=== PATIENT | female | born 1965 ===

== ENCOUNTER → 2020-09-28 09:06 | Outpatient (BNVA) | payer MEDICAID, SELFPAY | PROVIDERS: PCP Nurse Practitioner Primary Care; Visit Provider Internal Medicine Gastroenterology ==

== ENCOUNTER 2020-10-27 17:57 | Inpatient (IN) | payer OTHER, MEDICAID, SELFPAY ==
--- NOTE | ~2020-10-27 | CT_ITS ---
EXAMINATION: CT HEAD WITHOUT CONTRAST CLINICAL INFORMATION: Altered mental status COMPARISON: Brain MRI of 02/06/2020, head CT scan of 02/01/2020, 07/22/2019, 05/09/2019 TECHNIQUE: Contiguous axial imaging was performed from the skull base to vertex without intravenous administration of contrast. This CT examination was performed using dose optimization techniques as appropriate, variously including the following: *Automated exposure control *Adjustment of mA and/or kV according to patient size (this includes techniques or standardized protocols for targeted exams where dose is matched to indication/reason for exam; i.e. extremities or head) *Use of iterative reconstruction technique DLP: 923 mGy-cm FINDINGS: There is no evidence of acute intracranial hemorrhage or territorial infarction. No abnormal mass effect or midline shift is seen. Kaur to white matter differentiation is well preserved. No extra-axial fluid collections are identified. The ventricles are normal in size. There is probably mild cerebral atrophy with prominence of the extra-axial CSF spaces, similar to previous studies. There is no abnormal attenuation within the brain parenchyma. The osseous structures are normal. Calcified soft tissue lesions in the subgaleal soft tissues at the vertex on the right are again noted with the larger one measuring 1.8 cm, again likely representing calcifying epidermal inclusion cysts.. The mastoid air cells and visualized portions of the paranasal sinuses are well aerated. CT/CT head/brain wo con IMPRESSION: No acute intracranial pathology. No significant interval change is noted compared to last CT.
[2020-10-27 18:10] VITALS: BP 150/105; PULSE 109; RESP 18; TEMP 37; O2SAT 98; BMI 41.0
--- NOTE | 2020-10-27 19:08 | ED_ITS ---
HPI - Weakness General Chief complaint: Weakness Stated complaint: weakness Time Seen by Provider: 10/27/20 18:06 Source: patient and family Mode of arrival: ambulatory Limitations: no limitations History of Present Illness MD Complaint: generalized weakness (sleeping all day, withdrawn) Onset (ago): week(s) (3) Duration: progressively worsening Location: generalized Severity: severe Relieving factors: none Exacerbating factors: none Context: other ( denies life stressors or acute event 3 weeks ago to trigger these events) Associated symptoms: loss of appetite and other (depressed, tearful) Related Data Home Medications Medication Instructions Recorded Confirmed albuterol sulfate [ProAir HFA] 2 puff INHALATION QID 10/27/20 10/27/20 alcohol swabs [Alcohol Prep Pads] 1 pledget TOPICAL BID 10/27/20 10/27/20 aspirin 1 tab PO BEDTIME 10/27/20 10/27/20 blood sugar diagnostic [FreeStyle 10/27/20 10/27/20 Lite Strips] clonazepam 1 tab PO BID 10/27/20 10/27/20 duloxetine 1 cap PO QAM 10/27/20 10/27/20 gabapentin 2 cap PO TID 10/27/20 10/27/20 glipizide 1 tab PO QAM 10/27/20 10/27/20 haloperidol 1 tab PO BID 10/27/20 10/27/20 insulin lispro protamin-lispro 50 unit SUBCUT BID 10/27/20 10/27/20 [Humalog Mix 75-25 KwikPen] lancets [TRUEplus Lancets] 10/27/20 10/27/20 lisinopril-hydrochlorothiazide 1 tab PO QAM 10/27/20 10/27/20 metformin 2 tab PO BID 10/27/20 10/27/20 pen needle, diabetic [Pentips] 10/27/20 10/27/20 rosuvastatin 1 tab PO QPM 10/27/20 10/27/20 topiramate 1 tab PO BID 10/27/20 10/27/20 Allergies Allergy/AdvReac Type Severity Reaction Status Date / Time No Known Allergies Allergy Verified 09/28/20 09:08 Review of Systems Review of Systems: ROS unable to be obtained due to patient not talking information gathered from [facility] Past Medical History Source: obtained from family Medical History (Updated 10/27/20 @ 21:41 by Stacey Moseley DO) Asthma Bipolar 1 disorder Depression Diabetes GERD (gastroesophageal reflux disease) Hepatitis HTN (hypertension) Sleep apnea Surgical History (Updated 10/27/20 @ 19:44 by Stacey Moseley DO) History of section Social History Social History (Updated 10/27/20 @ 19:44 by Stacey Moseley DO) Alcohol intake: never Smoking Status: Never smoker Use of substances other than those prescribed or required for medical reasons: No Advance Directives: No Advance Directives Information Provided: Yes Physical Exam Vital Signs: Vital Signs: Last Vital Signs Temp 98.6 F 10/27/20 18:10 Pulse 97 10/27/20 22:00 Resp 16 10/27/20 22:00 BP 112/57 L 10/27/20 22:00 Pulse Ox 97 10/27/20 22:00 Body Mass Index 41.0 Appearance: Alert. Tracks with eyes, grabs both hands, crying Eyes: Pupils equal, round and reactive to light. Tracks objects ENT: Pharynx normal. Neck: Normal inspection. Neck supple. CVS: Normal heart rate and rhythm. Pulses normal. Respiratory: No respiratory distress. Breath sounds normal. Abdomen: Soft and nontender. Obese Skin: Skin warm and dry. Normal skin color. Normal skin turgor. Extremities: No lower extremity edema. No calf ttp Neuro: Alert. Nonverbal No motor deficit. No sensory deficit. Psych: flat affect, withdrawn tearful Course Course Course Narrative: medically cleared for [facility] all labs normal - will continue to refer to [facility] patient admits severe depression after her son bought a motorcycle as she is worried he is now going to signed out pending [facility] evaluation Patient placed in physician observation at 1149pm. The indication for observation is that the patient needs to be evaluated for possible inpatient psychiatry given her degree of depression. At this time the patient is well dev eloped well nourished, lungs clear, CV RRR, abd nontender, neuro is intact. MDM - Weakness MDM Narrative Medical decision making narrative: 55 yo female with depression, bipolar disorder, sleep apnea, DM, asthma here with weakness x 3 weeks seems almost catatonic at times she is tracking with her eyes, she is tearful when asked if she is depressed, no focal deficits has been going on for 3 weeks at this time will need labs, CT head for mass, possible consult to N/CARE team if medically cleared Lab Data Result diagrams: 10/27/20 19:33 10/27/20 19:33 Labs: Lab Results 10/27/20 10/27/20 10/27/20 Range/Units 19:33 19:33 19:33 WBC 11.7 H (4.8-10.8) X10*3/uL RBC 5.26 (4.20-5.50) X10*6/uL Hgb 15.7 (12.0-16.0) g/dl Hct 45.7 (37-47) % MCV 86.9 (80-98) fL MCH 29.8 (27.0-33.0) pg MCHC 34.4 (31.0-35.0) g/dl RDW 12.3 (11.0-16.0) % Plt Count 228 (160-400) X10*3/uL MPV 11.4 (9.4-12.3) fL Immature Gran % (Auto) Cancelled Neut % (Auto) Cancelled Lymph % (Auto) Cancelled [place] % (Auto) Cancelled Eos % (Auto) Cancelled Baso % (Auto) Cancelled Lymph # (Auto) Cancelled [place] # (Auto) Cancelled Eos # (Auto) Cancelled Baso # (Auto) Cancelled Abs Immat Gran (auto) Cancelled Absolute Neuts (auto) Cancelled Absolute Nucleated RBC 0.000 (0.0-0.012) X10*3/uL Nucleated RBC % (auto) 0.0 (0.0-0.2) /100WBC Neutrophils % (Manual) 48 (45-73) % Band Neutrophils % 1 L (3-5) % Lymphocytes % (Manual) 37 (20-40) % Atypical Lymphs % (Man) 9 H (0-6) % Monocytes % (Manual) 4 (2-11) % Eosinophils % (Manual) 1 (0-4) % Abs Neuts (Manual) 5.7 (2.2-7.9) X10*3/uL Lymphocytes # (Manual) 4.3 (0.6-4.8) X10*3/uL Atyp Lymphs # (Manual) 1.1 x10*3/uL Monocytes # (Manual) 0.5 (0.0-1.2) X10*3/uL Eosinophils # (Manual) 0.1 (0.0-0.8) X10*3/UL Toxic Vacuolation PRESENT Platelet Estimate NORMAL (NORMAL) Plt Morphology Comment NORMAL RBC Morphology NORMAL Smear Tech's Comments MANUAL DIFF Hold Blue Top SEE NOTE VBG pH (7.32-7.43) VBG pCO2 mmHg VBG pO2 mmHg VBG HCO3 (22-26) mmol/L VBG O2 Saturation % VBG Base Excess mmol/L Sodium (135-145) mmol/L Potassium (3.3-5.1) mmol/L Chloride (96-108) mmol/L Carbon Dioxide (22-29) mmol/L Anion Gap (12-20) BUN (9-16) mg/dL Creatinine (0.5-1.4) mg/dL Estim Creat Clear Calc Estimated GFR Random Glucose (60-115) mg/dL Calcium (8.4-10.2) mg/dL Magnesium (1.6-2.6) mg/dL Total Bilirubin (0.0-1.0) mg/dL Direct Bilirubin (0.0-0.5) mg/dL AST (5-31) U/L ALT (0-31) U/L Alkaline Phosphatase (39-117) U/L Ammonia (13-55) umol/L Total Protein (6.5-8.0) g/dL Albumin (3.5-5.0) g/dL Lipase (8-78) U/L TSH (0.32-4.0) uIU/mL Thyroxine (T4) 11.7 (4.5-12.0) ug/dL Urine Color Urine Appearance Urine pH (5.0-8.0) Ur Specific [place] (1.005-1.025) Urine Protein (NEG-TRACE) MG/DL Urine Glucose (UA) (NEG) MG/DL Urine Ketones (NEG) MG/DL Urine Blood (NEG) Urine Nitrite (NEG) Ur Leukocyte Esterase (NEG) Valproic Acid (50.0-100.0) mcg/mL COVID-19 (RADHA) (Negative) COVID-19 Clin Com 10/27/20 10/27/20 10/27/20 Range/Units 19:33 19:35 19:36 WBC (4.8-10.8) X10*3/uL RBC (4.20-5.50) X10*6/uL Hgb (12.0-16.0) g/dl Hct (37-47) % MCV (80-98) fL MCH (27.0-33.0) pg MCHC (31.0-35.0) g/dl RDW (11.0-16.0) % Plt Count (160-400) X10*3/uL MPV (9.4-12.3) fL Immature Gran % (Auto) Neut % (Auto) Lymph % (Auto) [place] % (Auto) Eos % (Auto) Baso % (Auto) Lymph # (Auto) [place] # (Auto) Eos # (Auto) Baso # (Auto) Abs Immat Gran (auto) Absolute Neuts (auto) Absolute Nucleated RBC (0.0-0.012) X10*3/uL Nucleated RBC % (auto) (0.0-0.2) /100WBC Neutrophils % (Manual) (45-73) % Band Neutrophils % (3-5) % Lymphocytes % (Manual) (20-40) % Atypical Lymphs % (Man) (0-6) % Monocytes % (Manual) (2-11) % Eosinophils % (Manual) (0-4) % Abs Neuts (Manual) (2.2-7.9) X10*3/uL Lymphocytes # (Manual) (0.6-4.8) X10*3/uL Atyp Lymphs # (Manual) x10*3/uL Monocytes # (Manual) (0.0-1.2) X10*3/uL Eosinophils # (Manual) (0.0-0.8) X10*3/UL Toxic Vacuolation Platelet Estimate (NORMAL) Plt Morphology Comment RBC Morphology Smear Tech's Comments Hold Blue Top VBG pH (7.32-7.43) VBG pCO2 mmHg VBG pO2 mmHg VBG HCO3 (22-26) mmol/L VBG O2 Saturation % VBG Base Excess mmol/L Sodium 137 (135-145) mmol/L Potassium 3.6 (3.3-5.1) mmol/L Chloride 99 (96-108) mmol/L Carbon Dioxide 22 (22-29) mmol/L Anion Gap 20 (12-20) BUN 15 (9-16) mg/dL Creatinine 0.86 (0.5-1.4) mg/dL Estim Creat Clear Calc 100.9 Estimated GFR > 60 Random Glucose 126 H (60-115) mg/dL Calcium 10.1 (8.4-10.2) mg/dL Magnesium 2.2 (1.6-2.6) mg/dL Total Bilirubin 0.5 (0.0-1.0) mg/dL Direct Bilirubin 0.2 (0.0-0.5) mg/dL AST 20 (5-31) U/L ALT 16 (0-31) U/L Alkaline Phosphatase 86 (39-117) U/L Ammonia (13-55) umol/L Total Protein 8.4 H (6.5-8.0) g/dL Albumin 4.6 (3.5-5.0) g/dL Lipase 48 (8-78) U/L TSH 2.60 (0.32-4.0) uIU/mL Thyroxine (T4) (4.5-12.0) ug/dL Urine Color Urine Appearance Urine pH (5.0-8.0) Ur Specific [place] (1.005-1.025) Urine Protein (NEG-TRACE) MG/DL Urine Glucose (UA) (NEG) MG/DL Urine Ketones (NEG) MG/DL Urine Blood (NEG) Urine Nitrite (NEG) Ur Leukocyte Esterase (NEG) Valproic Acid 94.7 (50.0-100.0) mcg/mL COVID-19 (RADHA) Negative (Negative) COVID-19 Clin Com See Note 10/27/20 10/27/20 10/27/20 Range/Units 21:54 22:41 22:43 WBC (4.8-10.8) X10*3/uL RBC (4.20-5.50) X10*6/uL Hgb (12.0-16.0) g/dl Hct (37-47) % MCV (80-98) fL MCH (27.0-33.0) pg MCHC (31.0-35.0) g/dl RDW (11.0-16.0) % Plt Count (160-400) X10*3/uL MPV (9.4-12.3) fL Immature Gran % (Auto) Neut % (Auto) Lymph % (Auto) [place] % (Auto) Eos % (Auto) Baso % (Auto) Lymph # (Auto) [place] # (Auto) Eos # (Auto) Baso # (Auto) Abs Immat Gran (auto) Absolute Neuts (auto) Absolute Nucleated RBC (0.0-0.012) X10*3/uL Nucleated RBC % (auto) (0.0-0.2) /100WBC Neutrophils % (Manual) (45-73) % Band Neutrophils % (3-5) % Lymphocytes % (Manual) (20-40) % Atypical Lymphs % (Man) (0-6) % Monocytes % (Manual) (2-11) % Eosinophils % (Manual) (0-4) % Abs Neuts (Manual) (2.2-7.9) X10*3/uL Lymphocytes # (Manual) (0.6-4.8) X10*3/uL Atyp Lymphs # (Manual) x10*3/uL Monocytes # (Manual) (0.0-1.2) X10*3/uL Eosinophils # (Manual) (0.0-0.8) X10*3/UL Toxic Vacuolation Platelet Estimate (NORMAL) Plt Morphology Comment RBC Morphology Smear Tech's Comments Hold Blue Top VBG pH 7.42 (7.32-7.43) VBG pCO2 36 mmHg VBG pO2 65 mmHg VBG HCO3 23 (22-26) mmol/L VBG O2 Saturation 92.0 % VBG Base Excess 0.0 mmol/L Sodium (135-145) mmol/L Potassium (3.3-5.1) mmol/L Chloride (96-108) mmol/L Carbon Dioxide (22-29) mmol/L Anion Gap (12-20) BUN (9-16) mg/dL Creatinine (0.5-1.4) mg/dL Estim Creat Clear Calc Estimated GFR Random Glucose (60-115) mg/dL Calcium (8.4-10.2) mg/dL Magnesium (1.6-2.6) mg/dL Total Bilirubin (0.0-1.0) mg/dL Direct Bilirubin (0.0-0.5) mg/dL AST (5-31) U/L ALT (0-31) U/L Alkaline Phosphatase (39-117) U/L Ammonia 48 (13-55) umol/L Total Protein (6.5-8.0) g/dL Albumin (3.5-5.0) g/dL Lipase (8-78) U/L TSH (0.32-4.0) uIU/mL Thyroxine (T4) (4.5-12.0) ug/dL Urine Color YELLOW Urine Appearance CLEAR Urine pH 6.0 (5.0-8.0) Ur Specific [place] 1.025 (1.005-1.025) Urine Protein TRACE (NEG-TRACE) MG/DL Urine Glucose (UA) NEG (NEG) MG/DL Urine Ketones 5 (NEG) MG/DL Urine Blood NEG (NEG) Urine Nitrite NEG (NEG) Ur Leukocyte Esterase NEG (NEG) Valproic Acid (50.0-100.0) mcg/mL COVID-19 (RADHA) (Negative) COVID-19 Clin Com ECG Data Attestation: I personally reviewed and interpreted this ECG as follows: ECG interpretation date: 10/27/20 ECG interpretation time: 19:33 Interpretation: Rate: 102 Rhythm: sinus tachycardia [place]: normal Normal P waves. Normal OMID. Normal QRS complex. ST T wave : no RANDY, nonspecific qTC: normal prior studies: no acute ischemia The study has been interpreted contemporaneously by me. . Discharge Plan Discharge Clinical Impression: Depression Qualifiers: Depression Type: other depression Qualified Code(s): F32.89 - Other specified depressive episodes Prescriptions: No Action metformin 500 mg tablet 2 tab PO BID RF: 0 glipizide 10 mg tablet extended release 24hr 1 tab PO QAM RF: 0 clonazepam 1 mg tablet 1 tab PO BID RF: 0 (DME) FreeStyle Lite Strips Strip MISCELLANEOUS TID RF: 0 aspirin 81 mg tablet,delayed release (DR/EC) 1 tab PO BEDTIME RF: 0 lisinopril-hydrochlorothiazide 20-25 mg tablet 1 tab PO QAM RF: 0 alcohol swabs [Alcohol Prep Pads] Pads, Medicated 1 pledget topical BID RF: 0 gabapentin 100 mg capsule 2 cap PO TID RF: 0 albuterol sulfate [ProAir HFA] 90 mcg/actuation HFA aerosol inhaler 2 puff inhalation QID RF: 0 haloperidol 2 mg tablet 1 tab PO BID RF: 0 insulin lispro protamin-lispro [Humalog Mix 75-25 KwikPen] 100 unit/mL (75-25) insulin pen 50 unit subcut BID RF: 0 rosuvastatin 5 mg tablet 1 tab PO QPM RF: 0 topiramate 50 mg tablet 1 tab PO BID RF: 0 duloxetine 60 mg capsule,delayed release(DR/EC) 1 cap PO QAM RF: 0 (DME) pen needle, diabetic [Pentips] 32 gauge x 5/32 needle MISCELLANEOUS BID RF: 0 (DME) lancets [TRUEplus Lancets] 33 gauge misc MISCELLANEOUS TID RF: 0
--- NOTE | 2020-10-27 19:09 | ECG_ITS ---
Test Reason : WEAKNESS Blood Pressure : / mmHG Vent. Rate : 102 BPM Atrial Rate : 102 BPM P-R Int : 144 ms QRS Dur : 070 ms QT Int : 344 ms P-R-T Axes : 028 013 -08 degrees QTc Int : 448 ms Sinus tachycardia Nonspecific T wave abnormality Abnormal ECG When compared with ECG of 01-FEB-2020 12:46, No significant change was found Referred By: Stacey Moseley Electronically Signed By:JOSEPH YOO MD
[2020-10-27 19:40] LABS: Hematocrit 45.7 % (37-47); Hemoglobin 15.7 g/dl (12.0-16.0); Mean Corpuscular HGB Conc 34.4 g/dl (31.0-35.0); Mean Corpuscular Hemoglobin 29.8 pg (27.0-33.0); Mean Corpuscular Volume 86.9 fL (80-98); Mean Platelet Volume 11.4 fL (9.4-12.3); Platelet Count 228 X10*3/uL (160-400); Red Blood Count 5.26 X10*6/uL (4.20-5.50); Red Cell Distribution Width 12.3 % (11.0-16.0); White Blood Count 11.7 X10*3/uL (4.8-10.8)
[2020-10-27 20:02] LABS: Alanine Aminotransferase 16 U/L (0-31); Albumin Level 4.6 g/dL (3.5-5.0); Alkaline Phosphatase 86 U/L (39-117); Anion Gap 20 (12-20); Aspartate Amino Transferase 20 U/L (5-31); Bilirubin Direct 0.2 mg/dL (0.0-0.5); Bilirubin Total 0.5 mg/dL (0.0-1.0); Blood Urea Nitrogen 15 mg/dL (9-16); Calcium 10.1 mg/dL (8.4-10.2); Carbon Dioxide 22 mmol/L (22-29); Chloride 99 mmol/L (96-108); Creatinine Clr Calc Pharmacy 100.9; Estimated Glomerular Filt Rate > 60; Glucose Random 126 mg/dL (60-115); Lipase 48 U/L (8-78); Magnesium 2.2 mg/dL (1.6-2.6); Potassium 3.6 mmol/L (3.3-5.1); Sodium 137 mmol/L (135-145); Total Protein 8.4 g/dL (6.5-8.0)
[2020-10-27 20:04] LABS: COVID-19 Test Negative (Negative); IDNOW Serial# 9DD0AD1C
[2020-10-27 20:15] LABS: SLIDE REVIEW MANUAL DIFF
[2020-10-27 20:19] VITALS: BP 128/85; PULSE 100; RESP 16; O2SAT 97
[2020-10-27 20:19] LABS: T4 Thyroxine 11.7 ug/dL (4.5-12.0)
[2020-10-27 20:21] LABS: Atypical Lymph Absolute Manual 1.1 x10*3/uL; Atypical Lymphs Percent Manual 9 % (0-6); Band Neutrophils Percent 1 % (3-5); Eosinophils Absolute Manual 0.1 X10*3/UL (0.0-0.8); Eosinophils Percent Manual 1 % (0-4); Lymphocytes Absolute Manual 4.3 X10*3/uL (0.6-4.8); Lymphocytes Percent Manual 37 % (20-40); Monocytes Absolute Manual 0.5 X10*3/uL (0.0-1.2); Monocytes Percent Manual 4 % (2-11); Neutrophils Absolute Manual 5.7 X10*3/uL (2.2-7.9); Neutrophils Percent Manual 48 % (45-73)
[2020-10-27 20:23] LABS: Platelet Estimate NORMAL (NORMAL); Platelet Morphology Comment NORMAL; RBC Morphology NORMAL; Toxic Vacuolation PRESENT
[2020-10-27 21:30] LABS: Valproate 94.7 mcg/mL (50.0-100.0)
[2020-10-27 22:00] VITALS: BP 112/57; PULSE 97; RESP 16; O2SAT 97
[2020-10-27 22:16] LABS: Glucose Urine UA NEG (NEG); Leukocyte Esterase Urine NEG (NEG); Nitrite Urine NEG (NEG); Specific Gravity - Urine 1.025 (1.005-1.025); Urine Blood NEG (NEG); Urine Ketones 5 MG/DL (NEG); Urine Protein TRACE MG/DL (NEG-TRACE)
[2020-10-27 22:17] LABS: Appearance Urine CLEAR; Color Urine YELLOW
[2020-10-27 22:50] LABS: Venous Blood Gas Refer to POC result
[2020-10-27 22:51] LABS: VBG HCO3 23 mmol/L (22-26); VBG pCO2 36 mmHg; VBG pH 7.42 (7.32-7.43); VBG pO2 65 mmHg
[2020-10-27 23:02] LABS: Ammonia 48 umol/L (13-55)
[2020-10-28] VITALS: BP 122/67; PULSE 109; RESP 15
[2020-10-28] MEDS: clonazePAM 1 MG TABLET PO ×3 (01:34→21:37)
[2020-10-28] MEDS: Gabapentin 100 MG CAPSULE 200 MG PO ×4 (01:35→21:37)
--- NOTE | 2020-10-28 01:35 | PC.NURSE ---
Patient is responding to questions, she ate and did state that she was depressed and that she was worried that her son was going to because he bought a motorcycle. [facility] was faxed and called.
--- NOTE | 2020-10-28 01:44 | PC.NURSE ---
Patient was able to ambulate to bathroom and back with little assistance and is fully able to answer questions and let her needs know
[2020-10-28 02:00] VITALS: PULSE 101; RESP 14
[2020-10-28 05:57] VITALS: BP 125/50; PULSE 98; RESP 19; O2SAT 97
[2020-10-28 06:16] LABS: Glucose, Whole Blood 138 mg/dL (60-115)
--- NOTE | 2020-10-28 07:38 | PC.NURSE ---
report taken from garret zayas pt here for catatonic behaviors, initially minimally responsive but has gradually opened up verbally, speaks [place] and able to make needs known. pt is reportedly able to ambulate and complete adls independently, but requires frequent coahcing, asking this rn to assist pt moving. pt given stand by support. breakfast tray given, able to eat on own and tolerate po. wctm.
[2020-10-28 09:08] LABS: Glucose, Whole Blood 216 mg/dL (60-115)
[2020-10-28 09:10] VITALS: BP 125/50
[2020-10-28] MEDS: Topiramate 25 MG TABLET 50 MG PO ×2 (09:10→21:38)
[2020-10-28] MEDS: hydroCHLOROthiazide 25 MG TABLET PO (09:10)
[2020-10-28] MEDS: Albuterol Sulfate 90 MCG 8 GM INHALER 2 PUFF INHALE ×4 (09:10→21:56)
[2020-10-28] MEDS: metFORMIN HCl 1,000 MG TABLET 1000 MG PO ×2 (09:10→21:37)
[2020-10-28] MEDS: lisinopriL 20 MG TABLET PO (09:10)
[2020-10-28] MEDS: Insulin Glargine,Hum.rec.anlog 100 UNIT/ML 10 ML VIAL 30 UNIT SUBCUT ×2 (09:10→21:39)
[2020-10-28] MEDS: HaloperidoL 1 MG TABLET 2 MG PO ×2 (09:28→21:54)
[2020-10-28] MEDS: glipiZIDE XL 10 MG TAB.ER.24 PO (09:28)
--- NOTE | 2020-10-28 09:32 | PC.NURSE ---
pt ate all of breakfast, took all morning meds w assistance, able to ambulate to restroom w standby assist using slow steady gait.
--- NOTE | 2020-10-28 15:46 | MHC.CARE ---
Per N - pt is an [facility] follow up for Thursday. Clinician was unable to reach pt's or [facility].
[2020-10-28 16:08] VITALS: BP 115/71; PULSE 96; RESP 16; O2SAT 96
[2020-10-28] MEDS: Insulin Lispro 100 UNIT/ML 3 ML VIAL 12 UNIT SUBCUT (16:39)
[2020-10-28 21:05] VITALS: BP 124/70; PULSE 94; RESP 16; TEMP 37.1; O2SAT 96
[2020-10-28 21:37] LABS: Glucose, Whole Blood 119 mg/dL (60-115)
[2020-10-28] MEDS: Atorvastatin Calcium 20 MG TABLET PO (21:37)
[2020-10-28] MEDS: Aspirin Enteric Coated 81 MG TABLET.DR PO (21:37)
--- NOTE | 2020-10-29 | PC.NURSE ---
patient ambulated to the bathroom with a steady gait
--- NOTE | 2020-10-29 03:14 | PC.NURSE ---
patient is sleeping at this time, repositioning self in the bed
[2020-10-29 06:36] VITALS: BP 106/47; PULSE 90; RESP 16; O2SAT 96
[2020-10-29 06:47] LABS: Triiodothyronine T3 Free 3.4 pg/mL (2.3-4.2)
[2020-10-29 07:19] LABS: Glucose, Whole Blood 134 mg/dL (60-115)
[2020-10-29] MEDS: Topiramate 25 MG TABLET 50 MG PO ×2 (08:17→20:57)
[2020-10-29] MEDS: HaloperidoL 1 MG TABLET 2 MG PO ×2 (08:17→21:10)
[2020-10-29] MEDS: Albuterol Sulfate 90 MCG 8 GM INHALER 2 PUFF INHALE ×4 (08:17→20:22)
[2020-10-29] MEDS: glipiZIDE XL 10 MG TAB.ER.24 PO (08:17)
[2020-10-29 08:18] VITALS: BP 116/65; PULSE 95
[2020-10-29] MEDS: Gabapentin 100 MG CAPSULE 200 MG PO ×3 (08:18→20:57)
[2020-10-29] MEDS: hydroCHLOROthiazide 25 MG TABLET PO (08:18)
[2020-10-29] MEDS: lisinopriL 20 MG TABLET PO (08:18)
[2020-10-29] MEDS: DULoxetine HCl 60 MG CAPSULE.DR PO (08:20)
[2020-10-29] MEDS: clonazePAM 1 MG TABLET PO ×2 (08:20→20:57)
[2020-10-29] MEDS: metFORMIN HCl 1,000 MG TABLET 1000 MG PO ×2 (08:20→20:57)
[2020-10-29] MEDS: Insulin Lispro 100 UNIT/ML 3 ML VIAL 12 UNIT SUBCUT ×2 (08:21→16:43)
[2020-10-29] MEDS: Insulin Glargine,Hum.rec.anlog 100 UNIT/ML 10 ML VIAL 30 UNIT SUBCUT ×2 (08:22→20:57)
[2020-10-29 12:00] VITALS: BP 122/82; PULSE 98; RESP 18; O2SAT 98
[2020-10-29 13:44] LABS: Glucose, Whole Blood 115 mg/dL (60-115)
[2020-10-29 16:44] LABS: Glucose, Whole Blood 156 mg/dL (60-115)
--- NOTE | 2020-10-29 19:40 | PC.NURSE ---
Report received. PT is resting in bed. PT was asking to go home. Plan was explained for [facility] bed search. PT understands and agrees to plan.
[2020-10-29 20:23] VITALS: PULSE 102; O2SAT 96
[2020-10-29] MEDS: Atorvastatin Calcium 20 MG TABLET PO (20:57)
[2020-10-29] MEDS: Aspirin Enteric Coated 81 MG TABLET.DR PO (20:57)
[2020-10-29 23:00] VITALS: BP 126/84; PULSE 100; RESP 18; TEMP 36.5; O2SAT 95
[2020-10-30] VITALS (7 sets, daily range): BP systolic 108–126; BP diastolic 63–74; PULSE 84–99; RESP 16–18; TEMP 36.9; O2SAT 95–99
--- NOTE | 2020-10-30 02:54 | PC.NURSE ---
PT ASSISTED OUT OF BED TO USE THE BATHROOM. ONCE OUT OF BED, PT AMBULATED WITH STEADY GAIT.
[2020-10-30 07:06] LABS: Glucose, Whole Blood 166 mg/dL (60-115)
[2020-10-30 07:28] LABS: Glucose, Whole Blood 192 mg/dL (60-115)
[2020-10-30] MEDS: Insulin Lispro 100 UNIT/ML 3 ML VIAL SUBCUT ×2 (07:28→21:30)
--- NOTE | 2020-10-30 07:35 | PC.NURSE ---
alert, ate breakfast, [id number], insulin order adjusted by provider, sitter at bedside, affect flat, pt asked and was updated to care plan, skin wpd,
[2020-10-30] MEDS: HaloperidoL 1 MG TABLET 2 MG PO ×2 (08:13→21:36)
[2020-10-30] MEDS: clonazePAM 1 MG TABLET PO ×2 (08:14→21:36)
[2020-10-30] MEDS: metFORMIN HCl 1,000 MG TABLET 1000 MG PO ×2 (08:14→21:36)
[2020-10-30] MEDS: lisinopriL 20 MG TABLET PO (08:14)
[2020-10-30] MEDS: Gabapentin 100 MG CAPSULE 200 MG PO ×3 (08:15→21:36)
[2020-10-30] MEDS: Insulin Glargine,Hum.rec.anlog 100 UNIT/ML 10 ML VIAL 30 UNIT SUBCUT ×2 (08:16→21:35)
[2020-10-30] MEDS: glipiZIDE XL 10 MG TAB.ER.24 PO (08:16)
[2020-10-30] MEDS: Topiramate 25 MG TABLET 50 MG PO ×2 (08:16→21:36)
[2020-10-30] MEDS: DULoxetine HCl 60 MG CAPSULE.DR PO (08:16)
[2020-10-30] MEDS: hydroCHLOROthiazide 25 MG TABLET PO (08:16)
[2020-10-30] MEDS: Albuterol Sulfate 90 MCG 8 GM INHALER 2 PUFF INHALE ×3 (08:17→21:34)
[2020-10-30 09:49] LABS: Glucose, Whole Blood 121 mg/dL (60-115)
[2020-10-30 12:57] LABS: Glucose, Whole Blood 124 mg/dL (60-115)
--- NOTE | 2020-10-30 14:58 | PC.NURSE ---
awake and watching tv w , medicated as ordered, nad
--- NOTE | 2020-10-30 19:26 | PC.NURSE ---
pt is awake and alert, speach is slow but clear and appropriate. sitter maintained at bedside. bed search remains in progress.
[2020-10-30 19:28] LABS: Glucose, Whole Blood 168 mg/dL (60-115)
[2020-10-30 21:27] LABS: Glucose, Whole Blood 172 mg/dL (60-115)
[2020-10-30] MEDS: Aspirin Enteric Coated 81 MG TABLET.DR PO (21:36)
[2020-10-30] MEDS: Atorvastatin Calcium 20 MG TABLET PO (21:41)
--- NOTE | 2020-10-31 00:09 | PC.ADMIT ---
Patient is a 55 year old [place] speaking, woman who was brought to the ED by her who reported she has been decompensating over the last 2-3 weeks and catatonic for the last week. Pt presented disoriented and responding to internal stimuli. Pt husbnd reports she has been sleeping during the day, overeating with weight gain, has been unable to complete tasks and has been depressed and anxious. Pt arrived on a CV status, covid negative. Pt slow to respond, unkept and was unable to answer some questions. Pt denies an community services. Pt denies alcohol or drug use. Trauma history unknown. Pt denies SI/HI, AH/VH. Pt contracts for safety. called for orders and notified of admission. Pt does have a diabetes with insulin coverage. Pt states she was diagnosed with sleep apnea but does not wear CPAP. pt feels safe on te unit. Med rec complete. Pt was tired and asked to go to bed. Pt on 15 min checks.
[2020-10-31 06:00] VITALS: BP 107/65; PULSE 107; RESP 18; TEMP 36.4; O2SAT 96
[2020-10-31 06:25] LABS: Glucose, Whole Blood 150 mg/dL (60-115)
[2020-10-31] MEDS: DULoxetine HCl 60 MG CAPSULE.DR PO (09:20)
[2020-10-31] MEDS: Gabapentin 100 MG CAPSULE 200 MG PO ×3 (09:20→21:52)
[2020-10-31 09:21] VITALS: BP 123/60; PULSE 97
[2020-10-31] MEDS: glipiZIDE XL 10 MG TAB.ER.24 PO (09:21)
[2020-10-31] MEDS: Topiramate 25 MG TABLET 50 MG PO (09:21)
[2020-10-31] MEDS: clonazePAM 1 MG TABLET PO (09:21)
[2020-10-31] MEDS: HaloperidoL 1 MG TABLET 2 MG PO (09:21)
[2020-10-31] MEDS: hydroCHLOROthiazide 25 MG TABLET PO (09:21)
[2020-10-31] MEDS: metFORMIN HCl 1,000 MG TABLET 1000 MG PO ×2 (09:21→21:53)
[2020-10-31] MEDS: lisinopriL 20 MG TABLET PO (09:21)
[2020-10-31] MEDS: Insulin Glargine,Hum.rec.anlog 100 UNIT/ML 10 ML VIAL 30 UNIT SUBCUT ×2 (09:28→21:51)
[2020-10-31 11:35] LABS: Glucose, Whole Blood 181 mg/dL (60-115)
[2020-10-31] MEDS: Insulin Lispro 100 UNIT/ML 3 ML VIAL SUBCUT (12:27)
[2020-10-31 14:29] VITALS: BP 94/68; PULSE 110; RESP 14
--- NOTE | 2020-10-31 14:48 | HO.PSYADMNOT ---
HPI Chief Complaint: MDD with psychosis Sources of Information: patient interviewed, chart reviewed and crisis/core team assessment reviewed HPI Subjective Notes: Conditional Voluntary Narrative: Mrs. 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 This is her first inpatient psychiatric admission. Per crisis, pt was brought to [facility] ED due to catatonia. Per crisis, pt has been presenting with blank stare, minimal communication, anhedonia, sleeping most of the day for past 3 weeks. However, upon further collateral information from her son, pt's current presentation has been going on for over one year. Of note, pt has had LP back in 03/2020 mostly looking at meningitis/encephalitis panel, which was negative. Other specialty consults such as neurology not available at this time. On the unit, Mrs. Ratliff presents with blank stare, able to verbalize few words, noted significant delayed in response rate. Pt not able to provide much details as to why she is here in the hospital. She is oriented to place, year but not situation nor month or date. She denies SI/HI. She denies AH/VH, possibly responding to internally stimuli. Past Psychiatric History: Inpatient: none OP: none Medication trials: topamax, haldol, clonazepam, cymbalta Medical Evaluation Reviewed: Yes Pt noted to by orthostatic- will hold hydroclorothiazide. [facility] Medical History (Updated 11/01/20 @ 15:50 by Elisabet Metz) Asthma Bipolar 1 disorder Depression Diabetes GERD (gastroesophageal reflux disease) Hepatitis HTN (hypertension) Sleep apnea Surgical History History of section Family History: unknown Social History: Lives with of past 2 years. She has one son who was in foster care for some years due to pt's substance use. Apparently, no substance use in past 10 years Substance History: past history but unclear detail. Trauma History: unknown Diagnostics Vital Signs (24Hr): Vital Signs - 24 hr 10/30/20 14:58 10/30/20 19:25 10/30/20 21:20 Temperature Pulse Rate 92 88 89 Respiratory Rate 16 16 17 Blood Pressure 108/67 120/67 112/74 Pulse Oximetry 97 99 95 10/30/20 23:05 10/31/20 06:00 10/31/20 09:21 Temperature 98.4 F 97.6 F Pulse Rate 99 107 H 97 Respiratory Rate 18 18 Blood Pressure 117/70 107/65 123/60 Pulse Oximetry 98 96 10/31/20 14:29 Temperature Pulse Rate 110 H Respiratory Rate 14 Blood Pressure 94/68 Pulse Oximetry Body Mass Index 41.0 Labs Results: 10/27/20 19:33 10/27/20 19:33 Labs: Laboratory Results - last 48 hr 10/29/20 10/30/20 10/30/20 16:41 07:00 07:24 POC Glucose 156 H 166 H 192 H 10/30/20 10/30/20 10/30/20 09:45 12:53 19:20 POC Glucose 121 H 124 H 168 H 10/30/20 10/31/20 10/31/20 21:23 06:21 11:31 POC Glucose 172 H 150 H 181 H Imaging Radiology Impressions: ITS Impressions Head CT 10/27/20 19:20 IMPRESSION: No acute intracranial pathology. No significant interval change is noted compared to last CT. Meds/Allergies Meds Home Medications Acetaminophen (Acetaminophen 325 Mg Tablet) 650 mg PO Q6H PRN PRN Reason: Headache/Pain Mild Scale (1-3) Last Admin: 10/31/20 21:52 Dose: 650 mg Documented by: Al Hydroxide/Mg Hydroxide (Magnesium Hydrox/Alum Hydrox 30 Ml Oral.Susp) 30 ml PO Q6H PRN PRN Reason: Heartburn/Nausea Albuterol Sulfate (Albuterol Sulfate 90 Mcg 8 Gm Inhaler) 2 puff INHALE RQID PRN PRN Reason: Shortness of Breath Aspirin (Aspirin Enteric Coated 81 Mg Tablet.) 81 mg PO BEDTIME [facility] Last Admin: 10/31/20 21:52 Dose: 81 mg Documented by: Atorvastatin Calcium (Atorvastatin Calcium 20 Mg Tablet) 20 mg PO BEDTIME [facility] Last Admin: 10/31/20 21:52 Dose: 20 mg Documented by: Duloxetine HCl (Duloxetine Hcl 60 Mg Capsule.) 60 mg PO DAILY [facility] Last Admin: 11/01/20 08:56 Dose: 60 mg Documented by: Gabapentin (Gabapentin 100 Mg Capsule) 200 mg PO TID [facility] Last Admin: 11/01/20 14:58 Dose: 200 mg Documented by: Glipizide (Glipizide Xl 10 Mg Tab.Er.24) 10 mg PO DAILY [facility] Last Admin: 11/01/20 08:56 Dose: 10 mg Documented by: Hydrochlorothiazide (Hydrochlorothiazide 25 Mg Tablet) 25 mg PO DAILY [facility] Last Admin: 10/31/20 09:21 Dose: 25 mg Documented by: Hydroxyzine HCl (Hydroxyzine Hcl 25 Mg Tablet) 25 mg PO BEDTIME PRN PRN Reason: Anxiety Insulin Glargine (Insulin Glargine,Hum.Rec.Anlog 100 Unit/Ml 10 Ml Vial) 30 unit SUBCUT BID [facility] Last Admin: 11/01/20 09:02 Dose: 30 unit Documented by: Insulin Human Lispro (Insulin Lispro 100 Unit/Ml 3 Ml Vial) 0 unit SUBCUT QIDACHS [facility]; Protocol Last Admin: 11/01/20 12:35 Dose: Not Given Documented by: Lisinopril (Lisinopril 20 Mg Tablet) 20 mg PO DAILY [facility] Last Admin: 11/01/20 08:57 Dose: 20 mg Documented by: Lorazepam (Lorazepam 1 Mg Tablet) 2 mg PO TID [facility] Last Admin: 11/01/20 14:58 Dose: 2 mg Documented by: Magnesium Hydroxide (Milk Of Magnesia 30 Ml Oral.Susp) 30 ml PO DAILY PRN PRN Reason: Constipation Metformin HCl (Metformin Hcl 1,000 Mg Tablet) 1,000 mg PO BID [facility] Last Admin: 11/01/20 08:56 Dose: 1,000 mg Documented by: Olanzapine (Olanzapine 2.5 Mg Tablet) 2.5 mg PO BID [facility] Last Admin: 11/01/20 08:56 Dose: 2.5 mg Documented by: Trazodone HCl (Trazodone Hcl 50 Mg Tablet) 50 mg PO BEDTIME PRN PRN Reason: Insomnia Allergies Allergies Allergy/AdvReac Type Severity Reaction Status Date / Time No Known Allergies Allergy Verified 10/29/20 16:16 Mental Status Exam Mental Status Exam Narrative: Appearance: [place] woman, disheveled, blank stare, in NAD Behavior: engagement in interview limited by blank stare Psychomotor: significant retardation noted Speech: mumbles at times, very slowed response rate, soft tone, monotone , minimally spontaneous TP: single words TC: poverty of thought Mood: tired Affect:constricted/mask-like apperance SI:denies HI:denies AH/VH:denies- may be responding to internal stimuli Delusions:none Insight/judgment:impaired Memory/cog: intermittently alert, oriented to year, place, not situation nor month. significant impairment in memory/cog but not formally tested. Assessment & Plan Assessment & Plan (1) Catatonia: Status: Acute Code(s): F06.1 - Catatonic disorder due to known physiological condition Assessment and Plan: Ms. Ratliff presents with unclear etiology of catatonic like symptoms, that apparently have not been completely new as initially reported by crisis. It appears that she has had some work up including LP, MRI, will try to obtain further medical records to clarify current presentation. Will d/c topamax as it may worsened cognition, stop haldol (high potency antipsychotic that can worsened catatonia), switch clonazepam to ativan. 1. Start ativan 2mg po TID 2. Start olanzapine 2.5mg po BID for underlying psychosis, if any with less impact on catatonia 3. continue cymbalta. 4. consider neurology consult Reason for continued inpatient stay Substantial Risk for: inability to function
[2020-10-31] MEDS: LORazepam 2 MG/ML VIAL IM (15:04)
--- NOTE | 2020-10-31 15:10 | PC.NURSE ---
Pt reporting she would like injectible medication to help her faster. EH ordered ativan 2mg, pt received.
[2020-10-31 17:34] LABS: Glucose, Whole Blood 126 mg/dL (60-115)
[2020-10-31 21:00] VITALS: BP 108/70; PULSE 98; RESP 14; TEMP 36.2; O2SAT 96
[2020-10-31] MEDS: OLANZapine 2.5 MG TABLET PO (21:52)
[2020-10-31] MEDS: Aspirin Enteric Coated 81 MG TABLET.DR PO (21:52)
[2020-10-31] MEDS: Acetaminophen 325 MG TABLET 650 MG PO (21:52)
[2020-10-31] MEDS: LORazepam 1 MG TABLET PO (21:52)
[2020-10-31] MEDS: Atorvastatin Calcium 20 MG TABLET PO (21:52)
[2020-10-31 22:20] LABS: Glucose, Whole Blood 117 mg/dL (60-115)
[2020-11-01 07:20] VITALS: BP 95/52; PULSE 82; RESP 18; TEMP 36.9; O2SAT 97
[2020-11-01 08:30] LABS: Estimated Average Glucose 151 mg/dL; Hemoglobin A1c % 6.9 %
[2020-11-01 08:35] LABS: Cholesterol 141 mg/dL; HDL Cholesterol 43 mg/dL; LDL Cholesterol Calculated 84 mg/dl; Triglycerides 71 mg/dL
[2020-11-01] MEDS: OLANZapine 2.5 MG TABLET PO ×2 (08:56→22:18)
[2020-11-01] MEDS: glipiZIDE XL 10 MG TAB.ER.24 PO (08:56)
[2020-11-01] MEDS: Gabapentin 100 MG CAPSULE 200 MG PO ×3 (08:56→22:17)
[2020-11-01] MEDS: metFORMIN HCl 1,000 MG TABLET 1000 MG PO ×2 (08:56→22:18)
[2020-11-01] MEDS: DULoxetine HCl 60 MG CAPSULE.DR PO (08:56)
[2020-11-01 08:57] VITALS: BP 110/65; PULSE 85
[2020-11-01] MEDS: LORazepam 1 MG TABLET PO (08:57)
[2020-11-01] MEDS: lisinopriL 20 MG TABLET PO (08:57)
[2020-11-01] MEDS: Insulin Glargine,Hum.rec.anlog 100 UNIT/ML 10 ML VIAL 30 UNIT SUBCUT ×2 (09:02→22:20)
[2020-11-01 09:12] LABS: Folate 13.7 ng/mL (> or = 4.0); Vitamin B12 360 pg/mL (200-900)
[2020-11-01 10:19] VITALS: BMI 38.3
[2020-11-01 12:09] LABS: Glucose, Whole Blood 69 mg/dL (60-115)
[2020-11-01 12:09] LABS: Glucose, Whole Blood 91 mg/dL (60-115)
[2020-11-01] MEDS: LORazepam 1 MG TABLET 2 MG PO ×2 (14:58→22:17)
--- NOTE | 2020-11-01 15:09 | PM.NEUROCN ---
History of Present Illness Data of Consult Service Date: 11/01/20 Primary Care Provider: [facility] 55 years old woman with underlying history of bipolar disorder and depression admitted voluntarily on psych floor was consulted for possibility of catatonia. She was not in any distress and was asking when she would go home. There was no evidence of any recent focal weakness or seizure-like episode. Review of Systems Review of Systems: No recent cold or flu-like illness. [facility] Past Medical History Medical History (Updated 11/01/20 @ 15:19 by Nyla Arenas MD) Asthma Bipolar 1 disorder Depression Diabetes GERD (gastroesophageal reflux disease) Hepatitis HTN (hypertension) Sleep apnea Surgical History Surgical History History of section Social History Social History (Updated 10/27/20 @ 19:44 by Stacey Moseley DO) Household Members: Spouse and Children Housing: House Do you presently have visiting nurse or other home services: No Alcohol intake: never Smoking Status: Never smoker Use of substances other than those prescribed or required for medical reasons: No Currently Displaying Signs/Symptoms of Drug Intoxication Withdrawal: No Advance Directives: No Advance Directives Information Provided: Yes Do you have thoughts of harming others: None Do you have a plan to hurt others: No Plan Recently lost weight without trying: No Eating poorly because of decreased appetite: No Nutrition Risks: No Nutritional Risk Patient : No : No Poor oral hygiene: No service: No Sexual orientation: Don't Know Meds Allergies Allergy/AdvReac Type Severity Reaction Status Date / Time No Known Allergies Allergy Verified 10/29/20 16:16 Active Medications: Current Medications Generic Name Dose Route Start Last Admin Trade Name Freq PRN Reason Stop Dose Admin Acetaminophen 650 mg 10/30/20 21:44 10/31/20 21:52 Acetaminophen 325 Mg Tablet PO 650 mg Q6H PRN Administration Headache/Pain Mild Scale (1-3) Al Hydroxide/Mg Hydroxide 30 ml 10/30/20 21:44 Magnesium Hydrox/Alum Hydrox 30 Ml Oral.Susp PO Q6H PRN Heartburn/Nausea Albuterol Sulfate 2 puff 11/01/20 08:54 Albuterol Sulfate 90 Mcg 8 Gm Inhaler INHALE RQID PRN Shortness of Breath Aspirin 81 mg 10/28/20 21:00 10/31/20 21:52 Aspirin Enteric Coated 81 Mg Tablet. PO 81 mg BEDTIME [facility] Administration Atorvastatin Calcium 20 mg 10/28/20 21:00 10/31/20 21:52 Atorvastatin Calcium 20 Mg Tablet PO 20 mg BEDTIME [facility] Administration Duloxetine HCl 60 mg 10/29/20 09:00 11/01/20 08:56 Duloxetine Hcl 60 Mg Capsule. PO 60 mg DAILY [facility] Administration Gabapentin 200 mg 10/27/20 23:45 11/01/20 14:58 Gabapentin 100 Mg Capsule PO 200 mg TID [facility] Administration Glipizide 10 mg 10/28/20 09:00 11/01/20 08:56 Glipizide Xl 10 Mg Tab.Er.24 PO 10 mg DAILY [facility] Administration Hydrochlorothiazide 25 mg 10/28/20 09:00 10/31/20 09:21 Hydrochlorothiazide 25 Mg Tablet PO 25 mg DAILY [facility] Administration Hydroxyzine HCl 25 mg 10/30/20 21:44 Hydroxyzine Hcl 25 Mg Tablet PO BEDTIME PRN Anxiety Insulin Glargine 30 unit 10/28/20 09:00 11/01/20 09:02 Insulin Glargine,Hum.Rec.Anlog 100 Unit/Ml 10 Ml Vial SUBCUT 30 unit BID [facility] Administration Insulin Human Lispro 0 unit 10/31/20 11:30 11/01/20 12:35 Insulin Lispro 100 Unit/Ml 3 Ml Vial SUBCUT Not Given [facility] Protocol Lisinopril 20 mg 10/28/20 09:00 11/01/20 08:57 Lisinopril 20 Mg Tablet PO 20 mg DAILY [facility] Administration Lorazepam 2 mg 11/01/20 15:00 11/01/20 14:58 Lorazepam 1 Mg Tablet PO 2 mg TID [facility] Administration Magnesium Hydroxide 30 ml 10/30/20 21:44 Milk Of Magnesia 30 Ml Oral.Susp PO DAILY PRN Constipation Metformin HCl 1,000 mg 10/28/20 09:00 11/01/20 08:56 Metformin Hcl 1,000 Mg Tablet PO 1,000 mg BID [facility] Administration Olanzapine 2.5 mg 10/31/20 21:00 11/01/20 08:56 Olanzapine 2.5 Mg Tablet PO 2.5 mg BID [facility] Administration Trazodone HCl 50 mg 10/30/20 21:44 Trazodone Hcl 50 Mg Tablet PO BEDTIME PRN Insomnia Home Medications Medication Instructions Recorded Confirmed Last Taken Type albuterol sulfate [ProAir HFA] 2 puff INHALATION QID 10/27/20 10/27/20 Unknown History alcohol swabs [Alcohol Prep Pads] 1 pledget TOPICAL BID 10/27/20 10/27/20 Unknown History aspirin 1 tab PO BEDTIME 10/27/20 10/27/20 Unknown History blood sugar diagnostic [FreeStyle 10/27/20 10/27/20 Unknown History Lite Strips] clonazepam 1 tab PO BID 10/27/20 10/27/20 Unknown History duloxetine 1 cap PO QAM 10/27/20 10/27/20 Unknown History gabapentin 2 cap PO TID 10/27/20 10/27/20 Unknown History glipizide 1 tab PO QAM 10/27/20 10/27/20 Unknown History haloperidol 1 tab PO BID 10/27/20 10/27/20 Unknown History insulin lispro protamin-lispro 50 unit SUBCUT BID 10/27/20 10/27/20 Unknown History [Humalog Mix 75-25 KwikPen] lancets [TRUEplus Lancets] 10/27/20 10/27/20 Unknown History lisinopril-hydrochlorothiazide 1 tab PO QAM 10/27/20 10/27/20 Unknown History metformin 2 tab PO BID 10/27/20 10/27/20 Unknown History pen needle, diabetic [Pentips] 10/27/20 10/27/20 Unknown History rosuvastatin 1 tab PO QPM 10/27/20 10/27/20 Unknown History topiramate 1 tab PO BID 10/27/20 10/27/20 Unknown History Physical Exam Vital Signs: Vital Signs: Last Vital Signs Temp 98.4 F 11/01/20 07:20 Pulse 85 11/01/20 08:57 Resp 18 11/01/20 07:20 BP 110/65 11/01/20 08:57 Pulse Ox 97 11/01/20 07:20 Body Mass Index 38.3 She was significantly obese woman in no acute distress. Spontaneity and fluency of speech were normal. Comprehension was normal. She was able to follow commands. Facial expression blinking were diminished. There was mild rigidity in upper extremities and fine finger movements were slow. There was generalized bradykinesia. She was able to get up but needed help from sitting position. She was ruled able to walk slowly with somewhat decreased arm swing. There was no focal tremor or dyskinesia. Results Labs CBC & Chem 7: 10/27/20 19:33 10/27/20 19:33 Labs: Her CBC on October 27 did not reveal any significant abnormality. Metabolic profile was normal with glucose of 126. Valproic acid level was 94. Her head CT reveal significant cortical bilateral mostly frontal and parietal atrophy. Assessment and Plan (1) Frontal lobe dementia: Problem details: 55 years old woman with underlying diagnosis of bipolar disorder has generalized bradykinesia, mild rigidity, gait disorder, and behavioral disorder. Her head CT revealed quite significant cortical bilateral mostly frontal and parietal cerebral atrophy. Her primary condition seemed to be degenerative dementia affecting mostly frontal but also parietal cortical areas. Frontal lobe dementia patient sometime can have gait disorder or features that could look like parkinsonian. Overall presentation is not suggestive of catatonia. One could try an experiment and give her dopamine or carbidopa levodopa to see if she could have improvement in her physical abilities but patients like her may not respond well to treatment. There is no specific known therapy. I recommend family education, symptomatic treatment, and long-term planning. Serum CPK level is also recommended just to rule out any additional extrapyramidal pathology. Status: Acute
[2020-11-01 17:05] LABS: Glucose, Whole Blood 206 mg/dL (60-115)
[2020-11-01] MEDS: Insulin Lispro 100 UNIT/ML 3 ML VIAL SUBCUT (17:21)
[2020-11-01 19:30] VITALS: BP 142/75; PULSE 101; TEMP 36.6
[2020-11-01 21:50] LABS: Glucose, Whole Blood 115 mg/dL (60-115)
[2020-11-01] MEDS: Aspirin Enteric Coated 81 MG TABLET.DR PO (22:19)
[2020-11-01] MEDS: Atorvastatin Calcium 20 MG TABLET PO (22:19)
[2020-11-02 06:15] VITALS: BP 125/59; PULSE 89; RESP 18; TEMP 36.9; O2SAT 97
[2020-11-02 07:16] LABS: Glucose, Whole Blood 94 mg/dL (60-115)
[2020-11-02 08:17] LABS: Basophils Percent Auto 0.4 % (0-2); Eosinophils Absolute Auto 0.3 X10*3/uL (0.0-0.4); Eosinophils Percent Auto 2.6 % (0-4); Hematocrit 38.9 % (37-47); Imm Gran Abs Auto 0.02 X10*3/uL (0.00-0.03); Imm Gran Pct Auto 0.2 % (0.0-0.4); Lymphocytes Absolute Auto 5.1 X10*3/uL (1.2-4.9); Lymphocytes Percent Auto 50.1 % (20-40); MANUAL DIFF FLAG SCAN; Mean Corpuscular HGB Conc 33.4 g/dl (31.0-35.0); Mean Corpuscular Hemoglobin 29.3 pg (27.0-33.0); Mean Corpuscular Volume 87.8 fL (80-98); Mean Platelet Volume 12.3 fL (9.4-12.3); Monocytes Absolute Auto 0.8 X10*3/uL (0.1-1.2); Monocytes Percent Auto 7.8 % (2-11); Neutrophils Absolute Auto 3.9 X10*3/uL (2.0-8.3); Neutrophils Percent Auto 38.9 % (45-73); Platelet Count 194 X10*3/uL (160-400); Red Blood Count 4.43 X10*6/uL (4.20-5.50); Red Cell Distribution Width 12.1 % (11.0-16.0); SCAN SMEAR FLAG 1; White Blood Count 10.1 X10*3/uL (4.8-10.8)
[2020-11-02 09:00] VITALS: BP 141/73; PULSE 103; RESP 16; TEMP 35.9; O2SAT 98
[2020-11-02] MEDS: Insulin Glargine,Hum.rec.anlog 100 UNIT/ML 10 ML VIAL 30 UNIT SUBCUT (09:05)
[2020-11-02] MEDS: OLANZapine 2.5 MG TABLET PO (09:06)
[2020-11-02] MEDS: DULoxetine HCl 60 MG CAPSULE.DR PO (09:07)
[2020-11-02] MEDS: LORazepam 1 MG TABLET 2 MG PO ×2 (09:07→14:59)
[2020-11-02] MEDS: metFORMIN HCl 1,000 MG TABLET 1000 MG PO (09:07)
[2020-11-02] MEDS: glipiZIDE XL 10 MG TAB.ER.24 PO (09:07)
[2020-11-02] MEDS: Gabapentin 100 MG CAPSULE 200 MG PO ×2 (09:13→14:59)
[2020-11-02 09:16] VITALS: BP 141/73; PULSE 103
[2020-11-02] MEDS: lisinopriL 20 MG TABLET PO (09:16)
[2020-11-02 12:06] LABS: Glucose, Whole Blood 133 mg/dL (60-115)
[2020-11-02 13:21] LABS: SLIDE REVIEW VERIFIED
--- NOTE | 2020-11-02 14:36 | P.PNPSI_ITS ---
Subjective Subjective Date of Service: 11/02/20 Reason For Visit: MDD with psychosis Subjective Notes: Conditional Voluntary Interim History: Barbra continues to present with significant bradykenisia but able to verbalize more words with some delayed in response. She reports feeling tired. She states she was depressed at home. She knows she is in [facility]. She is not sure about what brought her here. She denies SI/HI. She has been noted to be more visible and mobile as ativan was started at 2mg po TID. Medication Compliance: Yes Side effects from medications: No Attending Groups: No Review of Systems Review of Systems No recent cold or flu-like illness. Yes Unobtainable due to mental status Mental Status Exam Mental Status Exam Narrative: Appearance: [place] woman, disheveled, blank stare, in NAD Behavior: engagement in interview limited by blank stare Psychomotor: significant retardation noted Speech: mumbles at times, very slowed response rate, soft tone, monotone , minimally spontaneous TP: single words TC: poverty of thought Mood: tired Affect:constricted/mask-like apperance SI:denies HI:denies AH/VH:denies- may be responding to internal stimuli Delusions:none Insight/judgment:impaired Memory/cog: intermittently alert, oriented to year, place, not situation nor month. significant impairment in memory/cog but not formally tested. Diagnostics Vital Signs (24Hr): Vital Signs - 24 hr 11/01/20 19:30 11/02/20 06:15 11/02/20 09:00 Temperature 97.9 F 98.5 F 96.6 F L Pulse Rate 101 H 89 103 H Respiratory Rate 18 16 Blood Pressure 142/75 H 125/59 L 141/73 H Pulse Oximetry 97 98 11/02/20 09:16 Temperature Pulse Rate 103 H Respiratory Rate Blood Pressure 141/73 H Pulse Oximetry Body Mass Index 38.3 Labs Results: 11/02/20 08:07 10/27/20 19:33 Labs: Laboratory Results - last 48 hr 10/31/20 10/31/20 11/01/20 16:47 21:40 07:31 WBC RBC Hgb Hct MCV MCH MCHC RDW Plt Count MPV Immature Gran % (Auto) Neut % (Auto) Lymph % (Auto) [place] % (Auto) Eos % (Auto) Baso % (Auto) Lymph # (Auto) [place] # (Auto) Eos # (Auto) Baso # (Auto) Abs Immat Gran (auto) Absolute Neuts (auto) Absolute Nucleated RBC Nucleated RBC % (auto) Smear Tech's Comments POC Glucose 126 H 117 H 69 Estimat Average Glucose Hemoglobin A1c % Total Creatine Kinase Triglycerides Cholesterol LDL Cholesterol, Calc HDL Cholesterol Vitamin B12 Folate 11/01/20 11/01/20 11/01/20 07:55 07:55 07:56 WBC RBC Hgb Hct MCV MCH MCHC RDW Plt Count MPV Immature Gran % (Auto) Neut % (Auto) Lymph % (Auto) [place] % (Auto) Eos % (Auto) Baso % (Auto) Lymph # (Auto) [place] # (Auto) Eos # (Auto) Baso # (Auto) Abs Immat Gran (auto) Absolute Neuts (auto) Absolute Nucleated RBC Nucleated RBC % (auto) Smear Tech's Comments POC Glucose Estimat Average Glucose 151 Hemoglobin A1c % 6.9 Total Creatine Kinase Triglycerides 71 Cholesterol 141 LDL Cholesterol, Calc 84 HDL Cholesterol 43 Vitamin B12 360 Folate 13.7 11/01/20 11/01/20 11/01/20 12:05 16:50 21:46 WBC RBC Hgb Hct MCV MCH MCHC RDW Plt Count MPV Immature Gran % (Auto) Neut % (Auto) Lymph % (Auto) [place] % (Auto) Eos % (Auto) Baso % (Auto) Lymph # (Auto) [place] # (Auto) Eos # (Auto) Baso # (Auto) Abs Immat Gran (auto) Absolute Neuts (auto) Absolute Nucleated RBC Nucleated RBC % (auto) Smear Tech's Comments POC Glucose 91 206 H 115 Estimat Average Glucose Hemoglobin A1c % Total Creatine Kinase Triglycerides Cholesterol LDL Cholesterol, Calc HDL Cholesterol Vitamin B12 Folate 11/02/20 11/02/20 11/02/20 06:59 08:07 08:07 WBC 10.1 RBC 4.43 Hgb 13.0 Hct 38.9 MCV 87.8 MCH 29.3 MCHC 33.4 RDW 12.1 Plt Count 194 MPV 12.3 Immature Gran % (Auto) 0.2 Neut % (Auto) 38.9 L Lymph % (Auto) 50.1 H [place] % (Auto) 7.8 Eos % (Auto) 2.6 Baso % (Auto) 0.4 Lymph # (Auto) 5.1 H [place] # (Auto) 0.8 Eos # (Auto) 0.3 Baso # (Auto) 0.0 Abs Immat Gran (auto) 0.02 Absolute Neuts (auto) 3.9 Absolute Nucleated RBC 0.000 Nucleated RBC % (auto) 0.0 Smear Tech's Comments VERIFIED POC Glucose 94 Estimat Average Glucose Hemoglobin A1c % Total Creatine Kinase 102 Triglycerides Cholesterol LDL Cholesterol, Calc HDL Cholesterol Vitamin B12 Folate 11/02/20 11:58 WBC RBC Hgb Hct MCV MCH MCHC RDW Plt Count MPV Immature Gran % (Auto) Neut % (Auto) Lymph % (Auto) [place] % (Auto) Eos % (Auto) Baso % (Auto) Lymph # (Auto) [place] # (Auto) Eos # (Auto) Baso # (Auto) Abs Immat Gran (auto) Absolute Neuts (auto) Absolute Nucleated RBC Nucleated RBC % (auto) Smear Tech's Comments POC Glucose 133 H Estimat Average Glucose Hemoglobin A1c % Total Creatine Kinase Triglycerides Cholesterol LDL Cholesterol, Calc HDL Cholesterol Vitamin B12 Folate Imaging Radiology Impressions: ITS Impressions Head CT 10/27/20 19:20 IMPRESSION: No acute intracranial pathology. No significant interval change is noted compared to last CT. Medications Medications Current Medications Generic Name Dose Route Start Last Admin Trade Name Freq PRN Reason Stop Dose Admin Acetaminophen 650 mg 10/30/20 21:44 10/31/20 21:52 Acetaminophen 325 Mg Tablet PO 650 mg Q6H PRN Administration Headache/Pain Mild Scale (1-3) Al Hydroxide/Mg Hydroxide 30 ml 10/30/20 21:44 Magnesium Hydrox/Alum Hydrox 30 Ml Oral.Susp PO Q6H PRN Heartburn/Nausea Albuterol Sulfate 2 puff 11/01/20 08:54 Albuterol Sulfate 90 Mcg 8 Gm Inhaler INHALE RQID PRN Shortness of Breath Aspirin 81 mg 10/28/20 21:00 11/01/20 22:19 Aspirin Enteric Coated 81 Mg Tablet. PO 81 mg BEDTIME [facility] Administration Atorvastatin Calcium 20 mg 10/28/20 21:00 11/01/20 22:19 Atorvastatin Calcium 20 Mg Tablet PO 20 mg BEDTIME [facility] Administration Duloxetine HCl 60 mg 10/29/20 09:00 11/02/20 09:07 Duloxetine Hcl 60 Mg Capsule. PO 60 mg DAILY [facility] Administration Gabapentin 200 mg 10/27/20 23:45 11/02/20 09:13 Gabapentin 100 Mg Capsule PO 200 mg TID [facility] Administration Glipizide 10 mg 10/28/20 09:00 11/02/20 09:07 Glipizide Xl 10 Mg Tab.Er.24 PO 10 mg DAILY [facility] Administration Hydrochlorothiazide 25 mg 10/28/20 09:00 10/31/20 09:21 Hydrochlorothiazide 25 Mg Tablet PO 25 mg DAILY [facility] Administration Hydroxyzine HCl 25 mg 10/30/20 21:44 Hydroxyzine Hcl 25 Mg Tablet PO BEDTIME PRN Anxiety Insulin Glargine 30 unit 10/28/20 09:00 11/02/20 09:05 Insulin Glargine,Hum.Rec.Anlog 100 Unit/Ml 10 Ml Vial SUBCUT 30 unit BID [facility] Administration Insulin Human Lispro 0 unit 10/31/20 11:30 11/02/20 12:01 Insulin Lispro 100 Unit/Ml 3 Ml Vial SUBCUT Not Given [facility] Protocol Lisinopril 20 mg 10/28/20 09:00 11/02/20 09:16 Lisinopril 20 Mg Tablet PO 20 mg DAILY [facility] Administration Lorazepam 2 mg 11/01/20 15:00 11/02/20 09:07 Lorazepam 1 Mg Tablet PO 2 mg TID [facility] Administration Magnesium Hydroxide 30 ml 10/30/20 21:44 Milk Of Magnesia 30 Ml Oral.Susp PO DAILY PRN Constipation Metformin HCl 1,000 mg 10/28/20 09:00 11/02/20 09:07 Metformin Hcl 1,000 Mg Tablet PO 1,000 mg BID [facility] Administration Olanzapine 2.5 mg 10/31/20 21:00 11/02/20 09:06 Olanzapine 2.5 Mg Tablet PO 2.5 mg BID [facility] Administration Trazodone HCl 50 mg 10/30/20 21:44 Trazodone Hcl 50 Mg Tablet PO BEDTIME PRN Insomnia Allergies Allergies Allergy/AdvReac Type Severity Reaction Status Date / Time No Known Allergies Allergy Verified 10/29/20 16:16 Assessment & Plan Assessment & Plan (1) Catatonia: Status: Acute Code(s): F06.1 - Catatonic disorder due to known physiological condition Assessment and Plan: Ms. Ratliff presents with unclear etiology of catatonic like symptoms, that apparently have not been completely new as initially reported by crisis. It appears that she has had some work up including LP, MRI, will try to obtain further medical records to clarify current presentation. Will d/c topamax as it may worsened cognition, stop haldol (high potency antipsychotic that can worsened catatonia), switch clonazepam to ativan. 1. continue ativan 2mg po TID- decrease in staring, less mutism, less bradykinesia 2. d/c olanzapine 2.5mg po BID for now no overt psychosis 3. continue cymbalta. 4. Neurology consult- suggestive of dx frontotemporal dementia. 5. consider mirapex- dopamine agonist to address some of frontotemporal deficits, ? mood, (2) Frontal lobe dementia: Status: Acute Code(s): G31.09 - Other frontotemporal dementia; F02.80 - Dementia in other diseases classified elsewhere without behavioral disturbance Greater than 50% of the session was spent on counseling and/or coordination of care Reason for contiued inpatient stay Substantial Risk for: inability to function
[2020-11-02 21:51] LABS: Glucose, Whole Blood 134 mg/dL (60-115)
[2020-11-02 22:45] VITALS: BP 122/56; PULSE 94; RESP 18; TEMP 36.2; O2SAT 96
[2020-11-03 00:04] LABS: Glucose, Whole Blood 127 mg/dL (60-115)
[2020-11-03] MEDS: OLANZapine 2.5 MG TABLET PO ×3 (00:48→21:23)
[2020-11-03] MEDS: LORazepam 1 MG TABLET 2 MG PO ×4 (00:48→21:22)
[2020-11-03] MEDS: Aspirin Enteric Coated 81 MG TABLET.DR PO ×2 (00:48→21:22)
[2020-11-03] MEDS: Insulin Glargine,Hum.rec.anlog 100 UNIT/ML 10 ML VIAL 30 UNIT SUBCUT ×3 (00:48→21:21)
[2020-11-03] MEDS: metFORMIN HCl 1,000 MG TABLET 1000 MG PO ×3 (00:48→21:05)
[2020-11-03] MEDS: Gabapentin 100 MG CAPSULE 200 MG PO ×4 (00:48→21:22)
[2020-11-03] MEDS: Atorvastatin Calcium 20 MG TABLET PO ×2 (00:48→21:23)
[2020-11-03 06:00] VITALS: BP 113/56; PULSE 86; RESP 16; TEMP 35.8; O2SAT 96
[2020-11-03 06:29] LABS: Glucose, Whole Blood 85 mg/dL (60-115)
--- NOTE | 2020-11-03 08:49 | P.PNPSI_ITS ---
Subjective Subjective Date of Service: 11/03/20 Reason For Visit: MDD with psychosis Interim History: Chart reviewed; case discussed with team. Vitals reviewed: grossly WNL pt lying in bed; awake and alert (name, , date, date, month, year, place) pt mumbles answers says she's better since she's not crying anymore. As for complaints, laughs and says food. Says she does not need anything but will ask if she does staff reports patient needs continual prompting to attend to ADL's Medication Compliance: Yes Mental Status Exam Mental Status Exam Narrative: Appearance: disheveled, lying in bed, does not move Behavior: calm; blank stare Psychomotor: significant retardation noted Speech: mumbles but able to articulate; minimally spontaneous TP: goal oriented. TC: poverty of thought Mood: better Affect:constricted but with some smiled and briefly laughed SI:denies HI:denies AH/VH:denies- staff reports may be responding to internal stimuli Delusions:none Insight/judgment:impaired Memory/cog: intermittently alert, oriented to year, place, not situation nor month. significant impairment in memory/cog but not formally tested. Diagnostics Vital Signs (24Hr): Vital Signs - 24 hr 11/02/20 09:00 11/02/20 09:16 11/02/20 22:45 Temperature 96.6 F L 97.2 F Pulse Rate 103 H 103 H 94 Respiratory Rate 16 18 Blood Pressure 141/73 H 141/73 H 122/56 L Pulse Oximetry 98 96 11/03/20 06:00 Temperature 96.5 F L Pulse Rate 86 Respiratory Rate 16 Blood Pressure 113/56 L Pulse Oximetry 96 Body Mass Index 38.3 Labs Results: 11/02/20 08:07 10/27/20 19:33 Labs: Laboratory Results - last 48 hr 11/01/20 11/01/20 11/01/20 07:31 07:55 12:05 WBC RBC Hgb Hct MCV MCH MCHC RDW Plt Count MPV Immature Gran % (Auto) Neut % (Auto) Lymph % (Auto) [place] % (Auto) Eos % (Auto) Baso % (Auto) Lymph # (Auto) [place] # (Auto) Eos # (Auto) Baso # (Auto) Abs Immat Gran (auto) Absolute Neuts (auto) Absolute Nucleated RBC Nucleated RBC % (auto) Smear Tech's Comments POC Glucose 69 91 Total Creatine Kinase Vitamin B12 360 Folate 13.7 11/01/20 11/01/20 11/02/20 16:50 21:46 06:59 WBC RBC Hgb Hct MCV MCH MCHC RDW Plt Count MPV Immature Gran % (Auto) Neut % (Auto) Lymph % (Auto) [place] % (Auto) Eos % (Auto) Baso % (Auto) Lymph # (Auto) [place] # (Auto) Eos # (Auto) Baso # (Auto) Abs Immat Gran (auto) Absolute Neuts (auto) Absolute Nucleated RBC Nucleated RBC % (auto) Smear Tech's Comments POC Glucose 206 H 115 94 Total Creatine Kinase Vitamin B12 Folate 11/02/20 11/02/20 11/02/20 08:07 08:07 11:58 WBC 10.1 RBC 4.43 Hgb 13.0 Hct 38.9 MCV 87.8 MCH 29.3 MCHC 33.4 RDW 12.1 Plt Count 194 MPV 12.3 Immature Gran % (Auto) 0.2 Neut % (Auto) 38.9 L Lymph % (Auto) 50.1 H [place] % (Auto) 7.8 Eos % (Auto) 2.6 Baso % (Auto) 0.4 Lymph # (Auto) 5.1 H [place] # (Auto) 0.8 Eos # (Auto) 0.3 Baso # (Auto) 0.0 Abs Immat Gran (auto) 0.02 Absolute Neuts (auto) 3.9 Absolute Nucleated RBC 0.000 Nucleated RBC % (auto) 0.0 Smear Tech's Comments VERIFIED POC Glucose 133 H Total Creatine Kinase 102 Vitamin B12 Folate 11/02/20 11/02/20 11/03/20 16:56 22:54 06:20 WBC RBC Hgb Hct MCV MCH MCHC RDW Plt Count MPV Immature Gran % (Auto) Neut % (Auto) Lymph % (Auto) [place] % (Auto) Eos % (Auto) Baso % (Auto) Lymph # (Auto) [place] # (Auto) Eos # (Auto) Baso # (Auto) Abs Immat Gran (auto) Absolute Neuts (auto) Absolute Nucleated RBC Nucleated RBC % (auto) Smear Tech's Comments POC Glucose 134 H 127 H 85 Total Creatine Kinase Vitamin B12 Folate Imaging Radiology Impressions: ITS Impressions Head CT 10/27/20 19:20 IMPRESSION: No acute intracranial pathology. No significant interval change is noted compared to last CT. Medications Medications Current Medications Generic Name Dose Route Start Last Admin Trade Name Freq PRN Reason Stop Dose Admin Acetaminophen 650 mg 10/30/20 21:44 10/31/20 21:52 Acetaminophen 325 Mg Tablet PO 650 mg Q6H PRN Administration Headache/Pain Mild Scale (1-3) Al Hydroxide/Mg Hydroxide 30 ml 10/30/20 21:44 Magnesium Hydrox/Alum Hydrox 30 Ml Oral.Susp PO Q6H PRN Heartburn/Nausea Albuterol Sulfate 2 puff 11/01/20 08:54 Albuterol Sulfate 90 Mcg 8 Gm Inhaler INHALE RQID PRN Shortness of Breath Aspirin 81 mg 10/28/20 21:00 11/03/20 00:48 Aspirin Enteric Coated 81 Mg Tablet. PO 81 mg BEDTIME LOURDES Administration Atorvastatin Calcium 20 mg 10/28/20 21:00 11/03/20 00:48 Atorvastatin Calcium 20 Mg Tablet PO 20 mg BEDTIME LOURDES Administration Duloxetine HCl 60 mg 10/29/20 09:00 11/02/20 09:07 Duloxetine Hcl 60 Mg Capsule. PO 60 mg DAILY LOURDES Administration Gabapentin 200 mg 10/27/20 23:45 11/03/20 00:48 Gabapentin 100 Mg Capsule PO 200 mg TID LOURDES Administration Glipizide 10 mg 10/28/20 09:00 11/02/20 09:07 Glipizide Xl 10 Mg Tab.Er.24 PO 10 mg DAILY LOURDES Administration Hydrochlorothiazide 25 mg 10/28/20 09:00 10/31/20 09:21 Hydrochlorothiazide 25 Mg Tablet PO 25 mg DAILY LOURDES Administration Hydroxyzine HCl 25 mg 10/30/20 21:44 Hydroxyzine Hcl 25 Mg Tablet PO BEDTIME PRN Anxiety Insulin Glargine 30 unit 10/28/20 09:00 11/03/20 00:48 Insulin Glargine,Hum.Rec.Anlog 100 Unit/Ml 10 Ml Vial SUBCUT 30 unit BID LOURDES Administration Insulin Human Lispro 0 unit 10/31/20 11:30 11/03/20 00:56 Insulin Lispro 100 Unit/Ml 3 Ml Vial SUBCUT Not Given QIDACHS [facility] Protocol Lisinopril 20 mg 10/28/20 09:00 11/02/20 09:16 Lisinopril 20 Mg Tablet PO 20 mg DAILY LOURDES Administration Lorazepam 2 mg 11/01/20 15:00 11/03/20 00:48 Lorazepam 1 Mg Tablet PO 2 mg TID LOURDES Administration Magnesium Hydroxide 30 ml 10/30/20 21:44 Milk Of Magnesia 30 Ml Oral.Susp PO DAILY PRN Constipation Metformin HCl 1,000 mg 10/28/20 09:00 11/03/20 00:48 Metformin Hcl 1,000 Mg Tablet PO 1,000 mg BID LOURDES Administration Olanzapine 2.5 mg 10/31/20 21:00 11/03/20 00:48 Olanzapine 2.5 Mg Tablet PO 2.5 mg BID LOURDES Administration Trazodone HCl 50 mg 10/30/20 21:44 Trazodone Hcl 50 Mg Tablet PO BEDTIME PRN Insomnia Allergies Allergies Allergy/AdvReac Type Severity Reaction Status Date / Time No Known Allergies Allergy Verified 10/29/20 16:16 Assessment & Plan Assessment & Plan (1) Catatonia: Status: Acute Code(s): F06.1 - Catatonic disorder due to known physiological condition Assessment and Plan: Pt stable; reports mood is better, though still with catatonic-like symptoms continue current treatment plan; no changes at this time Ms. Ratliff presents with unclear etiology of catatonic like symptoms, that apparently have not been completely new as initially reported by crisis. It appears that she has had some work up including LP, MRI, will try to obtain furt her medical records to clarify current presentation. Will d/c topamax as it may worsened cognition, stop haldol (high potency antipsychotic that can worsened catatonia), switch clonazepam to ativan. 1. continue ativan 2mg po TID- decrease in staring, less mutism, less bradykinesia 2. d/c olanzapine 2.5mg po BID for now no overt psychosis 3. continue cymbalta. 4. Neurology consult- suggestive of dx frontotemporal dementia. 5. consider mirapex- dopamine agonist to address some of frontotemporal deficits, ? mood, Her head CT reveal significant cortical bilateral mostly frontal and parietal atrophy. Assessment and Plan (1) Frontal lobe dementia: Problem details: 55 years old woman with underlying diagnosis of bipolar disorder has generalized bradykinesia, mild rigidity, gait disorder, and behavioral disorder. Her head CT revealed quite significant cortical bilateral mostly frontal and parietal cerebral atrophy. Her primary condition seemed to be degenerative dementia affecting mostly frontal but also parietal cortical areas. Frontal lobe dementia patient sometime can have gait disorder or features that could look like parkinsonian. Overall presentation is not suggestive of catatonia. One could try an experiment and give her dopamine or carbidopa levodopa to see if she could have improvement in her physical abilities but patients like her may not respond well to treatment. There is no specific known therapy. I recommend family education, symptomatic treatment, and long-term planning. Serum CPK level is also recommended just to rule out any additional extrapyramidal pathology. (2) Frontal lobe dementia: Status: Acute Code(s): G31.09 - Other frontotemporal dementia; F02.80 - Dementia in other diseases classified elsewhere without behavioral disturbance Greater than 50% of the session was spent on counseling and/or coordination of care Reason for contiued inpatient stay Substantial Risk for: inability to function
[2020-11-03] MEDS: DULoxetine HCl 60 MG CAPSULE.DR PO (08:54)
[2020-11-03] MEDS: hydroCHLOROthiazide 25 MG TABLET PO (08:54)
[2020-11-03] MEDS: glipiZIDE XL 10 MG TAB.ER.24 PO (08:55)
[2020-11-03] MEDS: lisinopriL 20 MG TABLET PO (08:55)
[2020-11-03 11:44] LABS: Glucose, Whole Blood 84 mg/dL (60-115)
[2020-11-03 17:44] LABS: Glucose, Whole Blood 132 mg/dL (60-115)
[2020-11-03 18:00] VITALS: BP 112/60; PULSE 101; TEMP 35.7; O2SAT 97
[2020-11-03] MEDS: Insulin Lispro 100 UNIT/ML 3 ML VIAL SUBCUT (21:21)
[2020-11-03] MEDS: Acetaminophen 325 MG TABLET 650 MG PO (21:31)
[2020-11-03 22:39] LABS: Glucose, Whole Blood 167 mg/dL (60-115)
[2020-11-04 06:00] VITALS: BP 106/50; PULSE 82; RESP 16; TEMP 35.5; O2SAT 96
[2020-11-04 06:41] LABS: Glucose, Whole Blood 82 mg/dL (60-115)
[2020-11-04 08:31] VITALS: BP 135/56; PULSE 83; RESP 16
[2020-11-04] MEDS: LORazepam 1 MG TABLET 2 MG PO ×3 (09:01→20:40)
[2020-11-04] MEDS: Insulin Glargine,Hum.rec.anlog 100 UNIT/ML 10 ML VIAL 30 UNIT SUBCUT ×2 (09:01→20:41)
[2020-11-04] MEDS: metFORMIN HCl 1,000 MG TABLET 1000 MG PO ×2 (09:01→20:40)
[2020-11-04] MEDS: OLANZapine 2.5 MG TABLET PO ×2 (09:01→20:40)
[2020-11-04] MEDS: Gabapentin 100 MG CAPSULE 200 MG PO ×3 (09:01→20:40)
[2020-11-04] MEDS: DULoxetine HCl 60 MG CAPSULE.DR PO (09:01)
[2020-11-04] MEDS: glipiZIDE XL 10 MG TAB.ER.24 PO (09:01)
[2020-11-04 09:02] VITALS: BP 135/56; PULSE 83
[2020-11-04] MEDS: hydroCHLOROthiazide 25 MG TABLET PO (09:02)
[2020-11-04] MEDS: lisinopriL 20 MG TABLET PO (09:02)
--- NOTE | 2020-11-04 11:27 | HO.PSYCHPN ---
Subjective Subjective Date of Service: 11/04/20 Reason For Visit: MDD with psychosis Interim History: Chart reviewed; case discussed with team. Vitals reviewed: WNL pt at first sleeping, difficult to arouse; she briefly opened her eyes to writers inquiry to say tired and then fell back asleep service writer advisor later went back with nursing and pt sitting at desk, eating lunch. She said mood continues to be better. She asked when can she go home to which service writer advisor deferred to primary team. nursing staff told service writer advisor pt c/o she had a hard time sleeping, though seems to be sleeping frequently of note, she did sit up on her own to eat breakfast without prompting, which is new; she also asked for more food; however still difficult time expressing emotions last night, she showered evenings and changed cloths (not sure if needed prompting) Mental Status Exam Mental Status Exam Narrative: Appearance: disheveled, hair unkempt, but with adequate hygiene Behavior: calm; blank stare Psychomotor: significant retardation noted Speech: mumbles but able to articulate; minimally spontaneous TP: goal oriented. TC: poverty of thought Mood: tired Affect:blunted SI:denies HI:denies AH/VH:denies- staff reports may be responding to internal stimuli Delusions:none Insight/judgment:impaired prior note: Memory/cog: intermittently alert, oriented to year, place, not situation nor month. significant impairment in memory/cog but not formally tested. Diagnostics Vital Signs (24Hr): Vital Signs - 24 hr 11/03/20 18:00 11/04/20 06:00 11/04/20 08:31 Temperature 96.2 F L 96 F L Pulse Rate 101 H 82 83 Respiratory Rate 16 16 Blood Pressure 112/60 106/50 L 135/56 L Pulse Oximetry 97 96 11/04/20 09:02 Temperature Pulse Rate 83 Respiratory Rate Blood Pressure 135/56 L Pulse Oximetry Body Mass Index 38.3 Labs Results: 11/02/20 08:07 10/27/20 19:33 Labs: Laboratory Results - last 48 hr 11/02/20 11/02/20 11/02/20 08:07 11:58 16:56 WBC 10.1 RBC 4.43 Hgb 13.0 Hct 38.9 MCV 87.8 MCH 29.3 MCHC 33.4 RDW 12.1 Plt Count 194 MPV 12.3 Immature Gran % (Auto) 0.2 Neut % (Auto) 38.9 L Lymph % (Auto) 50.1 H [place] % (Auto) 7.8 Eos % (Auto) 2.6 Baso % (Auto) 0.4 Lymph # (Auto) 5.1 H [place] # (Auto) 0.8 Eos # (Auto) 0.3 Baso # (Auto) 0.0 Abs Immat Gran (auto) 0.02 Absolute Neuts (auto) 3.9 Absolute Nucleated RBC 0.000 Nucleated RBC % (auto) 0.0 Smear Tech's Comments VERIFIED POC Glucose 133 H 134 H 11/02/20 11/03/20 11/03/20 22:54 06:20 11:39 WBC RBC Hgb Hct MCV MCH MCHC RDW Plt Count MPV Immature Gran % (Auto) Neut % (Auto) Lymph % (Auto) [place] % (Auto) Eos % (Auto) Baso % (Auto) Lymph # (Auto) [place] # (Auto) Eos # (Auto) Baso # (Auto) Abs Immat Gran (auto) Absolute Neuts (auto) Absolute Nucleated RBC Nucleated RBC % (auto) Smear Tech's Comments POC Glucose 127 H 85 84 11/03/20 11/03/20 11/04/20 17:27 21:06 06:37 WBC RBC Hgb Hct MCV MCH MCHC RDW Plt Count MPV Immature Gran % (Auto) Neut % (Auto) Lymph % (Auto) [place] % (Auto) Eos % (Auto) Baso % (Auto) Lymph # (Auto) [place] # (Auto) Eos # (Auto) Baso # (Auto) Abs Immat Gran (auto) Absolute Neuts (auto) Absolute Nucleated RBC Nucleated RBC % (auto) Smear Tech's Comments POC Glucose 132 H 167 H 82 Imaging Radiology Impressions: ITS Impressions Head CT 10/27/20 19:20 IMPRESSION: No acute intracranial pathology. No significant interval change is noted compared to last CT. Medications Medications Current Medications Generic Name Dose Route Start Last Admin Trade Name Freq PRN Reason Stop Dose Admin Acetaminophen 650 mg 10/30/20 21:44 11/03/20 21:31 Acetaminophen 325 Mg Tablet PO 650 mg Q6H PRN Administration Headache/Pain Mild Scale (1-3) Al Hydroxide/Mg Hydroxide 30 ml 10/30/20 21:44 Magnesium Hydrox/Alum Hydrox 30 Ml Oral.Susp PO Q6H PRN Heartburn/Nausea Albuterol Sulfate 2 puff 11/01/20 08:54 Albuterol Sulfate 90 Mcg 8 Gm Inhaler INHALE RQID PRN Shortness of Breath Aspirin 81 mg 10/28/20 21:00 11/03/20 21:22 Aspirin Enteric Coated 81 Mg Tablet. PO 81 mg BEDTIME LOURDES Administration Atorvastatin Calcium 20 mg 10/28/20 21:00 11/03/20 21:23 Atorvastatin Calcium 20 Mg Tablet PO 20 mg BEDTIME LOURDES Administration Duloxetine HCl 60 mg 10/29/20 09:00 11/04/20 09:01 Duloxetine Hcl 60 Mg Capsule. PO 60 mg DAILY LOURDES Administration Gabapentin 200 mg 10/27/20 23:45 11/04/20 09:01 Gabapentin 100 Mg Capsule PO 200 mg TID LOURDES Administration Glipizide 10 mg 10/28/20 09:00 11/04/20 09:01 Glipizide Xl 10 Mg Tab.Er.24 PO 10 mg DAILY LOURDES Administration Hydrochlorothiazide 25 mg 10/28/20 09:00 11/04/20 09:02 Hydrochlorothiazide 25 Mg Tablet PO 25 mg DAILY LOURDES Administration Hydroxyzine HCl 25 mg 10/30/20 21:44 Hydroxyzine Hcl 25 Mg Tablet PO BEDTIME PRN Anxiety Insulin Glargine 30 unit 10/28/20 09:00 11/04/20 09:01 Insulin Glargine,Hum.Rec.Anlog 100 Unit/Ml 10 Ml Vial SUBCUT 30 unit BID LOUR[place] Administration Insulin Human Lispro 0 unit 10/31/20 11:30 11/04/20 07:48 Insulin Lispro 100 Unit/Ml 3 Ml Vial SUBCUT Not Given QIDACHS [facility] Protocol Lisinopril 20 mg 10/28/20 09:00 11/04/20 09:02 Lisinopril 20 Mg Tablet PO 20 mg DAILY LOURDES Administration Lorazepam 2 mg 11/01/20 15:00 11/04/20 09:01 Lorazepam 1 Mg Tablet PO 2 mg TID LOURDES Administration Magnesium Hydroxide 30 ml 10/30/20 21:44 Milk Of Magnesia 30 Ml Oral.Susp PO DAILY PRN Constipation Metformin HCl 1,000 mg 10/28/20 09:00 11/04/20 09:01 Metformin Hcl 1,000 Mg Tablet PO 1,000 mg BID LOUR[place] Administration Olanzapine 2.5 mg 10/31/20 21:00 11/04/20 09:01 Olanzapine 2.5 Mg Tablet PO 2.5 mg BID LOURDES Administration Trazodone HCl 50 mg 10/30/20 21:44 Trazodone Hcl 50 Mg Tablet PO BEDTIME PRN Insomnia Allergies Allergies Allergy/AdvReac Type Severity Reaction Status Date / Time No Known Allergies Allergy Verified 10/29/20 16:16 Assessment & Plan Assessment & Plan (1) Catatonia: Status: Acute Code(s): F06.1 - Catatonic disorder due to known physiological condition Assessment and Plan: Pt stable; reports mood is better, though still with catatonic-like symptoms asked about discharge; limited insight continue current treatment plan; no changes at this time Ms. Ratliff presents with unclear etiology of catatonic like symptoms, that apparently have not been completely new as initially reported by crisis. It appears that she has had some work up including LP, MRI, will try to obtain further medical records to clarify current presentation. Will d/c topamax as it may worsened cognition, stop haldol (high potency antipsychotic that can worsened catatonia), switch clonazepam to ativan. 1. continue ativan 2mg po TID- decrease in staring, less mutism, less bradykinesia 2. d/c olanzapine 2.5mg po BID for now no overt psychosis 3. continue cymbalta. 4. Neurology consult- suggestive of dx frontotemporal dementia. 5. consider mirapex- dopamine agonist to address some of frontotemporal deficits, ? mood, Her head CT reveal significant cortical bilateral mostly frontal and parietal atrophy. Assessment and Plan (1) Frontal lobe dementia: Problem details: 55 years old woman with underlying diagnosis of bipolar disorder has generalized bradykinesia, mild rigidity, gait disorder, and behavioral disorder. Her head CT revealed quite significant cortical bilateral mostly frontal and parietal cerebral atrophy. Her primary condition seemed to be degenerative dementia affecting mostly frontal but also parietal cortical areas. Frontal lobe dementia patient sometime can have gait disorder or features that could look like parkinsonian. Overall presentation is not suggestive of catatonia. One could try an experiment and give her dopamine or carbidopa levodopa to see if she could have improvement in her physical abilities but patients like her may not respond well to treatment. There is no specific known therapy. I recommend family education, symptomatic treatment, and long-term planning. Serum CPK level is also recommended just to rule out any additional extrapyramidal pathology. (2) Frontal lobe dementia: Status: Acute Code(s): G31.09 - Other frontotemporal dementia; F02.80 - Dementia in other diseases classified elsewhere without behavioral disturbance Greater than 50% of the session was spent on counseling and/or coordination of care Reason for contiued inpatient stay Substantial Risk for: inability to function
[2020-11-04 12:35] LABS: Glucose, Whole Blood 114 mg/dL (60-115)
[2020-11-04 17:01] LABS: Glucose, Whole Blood 103 mg/dL (60-115)
[2020-11-04 18:00] VITALS: BP 128/62; PULSE 110; TEMP 36.3; O2SAT 98
[2020-11-04 20:33] LABS: Glucose, Whole Blood 204 mg/dL (60-115)
[2020-11-04] MEDS: Aspirin Enteric Coated 81 MG TABLET.DR PO (20:40)
[2020-11-04] MEDS: Insulin Lispro 100 UNIT/ML 3 ML VIAL SUBCUT (20:40)
[2020-11-04] MEDS: Atorvastatin Calcium 20 MG TABLET PO (20:40)
[2020-11-04] MEDS: Acetaminophen 325 MG TABLET 650 MG PO (21:14)
[2020-11-05 06:23] LABS: Glucose, Whole Blood 129 mg/dL (60-115)
[2020-11-05 06:40] VITALS: BP 89/54; PULSE 90; RESP 18; TEMP 36.9; O2SAT 94
[2020-11-05 08:35] VITALS: BP 135/62; PULSE 99
[2020-11-05] MEDS: lisinopriL 20 MG TABLET PO (08:35)
[2020-11-05] MEDS: Gabapentin 100 MG CAPSULE 200 MG PO ×3 (08:36→20:28)
[2020-11-05] MEDS: DULoxetine HCl 60 MG CAPSULE.DR PO (08:36)
[2020-11-05] MEDS: OLANZapine 2.5 MG TABLET PO ×2 (08:36→20:29)
[2020-11-05] MEDS: hydroCHLOROthiazide 25 MG TABLET PO (08:36)
[2020-11-05] MEDS: glipiZIDE XL 10 MG TAB.ER.24 PO (08:36)
[2020-11-05] MEDS: metFORMIN HCl 1,000 MG TABLET 1000 MG PO ×2 (08:36→20:28)
[2020-11-05] MEDS: Insulin Glargine,Hum.rec.anlog 100 UNIT/ML 10 ML VIAL 30 UNIT SUBCUT ×2 (08:37→20:28)
[2020-11-05] MEDS: LORazepam 1 MG TABLET 2 MG PO ×4 (08:37→20:29)
[2020-11-05 13:01] LABS: Glucose, Whole Blood 175 mg/dL (60-115)
[2020-11-05] MEDS: Insulin Lispro 100 UNIT/ML 3 ML VIAL SUBCUT ×2 (13:17→17:28)
[2020-11-05] MEDS: Venlafaxine HCl ER 37.5 MG CAP.ER.24H PO (13:17)
--- NOTE | 2020-11-05 14:44 | P.PNPSI_ITS ---
Subjective Subjective Date of Service: 11/05/20 Reason For Visit: MDD with psychosis Interim History: Pt walking and talking brief sentences with more fluidity. She reports she had a good weekend. However, pt is unable to expand on in what way it was a good weekend. She reports she feels better in that she is able to move faster and quicker. She reports some difficulty sleeping. She denies SI/HI. She denies VH/AH. She continues to present with blank stare, some delayed in response rate noted and again overall poverty of thought is significantly noted. MOCA completed on 11/05/2020 that showed scored of 12/30, one point added for education less than 12 yrs. Most difficulty with recall (0/5), visuo spatial (1/5), clock draw test significant impairment in that she was only able to place numbers 1-5 half of clock, language repetition and fluency (2 words in one minute), abstraction. However, orientation is intact (6/6). Review of Systems Review of Systems No recent cold or flu-like illness. Yes Unobtainable due to mental status Mental Status Exam Mental Status Exam Narrative: Appearance: disheveled, hair unkempt, but with adequate hygiene Behavior: calm; blank stare Psychomotor: significant retardation noted Speech: mumbles but able to articulate; minimally spontaneous TP: goal oriented. TC: poverty of thought Mood: tired Affect:blunted SI:denies HI:denies AH/VH:denies- staff reports may be responding to internal stimuli Delusions:none Insight/judgment:impaired prior note: Memory/cog:alert, oriented x 3. MOCA completed on 11/05/2020 that showed scored of 12/30, one point added for education less than 12 yrs. Most difficulty with recall (0/5), visuo spatial (1/5), clock draw test significant impairment in that she was only able to place numbers 1-5 half of clock, language repetition and fluency (2 words in one minute), abstraction. However, orientation is intact (6/6). Diagnostics Vital Signs (24Hr): Vital Signs - 24 hr 11/04/20 18:00 11/05/20 06:40 11/05/20 08:35 Temperature 97.4 F 98.4 F Pulse Rate 110 H 90 99 Respiratory Rate 18 Blood Pressure 128/62 89/54 L 135/62 Pulse Oximetry 98 94 Body Mass Index 38.3 Labs Results: 11/02/20 08:07 10/27/20 19:33 Labs: Laboratory Results - last 48 hr 11/03/20 11/03/20 11/04/20 17:27 21:06 06:37 POC Glucose 132 H 167 H 82 11/04/20 11/04/20 11/04/20 12:11 16:50 20:28 POC Glucose 114 103 204 H 11/05/20 11/05/20 06:12 12:58 POC Glucose 129 H 175 H Imaging Radiology Impressions: ITS Impressions Head CT 10/27/20 19:20 IMPRESSION: No acute intracranial pathology. No significant interval change is noted compared to last CT. Medications Medications Current Medications Generic Name Dose Route Start Last Admin Trade Name Freq PRN Reason Stop Dose Admin Acetaminophen 650 mg 10/30/20 21:44 11/04/20 21:14 Acetaminophen 325 Mg Tablet PO 650 mg Q6H PRN Administration Headache/Pain Mild Scale (1-3) Al Hydroxide/Mg Hydroxide 30 ml 10/30/20 21:44 Magnesium Hydrox/Alum Hydrox 30 Ml Oral.Susp PO Q6H PRN Heartburn/Nausea Albuterol Sulfate 2 puff 11/01/20 08:54 Albuterol Sulfate 90 Mcg 8 Gm Inhaler INHALE RQID PRN Shortness of Breath Aspirin 81 mg 10/28/20 21:00 11/04/20 20:40 Aspirin Enteric Coated 81 Mg Tablet. PO 81 mg BEDTIME LOURDES Administration Atorvastatin Calcium 20 mg 10/28/20 21:00 11/04/20 20:40 Atorvastatin Calcium 20 Mg Tablet PO 20 mg BEDTIME LOURDES Administration Gabapentin 200 mg 10/27/20 23:45 11/05/20 08:36 Gabapentin 100 Mg Capsule PO 200 mg TID LOURDES Administration Glipizide 10 mg 10/28/20 09:00 11/05/20 08:36 Glipizide Xl 10 Mg Tab.Er.24 PO 10 mg DAILY LOURDES Administration Hydrochlorothiazide 25 mg 10/28/20 09:00 11/05/20 08:36 Hydrochlorothiazide 25 Mg Tablet PO 25 mg DAILY LOURDES Administration Hydroxyzine HCl 25 mg 10/30/20 21:44 Hydroxyzine Hcl 25 Mg Tablet PO BEDTIME PRN Anxiety Insulin Glargine 30 unit 10/28/20 09:00 11/05/20 08:37 Insulin Glargine,Hum.Rec.Anlog 100 Unit/Ml 10 Ml Vial SUBCUT 30 unit BID L[facility]DES Administration Insulin Human Lispro 0 unit 10/31/20 11:30 11/05/20 13:17 Insulin Lispro 100 Unit/Ml 3 Ml Vial SUBCUT 2 unit QIDACHS L[facility] Administration Protocol Lisinopril 20 mg 10/28/20 09:00 11/05/20 08:35 Lisinopril 20 Mg Tablet PO 20 mg DAILY LOUR[facility] Administration Lorazepam 2 mg 11/05/20 13:00 11/05/20 13:18 Lorazepam 1 Mg Tablet PO 2 mg QID LOURDES Administration Magnesium Hydroxide 30 ml 10/30/20 21:44 Milk Of Magnesia 30 Ml Oral.Susp PO DAILY PRN Constipation Memantine 5 mg 11/05/20 21:00 Memantine Hcl 5 Mg Tablet PO BEDTIME LOURDES Metformin HCl 1,000 mg 10/28/20 09:00 11/05/20 08:36 Metformin Hcl 1,000 Mg Tablet PO 1,000 mg BID L[facility]DES Administration Olanzapine 2.5 mg 10/31/20 21:00 11/05/20 08:36 Olanzapine 2.5 Mg Tablet PO 2.5 mg BID LOURDES Administration Trazodone HCl 50 mg 10/30/20 21:44 Trazodone Hcl 50 Mg Tablet PO BEDTIME PRN Insomnia Venlafaxine HCl 37.5 mg 11/05/20 11:35 11/05/20 13:17 Venlafaxine Hcl Er 37.5 Mg Cap.Er.24h PO 37.5 mg DAILY LOURDES Administration Allergies Allergies Allergy/AdvReac Type Severity Reaction Status Date / Time No Known Allergies Allergy Verified 10/29/20 16:16 Assessment & Plan Assessment & Plan (1) Catatonia: Status: Acute Code(s): F06.1 - Catatonic disorder due to known physiological condition Assessment and Plan: Pt stable; reports mood is better, though still with catatonic-like symptoms asked about discharge; limited insight continue current treatment plan; no changes at this time Ms. Ratliff presents with unclear etiology of catatonic like symptoms, that apparently have not been completely new as initially reported by crisis. It appears that she has had some work up including LP, MRI, will try to obtain further medical records to clarify current presentation. Will d/c topamax as it may worsened cognition, stop haldol (high potency antipsychotic that can worsened catatonia), switch clonazepam to ativan. 1. Increase ativan 2mg po QID- given partial decrease in staring, less mutism, less bradykinesia 2. switch to bedtime olanzapine 5mg po qhs 3. Switch cymbalta effexor. Stop Cymbalta, Start Effexor 37.5mg po daily. 4. Neurology consult- suggestive of dx frontotemporal dementia. 5. Start memantine 5mg po qhs. Her head CT reveal significant cortical bilateral mostly frontal and parietal atrophy. Assessment and Plan (1) Frontal lobe dementia: Problem details: 55 years old woman with underlying diagnosis of bipolar disorder has generalized bradykinesia, mild rigidity, gait disorder, and behavioral disorder. Her head CT revealed quite significant cortical bilateral mostly frontal and parietal cerebral atrophy. Her primary condition seemed to be degenerative dementia affecting mostly frontal but also parietal cortical areas. Frontal lobe fadumo ntia patient sometime can have gait disorder or features that could look like parkinsonian. Overall presentation is not suggestive of catatonia. One could try an experiment and give her dopamine or carbidopa levodopa to see if she could have improvement in her physical abilities but patients like her may not respond well to treatment. There is no specific known therapy. I recommend family education, symptomatic treatment, and long-term planning. Serum CPK level is also recommended just to rule out any additional extrapyramidal pathology. (2) Frontal lobe dementia: Status: Acute Code(s): G31.09 - Other frontotemporal dementia; F02.80 - Dementia in other diseases classified elsewhere without behavioral disturbance Greater than 50% of the session was spent on counseling and/or coordination of care Reason for contiued inpatient stay Substantial Risk for: inability to function
[2020-11-05 17:44] LABS: Glucose, Whole Blood 161 mg/dL (60-115)
[2020-11-05 18:00] VITALS: BP 127/73; PULSE 107; TEMP 36.3; O2SAT 95
[2020-11-05] MEDS: Aspirin Enteric Coated 81 MG TABLET.DR PO (20:29)
[2020-11-05] MEDS: Atorvastatin Calcium 20 MG TABLET PO (20:29)
[2020-11-05] MEDS: Memantine HCl 5 MG TABLET PO (20:29)
[2020-11-05] MEDS: Acetaminophen 325 MG TABLET 650 MG PO (20:29)
[2020-11-06] MEDS: traZODone HCL 50 MG TABLET PO (00:19)
[2020-11-06] MEDS: hydrOXYzine HCL 25 MG TABLET PO (00:19)
[2020-11-06 01:06] LABS: Glucose, Whole Blood 148 mg/dL (60-115)
[2020-11-06 06:30] VITALS: BP 115/59; PULSE 82; RESP 16; TEMP 36.6; O2SAT 94
[2020-11-06 08:14] LABS: Creatinine Clr Calc Pharmacy 111.4; Estimated Glomerular Filt Rate > 60
[2020-11-06 08:18] LABS: Glucose, Whole Blood 129 mg/dL (60-115)
[2020-11-06] MEDS: Insulin Glargine,Hum.rec.anlog 100 UNIT/ML 10 ML VIAL 30 UNIT SUBCUT ×2 (08:57→21:39)
[2020-11-06] MEDS: OLANZapine 2.5 MG TABLET PO (08:59)
[2020-11-06] MEDS: glipiZIDE XL 10 MG TAB.ER.24 PO (08:59)
[2020-11-06 09:00] VITALS: BP 149/66; PULSE 90
[2020-11-06] MEDS: Gabapentin 100 MG CAPSULE 200 MG PO ×3 (09:00→21:41)
[2020-11-06] MEDS: LORazepam 1 MG TABLET 2 MG PO ×3 (09:00→21:42)
[2020-11-06] MEDS: Venlafaxine HCl ER 37.5 MG CAP.ER.24H PO (09:00)
[2020-11-06] MEDS: lisinopriL 20 MG TABLET PO (09:00)
[2020-11-06] MEDS: metFORMIN HCl 1,000 MG TABLET 1000 MG PO ×2 (09:01→21:40)
[2020-11-06] MEDS: hydroCHLOROthiazide 25 MG TABLET PO (09:01)
[2020-11-06 11:51] LABS: Glucose, Whole Blood 128 mg/dL (60-115)
--- NOTE | 2020-11-06 15:04 | P.PNPSI_ITS ---
Subjective Subjective Date of Service: 11/06/20 Reason For Visit: MDD with psychosis Interim History: Barbra has been mostly in bed but awake for most periods of time. She reports being able to talk easier. She is noted to be more fluent when questions ask although details to her conversations are limited. She reports feeling tired but not sedated, does not think medications are making her tired but opposite, able to move and talk easier with ativan- which confirms to some extend presence of catatonia in addition to frontotemporal atrophy noted in imaging. She denies SI/HI. She asks when she can go home. She denies VH/AH. We discussed medication changes to decrease catatonia, improve mood and perhaps support to frontotemporal dysfunction. Review of Systems Review of Systems No recent cold or flu-like illness. Yes Unobtainable due to mental status Mental Status Exam Mental Status Exam Narrative: Appearance: disheveled, hair unkempt, but with adequate hygiene Behavior: calm; blank stare Psychomotor: significant retardation noted Speech: mumbles but able to articulate; minimally spontaneous TP: goal oriented. TC: poverty of thought Mood: tired Affect:blunted SI:denies HI:denies AH/VH:denies- staff reports may be responding to internal stimuli Delusions:none Insight/judgment:impaired prior note: Memory/cog:alert, oriented x 3. MOCA completed on 11/05/2020 that showed scored of 12/30, one point added for education less than 12 yrs. Most difficulty with recall (0/5), visuo spatial (1/5), clock draw test significant impairment in that she was only able to place numbers 1-5 half of clock, language repetition and fluency (2 words in one minute), abstraction. However, orientation is intact (6/6). Diagnostics Vital Signs (24Hr): Vital Signs - 24 hr 11/05/20 18:00 11/06/20 06:30 11/06/20 09:00 Temperature 97.3 F 97.9 F Pulse Rate 107 H 82 90 Respiratory Rate 16 Blood Pressure 127/73 115/59 L 149/66 H Pulse Oximetry 95 94 Body Mass Index 38.3 Labs Results: 11/02/20 08:07 11/06/20 07:46 Labs: Laboratory Results - last 48 hr 11/04/20 11/04/20 11/05/20 16:50 20:28 06:12 Creatinine Estim Creat Clear Calc Estimated GFR POC Glucose 103 204 H 129 H 11/05/20 11/05/20 11/05/20 12:58 17:25 20:16 Creatinine Estim Creat Clear Calc Estimated GFR POC Glucose 175 H 161 H 148 H 11/06/20 11/06/20 11/06/20 07:46 08:14 11:43 Creatinine 0.75 Estim Creat Clear Calc 111.4 Estimated GFR > 60 POC Glucose 129 H 128 H Imaging Radiology Impressions: ITS Impressions Head CT 10/27/20 19:20 IMPRESSION: No acute intracranial pathology. No significant interval change is noted compared to last CT. Medications Medications Current Medications Generic Name Dose Route Start Last Admin Trade Name Freq PRN Reason Stop Dose Admin Acetaminophen 650 mg 10/30/20 21:44 11/05/20 20:29 Acetaminophen 325 Mg Tablet PO 650 mg Q6H PRN Administration Headache/Pain Mild Scale (1-3) Al Hydroxide/Mg Hydroxide 30 ml 10/30/20 21:44 Magnesium Hydrox/Alum Hydrox 30 Ml Oral.Susp PO Q6H PRN Heartburn/Nausea Albuterol Sulfate 2 puff 11/01/20 08:54 Albuterol Sulfate 90 Mcg 8 Gm Inhaler INHALE RQID PRN Shortness of Breath Aspirin 81 mg 10/28/20 21:00 11/05/20 20:29 Aspirin Enteric Coated 81 Mg Tablet.Dr PO 81 mg BEDTIME LOUR[facility] Administration Atorvastatin Calcium 20 mg 10/28/20 21:00 11/05/20 20:29 Atorvastatin Calcium 20 Mg Tablet PO 20 mg BEDTIME LOURDES Administration Gabapentin 200 mg 10/27/20 23:45 11/06/20 14:28 Gabapentin 100 Mg Capsule PO 200 mg TID LOURDES Administration Glipizide 10 mg 10/28/20 09:00 11/06/20 08:59 Glipizide Xl 10 Mg Tab.Er.24 PO 10 mg DAILY LOURDES Administration Hydrochlorothiazide 25 mg 10/28/20 09:00 11/06/20 09:01 Hydrochlorothiazide 25 Mg Tablet PO 25 mg DAILY LOUR[facility] Administration Hydroxyzine HCl 25 mg 10/30/20 21:44 11/06/20 00:19 Hydroxyzine Hcl 25 Mg Tablet PO 25 mg BEDTIME PRN Administration Anxiety Insulin Glargine 30 unit 10/28/20 09:00 11/06/20 08:57 Insulin Glargine,Hum.Rec.Anlog 100 Unit/Ml 10 Ml Vial SUBCUT 30 unit BID LOURDES Administration Insulin Human Lispro 0 unit 10/31/20 11:30 11/06/20 11:58 Insulin Lispro 100 Unit/Ml 3 Ml Vial SUBCUT Not Given QIDACHS [facility] Protocol Lisinopril 20 mg 10/28/20 09:00 11/06/20 09:00 Lisinopril 20 Mg Tablet PO 20 mg DAILY LOURDES Administration Lorazepam 2 mg 11/05/20 13:00 11/06/20 13:05 Lorazepam 1 Mg Tablet PO 2 mg QID LOURDES Administration Magnesium Hydroxide 30 ml 10/30/20 21:44 Milk Of Magnesia 30 Ml Oral.Susp PO DAILY PRN Constipation Memantine 5 mg 11/05/20 21:00 11/05/20 20:29 Memantine Hcl 5 Mg Tablet PO 5 mg BEDTIME LOURDES Administration Metformin HCl 1,000 mg 10/28/20 09:00 11/06/20 09:01 Metformin Hcl 1,000 Mg Tablet PO 1,000 mg BID LOURDES Administration Olanzapine 2.5 mg 10/31/20 21:00 11/06/20 08:59 Olanzapine 2.5 Mg Tablet PO 2.5 mg BID LOURDES Administration Trazodone HCl 50 mg 10/30/20 21:44 11/06/20 00:19 Trazodone Hcl 50 Mg Tablet PO 50 mg BEDTIME PRN Administration Insomnia Venlafaxine HCl 37.5 mg 11/05/20 11:35 11/06/20 09:00 Venlafaxine Hcl Er 37.5 Mg Cap.Er.24h PO 37.5 mg DAILY LOURDES Administration Allergies Allergies Allergy/AdvReac Type Severity Reaction Status Date / Time No Known Allergies Allergy Verified 10/29/20 16:16 Assessment & Plan Assessment & Plan (1) Catatonia: Status: Acute Code(s): F06.1 - Catatonic disorder due to known physiological condition Assessment and Plan: Pt stable; reports mood is better, though still with catatonic-like symptoms asked about discharge; limited insight continue current treatment plan; no changes at this time Ms. Ratliff presents with unclear etiology of catatonic like symptoms, that apparently have not been completely new as initially reported by crisis. It appears that she has had some work up including LP, MRI, will try to obtain further medical records to clarify current presentation. Will d/c topamax as it may worsened cognition, stop haldol (high potency antipsychotic that can worsened catatonia), switch clonazepam to ativan. 1. Continue tivan 2mg po QID- given partial decrease in staring, less mutism, less bradykinesia 2. Continue olanzapine 5mg po qhs 3. Switch cymbalta effexor. Stop Cymbalta, Increase Effexor 75mg po daily. 4. Neurology consult- suggestive of dx frontotemporal dementia. 5. Continue memantine 5mg po qhs. Her head CT reveal significant cortical bilateral mostly frontal and parietal atrophy. Assessment and Plan (1) Frontal lobe dementia: Problem details: 55 years old woman with underlying diagnosis of bipolar disorder has generalized bradykinesia, mild rigidity, gait disorder, and behavioral disorder. Her head CT revealed quite significant cortical bilateral mostly frontal and parietal cerebral atrophy. (2) Frontal lobe dementia: Status: Acute Code(s): G31.09 - Other frontotemporal dementia; F02.80 - Dementia in other diseases classified elsewhere without behavioral disturbance Greater than 50% of the session was spent on counseling and/or coordination of care Reason for contiued inpatient stay Substantial Risk for: inability to function
[2020-11-06 17:09] LABS: Glucose, Whole Blood 110 mg/dL (60-115)
[2020-11-06 17:46] LABS: Glucose, Whole Blood 105 mg/dL (60-115)
[2020-11-06 18:00] VITALS: BP 119/80; PULSE 101; TEMP 36.7; O2SAT 96
[2020-11-06 18:38] LABS: Glucose, Whole Blood 189 mg/dL (60-115)
[2020-11-06] MEDS: Insulin Lispro 100 UNIT/ML 3 ML VIAL SUBCUT (21:22)
[2020-11-06 21:31] LABS: Glucose, Whole Blood 123 mg/dL (60-115)
[2020-11-06] MEDS: Aspirin Enteric Coated 81 MG TABLET.DR PO (21:41)
[2020-11-06] MEDS: OLANZapine 5 MG TABLET PO (21:42)
[2020-11-06] MEDS: Memantine HCl 5 MG TABLET PO (21:42)
[2020-11-06] MEDS: Atorvastatin Calcium 20 MG TABLET PO (21:42)
[2020-11-07 06:00] VITALS: BP 113/67; PULSE 84; RESP 18; TEMP 36.2; O2SAT 97
[2020-11-07 06:22] LABS: Glucose, Whole Blood 122 mg/dL (60-115)
[2020-11-07] MEDS: Insulin Glargine,Hum.rec.anlog 100 UNIT/ML 10 ML VIAL 30 UNIT SUBCUT ×2 (08:51→20:18)
[2020-11-07 08:52] VITALS: BP 136/60; PULSE 92
[2020-11-07] MEDS: Gabapentin 100 MG CAPSULE 200 MG PO ×3 (08:52→20:29)
[2020-11-07] MEDS: LORazepam 1 MG TABLET 2 MG PO ×4 (08:52→20:29)
[2020-11-07] MEDS: Venlafaxine HCl ER 75 MG CAP.ER.24H PO (08:52)
[2020-11-07] MEDS: lisinopriL 20 MG TABLET PO (08:52)
[2020-11-07] MEDS: metFORMIN HCl 1,000 MG TABLET 1000 MG PO ×2 (08:52→20:54)
[2020-11-07] MEDS: hydroCHLOROthiazide 25 MG TABLET PO (08:53)
[2020-11-07] MEDS: glipiZIDE XL 10 MG TAB.ER.24 PO (08:53)
[2020-11-07 12:21] LABS: Glucose, Whole Blood 122 mg/dL (60-115)
--- NOTE | 2020-11-07 14:42 | P.PNPSI_ITS ---
Subjective Subjective Date of Service: 11/07/20 Reason For Visit: MDD with psychosis Interim History: Barbra was up early today. She attended group- physical therapy group. She actively and appropriately participated, which is new for her to be able to move as fluently as she was given s/s catatonia. She was able to talk with less pauses but poverty of thought noted. She reported sleeping well. She reports mood okay. Affect slightly brighter but continues to be constricted in range. She denied SI/HI. She reports eating well. Review of Systems Review of Systems No recent cold or flu-like illness. Yes Unobtainable due to mental status Mental Status Exam Mental Status Exam Narrative: Appearance: wearing hospital gown, less disheveled, hair unkempt, but with adequate hygiene Behavior: calm; blank stare Psychomotor: less retardation noted Speech: mostly clear, decreased delayed in response rate, soft tone; minimally spontaneous TP: goal oriented. TC: poverty of thought Mood: okay Affect:slightly brighter SI:denies HI:denies AH/VH:denies- Delusions:none Insight/judgment:impaired prior note: Memory/cog:alert, oriented x 3. MOCA completed on 11/05/2020 that showed scored of 12/30, one point added for education less than 12 yrs. Most difficulty with recall (0/5), visuo spatial (1/5), clock draw test significant impairment in that she was only able to place numbers 1-5 half of clock, language repetition and fluency (2 words in one minute), abstraction. However, orientation is intact (6/6). Diagnostics Vital Signs (24Hr): Vital Signs - 24 hr 11/06/20 18:00 11/07/20 06:00 11/07/20 08:52 Temperature 98.1 F 97.1 F Pulse Rate 101 H 84 92 Respiratory Rate 18 Blood Pressure 119/80 113/67 136/60 Pulse Oximetry 96 97 Body Mass Index 38.3 Labs Results: 11/02/20 08:07 11/06/20 07:46 Labs: Laboratory Results - last 48 hr 11/05/20 11/05/20 11/06/20 17:25 20:16 07:46 Creatinine 0.75 Estim Creat Clear Calc 111.4 Estimated GFR > 60 POC Glucose 161 H 148 H 11/06/20 11/06/2011/06/21 08:14 11:43 16:47 Creatinine Estim Creat Clear Calc Estimated GFR POC Glucose 129 H 128 H 110 11/06/20 11/06/20 11/06/20 17:35 18:32 21:18 Creatinine Estim Creat Clear Calc Estimated GFR POC Glucose 105 189 H 123 H 11/07/20 11/07/20 06:18 12:17 Creatinine Estim Creat Clear Calc Estimated GFR POC Glucose 122 H 122 H Imaging Radiology Impressions: ITS Impressions Head CT 10/27/20 19:20 IMPRESSION: No acute intracranial pathology. No significant interval change is noted compared to last CT. Medications Medications Current Medications Generic Name Dose Route Start Last Admin Trade Name Freq PRN Reason Stop Dose Admin Acetaminophen 650 mg 10/30/20 21:44 11/05/20 20:29 Acetaminophen 325 Mg Tablet PO 650 mg Q6H PRN Administration Headache/Pain Mild Scale (1-3) Al Hydroxide/Mg Hydroxide 30 ml 10/30/20 21:44 Magnesium Hydrox/Alum Hydrox 30 Ml Oral.Susp PO Q6H PRN Heartburn/Nausea Albuterol Sulfate 2 puff 11/01/20 08:54 Albuterol Sulfate 90 Mcg 8 Gm Inhaler INHALE RQID PRN Shortness of Breath Aspirin 81 mg 10/28/20 21:00 11/06/20 21:41 Aspirin Enteric Coated 81 Mg Tablet.Dr PO 81 mg BEDTIME LOURDES Administration Atorvastatin Calcium 20 mg 10/28/20 21:00 11/06/20 21:42 Atorvastatin Calcium 20 Mg Tablet PO 20 mg BEDTIME LOURDES Administration Gabapentin 200 mg 10/27/20 23:45 11/07/20 08:52 Gabapentin 100 Mg Capsule PO 200 mg TID LOURDES Administration Glipizide 10 mg 10/28/20 09:00 11/07/20 08:53 Glipizide Xl 10 Mg Tab.Er.24 PO 10 mg DAILY LOURDES Administration Hydrochlorothiazide 25 mg 10/28/20 09:00 11/07/20 08:53 Hydrochlorothiazide 25 Mg Tablet PO 25 mg DAILY LOURDES Administration Hydroxyzine HCl 25 mg 10/30/20 21:44 11/06/20 00:19 Hydroxyzine Hcl 25 Mg Tablet PO 25 mg BEDTIME PRN Administration Anxiety Insulin Glargine 30 unit 10/28/20 09:00 11/07/20 08:51 Insulin Glargine,Hum.Rec.Anlog 100 Unit/Ml 10 Ml Vial SUBCUT 30 unit BID LOURDES Administration Insulin Human Lispro 0 unit 10/31/20 11:30 11/07/20 12:25 Insulin Lispro 100 Unit/Ml 3 Ml Vial SUBCUT Not Given QIDACHS L[facility] Protocol Lisinopril 20 mg 10/28/20 09:00 11/07/20 08:52 Lisinopril 20 Mg Tablet PO 20 mg DAILY LOURDES Administration Lorazepam 2 mg 11/05/20 13:00 11/07/20 12:29 Lorazepam 1 Mg Tablet PO 2 mg QID LOURDES Administration Magnesium Hydroxide 30 ml 10/30/20 21:44 Milk Of Magnesia 30 Ml Oral.Susp PO DAILY PRN Constipation Memantine 5 mg 11/05/20 21:00 11/06/20 21:42 Memantine Hcl 5 Mg Tablet PO 5 mg BEDTIME LOURDES Administration Metformin HCl 1,000 mg 10/28/20 09:00 11/07/20 08:52 Metformin Hcl 1,000 Mg Tablet PO 1,000 mg BID LOURDES Administration Olanzapine 5 mg 11/06/20 21:00 11/06/20 21:42 Olanzapine 5 Mg Tablet PO 5 mg BEDTIME LOURDES Administration Trazodone HCl 50 mg 10/30/20 21:44 11/06/20 00:19 Trazodone Hcl 50 Mg Tablet PO 50 mg BEDTIME PRN Administration Insomnia Venlafaxine HCl 75 mg 11/07/20 09:00 11/07/20 08:52 Venlafaxine Hcl Er 75 Mg Cap.Er.24h PO 75 mg DAILY LOURDES Administration Allergies Allergies Allergy/AdvReac Type Severity Reaction Status Date / Time No Known Allergies Allergy Verified 10/29/20 16:16 Assessment & Plan Assessment & Plan (1) Catatonia: Status: Acute Code(s): F06.1 - Catatonic disorder due to known physiological condition Assessment and Plan: Pt stable; reports mood is better, though still with catatonic-like symptoms asked about discharge; limited insight continue current treatment plan; no changes at this time Ms. Ratliff presents with unclear etiology of catatonic like symptoms, that apparently have not been completely new as initially reported by crisis. It appears that she has had some work up including LP, MRI, will try to obtain further medical records to clarify current presentation. Will d/c topamax as it may worsened cognition, stop haldol (high potency antipsychotic that can worsened catatonia), switch clonazepam to ativan. 1. Continue ativan 2mg po QID- given partial decrease in staring, less mutism, less bradykinesia 2. Continue olanzapine 5mg po qhs 3. Continue Effexor 75mg po daily. 4. Neurology consult- suggestive of dx frontotemporal dementia. 5. Continue memantine 5mg po qhs. Her head CT reveal significant cortical bilateral mostly frontal and parietal atrophy. (1) R/o Frontal lobe dementia: Problem details: 55 years old woman with underlying diagnosis of bipolar disorder has generalized bradykinesia, mild rigidity, gait disorder, and behavioral disorder. Her head CT revealed quite significant cortical bilateral mostly frontal and parietal cerebral atrophy. (2) Frontal lobe dementia: Status: Acute Code(s): G31.09 - Other frontotemporal dementia; F02.80 - Dementia in other diseases c lassified elsewhere without behavioral disturbance Greater than 50% of the session was spent on counseling and/or coordination of care Reason for contiued inpatient stay Substantial Risk for: inability to function
[2020-11-07] MEDS: Acetaminophen 325 MG TABLET 650 MG PO (15:50)
[2020-11-07 17:15] VITALS: BP 127/69; PULSE 99; RESP 16; TEMP 36.3; O2SAT 97
[2020-11-07 17:49] LABS: Glucose, Whole Blood 137 mg/dL (60-115)
[2020-11-07] MEDS: Atorvastatin Calcium 20 MG TABLET PO (20:29)
[2020-11-07] MEDS: Aspirin Enteric Coated 81 MG TABLET.DR PO (20:29)
[2020-11-07] MEDS: Insulin Lispro 100 UNIT/ML 3 ML VIAL SUBCUT (20:30)
[2020-11-07] MEDS: OLANZapine 5 MG TABLET PO (20:44)
[2020-11-07] MEDS: Memantine HCl 5 MG TABLET PO (20:53)
[2020-11-07 21:41] LABS: Glucose, Whole Blood 155 mg/dL (60-115)
[2020-11-07] MEDS: traZODone HCL 50 MG TABLET PO (23:14)
[2020-11-08 05:57] LABS: Glucose, Whole Blood 99 mg/dL (60-115)
[2020-11-08 06:35] VITALS: BP 102/53; PULSE 84; RESP 16; TEMP 36.3; O2SAT 97
[2020-11-08 08:53] VITALS: BP 112/60; PULSE 80
[2020-11-08] MEDS: metFORMIN HCl 1,000 MG TABLET 1000 MG PO ×2 (08:53→21:37)
[2020-11-08] MEDS: hydroCHLOROthiazide 25 MG TABLET PO (08:53)
[2020-11-08] MEDS: Gabapentin 100 MG CAPSULE 200 MG PO ×3 (08:53→21:29)
[2020-11-08] MEDS: LORazepam 1 MG TABLET 2 MG PO ×4 (08:53→21:29)
[2020-11-08] MEDS: lisinopriL 20 MG TABLET PO (08:53)
[2020-11-08] MEDS: Venlafaxine HCl ER 75 MG CAP.ER.24H PO (08:53)
[2020-11-08] MEDS: glipiZIDE XL 10 MG TAB.ER.24 PO (08:53)
[2020-11-08] MEDS: Insulin Glargine,Hum.rec.anlog 100 UNIT/ML 10 ML VIAL 30 UNIT SUBCUT ×2 (08:54→21:30)
[2020-11-08 09:52] VITALS: BMI 39.9
[2020-11-08 11:52] LABS: Glucose, Whole Blood 135 mg/dL (60-115)
[2020-11-08] MEDS: Acetaminophen 325 MG TABLET 650 MG PO (12:05)
[2020-11-08 17:01] VITALS: BP 119/63; PULSE 91; RESP 18; TEMP 35.9; O2SAT 99
[2020-11-08 18:59] LABS: Glucose, Whole Blood 90 mg/dL (60-115)
[2020-11-08] MEDS: Insulin Lispro 100 UNIT/ML 3 ML VIAL SUBCUT (21:24)
[2020-11-08] MEDS: Atorvastatin Calcium 20 MG TABLET PO (21:29)
[2020-11-08] MEDS: OLANZapine 5 MG TABLET PO (21:29)
[2020-11-08] MEDS: Aspirin Enteric Coated 81 MG TABLET.DR PO (21:29)
[2020-11-08] MEDS: Memantine HCl 5 MG TABLET PO (21:29)
--- NOTE | 2020-11-08 21:33 | P.PNPSI_ITS ---
Subjective Subjective Date of Service: 11/09/20 Reason For Visit: MDD with psychosis Subjective Notes: Conditional Voluntary Interim History: c/o back pain bhatia affect Medication Compliance: Yes Side effects from medications: Yes Attending Groups: Intermittent Mental Status Exam Mental Status Exam Narrative: Appearance: wearing hospital gown, less disheveled, hair unkempt, but with adequate hygiene Behavior: calm; blank stare Psychomotor: ambulating slowly Speech: mostly clear, decreased delayed in response rate, soft tone; minimally spontaneous TP: goal oriented. TC: poverty of thought Mood: okay Affect:slightly brighter SI:denies HI:denies AH/VH:denies- Delusions:none Insight/judgment:impaired improving no rigity bradykinesia Diagnostics Vital Signs (24Hr): Vital Signs - 24 hr 11/08/20 06:35 11/08/20 08:53 11/08/20 17:01 Temperature 97.4 F 96.7 F L Pulse Rate 84 80 91 Respiratory Rate 16 18 Blood Pressure 102/53 L 112/60 119/63 Pulse Oximetry 97 99 Body Mass Index 39.9 Labs Results: 11/02/20 08:07 11/06/20 07:46 Labs: Laboratory Results - last 48 hr 11/07/20 11/07/20 11/07/20 06:18 12:17 16:36 POC Glucose 122 H 122 H 137 H 11/07/20 11/08/20 11/08/20 20:27 05:53 11:47 POC Glucose 155 H 99 135 H 11/08/20 16:42 POC Glucose 90 Imaging Radiology Impressions: ITS Impressions Head CT 10/27/20 19:20 IMPRESSION: No acute intracranial pathology. No significant interval change is noted compared to last CT. Medications Medications Current Medications Generic Name Dose Route Start Last Admin Trade Name Freq PRN Reason Stop Dose Admin Acetaminophen 650 mg 10/30/20 21:44 11/08/20 12:05 Acetaminophen 325 Mg Tablet PO 650 mg Q6H PRN Administration Headache/Pain Mild Scale (1-3) Al Hydroxide/Mg Hydroxide 30 ml 10/30/20 21:44 Magnesium Hydrox/Alum Hydrox 30 Ml Oral.Susp PO Q6H PRN Heartburn/Nausea Albuterol Sulfate 2 puff 11/01/20 08:54 Albuterol Sulfate 90 Mcg 8 Gm Inhaler INHALE RQID PRN Shortness of Breath Aspirin 81 mg 10/28/20 21:00 11/08/20 21:29 Aspirin Enteric Coated 81 Mg Tablet.Dr PO 81 mg BEDTIME LOUR[facility] Administration Atorvastatin Calcium 20 mg 10/28/20 21:00 11/08/20 21:29 Atorvastatin Calcium 20 Mg Tablet PO 20 mg BEDTIME [facility] Administration Gabapentin 200 mg 10/27/20 23:45 11/08/20 21:29 Gabapentin 100 Mg Capsule PO 200 mg TID L[facility] Administration Glipizide 10 mg 10/28/20 09:00 11/08/20 08:53 Glipizide Xl 10 Mg Tab.Er.24 PO 10 mg DAILY L[facility] Administration Hydrochlorothiazide 25 mg 10/28/20 09:00 11/08/20 08:53 Hydrochlorothiazide 25 Mg Tablet PO 25 mg DAILY [facility] Administration Hydroxyzine HCl 25 mg 10/30/20 21:44 11/06/20 00:19 Hydroxyzine Hcl 25 Mg Tablet PO 25 mg BEDTIME PRN Administration Anxiety Insulin Glargine 30 unit 10/28/20 09:00 11/08/20 21:30 Insulin Glargine,Hum.Rec.Anlog 100 Unit/Ml 10 Ml Vial SUBCUT 30 unit BID L[facility] Administration Insulin Human Lispro 0 unit 10/31/20 11:30 11/08/20 21:24 Insulin Lispro 100 Unit/Ml 3 Ml Vial SUBCUT 4 unit QIDACHS [facility] Administration Protocol Lisinopril 20 mg 10/28/20 09:00 11/08/20 08:53 Lisinopril 20 Mg Tablet PO 20 mg DAILY L[facility] Administration Lorazepam 2 mg 11/05/20 13:00 11/08/20 21:29 Lorazepam 1 Mg Tablet PO 2 mg QID L[facility] Administration Magnesium Hydroxide 30 ml 10/30/20 21:44 Milk Of Magnesia 30 Ml Oral.Susp PO DAILY PRN Constipation Memantine 5 mg 11/05/20 21:00 11/08/20 21:29 Memantine Hcl 5 Mg Tablet PO 5 mg BEDTIME L[facility] Administration Metformin HCl 1,000 mg 10/28/20 09:00 11/08/20 08:53 Metformin Hcl 1,000 Mg Tablet PO 1,000 mg BID L[facility] Administration Olanzapine 5 mg 11/06/20 21:00 11/08/20 21:29 Olanzapine 5 Mg Tablet PO 5 mg BEDTIME L[facility] Administration Trazodone HCl 50 mg 10/30/20 21:44 11/07/20 23:14 Trazodone Hcl 50 Mg Tablet PO 50 mg BEDTIME PRN Administration Insomnia Venlafaxine HCl 75 mg 11/07/20 09:00 11/08/20 08:53 Venlafaxine Hcl Er 75 Mg Cap.Er.24h PO 75 mg DAILY L[facility] Administration Allergies Allergies Allergy/AdvReac Type Severity Reaction Status Date / Time No Known Allergies Allergy Verified 10/29/20 16:16 Assessment & Plan Assessment & Plan (1) Catatonia: Status: Acute Code(s): F06.1 - Catatonic disorder due to known physiological condition Assessment and Plan: Pt stable; reports mood is better, though still with catatonic-like symptoms asked about discharge; limited insight continue current treatment plan; no changes at this time cont lorazepam 2 qid effexor 75 mg pt did acknowledge depression Her head CT reveal significant cortical bilateral mostly frontal and parietal atrophy. (1) R/o Frontal lobe dementia: Problem details: 55 years old woman with underlying diagnosis of bipolar disorder has generalized bradykinesia, mild rigidity, gait disorder, and behavioral disorder. Her head CT revealed quite significant cortical bilateral mostly frontal and parietal cerebral atrophy. (2) Frontal lobe dementia: Status: Acute Code(s): G31.09 - Other frontotemporal dementia; F02.80 - Dementia in other diseases classified elsewhere without behavioral disturbance Assessment and Plan: neuro referral could have pet potpt Greater than 50% of the session was spent on counseling and/or coordination of c are Reason for contiued inpatient stay Substantial Risk for: inability to function, rapid decompensation and med/psych decompensation
[2020-11-08 23:13] LABS: Glucose, Whole Blood 225 mg/dL (60-115)
[2020-11-09] MEDS: traZODone HCL 50 MG TABLET PO (02:51)
[2020-11-09] MEDS: hydrOXYzine HCL 25 MG TABLET PO (02:51)
[2020-11-09 06:20] VITALS: BP 105/57; PULSE 72; RESP 18; TEMP 36.2; O2SAT 99
[2020-11-09 06:44] LABS: Glucose, Whole Blood 99 mg/dL (60-115)
[2020-11-09] MEDS: glipiZIDE XL 10 MG TAB.ER.24 PO (08:43)
[2020-11-09] MEDS: LORazepam 1 MG TABLET 2 MG PO ×4 (08:43→21:45)
[2020-11-09] MEDS: Gabapentin 100 MG CAPSULE 200 MG PO ×3 (08:43→21:46)
[2020-11-09] MEDS: metFORMIN HCl 1,000 MG TABLET 1000 MG PO ×2 (08:44→21:45)
[2020-11-09] MEDS: Venlafaxine HCl ER 75 MG CAP.ER.24H PO (08:44)
[2020-11-09] MEDS: hydroCHLOROthiazide 25 MG TABLET PO (08:44)
[2020-11-09] MEDS: lisinopriL 20 MG TABLET PO (08:44)
[2020-11-09] MEDS: Insulin Glargine,Hum.rec.anlog 100 UNIT/ML 10 ML VIAL 30 UNIT SUBCUT ×2 (08:46→21:52)
[2020-11-09] MEDS: Acetaminophen 325 MG TABLET 650 MG PO (10:34)
--- NOTE | 2020-11-09 10:36 | P.PNPSI_ITS ---
Subjective Subjective Date of Service: 11/10/20 Reason For Visit: MDD with psychosis Subjective Notes: Conditional Voluntary Interim History: Ms. Ratliff has been more visible in the unit. Her affect appears slightly brighter although continues to be constricted. She reports improvement in mood in that she does not feel as depressed. She also reports that she was hearing voices, which she denies hearing now. She denies SI/HI. She states she notes that she is able to move faster as well as easier to talk. She asks when she can go home. Medication Compliance: Yes Side effects from medications: No Attending Groups: Intermittent Review of Systems Review of Systems No recent cold or flu-like illness. Yes Unobtainable due to mental status Mental Status Exam Mental Status Exam Narrative: Appearance: wearing hospital gown, less disheveled, hair unkempt, but with adequate hygiene Behavior: calm; blank stare Psychomotor: ambulating slowly Speech: mostly clear, decreased delayed in response rate, soft tone; minimally spontaneous TP: goal oriented. TC: poverty of thought Mood: okay Affect:slightly brighter SI:denies HI:denies AH/VH:denies- Delusions:none Insight/judgment:impaired Memory/cog: alert, oriented 3. MOCA showed significant impairments in executive function, recall. Diagnostics Vital Signs (24Hr): Vital Signs - 24 hr 11/09/20 21:45 11/10/20 06:10 11/10/20 09:25 Temperature 97.5 F 97 F Pulse Rate 81 79 79 Respiratory Rate 20 Blood Pressure 132/82 102/60 107/65 Pulse Oximetry 95 Body Mass Index 39.9 Labs Results: 11/02/20 08:07 11/06/20 07:46 Labs: Laboratory Results - last 48 hr 11/08/20 11/08/20 11/08/20 11:47 16:42 20:51 POC Glucose 135 H 90 225 H 11/09/20 11/09/20 11/09/20 06:29 11:45 16:39 POC Glucose 99 155 H 114 11/09/20 11/10/20 21:24 06:41 POC Glucose 211 H 146 H Imaging Radiology Impressions: ITS Impressions Head CT 10/27/20 19:20 IMPRESSION: No acute intracranial pathology. No significant interval change is noted compared to last CT. Medications Medications Current Medications Generic Name Dose Route Start Last Admin Trade Name Mary Jane PRN Reason Stop Dose Admin Acetaminophen 650 mg 10/30/20 21:44 11/09/20 10:34 Acetaminophen 325 Mg Tablet PO 650 mg Q6H PRN Administration Headache/Pain Mild Scale (1-3) Al Hydroxide/Mg Hydroxide 30 ml 10/30/20 21:44 Magnesium Hydrox/Alum Hydrox 30 Ml Oral.Susp PO Q6H PRN Heartburn/Nausea Albuterol Sulfate 2 puff 11/01/20 08:54 Albuterol Sulfate 90 Mcg 8 Gm Inhaler INHALE RQID PRN Shortness of Breath Aspirin 81 mg 10/28/20 21:00 11/09/20 21:46 Aspirin Enteric Coated 81 Mg Tablet.Dr PO 81 mg BEDTIME L[facility] Administration Atorvastatin Calcium 20 mg 10/28/20 21:00 11/09/20 21:49 Atorvastatin Calcium 20 Mg Tablet PO 20 mg BEDTIME L[facility] Administration Gabapentin 200 mg 10/27/20 23:45 11/10/20 09:25 Gabapentin 100 Mg Capsule PO 200 mg TID [facility] Administration Glipizide 10 mg 10/28/20 09:00 11/10/20 09:24 Glipizide Xl 10 Mg Tab.Er.24 PO 10 mg DAILY L[facility] Administration Hydrochlorothiazide 25 mg 10/28/20 09:00 11/10/20 09:26 Hydrochlorothiazide 25 Mg Tablet PO 25 mg DAILY L[facility] Administration Hydroxyzine HCl 25 mg 10/30/20 21:44 11/09/20 02:51 Hydroxyzine Hcl 25 Mg Tablet PO 25 mg BEDTIME PRN Administration Anxiety Insulin Glargine 30 unit 10/28/20 09:00 11/10/20 09:29 Insulin Glargine,Hum.Rec.Anlog 100 Unit/Ml 10 Ml Vial SUBCUT 30 unit BID L[facility] Administration Insulin Human Lispro 0 unit 10/31/20 11:30 11/10/20 09:29 Insulin Lispro 100 Unit/Ml 3 Ml Vial SUBCUT Not Given QIDACHS [facility] Protocol Lisinopril 20 mg 10/28/20 09:00 11/10/20 09:25 Lisinopril 20 Mg Tablet PO 20 mg DAILY L[facility] Administration Lorazepam 2 mg 11/10/20 09:00 11/10/20 09:25 Lorazepam 1 Mg Tablet PO 2 mg TID LOUR[facility] Administration Magnesium Hydroxide 30 ml 10/30/20 21:44 Milk Of Magnesia 30 Ml Oral.Susp PO DAILY PRN Constipation Memantine 5 mg 11/05/20 21:00 11/09/20 21:46 Memantine Hcl 5 Mg Tablet PO 5 mg BEDTIME L[facility] Administration Metformin HCl 1,000 mg 10/28/20 09:00 11/10/20 09:25 Metformin Hcl 1,000 Mg Tablet PO 1,000 mg BID L[facility] Administration Olanzapine 7.5 mg 11/10/20 21:00 Olanzapine 7.5 Mg Tablet PO BEDTIME LOURDES Trazodone HCl 50 mg 10/30/20 21:44 11/09/20 02:51 Trazodone Hcl 50 Mg Tablet PO 50 mg BEDTIME PRN Administration Insomnia Venlafaxine HCl 75 mg 11/07/20 09:00 11/10/20 09:26 Venlafaxine Hcl Er 75 Mg Cap.Er.24h PO 75 mg DAILY LOUR[facility] Administration Allergies Allergies Allergy/AdvReac Type Severity Reaction Status Date / Time No Known Allergies Allergy Verified 10/29/20 16:16 Assessment & Plan Assessment & Plan (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 Continue Lorazepam 2mg po QID- may taper as pt improves. 2. Continue Olanzapine 5mg po qhs 3. Continue Effexor 75mg po daily. Her head CT reveal significant cortical bilateral mostly frontal and parietal atrophy. (1) R/o Frontal lobe dementia: Problem details: 55 years old woman with underlying diagnosis of bipolar disorder has generalized bradykinesia, mild rigidity, gait disorder, and behavioral disorder. Her head CT revealed quite significant cortical bilateral mostly frontal and parietal cerebral atrophy. (2) Frontal lobe dementia: Status: Acute Code(s): G31.09 - Other frontotemporal dementia; F02.80 - Dementia in other diseases classified elsewhere without behavioral disturbance Greater than 50% of the session was spent on counseling and/or coordination of care Reason for contiued inpatient stay Substantial Risk for: inability to function
[2020-11-09] MEDS: Insulin Lispro 100 UNIT/ML 3 ML VIAL SUBCUT ×2 (11:56→21:51)
[2020-11-09 11:58] LABS: Glucose, Whole Blood 155 mg/dL (60-115)
[2020-11-09 16:54] LABS: Glucose, Whole Blood 114 mg/dL (60-115)
[2020-11-09 21:45] VITALS: BP 132/82; PULSE 81; TEMP 36.4
[2020-11-09] MEDS: OLANZapine 5 MG TABLET PO (21:46)
[2020-11-09] MEDS: Memantine HCl 5 MG TABLET PO (21:46)
[2020-11-09] MEDS: Aspirin Enteric Coated 81 MG TABLET.DR PO (21:46)
[2020-11-09] MEDS: Atorvastatin Calcium 20 MG TABLET PO (21:49)
[2020-11-09 22:10] LABS: Glucose, Whole Blood 211 mg/dL (60-115)
[2020-11-10 06:10] VITALS: BP 102/60; PULSE 79; RESP 20; TEMP 36.1; O2SAT 95
[2020-11-10 06:56] LABS: Glucose, Whole Blood 146 mg/dL (60-115)
[2020-11-10] MEDS: glipiZIDE XL 10 MG TAB.ER.24 PO (09:24)
[2020-11-10 09:25] VITALS: BP 107/65; PULSE 79
[2020-11-10] MEDS: lisinopriL 20 MG TABLET PO (09:25)
[2020-11-10] MEDS: metFORMIN HCl 1,000 MG TABLET 1000 MG PO ×2 (09:25→22:07)
[2020-11-10] MEDS: LORazepam 1 MG TABLET 2 MG PO ×3 (09:25→22:06)
[2020-11-10] MEDS: Gabapentin 100 MG CAPSULE 200 MG PO ×3 (09:25→22:07)
[2020-11-10] MEDS: Venlafaxine HCl ER 75 MG CAP.ER.24H PO (09:26)
[2020-11-10] MEDS: hydroCHLOROthiazide 25 MG TABLET PO (09:26)
[2020-11-10] MEDS: Insulin Glargine,Hum.rec.anlog 100 UNIT/ML 10 ML VIAL 30 UNIT SUBCUT ×2 (09:29→22:08)
--- NOTE | 2020-11-10 10:09 | HO.PSYCHPN ---
Subjective Subjective Date of Service: 11/11/20 Reason For Visit: MDD with psychosis Interim History: Ms. Ratliff has been increasingly more visible in the unit. She even attends some groups although is not very talkative. She mostly does sit in TV room. Her affect is slightly brighter but with constricted range. She reports feeling less depressed. She also reports hearing less voices, which she has been talking more about. She denies SI/HI. We discussed lowering ativan as some catatonic like symptoms improve. Per nursing, no behavioral concerns. Review of Systems Review of Systems No recent cold or flu-like illness. Yes Unobtainable due to mental status Mental Status Exam Mental Status Exam Narrative: Appearance: wearing hospital gown, less disheveled, hair unkempt, but with adequate hygiene Behavior: calm; blank stare Psychomotor: ambulating slowly Speech: mostly clear, decreased delayed in response rate, soft tone; minimally spontaneous TP: goal oriented. TC: poverty of thought Mood: okay Affect:slightly brighter SI:denies HI:denies AH/VH:denies- Delusions:none Insight/judgment:impaired Memory/cog: alert, oriented 3. MOCA showed significant impairments in executive function, recall. Diagnostics Vital Signs (24Hr): Vital Signs - 24 hr 11/10/20 16:45 11/11/20 06:00 11/11/20 09:15 Temperature 97.4 F 97.9 F Pulse Rate 86 77 74 Respiratory Rate 16 Blood Pressure 105/61 110/56 L 123/71 Pulse Oximetry 96 Body Mass Index 39.9 Labs Results: 11/02/20 08:07 11/06/20 07:46 Labs: Laboratory Results - last 48 hr 11/09/20 11/09/20 11/09/20 11:45 16:39 21:24 POC Glucose 155 H 114 211 H 11/10/20 11/10/20 11/10/20 06:41 11:41 16:46 POC Glucose 146 H 164 H 137 H 11/10/20 11/11/20 21:54 07:09 POC Glucose 144 H 69 Imaging Radiology Impressions: ITS Impressions Head CT 10/27/20 19:20 IMPRESSION: No acute intracranial pathology. No significant interval change is noted compared to last CT. Medications Medications Current Medications Generic Name Dose Route Start Last Admin Trade Name Freq PRN Reason Stop Dose Admin Acetaminophen 650 mg 10/30/20 21:44 11/10/20 11:15 Acetaminophen 325 Mg Tablet PO 650 mg Q6H PRN Administration Headache/Pain Mild Scale (1-3) Al Hydroxide/Mg Hydroxide 30 ml 10/30/20 21:44 Magnesium Hydrox/Alum Hydrox 30 Ml Oral.Susp PO Q6H PRN Heartburn/Nausea Albuterol Sulfate 2 puff 11/01/20 08:54 Albuterol Sulfate 90 Mcg 8 Gm Inhaler INHALE RQID PRN Shortness of Breath Aspirin 81 mg 10/28/20 21:00 11/10/20 22:06 Aspirin Enteric Coated 81 Mg Tablet.Dr PO 81 mg BEDTIME LOURDES Administration Atorvastatin Calcium 20 mg 10/28/20 21:00 11/10/20 22:07 Atorvastatin Calcium 20 Mg Tablet PO 20 mg BEDTIME LOURDES Administration Gabapentin 200 mg 10/27/20 23:45 11/11/20 09:14 Gabapentin 100 Mg Capsule PO 200 mg TID LUORDES Administration Glipizide 10 mg 10/28/20 09:00 11/11/20 09:15 Glipizide Xl 10 Mg Tab.Er.24 PO 10 mg DAILY LOURDES Administration Hydrochlorothiazide 25 mg 10/28/20 09:00 11/11/20 09:15 Hydrochlorothiazide 25 Mg Tablet PO 25 mg DAILY LOUR[facility] Administration Hydroxyzine HCl 25 mg 10/30/20 21:44 11/09/20 02:51 Hydroxyzine Hcl 25 Mg Tablet PO 25 mg BEDTIME PRN Administration Anxiety Insulin Glargine 30 unit 10/28/20 09:00 11/11/20 09:15 Insulin Glargine,Hum.Rec.Anlog 100 Unit/Ml 10 Ml Vial SUBCUT 30 unit BID LOUR[facility] Administration Insulin Human Lispro 0 unit 10/31/20 11:30 11/11/20 09:36 Insulin Lispro 100 Unit/Ml 3 Ml Vial SUBCUT Not Given QIDACHS [facility] Protocol Lisinopril 20 mg 10/28/20 09:00 11/11/20 09:15 Lisinopril 20 Mg Tablet PO 20 mg DAILY LOURDES Administration Lorazepam 2 mg 11/10/20 09:00 11/11/20 09:14 Lorazepam 1 Mg Tablet PO 2 mg TID LOURDES Administration Magnesium Hydroxide 30 ml 10/30/20 21:44 Milk Of Magnesia 30 Ml Oral.Susp PO DAILY PRN Constipation Memantine 5 mg 11/05/20 21:00 11/10/20 22:08 Memantine Hcl 5 Mg Tablet PO 5 mg BEDTIME LOURDES Administration Metformin HCl 1,000 mg 10/28/20 09:00 11/11/20 09:15 Metformin Hcl 1,000 Mg Tablet PO 1,000 mg BID LOURDES Administration Olanzapine 7.5 mg 11/10/20 21:00 11/10/20 22:08 Olanzapine 7.5 Mg Tablet PO 7.5 mg BEDTIME LOURDES Administration Trazodone HCl 50 mg 10/30/20 21:44 11/09/20 02:51 Trazodone Hcl 50 Mg Tablet PO 50 mg BEDTIME PRN Administration Insomnia Venlafaxine HCl 75 mg 11/07/20 09:00 11/11/20 09:15 Venlafaxine Hcl Er 75 Mg Cap.Er.24h PO 75 mg DAILY LOURDES Administration Allergies Allergies Allergy/AdvReac Type Severity Reaction Status Date / Time No Known Allergies Allergy Verified 10/29/20 16:16 Assessment & Plan Assessment & Plan (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 lower Lorazepam to 2mg po TID- may taper as pt improves. 2. Increase Olanzapine 7.5mg po qhs 3. Continue Effexor 75mg po daily. Her head CT reveal significant cortical bilateral mostly frontal and parietal atrophy. (1) R/o Frontal lobe dementia: Problem details: 55 years old woman with underlying diagnosis of bipolar disorder has generalized bradykinesia, mild rigidity, gait disorder, and behavioral disorder. Her head CT revealed quite significant cortical bilateral mostly frontal and parietal cerebral atrophy. (2) Frontal lobe dementia: Status: Acute Code(s): G31.09 - Other frontotemporal dementia; F02.80 - Dementia in other diseases classified elsewhere without behavioral disturbance Greater than 50% of the session was spent on counseling and/or coordination of care Reason for contiued inpatient stay Substantial Risk for: inability to function
[2020-11-10] MEDS: Acetaminophen 325 MG TABLET 650 MG PO (11:15)
[2020-11-10 11:45] LABS: Glucose, Whole Blood 164 mg/dL (60-115)
[2020-11-10] MEDS: Insulin Lispro 100 UNIT/ML 3 ML VIAL SUBCUT (12:02)
[2020-11-10 16:45] VITALS: BP 105/61; PULSE 86; TEMP 36.3
[2020-11-10 17:08] LABS: Glucose, Whole Blood 137 mg/dL (60-115)
[2020-11-10 21:58] LABS: Glucose, Whole Blood 144 mg/dL (60-115)
[2020-11-10] MEDS: Aspirin Enteric Coated 81 MG TABLET.DR PO (22:06)
[2020-11-10] MEDS: Atorvastatin Calcium 20 MG TABLET PO (22:07)
[2020-11-10] MEDS: Memantine HCl 5 MG TABLET PO (22:08)
[2020-11-10] MEDS: OLANZapine 7.5 MG TABLET PO (22:08)
[2020-11-11 06:00] VITALS: BP 110/56; PULSE 77; RESP 16; TEMP 36.6; O2SAT 96
[2020-11-11 07:13] LABS: Glucose, Whole Blood 69 mg/dL (60-115)
[2020-11-11] MEDS: Gabapentin 100 MG CAPSULE 200 MG PO ×3 (09:14→20:25)
[2020-11-11] MEDS: LORazepam 1 MG TABLET 2 MG PO ×3 (09:14→20:25)
[2020-11-11 09:15] VITALS: BP 123/71; PULSE 74
[2020-11-11] MEDS: lisinopriL 20 MG TABLET PO (09:15)
[2020-11-11] MEDS: Insulin Glargine,Hum.rec.anlog 100 UNIT/ML 10 ML VIAL 30 UNIT SUBCUT ×2 (09:15→20:25)
[2020-11-11] MEDS: Venlafaxine HCl ER 75 MG CAP.ER.24H PO (09:15)
[2020-11-11] MEDS: glipiZIDE XL 10 MG TAB.ER.24 PO (09:15)
[2020-11-11] MEDS: hydroCHLOROthiazide 25 MG TABLET PO (09:15)
[2020-11-11] MEDS: metFORMIN HCl 1,000 MG TABLET 1000 MG PO ×2 (09:15→20:25)
--- NOTE | 2020-11-11 10:12 | HO.PSYCHPN ---
Subjective Subjective Date of Service: 11/11/20 Reason For Visit: MDD with psychosis Interim History: Ms. Ratliff continues to be more visible in the unit. She even attends some groups although is not very talkative. She mostly does sit in TV room. Her affect is slightly brighter but with constricted range. She reports feeling less depressed. She also reports hearing less voices, which she has been talking more about and denied at begining of this admission. She denies SI/HI. We discussed lowering ativan as some catatonic like symptoms improve. Per nursing, no behavioral concerns. Review of Systems Review of Systems No recent cold or flu-like illness. Yes Unobtainable due to mental status Mental Status Exam Mental Status Exam Narrative: Appearance: wearing hospital gown, less disheveled, hair unkempt, but with adequate hygiene Behavior: calm; blank stare Psychomotor: ambulating slowly Speech: mostly clear, decreased delayed in response rate, soft tone; minimally spontaneous TP: goal oriented. TC: poverty of thought Mood: okay Affect:slightly brighter SI:denies HI:denies AH/VH:denies- Delusions:none Insight/judgment:impaired Memory/cog: alert, oriented 3. MOCA showed significant impairments in executive function, recall. Diagnostics Vital Signs (24Hr): Vital Signs - 24 hr 11/10/20 16:45 11/11/20 06:00 11/11/20 09:15 Temperature 97.4 F 97.9 F Pulse Rate 86 77 74 Respiratory Rate 16 Blood Pressure 105/61 110/56 L 123/71 Pulse Oximetry 96 Body Mass Index 39.9 Labs Results: 11/02/20 08:07 11/06/20 07:46 Labs: Laboratory Results - last 48 hr 11/09/20 11/09/20 11/09/20 11:45 16:39 21:24 POC Glucose 155 H 114 211 H 11/10/20 11/10/20 11/10/20 06:41 11:41 16:46 POC Glucose 146 H 164 H 137 H 11/10/20 11/11/20 21:54 07:09 POC Glucose 144 H 69 Imaging Radiology Impressions: ITS Impressions Head CT 10/27/20 19:20 IMPRESSION: No acute intracranial pathology. No significant interval change is noted compared to last CT. Medications Medications Current Medications Generic Name Dose Route Start Last Admin Trade Name Freq PRN Reason Stop Dose Admin Acetaminophen 650 mg 10/30/20 21:44 11/10/20 11:15 Acetaminophen 325 Mg Tablet PO 650 mg Q6H PRN Administration Headache/Pain Mild Scale (1-3) Al Hydroxide/Mg Hydroxide 30 ml 10/30/20 21:44 Magnesium Hydrox/Alum Hydrox 30 Ml Oral.Susp PO Q6H PRN Heartburn/Nausea Albuterol Sulfate 2 puff 11/01/20 08:54 Albuterol Sulfate 90 Mcg 8 Gm Inhaler INHALE RQID PRN Shortness of Breath Aspirin 81 mg 10/28/20 21:00 11/10/20 22:06 Aspirin Enteric Coated 81 Mg Tablet.Dr PO 81 mg BEDTIME LOURDES Administration Atorvastatin Calcium 20 mg 10/28/20 21:00 11/10/20 22:07 Atorvastatin Calcium 20 Mg Tablet PO 20 mg BEDTIME LOURDES Administration Gabapentin 200 mg 10/27/20 23:45 11/11/20 09:14 Gabapentin 100 Mg Capsule PO 200 mg TID LOURDES Administration Glipizide 10 mg 10/28/20 09:00 11/11/20 09:15 Glipizide Xl 10 Mg Tab.Er.24 PO 10 mg DAILY LOURDES Administration Hydrochlorothiazide 25 mg 10/28/20 09:00 11/11/20 09:15 Hydrochlorothiazide 25 Mg Tablet PO 25 mg DAILY L[facility] Administration Hydroxyzine HCl 25 mg 10/30/20 21:44 11/09/20 02:51 Hydroxyzine Hcl 25 Mg Tablet PO 25 mg BEDTIME PRN Administration Anxiety Insulin Glargine 30 unit 10/28/20 09:00 11/11/20 09:15 Insulin Glargine,Hum.Rec.Anlog 100 Unit/Ml 10 Ml Vial SUBCUT 30 unit BID LOURDES Administration Insulin Human Lispro 0 unit 10/31/20 11:30 11/11/20 09:36 Insulin Lispro 100 Unit/Ml 3 Ml Vial SUBCUT Not Given QIDACHS [facility] Protocol Lisinopril 20 mg 10/28/20 09:00 11/11/20 09:15 Lisinopril 20 Mg Tablet PO 20 mg DAILY LOURDES Administration Lorazepam 2 mg 11/10/20 09:00 11/11/20 09:14 Lorazepam 1 Mg Tablet PO 2 mg TID [facility] Administration Magnesium Hydroxide 30 ml 05/04/21 21:44 Milk Of Magnesia 30 Ml Oral.Susp PO DAILY PRN Constipation Memantine 5 mg 11/05/20 21:00 11/10/20 22:08 Memantine Hcl 5 Mg Tablet PO 5 mg BEDTIME LOURDES Administration Metformin HCl 1,000 mg 10/28/20 09:00 11/11/20 09:15 Metformin Hcl 1,000 Mg Tablet PO 1,000 mg BID LOURDES Administration Olanzapine 7.5 mg 11/10/20 21:00 11/10/20 22:08 Olanzapine 7.5 Mg Tablet PO 7.5 mg BEDTIME LOURDES Administration Trazodone HCl 50 mg 10/30/20 21:44 11/09/20 02:51 Trazodone Hcl 50 Mg Tablet PO 50 mg BEDTIME PRN Administration Insomnia Venlafaxine HCl 75 mg 11/07/20 09:00 11/11/20 09:15 Venlafaxine Hcl Er 75 Mg Cap.Er.24h PO 75 mg DAILY LOURDES Administration Allergies Allergies Allergy/AdvReac Type Severity Reaction Status Date / Time No Known Allergies Allergy Verified 10/29/20 16:16 Assessment & Plan Assessment & Plan (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 lower Lorazepam to 2mg po TID- may taper as pt improves. 2. Increase Olanzapine 7.5mg po qhs 3. Continue Effexor 75mg po daily. Her head CT reveal significant cortical bilateral mostly frontal and parietal atrophy. (1) R/o Frontal lobe dementia: Problem details: 55 years old woman with underlying diagnosis of bipolar disorder has generalized bradykinesia, mild rigidity, gait disorder, and behavioral disorder. Her head CT revealed quite significant cortical bilateral mostly frontal and parietal cerebral atrophy. (2) Frontal lobe dementia: Status: Acute Code(s): G31.09 - Other frontotemporal dementia; F02.80 - Dementia in other diseases classified elsewhere without behavioral disturbance Greater than 50% of the session was spent on counseling and/or coordination of care Reason for contiued inpatient stay Substantial Risk for: inability to function
[2020-11-11] MEDS: Acetaminophen 325 MG TABLET 650 MG PO ×2 (10:51→20:25)
[2020-11-11 11:35] LABS: Glucose, Whole Blood 145 mg/dL (60-115)
[2020-11-11 17:15] LABS: Glucose, Whole Blood 93 mg/dL (60-115)
[2020-11-11 19:58] VITALS: BP 125/61; PULSE 97; RESP 16; O2SAT 98
[2020-11-11] MEDS: Memantine HCl 5 MG TABLET PO (20:24)
[2020-11-11] MEDS: Atorvastatin Calcium 20 MG TABLET PO (20:24)
[2020-11-11] MEDS: Aspirin Enteric Coated 81 MG TABLET.DR PO (20:25)
[2020-11-11] MEDS: OLANZapine 7.5 MG TABLET PO (20:25)
[2020-11-11] MEDS: Insulin Lispro 100 UNIT/ML 3 ML VIAL SUBCUT (20:26)
[2020-11-11 21:09] LABS: Glucose, Whole Blood 166 mg/dL (60-115)
[2020-11-12 06:50] VITALS: BP 113/68; PULSE 73; TEMP 36.7; O2SAT 97
[2020-11-12 07:12] LABS: Glucose, Whole Blood 113 mg/dL (60-115)
[2020-11-12 08:18] LABS: Creatinine Clr Calc Pharmacy 123.8; Estimated Glomerular Filt Rate > 60
[2020-11-12] MEDS: glipiZIDE XL 10 MG TAB.ER.24 PO (08:42)
[2020-11-12] MEDS: metFORMIN HCl 1,000 MG TABLET 1000 MG PO ×2 (08:42→20:46)
[2020-11-12] MEDS: Venlafaxine HCl ER 75 MG CAP.ER.24H PO (08:42)
[2020-11-12] MEDS: lisinopriL 20 MG TABLET PO (08:42)
[2020-11-12] MEDS: Acetaminophen 325 MG TABLET 650 MG PO (08:42)
[2020-11-12] MEDS: hydroCHLOROthiazide 25 MG TABLET PO (08:43)
[2020-11-12] MEDS: LORazepam 1 MG TABLET 2 MG PO ×3 (08:43→20:44)
[2020-11-12] MEDS: Insulin Glargine,Hum.rec.anlog 100 UNIT/ML 10 ML VIAL 30 UNIT SUBCUT ×2 (08:43→20:47)
[2020-11-12] MEDS: Gabapentin 100 MG CAPSULE 200 MG PO ×3 (08:43→20:45)
--- NOTE | 2020-11-12 09:39 | HO.PSYCHPN ---
Subjective Subjective Date of Service: 11/12/20 Reason For Visit: MDD with psychosis Subjective Notes: Conditional Voluntary Medication Compliance: Yes Attending Groups: Intermittent Mental Status Exam Mental Status Exam Patient Appearance: Fatigued Patient Orientation: Person and Place Level of Consciousness: Awake Patient Behavior: Appropriate Mood Description: Blunted and Flat Affect Description: Calm and Apathetic Patient Cognition Impaired: Yes Speech Pattern: Impoverished and Monotone Hallucinations: None Delusions: Not Present Thought Process: Slowed Thinking Thought Content: positive for Slowed Thinking, negative for Suicidal Ideation and negative for Homicidal Ideation Diagnostics Vital Signs (24Hr): Vital Signs - 24 hr 11/11/20 19:58 11/12/20 06:50 Temperature 98.0 F Pulse Rate 97 73 Respiratory Rate 16 Blood Pressure 125/61 113/68 Pulse Oximetry 98 97 Body Mass Index 39.9 Labs Results: 11/02/20 08:07 11/12/20 07:21 Labs: Laboratory Results - last 48 hr 11/10/20 11/10/20 11/10/20 11:41 16:46 21:54 Creatinine Estim Creat Clear Calc Estimated GFR POC Glucose 164 H 137 H 144 H 11/11/20 11/11/20 11/11/20 07:09 11:31 17:11 Creatinine Estim Creat Clear Calc Estimated GFR POC Glucose 69 145 H 93 11/11/20 11/12/20 11/12/20 20:17 06:57 07:21 Creatinine 0.69 Estim Creat Clear Calc 123.8 Estimated GFR > 60 POC Glucose 166 H 113 Imaging Radiology Impressions: ITS Impressions Head CT 10/27/20 19:20 IMPRESSION: No acute intracranial pathology. No significant interval change is noted compared to last CT. Medications Medications Current Medications Generic Name Dose Route Start Last Admin Trade Name Freq PRN Reason Stop Dose Admin Acetaminophen 650 mg 10/30/20 21:44 11/12/20 08:42 Acetaminophen 325 Mg Tablet PO 650 mg Q6H PRN Administration Headache/Pain Mild Scale (1-3) Al Hydroxide/Mg Hydroxide 30 ml 10/30/20 21:44 Magnesium Hydrox/Alum Hydrox 30 Ml Oral.Susp PO Q6H PRN Heartburn/Nausea Albuterol Sulfate 2 puff 11/01/20 08:54 Albuterol Sulfate 90 Mcg 8 Gm Inhaler INHALE RQID PRN Shortness of Breath Aspirin 81 mg 10/28/20 21:00 11/11/20 20:25 Aspirin Enteric Coated 81 Mg Tablet.Dr PO 81 mg BEDTIME LOURDES Administration Atorvastatin Calcium 20 mg 10/28/20 21:00 11/11/20 20:24 Atorvastatin Calcium 20 Mg Tablet PO 20 mg BEDTIME LOURDES Administration Gabapentin 200 mg 10/27/20 23:45 11/12/20 08:43 Gabapentin 100 Mg Capsule PO 200 mg TID LOURDES Administration Glipizide 10 mg 10/28/20 09:00 11/12/20 08:42 Glipizide Xl 10 Mg Tab.Er.24 PO 10 mg DAILY LOURDES Administration Hydrochlorothiazide 25 mg 10/28/20 09:00 11/12/20 08:43 Hydrochlorothiazide 25 Mg Tablet PO 25 mg DAILY LOURDES Administration Hydroxyzine HCl 25 mg 10/30/20 21:44 11/09/20 02:51 Hydroxyzine Hcl 25 Mg Tablet PO 25 mg BEDTIME PRN Administration Anxiety Insulin Glargine 30 unit 10/28/20 09:00 11/12/20 08:43 Insulin Glargine,Hum.Rec.Anlog 100 Unit/Ml 10 Ml Vial SUBCUT 30 unit BID LOURDES Administration Insulin Human Lispro 0 unit 10/31/20 11:30 11/12/20 08:42 Insulin Lispro 100 Unit/Ml 3 Ml Vial SUBCUT Not Given [facility] Protocol Lisinopril 20 mg 10/28/20 09:00 11/12/20 08:42 Lisinopril 20 Mg Tablet PO 20 mg DAILY LOURDES Administration Lorazepam 2 mg 11/10/20 09:00 11/12/20 08:43 Lorazepam 1 Mg Tablet PO 2 mg TID LOURDES Administration Magnesium Hydroxide 30 ml 10/30/20 21:44 Milk Of Magnesia 30 Ml Oral.Susp PO DAILY PRN Constipation Memantine 5 mg 11/05/20 21:00 11/11/20 20:24 Memantine Hcl 5 Mg Tablet PO 5 mg BEDTIME LOURDES Administration Metformin HCl 1,000 mg 10/28/20 09:00 11/12/20 08:42 Metformin Hcl 1,000 Mg Tablet PO 1,000 mg BID LOURDES Administration Olanzapine 7.5 mg 11/10/20 21:00 11/11/20 20:25 Olanzapine 7.5 Mg Tablet PO 7.5 mg BEDTIME LOURDES Administration Trazodone HCl 50 mg 10/30/20 21:44 11/09/20 02:51 Trazodone Hcl 50 Mg Tablet PO 50 mg BEDTIME PRN Administration Insomnia Venlafaxine HCl 75 mg 11/07/20 09:00 11/12/20 08:42 Venlafaxine Hcl Er 75 Mg Cap.Er.24h PO 75 mg DAILY LOURDES Administration Allergies Allergies Allergy/AdvReac Type Severity Reaction Status Date / Time No Known Allergies Allergy Verified 10/29/20 16:16 Assessment & Plan Assessment & Plan (1) Catatonia: Status: Acute Code(s): F06.1 - Catatonic disorder due to known physiological condition Assessment and Plan: pt states she feels improved we discussed d/c possibilities 1. continue Lorazepam to 2mg po TID 2. Increase Olanzapine 7.5mg po qhs 3. Continue Effexor 75mg po daily. Her head CT reveal significant cortical bilateral mostly frontal and parietal atrophy. (1) R/o Frontal lobe dementia: Problem details: 55 years old woman with underlying diagnosis of bipolar disorder has generalized bradykinesia, mild rigidity, gait disorder, and behavioral disorder. Her head CT revealed quite significant cortical bilateral mostly frontal and parietal cerebral atrophy. (2) Frontal lobe dementia: Status: Acute Code(s): G31.09 - Other frontotemporal dementia; F02.80 - Dementia in other diseases classified elsewhere without behavioral disturbance Greater than 50% of the session was spent on counseling and/or coordination of care Reason for contiued inpatient stay Substantial Risk for: inability to function and rapid decompensation
[2020-11-12] MEDS: Insulin Lispro 100 UNIT/ML 3 ML VIAL SUBCUT ×2 (12:07→20:47)
[2020-11-12 12:10] LABS: Glucose, Whole Blood 186 mg/dL (60-115)
[2020-11-12 17:50] LABS: Glucose, Whole Blood 107 mg/dL (60-115)
[2020-11-12] MEDS: Memantine HCl 5 MG TABLET PO (20:44)
[2020-11-12] MEDS: Atorvastatin Calcium 20 MG TABLET PO (20:46)
[2020-11-12] MEDS: Aspirin Enteric Coated 81 MG TABLET.DR PO (20:47)
[2020-11-12] MEDS: OLANZapine 7.5 MG TABLET PO (20:51)
[2020-11-12 21:17] VITALS: BP 130/58; PULSE 97; TEMP 36.3; O2SAT 95
[2020-11-12 21:56] LABS: Glucose, Whole Blood 239 mg/dL (60-115)
[2020-11-13 05:50] LABS: Glucose, Whole Blood 135 mg/dL (60-115)
[2020-11-13 06:00] VITALS: BP 95/55; PULSE 81; RESP 16; TEMP 36.1; O2SAT 96
[2020-11-13] MEDS: Insulin Glargine,Hum.rec.anlog 100 UNIT/ML 10 ML VIAL 30 UNIT SUBCUT ×2 (08:59→20:18)
[2020-11-13] MEDS: LORazepam 1 MG TABLET 2 MG PO (08:59)
[2020-11-13] MEDS: glipiZIDE XL 10 MG TAB.ER.24 PO (08:59)
[2020-11-13] MEDS: metFORMIN HCl 1,000 MG TABLET 1000 MG PO ×2 (09:00→20:17)
[2020-11-13] MEDS: hydroCHLOROthiazide 25 MG TABLET PO (09:00)
[2020-11-13] MEDS: lisinopriL 20 MG TABLET PO (09:00)
[2020-11-13] MEDS: Venlafaxine HCl ER 75 MG CAP.ER.24H PO (09:00)
[2020-11-13] MEDS: Gabapentin 100 MG CAPSULE 200 MG PO ×3 (09:00→20:17)
[2020-11-13 11:37] LABS: Glucose, Whole Blood 141 mg/dL (60-115)
[2020-11-13] MEDS: LORazepam 1 MG TABLET PO ×2 (14:25→20:17)
--- NOTE | 2020-11-13 16:53 | P.PNPSI_ITS ---
Subjective Subjective Date of Service: 11/13/20 Reason For Visit: MDD with psychosis Interim History: Pt is more visible in the morning and during the day. She has attended some groups but is minimally interactive with peers. Her affect is slightly brighter overall. She reports less depressed mood. She denies AH. She reports sleeping and eating well. She denied SI/HI. Review of Systems Review of Systems No recent cold or flu-like illness. Yes Unobtainable due to mental status Mental Status Exam Mental Status Exam Narrative: Appearance: wearing hospital gown, less disheveled, hair unkempt, but with adequate hygiene Behavior: calm; blank stare Psychomotor: ambulating slowly Speech: mostly clear, decreased delayed in response rate, soft tone; minimally spontaneous TP: goal oriented. TC: poverty of thought Mood: okay Affect:slightly brighter SI:denies HI:denies AH/VH:denies- Delusions:none Insight/judgment:impaired Memory/cog: alert, oriented 3. MOCA showed significant impairments in executive function, recall. Diagnostics Vital Signs (24Hr): Vital Signs - 24 hr 11/12/20 21:17 11/13/20 06:00 Temperature 97.3 F 96.9 F Pulse Rate 97 81 Respiratory Rate 16 Blood Pressure 130/58 L 95/55 L Pulse Oximetry 95 96 Body Mass Index 39.9 Labs Results: 11/02/20 08:07 11/12/20 07:21 Labs: Laboratory Results - last 48 hr 11/11/20 11/11/20 11/12/20 17:11 20:17 06:57 Creatinine Estim Creat Clear Calc Estimated GFR POC Glucose 93 166 H 113 11/12/20 11/12/20 11/12/20 07:21 12:03 17:20 Creatinine 0.69 Estim Creat Clear Calc 123.8 Estimated GFR > 60 POC Glucose 186 H 107 11/12/20 11/13/20 11/13/20 20:07 05:46 11:33 Creatinine Estim Creat Clear Calc Estimated GFR POC Glucose 239 H 135 H 141 H Imaging Radiology Impressions: ITS Impressions Head CT 10/27/20 19:20 IMPRESSION: No acute intracranial pathology. No significant interval change is noted compared to last CT. Medications Medications Current Medications Generic Name Dose Route Start Last Admin Trade Name Freq PRN Reason Stop Dose Admin Acetaminophen 650 mg 10/30/20 21:44 11/12/20 08:42 Acetaminophen 325 Mg Tablet PO 650 mg Q6H PRN Administration Headache/Pain Mild Scale (1-3) Al Hydroxide/Mg Hydroxide 30 ml 10/30/20 21:44 Magnesium Hydrox/Alum Hydrox 30 Ml Oral.Susp PO Q6H PRN Heartburn/Nausea Albuterol Sulfate 2 puff 11/01/20 08:54 Albuterol Sulfate 90 Mcg 8 Gm Inhaler INHALE RQID PRN Shortness of Breath Aspirin 81 mg 10/28/20 21:00 11/12/20 20:47 Aspirin Enteric Coated 81 Mg Tablet.Dr PO 81 mg BEDTIME LOURDES Administration Atorvastatin Calcium 20 mg 10/28/20 21:00 11/12/20 20:46 Atorvastatin Calcium 20 Mg Tablet PO 20 mg BEDTIME LOURDES Administration Gabapentin 200 mg 10/27/20 23:45 11/13/20 14:25 Gabapentin 100 Mg Capsule PO 200 mg TID LOURDES Administration Glipizide 10 mg 10/28/20 09:00 11/13/20 08:59 Glipizide Xl 10 Mg Tab.Er.24 PO 10 mg DAILY LOURDES Administration Hydrochlorothiazide 25 mg 10/28/20 09:00 11/13/20 09:00 Hydrochlorothiazide 25 Mg Tablet PO 25 mg DAILY LOURDES Administration Hydroxyzine HCl 25 mg 10/30/20 21:44 11/09/20 02:51 Hydroxyzine Hcl 25 Mg Tablet PO 25 mg BEDTIME PRN Administration Anxiety Insulin Glargine 30 unit 10/28/20 09:00 11/13/20 08:59 Insulin Glargine,Hum.Rec.Anlog 100 Unit/Ml 10 Ml Vial SUBCUT 30 unit BID LOURDES Administration Insulin Human Lispro 0 unit 10/31/20 11:30 11/13/20 11:39 Insulin Lispro 100 Unit/Ml 3 Ml Vial SUBCUT Not Given [facility] Protocol Lisinopril 20 mg 10/28/20 09:00 11/13/20 09:00 Lisinopril 20 Mg Tablet PO 20 mg DAILY LOURDES Administration Lorazepam 1 mg 11/13/20 15:00 11/13/20 14:25 Lorazepam 1 Mg Tablet PO 1 mg TID LOURDES Administration Magnesium Hydroxide 30 ml 10/30/20 21:44 Milk Of Magnesia 30 Ml Oral.Susp PO DAILY PRN Constipation Memantine 5 mg 11/05/20 21:00 11/12/20 20:44 Memantine Hcl 5 Mg Tablet PO 5 mg BEDTIME LOURDES Administration Metformin HCl 1,000 mg 10/28/20 09:00 11/13/20 09:00 Metformin Hcl 1,000 Mg Tablet PO 1,000 mg BID LOURDES Administration Olanzapine 7.5 mg 11/10/20 21:00 11/12/20 20:51 Olanzapine 7.5 Mg Tablet PO 7.5 mg BEDTIME LOURDES Administration Trazodone HCl 50 mg 10/30/20 21:44 11/09/20 02:51 Trazodone Hcl 50 Mg Tablet PO 50 mg BEDTIME PRN Administration Insomnia Venlafaxine HCl 75 mg 11/14/20 09:00 Venlafaxine Hcl Er 75 Mg Cap.Er.24h PO DAILY LOURDES Venlafaxine HCl 37.5 mg 11/14/20 09:00 Venlafaxine Hcl Er 37.5 Mg Cap.Er.24h PO DAILY LOURDES Allergies Allergies Allergy/AdvReac Type Severity Reaction Status Date / Time No Known Allergies Allergy Verified 10/29/20 16:16 Assessment & Plan Assessment & Plan (1) Catatonia: Status: Acute Code(s): F06.1 - Catatonic disorder due to known physiological condition Assessment and Plan: pt states she feels improved we discussed d/c possibilities 1. decrease Lorazepam to 1mg po TID 2. continue Olanzapine 7.5mg po qhs 3. Increase Effexor 112.5mg po daily. Her head CT reveal significant cortical bilateral mostly frontal and parietal atrophy. (1) R/o Frontal lobe dementia: Problem details: 55 years old woman with underlying diagnosis of bipolar disorder has generalized bradykinesia, mild rigidity, gait disorder, and behavioral disorder. Her head CT revealed quite significant cortical bilateral mostly frontal and parietal cerebral atrophy. (2) Frontal lobe dementia: Status: Acute Code(s): G31.09 - Other frontotemporal dementia; F02.80 - Dementia in other diseases classified elsewhere without behavioral disturbance Greater than 50% of the session was spent on counseling and/or coordination of care Reason for contiued inpatient stay Substantial Risk for: med/psych decompensation
[2020-11-13 17:27] LABS: Glucose, Whole Blood 143 mg/dL (60-115)
[2020-11-13 19:39] LABS: Glucose, Whole Blood 224 mg/dL (60-115)
[2020-11-13 20:05] VITALS: BP 111/54; PULSE 92; TEMP 36.3; O2SAT 97
[2020-11-13] MEDS: Memantine HCl 5 MG TABLET PO (20:17)
[2020-11-13] MEDS: Atorvastatin Calcium 20 MG TABLET PO (20:17)
[2020-11-13] MEDS: Aspirin Enteric Coated 81 MG TABLET.DR PO (20:18)
[2020-11-13] MEDS: Insulin Lispro 100 UNIT/ML 3 ML VIAL SUBCUT (20:18)
[2020-11-13] MEDS: OLANZapine 7.5 MG TABLET PO (20:18)
[2020-11-14 05:58] LABS: Glucose, Whole Blood 145 mg/dL (60-115)
[2020-11-14 06:00] VITALS: BP 125/56; PULSE 71; RESP 16; TEMP 35.3; O2SAT 100
[2020-11-14 09:50] VITALS: BP 111/67; PULSE 75
[2020-11-14] MEDS: Venlafaxine HCl ER 75 MG CAP.ER.24H PO (09:50)
[2020-11-14] MEDS: metFORMIN HCl 1,000 MG TABLET 1000 MG PO (09:50)
[2020-11-14] MEDS: lisinopriL 20 MG TABLET PO (09:50)
[2020-11-14] MEDS: glipiZIDE XL 10 MG TAB.ER.24 PO (09:50)
[2020-11-14] MEDS: hydroCHLOROthiazide 25 MG TABLET PO (09:50)
[2020-11-14] MEDS: Insulin Glargine,Hum.rec.anlog 100 UNIT/ML 10 ML VIAL 30 UNIT SUBCUT (09:50)
[2020-11-14] MEDS: LORazepam 1 MG TABLET PO (09:50)
[2020-11-14] MEDS: Venlafaxine HCl ER 37.5 MG CAP.ER.24H PO (09:50)
[2020-11-14] MEDS: Gabapentin 100 MG CAPSULE 200 MG PO (09:50)
--- NOTE | 2020-11-14 12:11 | PM.PSYDC ---
DS: Providers Provider Date of Service: 11/27/20 Date of admission: 10/30/20 21:44 Primary care physician: [facility] Consults: 11/01/20 10:35 Consult to Neurology Routine Consulting Provider: [facility] Reason for consultation: unclear etiology of catatonia like symptoms >12 months Has provider been notified: Yes DS: Diagnosis Discharge Diagnosis (1) Catatonia: Status: Resolved (2) Frontal lobe dementia: Status: Acute Problem details: 55 years old woman with underlying diagnosis of bipolar disorder has generalized bradykinesia, mild rigidity, gait disorder, and behavioral disorder. Her head CT revealed quite significant cortical bilateral mostly frontal and parietal cerebral atrophy. Her primary condition seemed to be degenerative dementia affecting mostly frontal but also parietal cortical areas. Frontal lobe dementia patient sometime can have gait disorder or features that could look like parkinsonian. DS: Medications Discharge Medications Home Medications: Home Medications Medication Instructions Recorded Confirmed FreeStyle Lite Strips 10/27/20 10/27/20 albuterol sulfate [ProAir HFA] 2 puff INHALATION QID 10/27/20 10/27/20 alcohol swabs [Alcohol Prep Pads] 1 pledget TOPICAL BID 10/27/20 10/27/20 aspirin 1 tab PO BEDTIME 10/27/20 10/27/20 glipizide 1 tab PO QAM 10/27/20 10/27/20 insulin lispro protamin-lispro 50 unit SUBCUT BID 10/27/20 10/27/20 [Humalog Mix 75-25 KwikPen] lancets [TRUEplus Lancets] 10/27/20 10/27/20 lisinopril-hydrochlorothiazide 1 tab PO QAM 10/27/20 10/27/20 metformin 2 tab PO BID 10/27/20 10/27/20 pen needle, diabetic [Pentips] 10/27/20 10/27/20 rosuvastatin 1 tab PO QPM 10/27/20 10/27/20 Previous Rx's Medication Instructions Recorded gabapentin 200 mg PO TID 30 Days #180 cap 11/14/20 lorazepam 1 mg PO TID 30 Days #90 tab 11/14/20 memantine 5 mg PO BEDTIME 30 Days #30 tab 11/14/20 olanzapine 7.5 mg PO BEDTIME 30 Days #30 tab 11/14/20 venlafaxine 37.5 mg PO DAILY 30 Days #30 cap 11/14/20 venlafaxine 75 mg PO DAILY 30 Days #30 cap 11/14/20 Discharge Plan Discharge Patient Disposition: Home, Self-Care Discharge Diagnosis: MDD with psychosis Frontotemporal atrophy Referrals: Lesley Villarela (therapist) [Other] - 11/21/20 2:00 pm (Appointment is over the phone) Lila Kay (psychiatrist) [Other] - 12/11/20 11:00 am (Telehealth appointment) Lila Kay (psychiatrist) [Other] - 01/10/21 11:00 am (Telehealth appointment) Melonie Ryan NP [Other] - 11/30/20 1:45 pm (follow up over telephone ) Discharge Medications: New venlafaxine 37.5 mg Capsule,Extended Release 24hr 37.5 mg PO DAILY 30 Days Qty: 30 RF: 0 venlafaxine 75 mg Capsule,Extended Release 24hr 75 mg PO DAILY 30 Days Qty: 30 RF: 0 olanzapine 7.5 mg Tablet 7.5 mg PO BEDTIME 30 Days Qty: 30 RF: 0 gabapentin 100 mg Capsule 200 mg PO TID 30 Days Qty: 180 RF: 0 lorazepam 1 mg Tablet 1 mg PO TID 30 Days Qty: 90 RF: 0 memantine 5 mg Tablet 5 mg PO BEDTIME 30 Days Qty: 30 RF: 0 Continued metformin 500 mg tablet 2 tab PO BID RF: 0 glipizide 10 mg tablet extended release 24hr 1 tab PO QAM RF: 0 (DME) FreeStyle Lite Strips Strip MISCELLANEOUS TID RF: 0 aspirin 81 mg tablet,delayed release (DR/EC) 1 tab PO BEDTIME RF: 0 lisinopril-hydrochlorothiazide 20-25 mg tablet 1 tab PO QAM RF: 0 alcohol swabs [Alcohol Prep Pads] Pads, Medicated 1 pledget topical BID RF: 0 albuterol sulfate [ProAir HFA] 90 mcg/actuation HFA aerosol inhaler 2 puff inhalation QID RF: 0 insulin lispro protamin-lispro [Humalog Mix 75-25 KwikPen] 100 unit/mL (75-25) insulin pen 50 unit subcut BID RF: 0 rosuvastatin 5 mg tablet 1 tab PO QPM RF: 0 (DME) pen needle, diabetic [Pentips] 32 gauge x needle MISCELLANEOUS BID RF: 0 (DME) lancets [TRUEplus Lancets] 33 gauge misc MISCELLANEOUS TID RF: 0 Discontinued clonazepam 1 mg tablet 1 tab PO BID RF: 0 gabapentin 100 mg capsule 2 cap PO TID RF: 0 haloperidol 2 mg tablet 1 tab PO BID RF: 0 topiramate 50 mg tablet 1 tab PO BID RF: 0 duloxetine 60 mg capsule,delayed release(DR/EC) 1 cap PO QAM RF: 0 Discharge Orders: Discharge Order (Routine); Ordered 11/14/20 Ordered By: Elisabet Metz Diet: regular diet Activity on Discharge: As tolerated Stand Alone Forms: Patient Portal Discharge page, Community Support Care Plan Goals: 1. take medications as prescribed 2. Follow up with referral Health Concerns: 1. Follow up with PCP Plan of Treatment: 1. Follow up with referrals 2. Go to nearest ED or call 911 in event of emergency 3. Barbra needs assistance managing medications Assessment: Pt presents with brighter affect, more talkative, less catatonic. No SI/HI. Less AH. Discharge Date/Time: 11/14/20 14:17 Mental Status Exam Mental Status Exam Narrative: Appearance: wearing hospital gown, less disheveled, hair unkempt, but with adequate hygiene Behavior: calm; blank stare Psychomotor: ambulating slowly Speech: mostly clear, decreased delayed in response rate, soft tone; minimally spontaneous TP: goal oriented. TC: poverty of thought Mood: okay Affect:slightly brighter SI:denies HI:denies AH/VH:denies- Delusions:none Insight/judgment:improving, but poor at baseline x 2. Memory/cog: alert, oriented 3. MOCA showed significant impairments in executive function, recall. Data Data Completed and Pending Completed studies during hospitalization [Text1]: 11/07/20 11/07/20 11/07/20 12:17 16:36 20:27 Creatinine Estim Creat Clear Calc Estimated GFR POC Glucose 122 H 137 H 155 H 11/08/20 11/08/20 11/08/20 05:53 11:47 16:42 Creatinine Estim Creat Clear Calc Estimated GFR POC Glucose 99 135 H 90 11/08/20 11/09/20 11/09/20 20:51 06:29 11:45 Creatinine Estim Creat Clear Calc Estimated GFR POC Glucose 225 H 99 155 H 11/09/20 11/09/20 11/10/20 16:39 21:24 06:41 Creatinine Estim Creat Clear Calc Estimated GFR POC Glucose 114 211 H 146 H 11/10/20 11/10/20 11/10/20 11:41 16:46 21:54 Creatinine Estim Creat Clear Calc Estimated GFR POC Glucose 164 H 137 H 144 H 11/11/20 11/11/20 11/11/20 07:09 11:31 17:11 Creatinine Estim Creat Clear Calc Estimated GFR POC Glucose 69 145 H 93 11/11/20 11/12/20 11/12/20 20:17 06:57 07:21 Creatinine 0.69 Estim Creat Clear Calc 123.8 Estimated GFR > 60 POC Glucose 166 H 113 11/12/20 11/12/20 11/12/20 12:03 17:20 20:07 Creatinine Estim Creat Clear Calc Estimated GFR POC Glucose 186 H 107 239 H 11/13/20 11/13/20 11/13/20 05:46 11:33 17:21 Creatinine Estim Creat Clear Calc Estimated GFR POC Glucose 135 H 141 H 143 H 11/13/20 11/14/20 19:30 05:42 Creatinine Estim Creat Clear Calc Estimated GFR POC Glucose 224 H 145 H Imaging Diagnostic Imaging Impressions Head CT 10/27/20 19:20 IMPRESSION: No acute intracranial pathology. No significant interval change is noted compared to last CT. DS: Summary Hospital Course Hospital Course: Mrs. 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 This is her first inpatient psychiatric admission. Per crisis, pt was brought to [facility] ED due to catatonia. Per crisis, pt has been presenting with blank stare, minimal communication, anhedonia, sleeping most of the day for past 3 weeks. However, upon further collateral information from her son, pt's current presentation has been going on for over one year. Of note, pt has had LP back in 03/2020 mostly looking at meningitis/encephalitis panel, which was negative. Other specialty consults such as neurology not available at this time. On the unit, Mrs. Ratliff presents with blank stare, able to verbalize few words, noted significant delayed in response rate. Pt not able to provide much details as to why she is here in the hospital. She is oriented to place, year but not situation nor month or date. She denies SI/HI. She denies AH/VH, possibly responding to internally stimuli. HOSPITAL COURSE On the unit, Ms. Ratliff was admitted on CV and placed on 15 minutes checks for safety. Pt presented with blank stare, minimal verbalization, waxy flexibility. She reported feeling depressed. She denied VH/AH. After discussing risks, benefits and alternative treatment option, she was started on ativan for catatonia. She was initially on ativan 2mg po TID. Pt gradually appear more talkative, her gaze was not looking over people, she could briefly engage in more meaningful conversation. She had been on haldol in the community, which was discontinued as it is high potency antipsychotic and would worsened catatonia. She was instead started on low dose olanzapine. Ms. Ratliff gradually appeared with brighter affect. She reported that she had heard voices prior to coming to the unit, which had decreased. She reported sleeping and eating well. She had head CT, which showed frontal atrophy. Most of the catatonic symptoms did significant improved with ativan including waxy flexibility, brighter affect, more talkative, less bradykinesia. She did have some residual mild blank stare at times. She reported some difficulty moving eyes up and down but able to do so more easily. MOCA was completed once pt's catatonia had improved- she scored 10/30, most impairment in executive function, recall,language fluency/naming, orientation is intact. Status at Discharge Cognitive/behavioral status at discharge: Pt with less s/s catatonia. Less bradykinesia, more talkative, less blank stare, no waxy flexibility. Her effect is brighter. No SI/HI. Less AH. underlying cognitive impairments are suspected affecting pt's ability to plan and execute. Functional status at discharge: independent ambulation Overall status at discharge: patient is progressing back to baseline Time Spent with Patient Time attestation: Total time spent providing and/or coordinating discharge services: Time spent: Greater than 30 minutes
[2020-11-14 12:15] LABS: Glucose, Whole Blood 178 mg/dL (60-115)
[2020-11-14] MEDS: Insulin Lispro 100 UNIT/ML 3 ML VIAL SUBCUT (12:31)
== END 2020-11-14 14:17 | disposition home or self-care (01) | DRG 42 ==
LOC: HO.ED 10-30 21:49 → HO.PM5 10-30 21:59
PROVIDERS: Admitting Provider Psychiatry & Neurology Psychiatry; Emergency Provider Emergency Medicine; Visit Provider Social Worker
DX: G31.09 Other frontotemporal neurocognitive disorder (principal); F02.80 Dementia in other diseases classified elsewhere, unspecified severity, without behavioral disturbance, psychotic disturbance, mood disturbance, and anxiety; E11.9 Type 2 diabetes mellitus without complications; F06.1 Catatonic disorder due to known physiological condition; I10 Essential (primary) hypertension; K21.9 Gastro-esophageal reflux disease without esophagitis; Z20.822 Contact with and (suspected) exposure to COVID-19; Z79.4 Long term (current) use of insulin; Z79.899 Other long term (current) drug therapy
CPT/HCPCS: 36415; 70450; 80048; 80061; 80076; 80164; 81003; 82140; 82550; 82565; 82607; 82746; 82947; 83036; 83690; 83735; 84436; 84443; 84481; 85007; 85025; 85027; 87635; 93005; 94640; 96372; 99285; J2060

== ENCOUNTER 2021-04-21 14:17 | Emergency (ER) | payer MEDICAID, SELFPAY ==
[2021-04-21 14:29] VITALS: BP 143/103; PULSE 94; RESP 18; TEMP 37.2; O2SAT 98; BMI 45.4
[2021-04-21 15:28] LABS: MANUAL DIFF FLAG NO
[2021-04-21 15:29] LABS: Basophils Percent Auto 0.4 % (0-2); Eosinophils Absolute Auto 0.2 X10*3/uL (0.0-0.4); Eosinophils Percent Auto 2.1 % (0-4); Hematocrit 42.4 % (37-47); Hemoglobin 14.1 g/dl (12.0-16.0); Imm Gran Abs Auto 0.04 X10*3/uL (0.00-0.03); Imm Gran Pct Auto 0.5 % (0.0-0.4); Lymphocytes Absolute Auto 2.6 X10*3/uL (1.2-4.9); Lymphocytes Percent Auto 30.9 % (20-40); Mean Corpuscular HGB Conc 33.3 g/dl (31.0-35.0); Mean Corpuscular Hemoglobin 29.1 pg (27.0-33.0); Mean Corpuscular Volume 87.4 fL (80-98); Mean Platelet Volume 11.4 fL (9.4-12.3); Monocytes Absolute Auto 0.6 X10*3/uL (0.1-1.2); Monocytes Percent Auto 6.6 % (2-11); Neutrophils Percent Auto 59.5 % (45-73); Platelet Count 241 X10*3/uL (160-400); Red Blood Count 4.85 X10*6/uL (4.20-5.50); Red Cell Distribution Width 13.2 % (11.0-16.0); White Blood Count 8.5 X10*3/uL (4.8-10.8)
--- NOTE | 2021-04-21 15:30 | PC.NURSE ---
pt alert and oriented x4, vss. pt c/o lower abdominal discomfort, urinary frequency and blood in her urine x2 weeks. she denies fever/chills/nausea/vomiting/flank pain. no vaginal discharge. no other symptoms reported. IV line established, labs drawn, fluids hung. pt resting quietly.
[2021-04-21 15:31] LABS: Appearance Urine CLOUDY; Color Urine YELLOW; Glucose Urine UA >=1000 MG/DL (NEG); Leukocyte Esterase Urine 1+ (NEG); Nitrite Urine NEG (NEG); UACC Culture Trigger YES; Urine Blood 2+ (NEG); Urine Ketones NEG (NEG); Urine Protein NEG (NEG-TRACE)
[2021-04-21] MEDS: 0.9 % Sodium Chloride 1,000 ML 999 ML IVCONT ×2 (15:31→16:16)
[2021-04-21 15:38] LABS: Mucus Urine TRACE /LPF; Squamous Epithelial Cell Urine TRACE /LPF
[2021-04-21 15:39] LABS: Bacteria Urine TRACE /LPF
[2021-04-21 15:46] VITALS: BP 132/91; PULSE 88; RESP 16; TEMP 36.8; O2SAT 97
[2021-04-21 15:51] LABS: Alanine Aminotransferase 24 U/L (0-31); Albumin Level 4.1 g/dL (3.5-5.0); Alkaline Phosphatase 96 U/L (39-117); Anion Gap 16 (12-20); Aspartate Amino Transferase 22 U/L (5-31); Bilirubin Direct 0.2 mg/dL (0.0-0.5); Bilirubin Total 0.4 mg/dL (0.0-1.0); Blood Urea Nitrogen 13 mg/dL (9-16); Calcium 9.7 mg/dL (8.4-10.2); Carbon Dioxide 25 mmol/L (22-29); Chloride 100 mmol/L (96-108); Creatinine Clr Calc Pharmacy 80.5; Estimated Glomerular Filt Rate 56; Glucose Random 457 mg/dL (60-115); Lipase 59 U/L (8-78); Magnesium 2.2 mg/dL (1.6-2.6); Potassium 4.6 mmol/L (3.3-5.1); Sodium 136 mmol/L (135-145); Total Protein 7.4 g/dL (6.5-8.0)
[2021-04-21] MEDS: Acetaminophen 325 MG TABLET 650 MG PO (16:04)
[2021-04-21] MEDS: Phenazopyridine HCL 200 MG TABLET PO (16:04)
[2021-04-21] MEDS: Insulin Regular, Human 100 UNIT/ML 3 ML VIAL 10 UNIT IVPUSH (16:59)
--- NOTE | 2021-04-21 17:04 | ED.FEMALEGU ---
HPI - Female Genitourinary General Chief complaint: Urogenital-Female Stated complaint: abd pain, pain when urinating Time Seen by Provider: 04/21/21 14:48 Source: patient Mode of arrival: ambulatory History of Present Illness HPI Narrative: 56-year-old female with a past medical history of asthma, bipolar, depression, DM, GERD, hepatitis, HTN, sleep apnea, presenting to the ED complaining of lower abdominal discomfort, dysuria, urinary frequency and hematuria x2 weeks. Denies fever, chills, nausea, vomiting, flank pain, vaginal bleeding, vaginal discharge MD elicited complaint: dysuria, UTI and pelvic pain Related Data Home Medications Medication Instructions Recorded Confirmed albuterol sulfate 90 mcg/actuation 2 puff INHALATION QID 10/27/20 10/27/20 aerosol inhaler (ProAir HFA) alcohol swabs (Alcohol Prep Pads) 1 pledget TOPICAL BID 10/27/20 10/27/20 aspirin 81 mg tablet,delayed 1 tab PO BEDTIME 10/27/20 10/27/20 release blood sugar diagnostic (FreeStyle 10/27/20 10/27/20 Lite Strips) glipizide 10 mg tablet, extended 1 tab PO QAM 10/27/20 10/27/20 release 24 hr insulin lispro protamine-lispro 50 unit SUBCUT BID 10/27/20 10/27/20 100 unit/mL (75-25) subcutaneous pen (Humalog Mix 75-25 KwikPen) lancets 33 gauge (TRUEplus Lancets) 10/27/20 10/27/20 lisinopril 20 1 tab PO QAM 10/27/20 10/27/20 mg-hydrochlorothiazide 25 mg tablet metformin 500 mg tablet 2 tab PO BID 10/27/20 10/27/20 pen needle, diabetic 32 gauge x 10/27/20 10/27/20 5/32 (Pentips) rosuvastatin 5 mg tablet 1 tab PO QPM 10/27/20 10/27/20 Previous Rx's Medication Instructions Recorded gabapentin 100 mg capsule 200 mg PO TID 30 Days #180 cap 11/14/20 lorazepam 1 mg tablet 1 mg PO TID 30 Days #90 tab 11/14/20 memantine 5 mg tablet 5 mg PO BEDTIME 30 Days #30 tab 11/14/20 olanzapine 7.5 mg tablet 7.5 mg PO BEDTIME 30 Days #30 tab 11/14/20 venlafaxine 37.5 mg 37.5 mg PO DAILY 30 Days #30 cap 11/14/20 capsule,extended release 24 hr venlafaxine 75 mg capsule,extended 75 mg PO DAILY 30 Days #30 cap 11/14/20 release 24 hr cefuroxime axetil 250 mg tablet 250 mg PO BID 7 Days #14 tab 04/21/21 phenazopyridine 200 mg tablet 200 mg PO TID PRN #6 tab 04/21/21 (Pyridium) Allergies Allergy/AdvReac Type Severity Reaction Status Date / Time No Known Allergies Allergy Verified 10/29/20 16:16 Review of Systems Review of Systems: Constitutional: No Fever, No Chills, No Fatigue, No Malaise ENT/Mouth: No Ear Pain, No Nasal Congestion, No sore throat, No Rhinorrhea Eyes: No Eye Pain Cardiovascular: No Chest Pain, No SOB, No Palpitations Respiratory: No Cough, No Dyspnea Gastrointestinal: No Nausea, No Vomiting, No Diarrhea, No Constipation, + Abdominal pain, Genitourinary: No irregular bleeding, + Dysuria, + Urinary Frequency, + Hematuria, No Urgency, No Flank Pain, No Urinary Flow Changes, No Hesitancy Musculoskeletal: No joint pain, No Myalgias, No Joint Swelling Skin: No Skin Lesions, No rash Neuro: No Weakness, No Numbness,No Headache Yes all other systems are reviewed and are negative FOR[facility]LY [facility] Past Medical History Attestation statement: The following information was validated with the patient. Medical History (Updated 04/21/21 @ 17:21 by YOSVANY Cunningham) Asthma Bipolar 1 disorder Depression Diabetes GERD (gastroesophageal reflux disease) Hepatitis HTN (hypertension) Sleep apnea Surgical History History of section Social History Social History (Updated 10/27/20 @ 19:44 by Stacey Moseley DO) Household Members: Spouse and Children Housing: House Do you presently have visiting nurse or other home services: No Alcohol intake: never Advance Directives: No Advance Directives Information Provided: No service: No Sexual orientation: Don't Know Physical Exam Vital Signs: Vital Signs: Last Vital Signs Temp 98.2 F 04/21/21 15:46 Pulse 88 04/21/21 15:46 Resp 16 04/21/21 15:46 BP 132/91 H 04/21/21 15:46 Pulse Ox 97 04/21/21 15:46 Body Mass Index 45.4 Const: General: cooperative, healthy appearing and no acute distress Orientation/consciousness: patient oriented x3 Limitations: no limitations HENMT: Head: Yes normal to inspection Ears: hearing grossly normal bilaterally General nose exam: Normal external nose present Face and sinus: Yes normal facial exam Eyes: General: appearance normal, both eyes and all related structures EOM: EOMs intact bilaterally Neck: Neck: Yes normal visual inspection and Yes no meningeal signs Resp: Effort & Inspection: normal respiratory effort and no respiratory distress Cardio: Rate: regular rate Rhythm: regular rhythm GI: Inspection: Yes normal to inspection Palpation (GI): Soft to palpation, Tenderness to palpation present (GI) (Mild suprapubic tenderness), no guarding and not rigid : General: Yes no CVA tenderness Back/Spine/Pelvis: Back: no CVA tenderness Skin: Rashes: no rashes Wounds: no wounds Neuro: General: patient oriented x3 and no meningeal signs Gait exam (Neuro): Normal gait present Extrem: General: Yes normal to inspection Course Course Course Narrative: -UA infected. No leukocytosis. 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 including worrisome signs and symptoms and strict return precautions, patient given 1st dose of Ceftin in the ED, she verbalized understanding feel safe for discharge home MDM - Female Genitourinary Lab Data Result diagrams: 04/21/21 15:23 04/21/21 15:23 Labs: Lab Results 04/21/21 04/21/21 04/21/21 Range/Units 15:23 15:23 15:23 WBC 8.5 (4.8-10.8) X10*3/uL RBC 4.85 (4.20-5.50) X10*6/uL Hgb 14.1 (12.0-16.0) g/dl Hct 42.4 (37-47) % MCV 87.4 (80-98) fL MCH 29.1 (27.0-33.0) pg MCHC 33.3 (31.0-35.0) g/dl RDW 13.2 (11.0-16.0) % Plt Count 241 (160-400) X10*3/uL MPV 11.4 (9.4-12.3) fL Immature Gran % (Auto) 0.5 H (0.0-0.4) % Neut % (Auto) 59.5 (45-73) % Lymph % (Auto) 30.9 (20-40) % Barren % (Auto) 6.6 (2-11) % Eos % (Auto) 2.1 (0-4) % Baso % (Auto) 0.4 (0-2) % Lymph # (Auto) 2.6 (1.2-4.9) X10*3/uL Barren # (Auto) 0.6 (0.1-1.2) X10*3/uL Eos # (Auto) 0.2 (0.0-0.4) X10*3/uL Baso # (Auto) 0.0 (0.0-0.2) X10*3/uL Abs Immat Gran (auto) 0.04 H (0.00-0.03) X10*3/uL Absolute Neuts (auto) 5.0 (2.0-8.3) X10*3/uL Absolute Nucleated RBC 0.000 (0.0-0.012) X10*3/uL Nucleated RBC % (auto) 0.0 (0.0-0.2) /100WBC Sodium 136 (135-145) mmol/L Potassium 4.6 D (3.3-5.1) mmol/L Chloride 100 (96-108) mmol/L Carbon Dioxide 25 (22-29) mmol/L Anion Gap 16 (12-20) BUN 13 (9-16) mg/dL Creatinine 1.02 (0.5-1.4) mg/dL Estim Creat Clear Calc 80.5 Estimated GFR 56 Random Glucose 457 H* D (60-115) mg/dL Calcium 9.7 (8.4-10.2) mg/dL Magnesium 2.2 (1.6-2.6) mg/dL Total Bilirubin 0.4 (0.0-1.0) mg/dL Direct Bilirubin 0.2 (0.0-0.5) mg/dL AST 22 (5-31) U/L ALT 24 (0-31) U/L Alkaline Phosphatase 96 (39-117) U/L Total Protein 7.4 (6.5-8.0) g/dL Albumin 4.1 (3.5-5.0) g/dL Lipase 59 (8-78) U/L Urine Color YELLOW Urine Appearance CLOUDY Urine pH 7.0 (5.0-8.0) Ur Specific [place] 1.010 (1.005-1.025) Urine Protein NEG (NEG-TRACE) MG/DL Urine Glucose (UA) >=1000 H (NEG) MG/DL Urine Ketones NEG (NEG) MG/DL Urine Blood 2+ H (NEG) Urine Nitrite NEG (NEG) Ur Leukocyte Esterase 1+ H (NEG) Urine RBC 1-4 (0) /HPF Urine WBC 15-29 H (0-4) /HPF Ur Squamous Epith Cells TRACE /LPF Urine Bacteria TRACE /LPF Urine Mucus TRACE /LPF Discharge Plan Discharge Clinical Impression: Urinary tract infection, Acute hyperglycemia Patient Disposition: Home, Self-Care Instructions: Urinary Tract Infection in Women (ED), Diabetic Hyperglycemia (ED) Additional Instructions: You have a urinary tract infection, stepped in is an antibiotic, please take as prescribed. Pyridium will help with urinary discomfort Your sugar was elevated today, make sure your monitoring at home, make sure you do not miss any doses of her insulin Face follow-up with her doctor If her symptoms persist or worsening of constant worsening abdominal pain, the nausea/vomiting, develops fever or back pain return to the ED Tiene aniyah infecci?n del tracto urinario, intervino es un antibi?marilynn, por favor t?richter seg?n lo prescrito. Pyridium ayudar? con las molestias urinarias. Tu nivel de az?car se elev? hoy, aseg?rate de controlarlo en casa, aseg?rate de no perder ninguna dosis de caceres insulina. Enfrentar seguimiento con caceres m?dico Si livan s?ntomas persisten o empeoran de un dolor abdominal que empeora constantemente, las n?useas / v?mitos, desarrollan fiebre o dolor de espalda, regresan al servicio de urgencias. Prescriptions: New cefuroxime axetil 250 mg tablet 250 mg PO BID 7 Days Qty: 14 RF: 0 phenazopyridine [Pyridium] 200 mg tablet 200 mg PO TID PRN (Reason: pain) Qty: 6 RF: 0 No Action metformin 500 mg tablet 2 tab PO BID RF: 0 glipizide 10 mg tablet extended release 24hr 1 tab PO QAM RF: 0 (DME) FreeStyle Lite Strips Strip MISCELLANEOUS TID RF: 0 aspirin 81 mg tablet,delayed release (DR/EC) 1 tab PO BEDTIME RF: 0 lisinopril-hydrochlorothiazide 20-25 mg tablet 1 tab PO QAM RF: 0 alcohol swabs [Alcohol Prep Pads] Pads, Medicated 1 pledget topical BID RF: 0 albuterol sulfate [ProAir HFA] 90 mcg/actuation HFA aerosol inhaler 2 puff inhalation QID RF: 0 insulin lispro protamin-lispro [Humalog Mix 75-25 KwikPen] 100 unit/mL (75-25) insulin pen 50 unit subcut BID RF: 0 rosuvastatin 5 mg tablet 1 tab PO QPM RF: 0 (DME) pen needle, diabetic [Pentips] 32 gauge x 5/32 needle MISCELLANEOUS BID RF: 0 (DME) lancets [TRUEplus Lancets] 33 gauge misc MISCELLANEOUS TID RF: 0 venlafaxine 37.5 mg Capsule,Extended Release 24hr 37.5 mg PO DAILY 30 Days Qty: 30 RF: 0 venlafaxine 75 mg Capsule,Extended Release 24hr 75 mg PO DAILY 30 Days Qty: 30 RF: 0 olanzapine 7.5 mg Tablet 7.5 mg PO BEDTIME 30 Days Qty: 30 RF: 0 gabapentin 100 mg Capsule 200 mg PO TID 30 Days Qty: 180 RF: 0 lorazepam 1 mg Tablet 1 mg PO TID 30 Days Qty: 90 RF: 0 memantine 5 mg Tablet 5 mg PO BEDTIME 30 Days Qty: 30 RF: 0 Referrals: [facility] [Primary Care Provider] - 2 days Print Language: [place]se
[2021-04-21 17:17] LABS: Glucose, Whole Blood 216 mg/dL (60-115)
--- NOTE | 2021-04-21 18:00 | PC.NURSE ---
pt medically cleared for discharge. discharge summary given and explained to pt. pt alert and oriented, vss.
[2021-04-21 22:01] LABS: Acetone, serum QL Negative (Negative)
== END 2021-04-21 18:11 | disposition home or self-care (01) ==
PROVIDERS: Physician Assistant; Emergency Provider Emergency Medicine Emergency Medical Services
DX: N39.0 Urinary tract infection, site not specified (principal); E11.65 Type 2 diabetes mellitus with hyperglycemia; Z79.4 Long term (current) use of insulin; Z79.899 Other long term (current) drug therapy
CPT/HCPCS: 36415; 80048; 80076; 81001; 82009; 82947; 83690; 83735; 85025; 87086; 87147; 96361; 96374; 99284

== ENCOUNTER 2022-01-08 19:07 | Emergency (ER) | payer MEDICAID, SELFPAY ==
--- NOTE | ~2022-01-08 | XR_ITS ---
EXAMINATION: XR CHEST CLINICAL INFORMATION: Asthma COMPARISON: Chest x-ray 02/01/2020 TECHNIQUE: 2 views of the chest were obtained. FINDINGS: Linear streaky subsegmental atelectasis or scarring at the left lung base/lingula. No airspace consolidation. No pleural effusion or pneumothorax. Normal cardiomediastinal silhouette and pulmonary vascularity. No acute osseous injury identified. XR/XR chest 2V IMPRESSION: Mild subsegmental atelectasis or scarring in the left lung base/lingula. No acute pulmonary process.
[2022-01-08 20:24] VITALS: BP 136/73; PULSE 91; RESP 20; TEMP 37; O2SAT 97; BMI 48.9
[2022-01-08 21:05] LABS: COVID-19 Test Negative (Negative)
[2022-01-08 21:06] VITALS: BP 137/57; PULSE 97; RESP 20; TEMP 35.9; O2SAT 97
--- NOTE | 2022-01-08 21:19 | ED.ASTHMA ---
HPI - Asthma General Chief Complaint: Asthma Stated Complaint: asthma Time Seen by Provider: 01/08/22 21:06 Source: patient Mode of arrival: ambulatory Limitations: no limitations History of Present Illness HPI Narrative: 56-year-old female with a past medical history of asthma, bipolar, depression, Insulin-dependent DM, GERD, hepatitis, HTN, sleep apnea presents with 1 week of cough, wheezing, and at nighttime despite using albuterol MDI and nebulizer machine. No shortness of breath, chest pain, leg swelling or leg pain, fevers or chills. Related Data Home Medications Medication Instructions Recorded Confirmed albuterol sulfate 90 mcg/actuation 2 puff inhalation QID 10/27/20 10/27/20 aerosol inhaler (ProAir HFA) alcohol swabs (Alcohol Prep Pads) 1 pledget topical BID 10/27/20 10/27/20 aspirin 81 mg tablet,delayed 1 tab PO BEDTIME 10/27/20 10/27/20 release blood sugar diagnostic (FreeStyle 10/27/20 10/27/20 Lite Strips) glipizide 10 mg tablet, extended 1 tab PO QAM 10/27/20 10/27/20 release 24 hr insulin lispro protamine-lispro 50 unit subcut BID 10/27/20 10/27/20 100 unit/mL (75-25) subcutaneous pen (Humalog Mix 75-25 KwikPen) lancets 33 gauge (TRUEplus Lancets) 10/27/20 10/27/20 lisinopril 20 1 tab PO QAM 10/27/20 10/27/20 mg-hydrochlorothiazide 25 mg tablet metformin 500 mg tablet 2 tab PO BID 10/27/20 10/27/20 pen needle, diabetic 32 gauge x 10/27/20 10/27/20 5/32 (Pentips) rosuvastatin 5 mg tablet 1 tab PO QPM 10/27/20 10/27/20 Previous Rx's Medication Instructions Recorded gabapentin 100 mg capsule 200 mg PO TID 30 days #180 caps 11/14/20 lorazepam 1 mg tablet 1 mg PO TID 30 days #90 tabs 11/14/20 memantine 5 mg tablet 5 mg PO BEDTIME 30 days #30 tabs 11/14/20 olanzapine 7.5 mg tablet 7.5 mg PO BEDTIME 30 days #30 tabs 11/14/20 venlafaxine 37.5 mg 37.5 mg PO DAILY 30 days #30 caps 11/14/20 capsule,extended release 24 hr venlafaxine 75 mg capsule,extended 75 mg PO DAILY 30 days #30 caps 11/14/20 release 24 hr cefuroxime axetil 250 mg tablet 250 mg PO BID 7 days #14 tabs 04/21/21 phenazopyridine 200 mg tablet 200 mg PO TID PRN pain 6 doses #6 04/21/21 (Pyridium) tabs benzonatate 200 mg capsule 200 mg PO TID PRN cough #30 caps 01/08/22 prednisone 20 mg tablet 40 mg PO DAILY #8 tabs 01/08/22 Allergies Allergy/AdvReac Type Severity Reaction Status Date / Time No Known Allergies Allergy Verified 01/08/22 20:23 Review of Systems Review of Systems: Yes all other systems are reviewed and are negative Constitutional: Constitutional: Reports no additional constitutional complaints, Denies body ache(s), Denies chills, Denies fever(s), Denies headache(s) and Denies weakness Eyes: Eyes: Reports no additional eye complaints and Denies change in vision ENT: Reports system reviewed and no additional complaints, except as documented, Denies dizziness, Denies headache(s), Denies nasal congestion, Denies nasal discharge and Denies neck pain Cardiovascular: Cardiovascular: Reports no additional cardiovascular complaints, Denies chest pain, Denies leg edema and Denies dyspnea Respiratory: Respiratory: Reports no additional respiratory complaints, Reports cough, Denies dyspnea and Reports wheezing Gastrointestinal: Gastrointestinal: Reports no additional gastrointestinal complaints, Denies abdominal pain, Denies diarrhea, Denies nausea and Denies vomiting Genitourinary: Genitourinary: Reports no additional female genitourinary complaints and Denies urinary incontinence Musculoskeletal: Musculoskeletal: Reports no additional musculoskeletal complaints, Denies back pain, Denies arthralgias, Denies joint swelling, Denies neck pain, Denies numbness and Denies tingling Integumentary/Breasts: Skin/Breast: Reports system reviewed and no additional complaints, except as docu and Denies rash Neurologic: Reports system reviewed and no additional complaints, except as documented, Denies Abnormal speech present, Denies dizziness, Denies headache(s), Denies numbness, Denies tingling and Denies weakness Allergic/Immunologic: Allergic/Immunologic: Reports wheezing FOR[facility] Past Medical History Attestation statement: The following information was validated with the patient. Source: old records reviewed and nursing notes reviewed Medical History Asthma Bipolar 1 disorder Depression Diabetes GERD (gastroesophageal reflux disease) Hepatitis HTN (hypertension) Sleep apnea Surgical History History of section Social History Social History Household Members: Spouse and Children Housing: House Do you presently have visiting nurse or other home services: No Alcohol intake: never Advance Directives: No service: No Sexual orientation: Don't Know Physical Exam Vital Signs: Vital Signs: Last Vital Signs Temp 96.6 F L 01/08/22 21:06 Pulse 97 01/08/22 21:06 Resp 20 01/08/22 21:06 BP 137/57 L 01/08/22 21:06 Pulse Ox 97 01/08/22 21:06 O2 Del Method 01/08/22 21:06 BMI result Body Mass Index 48.9 Const: General: cooperative, healthy appearing, comfortable and no acute distress Orientation/consciousness: patient oriented x3 Limitations: no limitations HEENT: Head: Yes normal to inspection Ears: hearing grossly normal bilaterally General nose exam: Normal external nose present Face and sinus: Yes normal facial exam Mouth: Normal oral and palatal mucosa present Throat: Yes posterior oropharynx normal Eyes: General: appearance normal, both eyes and all related structures Pupils: Equal, round and reactive pupils present Neck: Neck: Yes normal visual inspection Chest: Chest palpation & inspection: normal inspection of the chest Resp: Other: Mild expiratory wheezing throughout Effort & Inspection: normal respiratory effort Cardio: Rate: regular rate Rhythm: regular rhythm Peripheral pulses: Peripheral pulses 2+ throughout GI: Inspection: Yes normal to inspection Palpation (GI): Soft to palpation and nontender Auscultation: normal bowel sounds Back/Spine/Pelvis: Thoracic/Lumbar Spine: thoracic and lumbar spine normal to inspection Skin: General skin exam: no rashes or lesions noted Neuro: General: patient oriented x3, no focal motor deficits and normal sensation to monofilament Cranial nerves: Yes Equal, round and reactive pupils present Cognition (Neuro): normal cognition Speech: No Abnormal speech present Gait exam (Neuro): Normal gait present Motor exam (neuro): 5/5 motor strength present throughout Extrem: General: Yes normal to inspection, Yes no pedal edema and Yes no calf tenderness Course Course Course Narrative: COVID screen is negative. MDM - Asthma MDM Narrative Medical decision making narrative: 56-year-old female with a history of insulin-dependent diabetes, asthma here with cough and wheezing for 1 week despite using albuterol MDI and nebulizer at home. No chest pain or shortness of breath. On arrival patient has mild expiratory wheezing throughout. Her saturations are stable. She has a COVID screen and chest x-ray ordered from triage. Likely asthma exacerbation. Considered pneumonia. No reports of chest pain, shortness of breath, leg swelling or leg pain that is unilateral, fever to suggest PE Medical Records Attestation: I reviewed the patient's medical records. Lab Data Attestation: I reviewed the patient's lab results. Labs: Lab Results 01/08/22 Range/Units 20:29 COVID-19 ([facility]) Negative (Negative) COVID-19 Clin Com See Note Imaging Data Chest x-ray: Attestation: I personally reviewed and interpreted this imaging study as follows: Radiologist's impression: [address] [address] XRay Report Signed Patient: Barbra Ratliff MR#: [id number] : 1965 Acct:[id number] Age/Sex: 56 / F ADM Date: 01/08/22 Loc: HO.ED Attending Dr: Ordering Physician: Heriberto Moser MD Date of Service: 01/08/22 Procedure(s): XR chest 2V Accession Number(s): [id number] cc: Heriberto Moser MD~ EXAMINATION: XR CHEST CLINICAL INFORMATION: Asthma COMPARISON: Chest x-ray 02/01/2020 TECHNIQUE: 2 views of the chest were obtained. FINDINGS: Linear streaky subsegmental atelectasis or scarring at the left lung base/lingula. No airspace consolidation. No pleural effusion or pneumothorax. Normal cardiomediastinal silhouette and pulmonary vascularity. No acute osseous injury identified. XR/XR chest 2V IMPRESSION: Mild subsegmental atelectasis or scarring in the left lung base/lingula. No acute pulmonary process. Discharge Plan Discharge Clinical Impression: Asthma with acute exacerbation Patient Disposition: Home, Self-Care Instructions: Asthma (ED) Additional Instructions: Chest xray is normal Rapid covid screen negative Follow-up with your PCP in a few days for persistent symptoms Prescriptions: New prednisone 20 mg tablet 40 mg PO DAILY Qty: 8 0RF benzonatate 200 mg capsule 200 mg PO TID PRN (Reason: cough) Qty: 30 0RF No Action metformin 500 mg tablet 2 tab PO BID glipizide 10 mg tablet extended release 24hr 1 tab PO QAM (DME) FreeStyle Lite Strips Strip MISCELLANEOUS TID aspirin 81 mg tablet,delayed release (DR/EC) 1 tab PO BEDTIME lisinopril-hydrochlorothiazide 20-25 mg tablet 1 tab PO QAM alcohol swabs [Alcohol Prep Pads] Pads, Medicated 1 pledget topical BID albuterol sulfate [ProAir HFA] 90 mcg/actuation HFA aerosol inhaler 2 puff inhalation QID insulin lispro protamin-lispro [Humalog Mix 75-25 KwikPen] 100 unit/mL (75-25) insulin pen 50 unit subcut BID rosuvastatin 5 mg tablet 1 tab PO QPM (DME) pen needle, diabetic [Pentips] 32 gauge x 5/32 needle MISCELLANEOUS BID (DME) lancets [TRUEplus Lancets] 33 gauge misc MISCELLANEOUS TID venlafaxine 37.5 mg Capsule,Extended Release 24hr 37.5 mg PO DAILY 30 Days Qty: 30 0RF venlafaxine 75 mg Capsule,Extended Release 24hr 75 mg PO DAILY 30 Days Qty: 30 0RF olanzapine 7.5 mg Tablet 7.5 mg PO BEDTIME 30 Days Qty: 30 0RF gabapentin 100 mg Capsule 200 mg PO TID 30 Days Qty: 180 0RF lorazepam 1 mg Tablet 1 mg PO TID 30 Days Qty: 90 0RF memantine 5 mg Tablet 5 mg PO BEDTIME 30 Days Qty: 30 0RF cefuroxime axetil 250 mg tablet 250 mg PO BID 7 Days Qty: 14 0RF phenazopyridine [Pyridium] 200 mg tablet 200 mg PO TID PRN (Reason: pain) Qty: 6 0RF Referrals: [facility] [Primary Care Provider] - Interventions: ED Discharge Assessment Last Done: 01/08/22 21:34 Discharge Date/Time: 01/08/22 21:35
[2022-01-08] MEDS: predniSONE 20 MG TABLET 60 MG PO (21:32)
== END 2022-01-08 21:35 | disposition home or self-care (01) ==
PROVIDERS: Emergency Provider Internal Medicine
DX: J45.901 Unspecified asthma with (acute) exacerbation (principal); E11.9 Type 2 diabetes mellitus without complications; I10 Essential (primary) hypertension; Z20.822 Contact with and (suspected) exposure to COVID-19; Z79.4 Long term (current) use of insulin; Z79.82 Long term (current) use of aspirin; Z79.02 Long term (current) use of antithrombotics/antiplatelets; Z79.899 Other long term (current) drug therapy
CPT/HCPCS: 71046; 87635; 99283

== ENCOUNTER 2022-04-13 13:56 | Emergency (ER) | payer MEDICAID, SELFPAY ==
[2022-04-13] VITALS (7 sets, daily range): BP systolic 149–198; BP diastolic 83–110; PULSE 82–95; RESP 11–20; TEMP 36.3–37; O2SAT 94–100; BMI 39.0
--- NOTE | ~2022-04-13 | CT_ITS ---
EXAMINATION: CT ANGIOGRAM OF THE CHEST WITH AND WITHOUT CONTRAST (CT PULMONARY ANGIOGRAM FOR PE) CLINICAL INFORMATION: Reason for Exam pleuritic cp COMPARISON: Noncontrast CT chest 10/07/2019 TECHNIQUE: Prior to contrast administration, noncontrast localization images were obtained. Subsequently, multidetector volumetric imaging was performed from the thoracic inlet to below the diaphragms following the administration of 70 mL Omnipaque 350 intravenous contrast. No contrast reaction reported Sagittal, coronal, and MIP oblique sagittal reformatted images were obtained on the CT workstation, uploaded to PACS, and reviewed. This CT examination was performed using dose optimization techniques as appropriate, variously including the following: *Automated exposure control *Adjustment of mA and/or kV according to patient size (this includes techniques or standardized protocols for targeted exams where dose is matched to indication/reason for exam; i.e. extremities or head) *Use of iterative reconstruction technique Total exam dose-length product 602 mGy-cm FINDINGS: QUALITY OF STUDY/CONTRAST BOLUS: Satisfactory. PULMONARY ARTERIES: No central or segmental pulmonary emboli. THORACIC AORTA: No aneurysm or dissection. LUNG: There is a 5 mm lung nodule present in the right upper lobe with a slightly eccentric area of calcification, unchanged when compared to 10/07/2019. The previously seen bilateral focal peripheral opacities have resolved, presumably these were of infectious etiology. At this time, no focal consolidation, nodules or suspicious masses. Bibasilar atelectasis is present. PLEURA: No pleural effusion or pneumothorax. MEDIASTINUM: Normal heart size. No pericardial effusion. No hilar or mediastinal lymphadenopathy. No evidence of septal bowing or right heart strain. CHEST WALL/AXILLA: No axillary or internal mammary lymphadenopathy. OSSEOUS STRUCTURES: No acute or suspicious osseous abnormality. UPPER ABDOMEN: Unremarkable. No reflux of contrast into the hepatic veins to suggest elevated right heart pressures. CT/CT angio chest PE protocol IMPRESSION: No pulmonary emboli are detected. A cause for the patient's pleuritic chest pain has not been found. Prior infiltrates have resolved. Stable benign-appearing 5 mm right upper lobe lung nodule with calcification. VTE: negative
--- NOTE | ~2022-04-13 | XR_ITS ---
EXAMINATION: XR CHEST CLINICAL INFORMATION: Shortness of breath COMPARISON: 01/08/2022 TECHNIQUE: Frontal view of the chest was obtained. FINDINGS: Heart and mediastinum are normal. Mild central peribronchial thickening minor discoid atelectasis left base. No infiltrate. No ectopic air. XR/XR chest 1V IMPRESSION: Changes of airway formation consistent with asthma. No infiltrate.
--- NOTE | 2022-04-13 17:03 | PC.NURSE ---
Patient now c/o back pain 10/10 laterally near kidneys.
--- NOTE | 2022-04-13 17:21 | ECG_ITS ---
Test Reason : DYSPNEA Blood Pressure : / mmHG Vent. Rate : 087 BPM Atrial Rate : 087 BPM P-R Int : 150 ms QRS Dur : 074 ms QT Int : 372 ms P-R-T Axes : 041 000 018 degrees QTc Int : 447 ms Normal sinus rhythm Normal ECG When compared with ECG of 27-OCT-2020 19:25, ST-T wave changes have resolved Inferior leads Referred By: Marcelino Frank Electronically Signed By:DALTON GRANADO MD
--- NOTE | 2022-04-13 17:23 | ED.SOB ---
HPI - SOB/Dyspnea General Chief Complaint: Dyspnea Stated Complaint: asthma, sob Time Seen by Provider: 04/13/22 17:13 Source: patient Mode of arrival: ambulatory Limitations: no limitations History of Present Illness HPI Narrative: 57-year-old female with history of asthma, bipolar 1 depression, diabetes, GERD, hepatitis, hypertension, sleep apnea presents to the emergency department was shortness of breath x1 week. Patient states she has tried using her nebulizer which has not relieved to her symptoms. Patient states that her symptoms are worse with walking and expresses she has a difficult time breathing currently. Patient states she has a dry cough and has been wheezing. Patient states she has periodica substernal non radiating chest pain however does not have current chest pain. Additionally patient states when she lies down she describes the room is spinning. Patient denies history of DVT/PE. Patient has prior history of smoking when she was younger. Patient is not on blood thinners. Denies fever, chills, night sweats, weakness. Related Data Home Medications Medication Instructions Recorded Confirmed albuterol sulfate 90 mcg/actuation 2 puff inhalation QID 10/27/20 10/27/20 aerosol inhaler (ProAir HFA) alcohol swabs (Alcohol Prep Pads) 1 pledget topical BID 10/27/20 10/27/20 aspirin 81 mg tablet,delayed 1 tab PO BEDTIME 10/27/20 10/27/20 release blood sugar diagnostic (FreeStyle 10/27/20 10/27/20 Lite Strips) glipizide 10 mg tablet, extended 1 tab PO QAM 10/27/20 10/27/20 release 24 hr insulin lispro protamine-lispro 50 unit subcut BID 10/27/20 10/27/20 100 unit/mL (75-25) subcutaneous pen (Humalog Mix 75-25 KwikPen) lancets 33 gauge (TRUEplus Lancets) 10/27/20 10/27/20 lisinopril 20 1 tab PO QAM 10/27/20 10/27/20 mg-hydrochlorothiazide 25 mg tablet metformin 500 mg tablet 2 tab PO BID 10/27/20 10/27/20 pen needle, diabetic 32 gauge x 10/27/20 10/27/20 5/32 (Pentips) rosuvastatin 5 mg tablet 1 tab PO QPM 10/27/20 10/27/20 Previous Rx's Medication Instructions Recorded gabapentin 100 mg capsule 200 mg PO TID 30 days #180 caps 11/14/20 lorazepam 1 mg tablet 1 mg PO TID 30 days #90 tabs 11/14/20 memantine 5 mg tablet 5 mg PO BEDTIME 30 days #30 tabs 11/14/20 olanzapine 7.5 mg tablet 7.5 mg PO BEDTIME 30 days #30 tabs 11/14/20 venlafaxine 37.5 mg 37.5 mg PO DAILY 30 days #30 caps 11/14/20 capsule,extended release 24 hr venlafaxine 75 mg capsule,extended 75 mg PO DAILY 30 days #30 caps 11/14/20 release 24 hr cefuroxime axetil 250 mg tablet 250 mg PO BID 7 days #14 tabs 04/21/21 phenazopyridine 200 mg tablet 200 mg PO TID PRN pain 6 doses #6 04/21/21 (Pyridium) tabs benzonatate 200 mg capsule 200 mg PO TID PRN cough #30 caps 01/08/22 prednisone 20 mg tablet 40 mg PO DAILY #8 tabs 01/08/22 albuterol sulfate 90 mcg/actuation 2 inh inhalation Q4-6H PRN 04/13/22 breath activated powder inhaler shortness of breath or wheezing #1 ea cefuroxime axetil 250 mg tablet 250 mg PO BID 7 days #14 tabs 04/13/22 prednisone 20 mg tablet 20 mg PO DAILY 5 days #5 tabs 04/13/22 Allergies Allergy/AdvReac Type Severity Reaction Status Date / Time No Known Allergies Allergy Verified 01/08/22 20:23 Review of Systems Review of Systems: Constitutional : No Fever, No Chills ENT/Mouth : No Hoarseness, No sore throat, No Rhinorrhea Eyes: No Redness, No Discharge, No Vision Changes Cardiovascular : No Chest Pain, positive SOB, positive Dyspnea on Exertion, No Edema Respiratory : positive Cough, No Sputum, positive Wheezing, Gastrointestinal : No Nausea, No Vomiting, No Diarrhea, No abdominal Pain Genitourinary : No Dysuria, No Hematuria Musculoskeletal : No joint pain, No Myalgias Skin : No rash Neuro : No Weakness, No Numbness, No Headache Psych : No anxiety, depression All other systems reviewed and are negative Yes all other systems are reviewed and are negative [facility] Past Medical History Attestation statement: The following information was validated with the patient. Source: old records reviewed Medical History Asthma Bipolar 1 disorder Depression Diabetes GERD (gastroesophageal reflux disease) Hepatitis HTN (hypertension) Sleep apnea Surgical History History of section Social History Social History Household Members: Spouse and Children Housing: House Do you presently have visiting nurse or other home services: No Alcohol intake: never Advance Directives: No Advance Directives Information Provided: No service: No Sexual orientation: Don't Know Physical Exam Vital Signs: Vital Signs: Last Vital Signs Temp 98.6 F 04/13/22 20:29 Pulse 82 04/13/22 22:54 Resp 15 04/13/22 22:54 BP 161/83 H 04/13/22 22:54 Pulse Ox 94 04/13/22 22:54 O2 Del Method 04/13/22 22:54 BMI result Body Mass Index 39.0 htn noted however no headache, vision changes, dizziness, head trauma, weakness will recheck Appearance: Alert.? Oriented X3.? No acute distress.? Head: Normocephalic, atraumatic, no step-offs or deformities Eyes: Pupils equal, round and reactive to light.? ENT: Pharynx normal.? Neck: Normal inspection.? Neck supple.? CVS: Normal heart rate and rhythm.? Pulses normal.? Respiratory: No respiratory distress.? Breath sounds normal.? Abdomen: Soft and nontender.? Skin: Skin warm and dry.? Normal skin color.? Normal skin turgor.? Extremities: No lower extremity edema.? No calf ttp. 5/5 strength to bilateral upper and lower extremities Back: No midline tenderness, no C-spine tenderness, full range of motion, no CVA tenderness bilaterally Neuro: Oriented X 3.? No motor deficit.? No sensory deficit. CN 2-12 intact. Able to perform [id number], [id number], ambulatory w/ steady gait normal coordination. Negative Romberg's. Course Reevaluation(s) Reevaluation #1: CBC appears to be within normal limits. Chemistry with no acute electrolyte abnormalities requiring intervention. Troponin negative. EKG nonischemic. D-dimer negative. Patient continues to complain of pleuritic chest pain therefore CTA was ordered. An pending. UA with urinary tract infection, ceftin ordered. Covid negative. CXR consistent with asthma. CTA w/o PE. Time: 22:27 Reevaluation #2: Pressure improvement. At this time patient will be discharged home advised to follow-up with PCP and return with new or worsening symptoms. Comfortable discharge home. Educated on worrisome signs and symptoms and when to return. At time of discharge patient without chest pain, shortness of breath. Reports improvement symptoms. Mild headache therefore Tylenol was given. Neuro nonfocal. Patient will be discharged home Time: 22:57 MDM - SOB/Dyspnea MDM Narrative Medical decision making narrative: [id number] 57-year-old female with history of asthma presents with shortness of breath and difficulty breathing x1 week. took nebs without relief Physical exam benign. HTN noted will repaet pressure Neuro nonfocal, no headache, vision changes, dizziness, unlikley ICH, stoke, posterior stroke. Will reapeat pressure when patient more comfortable. Likley. [place], unlikley PE, pna, acs Plan is to administer albuterol neb. Chest x-ray results pending. Will rule out PE, HI, pneumonia. Medical Records Attestation: I reviewed the patient's medical records. Lab Data Attestation: I reviewed the patient's lab results. Result diagrams: 04/13/22 17:21 04/13/22 17:21 Labs: Lab Results 04/13/22 04/13/22 04/13/22 Range/Units 17:21 17:21 17:21 WBC 8.1 (4.8-10.8) X10*3/uL RBC 4.91 (4.20-5.50) X10*6/uL Hgb 14.0 (12.0-16.0) g/dl Hct 43.6 (37.0-47.0) % MCV 88.8 (80.0-98.0) fL MCH 28.5 (27.0-33.0) pg MCHC 32.1 (31.0-35.0) g/dl RDW 12.5 (11.0-16.0) % Plt Count 208 (160-400) X10*3/uL MPV 11.2 (9.4-12.3) fL Immature Gran % (Auto) 0.2 (0.0-0.4) % Neut % (Auto) 55.4 (45-73) % Lymph % (Auto) 34.1 (20-40) % [place] % (Auto) 5.8 (2-11) % Eos % (Auto) 4.1 H (0-4) % Baso % (Auto) 0.4 (0-2) % Lymph # (Auto) 2.8 (1.2-4.9) X10*3/uL [place] # (Auto) 0.5 (0.1-1.2) X10*3/uL Eos # (Auto) 0.3 (0.0-0.4) X10*3/uL Baso # (Auto) 0.0 (0.0-0.2) X10*3/uL Abs Immat Gran (auto) 0.02 (0.00-0.03) X10*3/uL Absolute Neuts (auto) 4.5 (2.0-8.3) x10*3/uL Absolute Nucleated RBC 0.000 (0.0-0.012) X10*3/uL Nucleated RBC % (auto) 0.0 (0.0-0.2) /100WBC D-Dimer High Sensitivty NG/ML Sodium 138 (135-145) mmol/L Potassium 4.2 (3.3-5.1) mmol/L Chloride 99 (96-108) mmol/L Carbon Dioxide 28 (22-29) mmol/L Anion Gap 15 (12-20) BUN 13 (9-16) mg/dL Creatinine 0.77 (0.5-1.4) mg/dL Estim Creat Clear Calc 110.7 Estimated GFR > 60 Random Glucose 315 H (60-115) mg/dL Calcium 9.9 (8.4-10.2) mg/dL Total Bilirubin 0.4 (0.0-1.0) mg/dL AST 27 (5-31) U/L ALT 40 H (0-31) U/L Alkaline Phosphatase 105 (39-117) U/L Troponin I High Sens (<3.5-17.0) ng/L Total Protein 7.5 (6.5-8.0) g/dL Albumin 4.2 (3.5-5.0) g/dL Urine Color Yellow Urine Appearance Cloudy Urine pH 7.5 (5.0-9.0) Ur Specific [place] 1.025 (1.005-1.025) Urine Protein 100 (2+) H (Neg-Trace) mg/dL Urine Glucose (UA) >=1000 H (Negative) mg/dL Urine Ketones Negative (Negative) mg/dL Urine Blood Negative (Negative) Urine Nitrite Negative (Negative) Ur Leukocyte Esterase Small (1+) H (Negative) Urine RBC 3-5 H (0-2) /HPF Urine WBC >50 H (0-5) /HPF Ur Squamous Epith Cells >20 (0-2) /HPF Urine Bacteria 3+ (None Seen) Hyaline Casts 0-2 (0-2) /LPF COVID-19 (RADHA) (Negative) COVID-19 Clin Com 04/13/22 04/13/22 04/13/22 Range/Units 17:48 17:50 17:50 WBC (4.8-10.8) X10*3/uL RBC (4.20-5.50) X10*6/uL Hgb (12.0-16.0) g/dl Hct (37.0-47.0) % MCV (80.0-98.0) fL MCH (27.0-33.0) pg MCHC (31.0-35.0) g/dl RDW (11.0-16.0) % Plt Count (160-400) X10*3/uL MPV (9.4-12.3) fL Immature Gran % (Auto) (0.0-0.4) % Neut % (Auto) (45-73) % Lymph % (Auto) (20-40) % [place] % (Auto) (2-11) % Eos % (Auto) (0-4) % Baso % (Auto) (0-2) % Lymph # (Auto) (1.2-4.9) X10*3/uL [place] # (Auto) (0.1-1.2) X10*3/uL Eos # (Auto) (0.0-0.4) X10*3/uL Baso # (Auto) (0.0-0.2) X10*3/uL Abs Immat Gran (auto) (0.00-0.03) X10*3/uL Absolute Neuts (auto) (2.0-8.3) x10*3/uL Absolute Nucleated RBC (0.0-0.012) X10*3/uL Nucleated RBC % (auto) (0.0-0.2) /100WBC D-Dimer High Sensitivty < 150 NG/ML Sodium (135-145) mmol/L Potassium (3.3-5.1) mmol/L Chloride (96-108) mmol/L Carbon Dioxide (22-29) mmol/L Anion Gap (12-20) BUN (9-16) mg/dL Creatinine (0.5-1.4) mg/dL Estim Creat Clear Calc Estimated GFR Random Glucose (60-115) mg/dL Calcium (8.4-10.2) mg/dL Total Bilirubin (0.0-1.0) mg/dL AST (5-31) U/L ALT (0-31) U/L Alkaline Phosphatase (39-117) U/L Troponin I High Sens < 3.5 (<3.5-17.0) ng/L Total Protein (6.5-8.0) g/dL Albumin (3.5-5.0) g/dL Urine Color Urine Appearance Urine pH (5.0-9.0) Ur Specific [place] (1.005-1.025) Urine Protein (Neg-Trace) mg/dL Urine Glucose (UA) (Negative) mg/dL Urine Ketones (Negative) mg/dL Urine Blood (Negative) Urine Nitrite (Negative) Ur Leukocyte Esterase (Negative) Urine RBC (0-2) /HPF Urine WBC (0-5) /HPF Ur Squamous Epith Cells (0-2) /HPF Urine Bacteria (None Seen) Hyaline Casts (0-2) /LPF COVID-19 (RADHA) Negative (Negative) COVID-19 Clin Com See Note Critical Care Time Critical Care Time Critical Care Time: No Discharge Plan Discharge Clinical Impression: UTI (urinary tract infection), Asthma, Chest pain, pleuritic Patient Disposition: Home, Self-Care Instructions: Chest Pain (ED), Asthma (ED), Urinary Tract Infection in Women (ED), Urinary Tract Infection in Older Adults (ED) Additional Instructions: Take your medications as prescribed. If you were prescribed antibiotics today, it is important that you take your medication to their entirety, do not skip any doses, do not finish them early. Follow-up with your primary care provider this week. Follow-up with cardiology if pain continues, information below. Return to the emergency department with new or worsening symptoms. Such as fevers, chills, chest pain, shortness of breath, nausea, vomiting, dizziness, headache, vision changes, lethargy In case of emergency call 911 XR/XR chest 1V IMPRESSION: Changes of airway formation consistent with asthma. No infiltrate. CT/CT angio chest PE protocol IMPRESSION: No pulmonary emboli are detected. A cause for the patient's pleuritic chest pain has not been found. Prior infiltrates have resolved. Stable benign-appearing 5 mm right upper lobe lung nodule with calcification. ? VTE: negative Prescriptions: New cefuroxime axetil 250 mg tablet 250 mg PO BID 7 Days Qty: 14 0RF prednisone 20 mg tablet 20 mg PO DAILY 5 Days Qty: 5 0RF albuterol sulfate 90 mcg/actuation aerosol powdr breath activated 2 inh inhalation Q4-6H PRN (Reason: shortness of breath or wheezing) Qty: 1 0RF No Action metformin 500 mg tablet 2 tab PO BID glipizide 10 mg tablet extended release 24hr 1 tab PO QAM (DME) FreeStyle Lite Strips Strip MISCELLANEOUS TID aspirin 81 mg tablet,delayed release (DR/EC) 1 tab PO BEDTIME lisinopril-hydrochlorothiazide 20-25 mg tablet 1 tab PO QAM alcohol swabs [Alcohol Prep Pads] Pads, Medicated 1 pledget topical BID albuterol sulfate [ProAir HFA] 90 mcg/actuation HFA aerosol inhaler 2 puff inhalation QID insulin lispro protamin-lispro [Humalog Mix 75-25 KwikPen] 100 unit/mL (75-25) insulin pen 50 unit subcut BID rosuvastatin 5 mg tablet 1 tab PO QPM (DME) pen needle, diabetic [Pentips] 32 gauge x /32 needle MISCELLANEOUS BID (DME) lancets [TRUEplus Lancets] 33 gauge misc MISCELLANEOUS TID venlafaxine 37.5 mg Capsule,Extended Release 24hr 37.5 mg PO DAILY 30 Days Qty: 30 0RF venlafaxine 75 mg Capsule,Extended Release 24hr 75 mg PO DAILY 30 Days Qty: 30 0RF olanzapine 7.5 mg Tablet 7.5 mg PO BEDTIME 30 Days Qty: 30 0RF gabapentin 100 mg Capsule 200 mg PO TID 30 Days Qty: 180 0RF lorazepam 1 mg Tablet 1 mg PO TID 30 Days Qty: 90 0RF memantine 5 mg Tablet 5 mg PO BEDTIME 30 Days Qty: 30 0RF cefuroxime axetil 250 mg tablet 250 mg PO BID 7 Days Qty: 14 0RF phenazopyridine [Pyridium] 200 mg tablet 200 mg PO TID PRN (Reason: pain) Qty: 6 0RF prednisone 20 mg tablet 40 mg PO DAILY Qty: 8 0RF benzonatate 200 mg capsule 200 mg PO TID PRN (Reason: cough) Qty: 30 0RF Referrals: [facility] [Primary Care Provider] - 2 days Stand Alone Forms: Work/School Release
[2022-04-13 17:29] LABS: MANUAL DIFF FLAG NO
[2022-04-13 17:30] LABS: Basophils Percent Auto 0.4 % (0-2); Eosinophils Absolute Auto 0.3 X10*3/uL (0.0-0.4); Eosinophils Percent Auto 4.1 % (0-4); Hematocrit 43.6 % (37.0-47.0); Imm Gran Abs Auto 0.02 X10*3/uL (0.00-0.03); Imm Gran Pct Auto 0.2 % (0.0-0.4); Lymphocytes Absolute Auto 2.8 X10*3/uL (1.2-4.9); Lymphocytes Percent Auto 34.1 % (20-40); Mean Corpuscular HGB Conc 32.1 g/dl (31.0-35.0); Mean Corpuscular Hemoglobin 28.5 pg (27.0-33.0); Mean Corpuscular Volume 88.8 fL (80.0-98.0); Mean Platelet Volume 11.2 fL (9.4-12.3); Monocytes Absolute Auto 0.5 X10*3/uL (0.1-1.2); Monocytes Percent Auto 5.8 % (2-11); Neutrophils Absolute Auto 4.5 x10*3/uL (2.0-8.3); Neutrophils Percent Auto 55.4 % (45-73); Platelet Count 208 X10*3/uL (160-400); Red Blood Count 4.91 X10*6/uL (4.20-5.50); Red Cell Distribution Width 12.5 % (11.0-16.0); White Blood Count 8.1 X10*3/uL (4.8-10.8)
[2022-04-13 17:31] LABS: Appearance Urine Cloudy; Color Urine Yellow; Glucose Urine UA >=1000 mg/dL (Negative); Leukocyte Esterase Urine Small (1+) (Negative); Nitrite Urine Negative (Negative); PH 7.5 (5.0-9.0); Specific Gravity - Urine 1.025 (1.005-1.025); UMIC TRIGGER UACC YES; Urine Blood Negative (Negative); Urine Ketones Negative (Negative); Urine Protein 100 (2+) mg/dL (Neg-Trace)
[2022-04-13 17:34] LABS: Bacteria Urine 3+ (None Seen); Hyaline Casts Urine 0-2 /LPF (0-2); Squamous Epithelial Cell Urine >20 /HPF (0-2); UACC Culture Trigger YES; WBC Urine >50 /HPF (0-5)
[2022-04-13 17:47] LABS: Alanine Aminotransferase 40 U/L (0-31); Albumin Level 4.2 g/dL (3.5-5.0); Alkaline Phosphatase 105 U/L (39-117); Anion Gap 15 (12-20); Aspartate Amino Transferase 27 U/L (5-31); Bilirubin Total 0.4 mg/dL (0.0-1.0); Blood Urea Nitrogen 13 mg/dL (9-16); Calcium 9.9 mg/dL (8.4-10.2); Carbon Dioxide 28 mmol/L (22-29); Chloride 99 mmol/L (96-108); Creatinine Clr Calc Pharmacy 110.7; Estimated Glomerular Filt Rate > 60; Glucose Random 315 mg/dL (60-115); Potassium 4.2 mmol/L (3.3-5.1); Sodium 138 mmol/L (135-145); Total Protein 7.5 g/dL (6.5-8.0)
[2022-04-13 18:15] LABS: Troponin-I High Sensitivity < 3.5 ng/L (<3.5-17.0)
[2022-04-13 18:19] LABS: COVID-19 Test Negative (Negative)
[2022-04-13 18:30] LABS: D Dimer High Sensitivity < 150 NG/ML
[2022-04-13] MEDS: Albuterol/Iprat 2.5/0.5MG 3 ML AMPUL.NEB INHALE (19:10)
[2022-04-13] MEDS: 0.9 % Sodium Chloride 1,000 ML 999 ML IV (20:01)
[2022-04-13] MEDS: Magnesium Sulfate/H2O 2 GM/50 ML PIGGYBACK IV (20:02)
[2022-04-13] MEDS: methylPREDNISolone Sod Succ 125 MG/2 ML VIAL IVPUSH (20:02)
--- NOTE | 2022-04-13 20:25 | PC.NURSE ---
Assumed care of pt. at 1900. Pt in bed at that time completing albuterol with family at bedside. IV placed in pt. and fluids started along with medications per AUG. Pt. also c/o pain in the back that has persisted for 2 weeks with no relief from tylenol or ibuprofen. Pt. also c/o of a headache at a 10 at this time.
[2022-04-13] MEDS: Morphine Sulfate 4 MG/ML CARTRIDGE IVPUSH (21:04)
[2022-04-13] MEDS: iohexoL 350 MG/ML 100 ML INFUS..BTL IV (21:37)
[2022-04-13] MEDS: Acetaminophen 325 MG TABLET 975 MG PO (23:33)
== END 2022-04-13 23:50 | disposition home or self-care (01) ==
PROVIDERS: Physician Assistant; Emergency Provider Internal Medicine
DX: N39.0 Urinary tract infection, site not specified (principal); R06.02 Shortness of breath; J45.909 Unspecified asthma, uncomplicated; R07.89 Other chest pain; Z20.822 Contact with and (suspected) exposure to COVID-19; Z79.899 Other long term (current) drug therapy
CPT/HCPCS: 36415; 71045; 71275; 80053; 81001; 84484; 85025; 85379; 87086; 87635; 93005; 94640; 96365; 96366; 96375; 99285; J2270; J2930; J3475; Q9967

== ENCOUNTER 2022-05-27 10:18 | Emergency (ER) | payer MEDICAID, SELFPAY ==
--- NOTE | ~2022-05-27 | CT_ITS ---
EXAMINATION: CT ABDOMEN AND PELVIS WITHOUT CONTRAST CLINICAL INFORMATION: Back pain radiating to the bilateral flanks/abdomen, down legs. COMPARISON: CT scans dating between March 06, 2018 and May 08, 2009. TECHNIQUE: Multidetector volumetric imaging was performed from the superior aspect of the liver through the pubic symphysis. Sagittal and coronal reformatted images were obtained on the technologist's workstation. This CT examination was performed using dose optimization techniques as appropriate, variously including the following: *Automated exposure control *Adjustment of mA and/or kV according to patient size (this includes techniques or standardized protocols for targeted exams where dose is matched to indication/reason for exam; i.e. extremities or head) *Use of iterative reconstruction technique DLP: 1388 mGy-cm FINDINGS: LUNG BASES: The lung bases appear clear, with no evidence of inflammation or nodules. Minimal bibasilar fibrotic change and/atelectasis. LIVER, GALLBLADDER, AND BILIARY TREE: Suspect nodular contour of the liver with relative atrophy of the right hepatic lobe. No focal hepatic lesion or biliary ductal dilatation is appreciated on this noncontrast study. Status post cholecystectomy. PANCREAS: Unremarkable SPLEEN: Unremarkable ADRENAL GLANDS: Unremarkable KIDNEYS AND URETERS: The kidneys appear unremarkable in size, shape, and attenuation. No hydronephrosis, hydroureter, or calculi seen. BLADDER: Poorly distended, therefore suboptimally evaluated. Grossly unremarkable. GASTROINTESTINAL TRACT: No evidence of gastroesophageal varices. Unremarkable appearance of the stomach. The small and large bowel appear unremarkable. No diverticulosis. Normal-appearing distal ileum and vermiform appendix. PERITONEAL CAVITY: No evidence of ascites. ABDOMINAL WALL: No significant hernia is appreciated. LYMPH NODES: No evidence of adenopathy by size criteria. VASCULAR: Unremarkable PELVIC VISCERA: Unremarkable OSSEOUS STRUCTURES: Unremarkable CT/CT abdomen pelvis wo IV con IMPRESSION: No acute finding. Suspect hepatic cirrhosis.
[2022-05-27 10:54] VITALS: BP 142/102; PULSE 94; RESP 22; TEMP 36.6; O2SAT 98; BMI 51.0
[2022-05-27] MEDS: Acetaminophen 325 MG TABLET 650 MG PO (11:04)
[2022-05-27 11:16] LABS: MANUAL DIFF FLAG NO
[2022-05-27 11:17] LABS: Basophils Percent Auto 0.4 % (0-2); Eosinophils Absolute Auto 0.3 X10*3/uL (0.0-0.4); Eosinophils Percent Auto 3.3 % (0-4); Hematocrit 44.7 % (37.0-47.0); Hemoglobin 14.7 g/dl (12.0-16.0); Imm Gran Abs Auto 0.02 X10*3/uL (0.00-0.03); Imm Gran Pct Auto 0.3 % (0.0-0.4); Lymphocytes Absolute Auto 2.9 X10*3/uL (1.2-4.9); Lymphocytes Percent Auto 37.1 % (20-40); Mean Corpuscular HGB Conc 32.9 g/dl (31.0-35.0); Mean Corpuscular Hemoglobin 28.7 pg (27.0-33.0); Mean Corpuscular Volume 87.3 fL (80.0-98.0); Mean Platelet Volume 11.3 fL (9.4-12.3); Monocytes Absolute Auto 0.5 X10*3/uL (0.1-1.2); Monocytes Percent Auto 6.3 % (2-11); Neutrophils Absolute Auto 4.1 x10*3/uL (2.0-8.3); Neutrophils Percent Auto 52.6 % (45-73); Platelet Count 212 X10*3/uL (160-400); Red Blood Count 5.12 X10*6/uL (4.20-5.50); Red Cell Distribution Width 12.4 % (11.0-16.0); White Blood Count 7.8 X10*3/uL (4.8-10.8)
[2022-05-27 11:39] LABS: Alanine Aminotransferase 36 U/L (0-31); Albumin Level 4.3 g/dL (3.5-5.0); Alkaline Phosphatase 109 U/L (39-117); Anion Gap 14 (12-20); Aspartate Amino Transferase 27 U/L (5-31); Bilirubin Total 0.4 mg/dL (0.0-1.0); Blood Urea Nitrogen 13 mg/dL (9-16); Calcium 10.6 mg/dL (8.4-10.2); Carbon Dioxide 27 mmol/L (22-29); Chloride 99 mmol/L (96-108); Creatinine Clr Calc Pharmacy 109.1; Estimated Glomerular Filt Rate > 60; Glucose Random 286 mg/dL (60-115); Lipase 45 U/L (8-78); Potassium 4.2 mmol/L (3.3-5.1); Sodium 136 mmol/L (135-145); Total Protein 7.6 g/dL (6.5-8.0)
[2022-05-27] MEDS: traMADoL HCL 50 MG TABLET PO (14:57)
[2022-05-27 15:13] LABS: Appearance Urine Clear; Color Urine Yellow; Glucose Urine UA 250 mg/dL (Negative); Leukocyte Esterase Urine Negative (Negative); Nitrite Urine Negative (Negative); PH 6.5 (5.0-9.0); UMIC TRIGGER UACC YES; Urine Blood Negative (Negative); Urine Ketones Negative (Negative); Urine Protein 100 (2+) mg/dL (Neg-Trace)
[2022-05-27 15:18] LABS: Bacteria Urine None Seen (None Seen); Hyaline Casts Urine 0-2 /LPF (0-2); RBC Urine 0-2 /HPF (0-2); WBC Urine 0-5 /HPF (0-5)
--- NOTE | 2022-05-27 16:02 | ED_ITS ---
HPI - Abdominal Pain General Chief Complaint: Abdominal Pain Stated Complaint: Low Back Abd Pain Time Seen by Provider: 05/27/22 14:38 Source: patient Mode of arrival: ambulatory Limitations: language barrier (Palauan-speaking) History of Present Illness HPI narrative: 57yoF c PMHx of Frontal lobe dementia, HTN, DM, asthma, GERD, bipolar 1 disorder and depression presenting to the ER with complaints of mid to lower back pain radiating to her bilateral flank/abdomen and down her legs for the past 3 days worse today. She denies any fevers, chills, dizziness, headache, neck pain/stiffness, trouble swallowing or breathing, sore throat, ear pain, chest pain or shortness of breath, paresthesias palpitations, dysuria, hematuria, abnormal vaginal discharge, black or bloody stools, diarrhea constipation, lower extremity edema, rashes, recent travel or sick contacts or any other symptoms complaints or concerns at this time. MD elicited complaint: abdominal pain Onset (ago): day(s) (3) Pain Consistency: constant Severity: moderate Quality: aching Exacerbating factors: nothing Relieving factors: nothing Associated symptoms: denies other symptoms Related Data Home Medications Medication Instructions Recorded Confirmed albuterol sulfate 90 mcg/actuation 2 puff inhalation QID 10/27/20 10/27/20 aerosol inhaler (ProAir HFA) alcohol swabs (Alcohol Prep Pads) 1 pledget topical BID 10/27/20 10/27/20 aspirin 81 mg tablet,delayed 1 tab PO BEDTIME 10/27/20 10/27/20 release blood sugar diagnostic (FreeStyle 10/27/20 10/27/20 Lite Strips) glipizide 10 mg tablet, extended 1 tab PO QAM 10/27/20 10/27/20 release 24 hr insulin lispro protamine-lispro 50 unit subcut BID 10/27/20 10/27/20 100 unit/mL (75-25) subcutaneous pen (Humalog Mix 75-25 KwikPen) lancets 33 gauge (TRUEplus Lancets) 10/27/20 10/27/20 lisinopril 20 1 tab PO QAM 10/27/20 10/27/20 mg-hydrochlorothiazide 25 mg tablet metformin 500 mg tablet 2 tab PO BID 10/27/20 10/27/20 pen needle, diabetic 32 gauge x 0510/27/2032 (Pentips) rosuvastatin 5 mg tablet 1 tab PO QPM 10/27/20 10/27/20 Previous Rx's Medication Instructions Recorded gabapentin 100 mg capsule 200 mg PO TID 30 days #180 caps 11/14/20 lorazepam 1 mg tablet 1 mg PO TID 30 days #90 tabs 11/14/20 memantine 5 mg tablet 5 mg PO BEDTIME 30 days #30 tabs 11/14/20 olanzapine 7.5 mg tablet 7.5 mg PO BEDTIME 30 days #30 tabs 11/14/20 venlafaxine 37.5 mg 37.5 mg PO DAILY 30 days #30 caps 11/14/20 capsule,extended release 24 hr venlafaxine 75 mg capsule,extended 75 mg PO DAILY 30 days #30 caps 11/14/20 release 24 hr cefuroxime axetil 250 mg tablet 250 mg PO BID 7 days #14 tabs 04/21/21 phenazopyridine 200 mg tablet 200 mg PO TID PRN pain 6 doses #6 04/21/21 (Pyridium) tabs benzonatate 200 mg capsule 200 mg PO TID PRN cough #30 caps 01/08/22 prednisone 20 mg tablet 40 mg PO DAILY #8 tabs 01/08/22 albuterol sulfate 90 mcg/actuation 2 inh inhalation Q4-6H PRN 04/13/22 breath activated powder inhaler shortness of breath or wheezing #1 ea cefuroxime axetil 250 mg tablet 250 mg PO BID 7 days #14 tabs 04/13/22 prednisone 20 mg tablet 20 mg PO DAILY 5 days #5 tabs 04/13/22 acetaminophen 500 mg tablet 1,000 mg PO QID PRN fever or pain 05/27/22 (Tylenol Extra Strength) #14 tabs cyclobenzaprine 10 mg tablet 10 mg PO Q8H #14 tabs 05/27/22 tramadol 50 mg tablet 50 mg PO Q8H PRN pain #14 tabs 05/27/22 Allergies Allergy/AdvReac Type Severity Reaction Status Date / Time No Known Allergies Allergy Verified 05/27/22 10:54 Review of Systems Review of Systems Constitutional : No Weight loss, No Fever, No Chills, No Night Sweats, No Fatigue, No Malaise ENT/Mouth : No Hearing loss, No Ear Pain, No Nasal Congestion, No Sinus Pain, No Hoarseness, No sore throat, No Rhinorrhea, No Swallowing Difficulty Eyes: No Eye Pain, No Swelling, No Redness, No Foreign Body, No Discharge, No Vision Changes Cardiovascular : No Chest Pain, No SOB, No Dyspnea on Exertion, No Orthopnea, No Edema, No Palpitations Respiratory : No Cough, No Sputum, No Wheezing, No Smoke Exposure, No Dyspnea Gastrointestinal : No Nausea, No Vomiting, No Diarrhea, No Constipation, + abdominal Pain, No Hematochezia, No Melena Genitourinary : no irregular bleeding, No Dysuria, No Urinary Frequency, No Gelacio turia, No Urinary Incontinence, No Urgency, No Flank Pain, No Urinary Flow Changes, No Hesitancy Musculoskeletal : +back pain, No joint pain, No Myalgias, No Joint Swelling Skin : No Skin Lesions, No rash Neuro : No Weakness, No Numbness, No Paresthesias, No Loss of Consciousness, No Dizziness, No Headache Psych : No Anxiety/Panic, No Depression, No SI/HI/AH/VH, No Social Issues, Heme/Lymph: No Bruising, No Bleeding,No Lymphadenopathy Endocrine : No Polyuria, No Polydipsia, No Temperature Intolerance Yes all other systems are reviewed and are negative [facility] Past Medical History Attestation statement: The following information was validated with the patient. Source: old records reviewed and nursing notes reviewed Medical History Asthma Bipolar 1 disorder Depression Diabetes GERD (gastroesophageal reflux disease) Hepatitis HTN (hypertension) Sleep apnea Surgical History History of section Social History Social History Household Members: Spouse and Children Housing: House Do you presently have visiting nurse or other home services: No Alcohol intake: never Advance Directives: No service: No Sexual orientation: Don't Know Physical Exam ED Vital Signs: Vital Signs - 24 hr 05/27/22 10:54 Temperature 97.8 F Pulse Rate 94 Respiratory Rate 22 H Blood Pressure 142/102 H Pulse Oximetry 98 Oxygen Delivery Method Room Air BMI result Body Mass Index 51.0 Vital signs have been reviewed and all within normal limits Appearance: Alert. Oriented X3. No acute distress. Head: Normal external exam. Normocephalic. Atraumatic. No Paige signs noted. No raccoon eyes noted Eyes: PERRLA. EOMI. Conjunctiva and sclera normal. Eyelids normal. ENT: EAC normal. TM's Normal. Pharynx normal. Uvula midline. Moist mucous membranes. No trismus noted. No drooling noted. No muffled voice noted. Neck: Normal inspection. Neck supple. FROM. No adenopathy. Thyroid Normal. No meningeal signs. No neck mass noted. CVS: Normal heart rate and rhythm. Heart sound normal. No murmurs noted. Pulses normal throughout. Respiratory: No respiratory distress. Painless inspiration. Breath sounds normal. No wheezes/rales/rhonchi noted. Chest nontender. No accessory muscle usage noted or decreased air movement noted. Abdomen: Soft and mild tenderness diffusely no point tenderness is noted. Bowel sounds normal in all 4 quadrants. No distention noted. No organomegaly noted. No visible injury noted. Back: No CVA tenderness. Full range of motion noted. No obvious deformities, or edema. Mild para-spinal muscular tenderness from lumbar region to coccyx. Full ROM in back and lower extremities. 5/5 strength hip extension/flexion, abduction, adduction. Mild Lumbar pain with hip flexion against resistance. Straight leg raise test negative on right; Straight leg raise test negative on left; Reflexes normal ankle and knee bilaterally; EHL motor strength normal bilaterally. No rashes/lesion/induration/fluctuance or signs infection noted. Skin: Skin warm and dry. Normal skin color. Normal skin turgor. No rashes/lesions/lacerations noted. Extremities: No lower extremity edema. Extremities exhibit normal range of motion. Extremities nontender. Neuro: Oriented X 3. No motor deficit. No sensory deficit. Reflexes normal. Patient has a normal steady gait. Course Course Course Narrative: 14:50pm - 57yoF c PMHx of Frontal lobe dementia, HTN, DM, asthma, GERD, bipolar 1 disorder and depression presenting to the ER with complaints of mid to lower back pain radiating to her bilateral flank/abdomen and down her legs for the past 3 days worse today. Plan: Labs, UA, CT scan abdomen pelvis with IV contrast and re-evaluate. Reevaluation(s) Reevaluation #1: Labs obtained revealed - glucose 286 - calcium 10.6. - ALT 36. - otherwise all other labs are within normal limits. - UA revealed 250 glucose otherwise no evidence of UTI. CT scan abdomen pelvis with oral IV contrast revealed hepatic cirrhosis otherwise no other acute processes noted. - Patient most likely muscular skeletal pain. Therefore at this time will DC home with symptomatic treatment instructions return if any new or worsening symptoms to follow up with primary care provider. Patient agrees with this plan. Time: 16:09 Medications Administered Discontinued Medications Generic Name Dose Route Start Last Admin Trade Name Mary Jane PRN Reason Stop Dose Admin Acetaminophen 650 mg 05/27/22 11:01 05/27/22 11:04 Acetaminophen 325 Mg Tablet PO 05/27/22 11:02 650 mg ONCE ONE Administration Tramadol HCl 50 mg 05/27/22 14:48 05/27/22 14:57 Tramadol Hcl 50 Mg Tablet PO 05/27/22 14:49 50 mg ONCE ONE Administration MDM - Abdominal Pain Lab Data Result diagrams: 05/27/22 11:10 05/27/22 11:10 Labs: Lab Results 05/27/22 05/27/22 05/27/22 Range/Units 11:10 11:10 14:54 WBC 7.8 (4.8-10.8) X10*3/uL RBC 5.12 (4.20-5.50) X10*6/uL Hgb 14.7 (12.0-16.0) g/dl Hct 44.7 (37.0-47.0) % MCV 87.3 (80.0-98.0) fL MCH 28.7 (27.0-33.0) pg MCHC 32.9 (31.0-35.0) g/dl RDW 12.4 (11.0-16.0) % Plt Count 212 (160-400) X10*3/uL MPV 11.3 (9.4-12.3) fL Immature Gran % (Auto) 0.3 (0.0-0.4) % Neut % (Auto) 52.6 (45-73) % Lymph % (Auto) 37.1 (20-40) % Knott % (Auto) 6.3 (2-11) % Eos % (Auto) 3.3 (0-4) % Baso % (Auto) 0.4 (0-2) % Lymph # (Auto) 2.9 (1.2-4.9) X10*3/uL Knott # (Auto) 0.5 (0.1-1.2) X10*3/uL Eos # (Auto) 0.3 (0.0-0.4) X10*3/uL Baso # (Auto) 0.0 (0.0-0.2) X10*3/uL Abs Immat Gran (auto) 0.02 (0.00-0.03) X10*3/uL Absolute Neuts (auto) 4.1 (2.0-8.3) x10*3/uL Absolute Nucleated RBC 0.000 (0.0-0.012) X10*3/uL Nucleated RBC % (auto) 0.0 (0.0-0.2) /100WBC Sodium 136 (135-145) mmol/L Potassium 4.2 (3.3-5.1) mmol/L Chloride 99 (96-108) mmol/L Carbon Dioxide 27 (22-29) mmol/L Anion Gap 14 (12-20) BUN 13 (9-16) mg/dL Creatinine 0.77 (0.5-1.4) mg/dL Estim Creat Clear Calc 109.1 Estimated GFR > 60 Random Glucose 286 H (60-115) mg/dL Calcium 10.6 H D (8.4-10.2) mg/dL Total Bilirubin 0.4 (0.0-1.0) mg/dL AST 27 (5-31) U/L ALT 36 H (0-31) U/L Alkaline Phosphatase 109 (39-117) U/L Total Protein 7.6 (6.5-8.0) g/dL Albumin 4.3 (3.5-5.0) g/dL Lipase 45 (8-78) U/L Urine Color Yellow Urine Appearance Clear Urine pH 6.5 (5.0-9.0) Ur Specific Rudolph 1.010 (1.005-1.025) Urine Protein 100 (2+) H (Neg-Trace) mg/dL Urine Glucose (UA) 250 H (Negative) mg/dL Urine Ketones Negative (Negative) mg/dL Urine Blood Negative (Negative) Urine Nitrite Negative (Negative) Ur Leukocyte Esterase Negative (Negative) Urine RBC 0-2 (0-2) /HPF Urine WBC 0-5 (0-5) /HPF Ur Squamous Epith Cells 6-10 (0-2) /HPF Urine Bacteria None Seen (None Seen) Hyaline Casts 0-2 (0-2) /LPF Discharge Plan Discharge Clinical Impression: Musculoskeletal pain Patient Disposition: Home, Self-Care Instructions: Musculoskeletal Pain (ED) Prescriptions: New acetaminophen [Tylenol Extra Strength] 500 mg tablet 1,000 mg PO QID PRN (Reason: fever or pain) Qty: 14 0RF tramadol 50 mg tablet 50 mg PO Q8H PRN (Reason: pain) Qty: 14 0RF Rx Instructions: May partially fill upon patient request cyclobenzaprine 10 mg tablet 10 mg PO Q8H Qty: 14 0RF No Action metformin 500 mg tablet 2 tab PO BID glipizide 10 mg tablet extended release 24hr 1 tab PO QAM (DME) FreeStyle Lite Strips Strip MISCELLANEOUS TID aspirin 81 mg tablet,delayed release (DR/EC) 1 tab PO BEDTIME lisinopril-hydrochlorothiazide 20-25 mg tablet 1 tab PO QAM alcohol swabs [Alcohol Prep Pads] Pads, Medicated 1 pledget topical BID albuterol sulfate [ProAir HFA] 90 mcg/actuation HFA aerosol inhaler 2 puff inhalation QID insulin lispro protamin-lispro [Humalog Mix 75-25 KwikPen] 100 unit/mL (75-25) insulin pen 50 unit subcut BID rosuvastatin 5 mg tablet 1 tab PO QPM (DME) pen needle, diabetic [Pentips] 32 gauge x 5/32 needle MISCELLANEOUS BID (DME) lancets [TRUEplus Lancets] 33 gauge misc MISCELLANEOUS TID venlafaxine 37.5 mg Capsule,Extended Release 24hr 37.5 mg PO DAILY 30 Days Qty: 30 0RF venlafaxine 75 mg Capsule,Extended Release 24hr 75 mg PO DAILY 30 Days Qty: 30 0RF olanzapine 7.5 mg Tablet 7.5 mg PO BEDTIME 30 Days Qty: 30 0RF gabapentin 100 mg Capsule 200 mg PO TID 30 Days Qty: 180 0RF lorazepam 1 mg Tablet 1 mg PO TID 30 Days Qty: 90 0RF memantine 5 mg Tablet 5 mg PO BEDTIME 30 Days Qty: 30 0RF cefuroxime axetil 250 mg tablet 250 mg PO BID 7 Days Qty: 14 0RF phenazopyridine [Pyridium] 200 mg tablet 200 mg PO TID PRN (Reason: pain) Qty: 6 0RF prednisone 20 mg tablet 40 mg PO DAILY Qty: 8 0RF benzonatate 200 mg capsule 200 mg PO TID PRN (Reason: cough) Qty: 30 0RF cefuroxime axetil 250 mg tablet 250 mg PO BID 7 Days Qty: 14 0RF prednisone 20 mg tablet 20 mg PO DAILY 5 Days Qty: 5 0RF albuterol sulfate 90 mcg/actuation aerosol powdr breath activated 2 inh inhalation Q4-6H PRN (Reason: shortness of breath or wheezing) Qty: 1 0RF Referrals: [facility] [Primary Care Provider] - 2 days Print Language: Palauan
== END 2022-05-27 16:32 | disposition home or self-care (01) ==
PROVIDERS: Emergency Provider Emergency Medicine
DX: M54.50 Low back pain, unspecified (principal); R10.9 Unspecified abdominal pain; Z79.899 Other long term (current) drug therapy
CPT/HCPCS: 36415; 74176; 80053; 81001; 83690; 85025; 99283; 99284

== ENCOUNTER 2022-09-27 19:48 | Emergency (ER) | payer MEDICAID, SELFPAY ==
--- NOTE | ~2022-09-27 | CT_ITS ---
EXAMINATION: CT ABDOMEN AND PELVIS WITHOUT CONTRAST CLINICAL INFORMATION: Upper abdominal pain COMPARISON: Multiple priors with the last abdomen and pelvic CT scan of 05/27/2022. TECHNIQUE: Multidetector volumetric imaging was performed from the superior aspect of the liver through the pubic symphysis. Sagittal and coronal reformatted images were obtained on the technologist's workstation. This CT examination was performed using dose optimization techniques as appropriate, variously including the following: *Automated exposure control *Adjustment of mA and/or kV according to patient size (this includes techniques or standardized protocols for targeted exams where dose is matched to indication/reason for exam; i.e. extremities or head) *Use of iterative reconstruction technique DLP: 1250 mGy-cm FINDINGS: LUNG BASES: Scattered subsegmental atelectasis is noted at the lung bases. No evidence of pericardial or pleural effusions. LIVER, GALLBLADDER, AND BILIARY TREE: The liver is mildly enlarged. Mild liver contour nodularity is seen. There is low-attenuation of the liver parenchyma suggesting underlying steatosis. No focal liver lesion is noted within the limits of noncontrast study. No biliary ductal dilatation. Gallbladder is surgically absent. No radiopaque filling defect is noted in the common bile duct. PANCREAS: Unremarkable. SPLEEN: Unremarkable. A 1.2 cm splenule is noted at the inferior aspect of the spleen. ADRENAL GLANDS: Unremarkable. KIDNEYS AND URETERS: The kidneys are normal in size, shape, and attenuation. No hydronephrosis, hydroureter, or calculi seen. No perinephric stranding. BLADDER: Unremarkable. GASTROINTESTINAL TRACT: The stomach is distended with ingested material and air. No abnormal small bowel dilatation. An appendix is normal. The colon is normal in caliber. No evidence of colonic wall thickening or pericolonic fat stranding. Moderate to large stool burden is noted in the colon. ABDOMINAL WALL: No significant hernia is appreciated. LYMPH NODES: Aortocaval lymph node is noted measuring 1 cm in short axis, not significantly changed compared to previous CT scans. VASCULAR: The aortoiliac vessels are normal in caliber. Mild calcific atherosclerosis of the aortoiliac vessels. PELVIC VISCERA: Unremarkable. OSSEOUS STRUCTURES: No acute or suspicious osseous abnormality. CT/CT abdomen pelvis wo IV con IMPRESSION: 1. No acute abnormality. 2. Moderate to large stool burden in the colon. No evidence of abnormal bowel dilatation or bowel obstruction. 3. Hepatomegaly with contour nodularity which may suggest underlying changes of cirrhosis. Recommend clinical correlation and correlation with lab values. Fleischner guidelines were followed.
--- NOTE | 2022-09-27 20:03 | ED.ABDPAIN ---
HPI - Abdominal Pain General Chief Complaint: Abdominal Pain <YOSVANY Isabel - Last Filed: 09/27/22 20:06> Stated Complaint: abd pain <YOSVANY Isabel - Last Filed: 09/27/22 20:06> Time Seen by Provider: 09/27/22 21:43 <YOSVANY Isabel - Last Filed: 09/27/22 20:06> Source: patient <Hallie Marie MD - Last Filed: 09/28/22 00:10> Mode of arrival: ambulatory <Hallie Marie MD - Last Filed: 09/28/22 00:10> History of Present Illness HPI narrative: This is a 57-year-old female with known diabetes who presents with 1 week of sub diaphragmatic pain that comes and goes without exacerbating or alleviating measures, not associated with fevers/chills/nausea/vomiting/obstipation and patient denies any urinary pain/burning/frequency, she denies any falls or shortness of breath or new cough. Patient states her last bowel movement was this morning. Patient reports that she is status post cholecystectomy. 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 <Hallie Marie MD - Last Filed: 09/28/22 00:10> Related Data Home Medications: Home Medications Medication Instructions Recorded Confirmed albuterol sulfate 90 mcg/actuation 2 puff inhalation QID 10/27/20 10/27/20 aerosol inhaler (ProAir HFA) alcohol swabs (Alcohol Prep Pads) 1 pledget topical BID 10/27/20 10/27/20 aspirin 81 mg tablet,delayed 1 tab PO BEDTIME 10/27/20 10/27/20 release blood sugar diagnostic (FreeStyle 10/27/20 10/27/20 Lite Strips) glipizide 10 mg tablet, extended 1 tab PO QAM 10/27/20 10/27/20 release 24 hr insulin lispro protamine-lispro 50 unit subcut BID 10/27/20 10/27/20 100 unit/mL (75-25) subcutaneous pen (Humalog Mix 75-25 KwikPen) lancets 33 gauge (TRUEplus Lancets) 10/27/20 10/27/20 lisinopril 20 1 tab PO QAM 05/01/21 05/01/21 mg-hydrochlorothiazide 25 mg tablet metformin 500 mg tablet 2 tab PO BID 10/27/20 10/27/20 pen needle, diabetic 32 gauge x 10/27/20 10/27/20 (Pentips) rosuvastatin 5 mg tablet 1 tab PO QPM 10/27/20 10/27/20 Previous Rx's Medication Instructions Recorded gabapentin 100 mg capsule 200 mg PO TID 30 days #180 caps 11/14/20 lorazepam 1 mg tablet 1 mg PO TID 30 days #90 tabs 11/14/20 memantine 5 mg tablet 5 mg PO BEDTIME 30 days #30 tabs 11/14/20 olanzapine 7.5 mg tablet 7.5 mg PO BEDTIME 30 days #30 tabs 11/14/20 venlafaxine 37.5 mg 37.5 mg PO DAILY 30 days #30 caps 11/14/20 capsule,extended release 24 hr venlafaxine 75 mg capsule,extended 75 mg PO DAILY 30 days #30 caps 11/14/20 release 24 hr cefuroxime axetil 250 mg tablet 250 mg PO BID 7 days #14 tabs 04/21/21 phenazopyridine 200 mg tablet 200 mg PO TID PRN pain 6 doses #6 04/21/21 (Pyridium) tabs benzonatate 200 mg capsule 200 mg PO TID PRN cough #30 caps 01/08/22 prednisone 20 mg tablet 40 mg PO DAILY #8 tabs 01/08/22 albuterol sulfate 90 mcg/actuation 2 inh inhalation Q4-6H PRN 04/13/22 breath activated powder inhaler shortness of breath or wheezing #1 ea cefuroxime axetil 250 mg tablet 250 mg PO BID 7 days #14 tabs 04/13/22 prednisone 20 mg tablet 20 mg PO DAILY 5 days #5 tabs 04/13/22 acetaminophen 500 mg tablet 1,000 mg PO QID PRN fever or pain 05/27/22 (Tylenol Extra Strength) #14 tabs cyclobenzaprine 10 mg tablet 10 mg PO Q8H #14 tabs 05/27/22 tramadol 50 mg tablet 50 mg PO Q8H PRN pain #14 tabs 05/27/22 <YOSVANY Isabel - Last Filed: 09/27/22 20:06> Allergies/Adverse Reactions: Allergies Allergy/AdvReac Type Severity Reaction Status Date / Time No Known Allergies Allergy Verified 05/27/22 10:54 <YOSVANY Isabel - Last Filed: 09/27/22 20:06> Review of Systems Review of Systems Pertinent positives and negatives as stated in HPI <Hallie Marie MD - Last Filed: 09/28/22 00:10> PMFSH Past Medical History Source: nursing notes reviewed <Hallie Marie MD - Last Filed: 09/28/22 00:10> Medical History: Medical History Asthma Bipolar 1 disorder Depression Diabetes GERD (gastroesophageal reflux disease) Hepatitis HTN (hypertension) Sleep apnea <YOSVANY Isabel - Last Filed: 09/27/22 20:06> Surgical History: Surgical History History of section <YOSVANY Isabel - Last Filed: 09/27/22 20:06> Social History Social History: Social History Household Members: Spouse and Children Housing: House Do you presently have visiting nurse or other home services: No Alcohol intake: never Advance Directives: No Advance Directives Information Provided: Yes service: No Sexual orientation: Don't Know <YOSVANY Isabel - Last Filed: 09/27/22 20:06> Physical Exam ED Vital Signs: Vital Signs - 24 hr 09/27/22 20:05 Temperature 98 F Pulse Rate 102 H Respiratory Rate 16 Pulse Oximetry 98 Oxygen Delivery Method Room Air BMI result Body Mass Index 50.8 <YOSVANY Isabel - Last Filed: 09/27/22 20:06> Vital Signs - 24 hr 09/27/22 20:05 Temperature 98 F Pulse Rate 102 H Respiratory Rate 16 Pulse Oximetry 98 Oxygen Delivery Method Room Air BMI result Body Mass Index 50.8 VITAL SIGNS: Reviewed. GENERAL: Elevated BMI, Well developed, well nourished, in no acute distress. HEAD: Normocephalic/atraumatic EYES: PERRLA, EOMI EARS: Ext canals without abnormality NOSE: Nares patent bilateral OROPHARYNX: no oral lesions noted, posterior pharynx clear NECK: Supple, no adenopathy LUNGS: Normal breath sounds. No adventitious sounds or accessory muscle use. SpO2<98> CARDIOVASCULAR: Regular rate and rhythm without noted murmurs, no JVD or lower extremity edema. ABDOMEN: Soft, non-tender, non-distended with bowel sounds. MUSCULOSKELETAL: No tenderness, deformities, or effusions noted on gross inspection. EXTREMITIES: No cyanosis, clubbing or edema. SKIN: Inspection of the skin reveals no rashes NEUROLOGIC: Alert and oriented x 4. Strength and sensation to light touch were grossly intact x 4. <Hallie Marie MD - Last Filed: 09/28/22 00:10> Course Course Course Narrative: This is an RME: Additional HPI, ROS, PE not included below will be deferred to primary provider. 57 year old female hx of obesity, depression, DM, bipolar do, asthma, frontal lobe dementia presents w/ upper abd pain X2 weeks reportss its sharp pain that comes and goes. Denies N/V. Denies urianry sx, CP, SOB, diarrhea, fevers, chills <YOSVANY Isabel - Last Filed: 09/27/22 20:06> Medical Decision Making Medical Decision Making MDM Narrative: 57-year-old female with history and clinical presentation without evidence to suggest SBO, pancreatitis and patient is status post cholecystectomy, no evidence to suggest cardiopulmonary etiology or infectious etiology. I reviewed all investigations in my interpretation at this time is possible gastritis. I reviewed all investigations an imaging studies in my interpretation is this patient has constipation with possible component of gastritis but otherwise no acute intra-abdominal pathology. She was encouraged to take her home dose insulin when she gets home and to call her primary care provider Thursday morning. <Hallie Marie MD - Last Filed: 09/28/22 00:10> Differential Diagnosis Please see the discussion above <Hallie Marie MD - Last Filed: 09/28/22 00:10> Lab Data Please see the discussion above <Hallie Marie MD - Last Filed: 09/28/22 00:10> Result Diagrams: 09/27/22 20:02 09/27/22 20:02 <YOSVANY Isabel - Last Filed: 09/27/22 20:06> Labs: Lab Results 09/27/22 09/27/22 09/27/22 Range/Units 20:02 20:02 20:17 WBC 7.6 (4.8-10.8) X10*3/uL RBC 5.13 (4.20-5.50) X10*6/uL Hgb 14.3 (12.0-16.0) g/dl Hct 43.7 (37.0-47.0) % MCV 85.2 (80.0-98.0) fL MCH 27.9 (27.0-33.0) pg MCHC 32.7 (31.0-35.0) g/dl RDW 12.2 (11.0-16.0) % Plt Count 209 (160-400) X10*3/uL MPV 11.4 (9.4-12.3) fL Immature Gran % (Auto) 0.3 (0.0-0.4) % Neut % (Auto) 54.7 (45-73) % Lymph % (Auto) 34.6 (20-40) % [place] % (Auto) 6.4 (2-11) % Eos % (Auto) 3.5 (0-4) % Baso % (Auto) 0.5 (0-2) % Lymph # (Auto) 2.6 (1.2-4.9) X10*3/uL [place] # (Auto) 0.5 (0.1-1.2) X10*3/uL Eos # (Auto) 0.3 (0.0-0.4) X10*3/uL Baso # (Auto) 0.0 (0.0-0.2) X10*3/uL Abs Immat Gran (auto) 0.02 (0.00-0.03) X10*3/uL Absolute Neuts (auto) 4.2 (2.0-8.3) x10*3/uL Absolute Nucleated RBC 0.000 (0.0-0.012) X10*3/uL Nucleated RBC % (auto) 0.0 (0.0-0.2) /100WBC VBG pH (7.32-7.43) VBG pCO2 mmHg VBG pO2 mmHg VBG HCO3 (22-26) mmol/L VBG O2 Saturation % VBG Base Excess mmol/L Sodium 135 (135-145) mmol/L Potassium 4.0 (3.3-5.1) mmol/L Chloride 96 (96-108) mmol/L Carbon Dioxide 28 (22-29) mmol/L Anion Gap 15 (12-20) BUN 14 (9-16) mg/dL Creatinine 0.85 (0.5-1.4) mg/dL Estim Creat Clear Calc 102.3 Estimated GFR > 60 POC Glucose (60-115) mg/dL Random Glucose 508 H* (60-115) mg/dL Calcium 9.8 D (8.4-10.2) mg/dL Magnesium 1.6 (1.6-2.6) mg/dL Total Bilirubin 0.3 (0.0-1.0) mg/dL AST 27 (5-31) U/L ALT 36 H (0-31) U/L Alkaline Phosphatase 125 H (39-117) U/L Total Protein 6.7 (6.5-8.0) g/dL Albumin 3.8 (3.5-5.0) g/dL Triglycerides 196 mg/dL Lipase 40 (8-78) U/L Urine Color Yellow Urine Appearance Clear Urine pH 6.5 (5.0-9.0) Ur Specific [place] >= 1.030 H (1.005-1.025) Urine Protein 100 (2+) H (Neg-Trace) mg/dL Urine Glucose (UA) >=1000 H (Negative) mg/dL Urine Ketones Negative (Negative) mg/dL Urine Blood Small (1+) H (Negative) Urine Nitrite Negative (Negative) Ur Leukocyte Esterase Negative (Negative) Urine RBC 6-10 H (0-2) /HPF Urine WBC 0-5 (0-5) /HPF Ur Squamous Epith Cells 0-2 (0-2) /HPF Urine Bacteria None Seen (None Seen) Hyaline Casts 0-2 (0-2) /LPF Urine Test (NEGATIVE) Acetone, Qual (Negative) 09/27/22 09/27/22 09/27/22 Range/Units 20:17 21:26 21:28 WBC (4.8-10.8) X10*3/uL RBC (4.20-5.50) X10*6/uL Hgb (12.0-16.0) g/dl Hct (37.0-47.0) % MCV (80.0-98.0) fL MCH (27.0-33.0) pg MCHC (31.0-35.0) g/dl RDW (11.0-16.0) % Plt Count (160-400) X10*3/uL MPV (9.4-12.3) fL Immature Gran % (Auto) (0.0-0.4) % Neut % (Auto) (45-73) % Lymph % (Auto) (20-40) % [place] % (Auto) (2-11) % Eos % (Auto) (0-4) % Baso % (Auto) (0-2) % Lymph # (Auto) (1.2-4.9) X10*3/uL [place] # (Auto) (0.1-1.2) X10*3/uL Eos # (Auto) (0.0-0.4) X10*3/uL Baso # (Auto) (0.0-0.2) X10*3/uL Abs Immat Gran (auto) (0.00-0.03) X10*3/uL Absolute Neuts (auto) (2.0-8.3) x10*3/uL Absolute Nucleated RBC (0.0-0.012) X10*3/uL Nucleated RBC % (auto) (0.0-0.2) /100WBC VBG pH 7.45 H (7.32-7.43) VBG pCO2 36 mmHg VBG pO2 100 mmHg VBG HCO3 25 (22-26) mmol/L VBG O2 Saturation 98.0 % VBG Base Excess 1.9 mmol/L Sodium (135-145) mmol/L Potassium (3.3-5.1) mmol/L Chloride (96-108) mmol/L Carbon Dioxide (22-29) mmol/L Anion Gap (12-20) BUN (9-16) mg/dL Creatinine (0.5-1.4) mg/dL Estim Creat Clear Calc Estimated GFR POC Glucose (60-115) mg/dL Random Glucose (60-115) mg/dL Calcium (8.4-10.2) mg/dL Magnesium (1.6-2.6) mg/dL Total Bilirubin (0.0-1.0) mg/dL AST (5-31) U/L ALT (0-31) U/L Alkaline Phosphatase (39-117) U/L Total Protein (6.5-8.0) g/dL Albumin (3.5-5.0) g/dL Triglycerides mg/dL Lipase (8-78) U/L Urine Color Urine Appearance Urine pH (5.0-9.0) Ur Specific [place] (1.005-1.025) Urine Protein (Neg-Trace) mg/dL Urine Glucose (UA) (Negative) mg/dL Urine Ketones (Negative) mg/dL Urine Blood (Negative) Urine Nitrite (Negative) Ur Leukocyte Esterase (Negative) Urine RBC (0-2) /HPF Urine WBC (0-5) /HPF Ur Squamous Epith Cells (0-2) /HPF Urine Bacteria (None Seen) Hyaline Casts (0-2) /LPF Urine Test NEGATIVE (NEGATIVE) Acetone, Qual Negative (Negative) 09/27/22 Range/Units 22:27 WBC (4.8-10.8) X10*3/uL RBC (4.20-5.50) X10*6/uL Hgb (12.0-16.0) g/dl Hct (37.0-47.0) % MCV (80.0-98.0) fL MCH (27.0-33.0) pg MCHC (31.0-35.0) g/dl RDW (11.0-16.0) % Plt Count (160-400) X10*3/uL MPV (9.4-12.3) fL Immature Gran % (Auto) (0.0-0.4) % Neut % (Auto) (45-73) % Lymph % (Auto) (20-40) % [place] % (Auto) (2-11) % Eos % (Auto) (0-4) % Baso % (Auto) (0-2) % Lymph # (Auto) (1.2-4.9) X10*3/uL [place] # (Auto) (0.1-1.2) X10*3/uL Eos # (Auto) (0.0-0.4) X10*3/uL Baso # (Auto) (0.0-0.2) X10*3/uL Abs Immat Gran (auto) (0.00-0.03) X10*3/uL Absolute Neuts (auto) (2.0-8.3) x10*3/uL Absolute Nucleated RBC (0.0-0.012) X10*3/uL Nucleated RBC % (auto) (0.0-0.2) /100WBC VBG pH (7.32-7.43) VBG pCO2 mmHg VBG pO2 mmHg VBG HCO3 (22-26) mmol/L VBG O2 Saturation % VBG Base Excess mmol/L Sodium (135-145) mmol/L Potassium (3.3-5.1) mmol/L Chloride (96-108) mmol/L Carbon Dioxide (22-29) mmol/L Anion Gap (12-20) BUN (9-16) mg/dL Creatinine (0.5-1.4) mg/dL Estim Creat Clear Calc Estimated GFR POC Glucose 403 H* (60-115) mg/dL Random Glucose (60-115) mg/dL Calcium (8.4-10.2) mg/dL Magnesium (1.6-2.6) mg/dL Total Bilirubin (0.0-1.0) mg/dL AST (5-31) U/L ALT (0-31) U/L Alkaline Phosphatase (39-117) U/L Total Protein (6.5-8.0) g/dL Albumin (3.5-5.0) g/dL Triglycerides mg/dL Lipase (8-78) U/L Urine Color Urine Appearance Urine pH (5.0-9.0) Ur Specific [place] (1.005-1.025) Urine Protein (Neg-Trace) mg/dL Urine Glucose (UA) (Negative) mg/dL Urine Ketones (Negative) mg/dL Urine Blood (Negative) Urine Nitrite (Negative) Ur Leukocyte Esterase (Negative) Urine RBC (0-2) /HPF Urine WBC (0-5) /HPF Ur Squamous Epith Cells (0-2) /HPF Urine Bacteria (None Seen) Hyaline Casts (0-2) /LPF Urine Test (NEGATIVE) Acetone, Qual (Negative) <YOSVANY Isabel - Last Filed: 09/27/22 20:06> Lab Results 09/27/22 09/27/22 09/27/22 Range/Units 20:02 20:02 20:17 WBC 7.6 (4.8-10.8) X10*3/uL RBC 5.13 (4.20-5.50) X10*6/uL Hgb 14.3 (12.0-16.0) g/dl Hct 43.7 (37.0-47.0) % MCV 85.2 (80.0-98.0) fL MCH 27.9 (27.0-33.0) pg MCHC 32.7 (31.0-35.0) g/dl RDW 12.2 (11.0-16.0) % Plt Count 209 (160-400) X10*3/uL MPV 11.4 (9.4-12.3) fL Immature Gran % (Auto) 0.3 (0.0-0.4) % Neut % (Auto) 54.7 (45-73) % Lymph % (Auto) 34.6 (20-40) % [place] % (Auto) 6.4 (2-11) % Eos % (Auto) 3.5 (0-4) % Baso % (Auto) 0.5 (0-2) % Lymph # (Auto) 2.6 (1.2-4.9) X10*3/uL [place] # (Auto) 0.5 (0.1-1.2) X10*3/uL Eos # (Auto) 0.3 (0.0-0.4) X10*3/uL Baso # (Auto) 0.0 (0.0-0.2) X10*3/uL Abs Immat Gran (auto) 0.02 (0.00-0.03) X10*3/uL Absolute Neuts (auto) 4.2 (2.0-8.3) x10*3/uL Absolute Nucleated RBC 0.000 (0.0-0.012) X10*3/uL Nucleated RBC % (auto) 0.0 (0.0-0.2) /100WBC VBG pH (7.32-7.43) VBG pCO2 mmHg VBG pO2 mmHg VBG HCO3 (22-26) mmol/L VBG O2 Saturation % VBG Base Excess mmol/L Sodium 135 (135-145) mmol/L Potassium 4.0 (3.3-5.1) mmol/L Chloride 96 (96-108) mmol/L Carbon Dioxide 28 (22-29) mmol/L Anion Gap 15 (12-20) BUN 14 (9-16) mg/dL Creatinine 0.85 (0.5-1.4) mg/dL Estim Creat Clear Calc 102.3 Estimated GFR > 60 POC Glucose (60-115) mg/dL Random Glucose 508 H* (60-115) mg/dL Calcium 9.8 D (8.4-10.2) mg/dL Magnesium 1.6 (1.6-2.6) mg/dL Total Bilirubin 0.3 (0.0-1.0) mg/dL AST 27 (5-31) U/L ALT 36 H (0-31) U/L Alkaline Phosphatase 125 H (39-117) U/L Total Protein 6.7 (6.5-8.0) g/dL Albumin 3.8 (3.5-5.0) g/dL Triglycerides 196 mg/dL Lipase 40 (8-78) U/L Urine Color Yellow Urine Appearance Clear Urine pH 6.5 (5.0-9.0) Ur Specific [place] >= 1.030 H (1.005-1.025) Urine Protein 100 (2+) H (Neg-Trace) mg/dL Urine Glucose (UA) >=1000 H (Negative) mg/dL Urine Ketones Negative (Negative) mg/dL Urine Blood Small (1+) H (Negative) Urine Nitrite Negative (Negative) Ur Leukocyte Esterase Negative (Negative) Urine RBC 6-10 H (0-2) /HPF Urine WBC 0-5 (0-5) /HPF Ur Squamous Epith Cells 0-2 (0-2) /HPF Urine Bacteria None Seen (None Seen) Hyaline Casts 0-2 (0-2) /LPF Urine Test (NEGATIVE) Acetone, Qual (Negative) 09/27/22 09/27/22 09/27/22 Range/Units 20:17 21:26 21:28 WBC (4.8-10.8) X10*3/uL RBC (4.20-5.50) X10*6/uL Hgb (12.0-16.0) g/dl Hct (37.0-47.0) % MCV (80.0-98.0) fL MCH (27.0-33.0) pg MCHC (31.0-35.0) g/dl RDW (11.0-16.0) % Plt Count (160-400) X10*3/uL MPV (9.4-12.3) fL Immature Gran % (Auto) (0.0-0.4) % Neut % (Auto) (45-73) % Lymph % (Auto) (20-40) % [place] % (Auto) (2-11) % Eos % (Auto) (0-4) % Baso % (Auto) (0-2) % Lymph # (Auto) (1.2-4.9) X10*3/uL [place] # (Auto) (0.1-1.2) X10*3/uL Eos # (Auto) (0.0-0.4) X10*3/uL Baso # (Auto) (0.0-0.2) X10*3/uL Abs Immat Gran (auto) (0.00-0.03) X10*3/uL Absolute Neuts (auto) (2.0-8.3) x10*3/uL Absolute Nucleated RBC (0.0-0.012) X10*3/uL Nucleated RBC % (auto) (0.0-0.2) /100WBC VBG pH 7.45 H (7.32-7.43) VBG pCO2 36 mmHg VBG pO2 100 mmHg VBG HCO3 25 (22-26) mmol/L VBG O2 Saturation 98.0 % VBG Base Excess 1.9 mmol/L Sodium (135-145) mmol/L Potassium (3.3-5.1) mmol/L Chloride (96-108) mmol/L Carbon Dioxide (22-29) mmol/L Anion Gap (12-20) BUN (9-16) mg/dL Creatinine (0.5-1.4) mg/dL Estim Creat Clear Calc Estimated GFR POC Glucose (60-115) mg/dL Random Glucose (60-115) mg/dL Calcium (8.4-10.2) mg/dL Magnesium (1.6-2.6) mg/dL Total Bilirubin (0.0-1.0) mg/dL AST (5-31) U/L ALT (0-31) U/L Alkaline Phosphatase (39-117) U/L Total Protein (6.5-8.0) g/dL Albumin (3.5-5.0) g/dL Triglycerides mg/dL Lipase (8-78) U/L Urine Color Urine Appearance Urine pH (5.0-9.0) Ur Specific [place] (1.005-1.025) Urine Protein (Neg-Trace) mg/dL Urine Glucose (UA) (Negative) mg/dL Urine Ketones (Negative) mg/dL Urine Blood (Negative) Urine Nitrite (Negative) Ur Leukocyte Esterase (Negative) Urine RBC (0-2) /HPF Urine WBC (0-5) /HPF Ur Squamous Epith Cells (0-2) /HPF Urine Bacteria (None Seen) Hyaline Casts (0-2) /LPF Urine Test NEGATIVE (NEGATIVE) Acetone, Qual Negative (Negative) 09/27/22 Range/Units 22:27 WBC (4.8-10.8) X10*3/uL RBC (4.20-5.50) X10*6/uL Hgb (12.0-16.0) g/dl Hct (37.0-47.0) % MCV (80.0-98.0) fL MCH (27.0-33.0) pg MCHC (31.0-35.0) g/dl RDW (11.0-16.0) % Plt Count (160-400) X10*3/uL MPV (9.4-12.3) fL Immature Gran % (Auto) (0.0-0.4) % Neut % (Auto) (45-73) % Lymph % (Auto) (20-40) % [place] % (Auto) (2-11) % Eos % (Auto) (0-4) % Baso % (Auto) (0-2) % Lymph # (Auto) (1.2-4.9) X10*3/uL [place] # (Auto) (0.1-1.2) X10*3/uL Eos # (Auto) (0.0-0.4) X10*3/uL Baso # (Auto) (0.0-0.2) X10*3/uL Abs Immat Gran (auto) (0.00-0.03) X10*3/uL Absolute Neuts (auto) (2.0-8.3) x10*3/uL Absolute Nucleated RBC (0.0-0.012) X10*3/uL Nucleated RBC % (auto) (0.0-0.2) /100WBC VBG pH (7.32-7.43) VBG pCO2 mmHg VBG pO2 mmHg VBG HCO3 (22-26) mmol/L VBG O2 Saturation % VBG Base Excess mmol/L Sodium (135-145) mmol/L Potassium (3.3-5.1) mmol/L Chloride (96-108) mmol/L Carbon Dioxide (22-29) mmol/L Anion Gap (12-20) BUN (9-16) mg/dL Creatinine (0.5-1.4) mg/dL Estim Creat Clear Calc Estimated GFR POC Glucose 403 H* (60-115) mg/dL Random Glucose (60-115) mg/dL Calcium (8.4-10.2) mg/dL Magnesium (1.6-2.6) mg/dL Total Bilirubin (0.0-1.0) mg/dL AST (5-31) U/L ALT (0-31) U/L Alkaline Phosphatase (39-117) U/L Total Protein (6.5-8.0) g/dL Albumin (3.5-5.0) g/dL Triglycerides mg/dL Lipase (8-78) U/L Urine Color Urine Appearance Urine pH (5.0-9.0) Ur Specific [place] (1.005-1.025) Urine Protein (Neg-Trace) mg/dL Urine Glucose (UA) (Negative) mg/dL Urine Ketones (Negative) mg/dL Urine Blood (Negative) Urine Nitrite (Negative) Ur Leukocyte Esterase (Negative) Urine RBC (0-2) /HPF Urine WBC (0-5) /HPF Ur Squamous Epith Cells (0-2) /HPF Urine Bacteria (None Seen) Hyaline Casts (0-2) /LPF Urine Test (NEGATIVE) Acetone, Qual (Negative) <Hallie Marie MD - Last Filed: 09/28/22 00:10> Independent Interpretation I performed an independent interpretation of an: EKG <Hallie Marie MD - Last Filed: 09/28/22 00:10> Interpretation: Normal sinus rhythm, HR-93, no STEMI, VA/QRS/QTC is within normal limits. <Hallie Marie MD - Last Filed: 09/28/22 00:10> Radiology Impression Radiologist Impression: My interpretation is in agreement with radiology's impression of the imaging studies. <Hallie Marie MD - Last Filed: 09/28/22 00:10> External Record Review External record reviewed: Prior outpatient labs <Hallie Marie MD - Last Filed: 09/28/22 00:10> Chronic Conditions Patient?s care impacted by: Diabetes <Hallie Marie MD - Last Filed: 09/28/22 00:10> Medications Administered Discontinued Medications Generic Name Dose Route Start Last Admin Trade Name Freq PRN Reason Stop Dose Admin Acetaminophen 975 mg 09/27/22 22:06 09/27/22 22:22 Acetaminophen 325 Mg Tablet PO 09/27/22 22:07 975 mg ONCE ONE Administration Al Hydroxide/Mg Hydroxide 30 ml 09/27/22 22:00 09/27/22 22:22 Magnesium Hydrox/Alum Hydrox 30 Ml Oral.Susp PO 09/27/22 22:01 30 ml ONCE ONE Administration Lidocaine HCl 10 ml 09/27/22 22:00 09/27/22 22:22 Lidocaine Hcl Viscous 2 % 15 Ml Solution MUCOUS MEM 09/27/22 22:01 10 ml ONCE ONE Administration <YOSVANY Isabel - Last Filed: 09/27/22 20:06> Medications Administered Discontinued Medications Generic Name Dose Route Start Last Admin Trade Name Freq PRN Reason Stop Dose Admin Acetaminophen 975 mg 09/27/22 22:06 09/27/22 22:22 Acetaminophen 325 Mg Tablet PO 09/27/22 22:07 975 mg ONCE ONE Administration Al Hydroxide/Mg Hydroxide 30 ml 09/27/22 22:00 09/27/22 22:22 Magnesium Hydrox/Alum Hydrox 30 Ml Oral.Susp PO 09/27/22 22:01 30 ml ONCE ONE Administration Lidocaine HCl 10 ml 09/27/22 22:00 09/27/22 22:22 Lidocaine Hcl Viscous 2 % 15 Ml Solution MUCOUS MEM 09/27/22 22:01 10 ml ONCE ONE Administration <Hallie Marie MD - Last Filed: 09/28/22 00:10> Discharge Plan Discharge Clinical Impression: Abdominal pain, Constipation, Gastritis, Hyperglycemia <YOSVANY Isabel Last Filed: 09/27/22 20:06> Patient Disposition: Home, Self-Care <YOSVANY Isabel - Last Filed: 09/27/22 20:06> Instructions: Constipation (ED), High Fiber Diet (ED), Abdominal Pain (ED), Diet for Stomach Ulcers and Gastritis (ED), Gastritis (ED), Diabetic Hyperglycemia (ED) <YOSVANY Isabel Last Filed: 09/27/22 20:06> Additional Instructions: 1. Resume all home medications as prescribed. 2. Recommend wvrd-vla-chxozyz acid control medication. 3. Please call your primary care provider Thursday morning to set up an appointment for re-evaluation further outpatient management. Return to the ER for any worsening symptoms. <YOSVANY Isabel Last Filed: 09/27/22 20:06> Prescriptions: No Action metformin 500 mg tablet 2 tab PO BID glipizide 10 mg tablet extended release 24hr 1 tab PO QAM (DME) FreeStyle Lite Strips Strip MISCELLANEOUS TID aspirin 81 mg tablet,delayed release (DR/EC) 1 tab PO BEDTIME lisinopril-hydrochlorothiazide 20-25 mg tablet 1 tab PO QAM alcohol swabs [Alcohol Prep Pads] Pads, Medicated 1 pledget topical BID albuterol sulfate [ProAir HFA] 90 mcg/actuation HFA aerosol inhaler 2 puff inhalation QID insulin lispro protamin-lispro [Humalog Mix 75-25 KwikPen] 100 unit/mL (75-25) insulin pen 50 unit subcut BID rosuvastatin 5 mg tablet 1 tab PO QPM (DME) pen needle, diabetic [Pentips] 32 gauge x 5/32 needle MISCELLANEOUS BID (DME) lancets [TRUEplus Lancets] 33 gauge misc MISCELLANEOUS TID venlafaxine 37.5 mg Capsule,Extended Release 24hr 37.5 mg PO DAILY 30 Days Qty: 30 0RF venlafaxine 75 mg Capsule,Extended Release 24hr 75 mg PO DAILY 30 Days Qty: 30 0RF olanzapine 7.5 mg Tablet 7.5 mg PO BEDTIME 30 Days Qty: 30 0RF gabapentin 100 mg Capsule 200 mg PO TID 30 Days Qty: 180 0RF lorazepam 1 mg Tablet 1 mg PO TID 30 Days Qty: 90 0RF memantine 5 mg Tablet 5 mg PO BEDTIME 30 Days Qty: 30 0RF cefuroxime axetil 250 mg tablet 250 mg PO BID 7 Days Qty: 14 0RF phenazopyridine [Pyridium] 200 mg tablet 200 mg PO TID PRN (Reason: pain) Qty: 6 0RF prednisone 20 mg tablet 40 mg PO DAILY Qty: 8 0RF benzonatate 200 mg capsule 200 mg PO TID PRN (Reason: cough) Qty: 30 0RF cefuroxime axetil 250 mg tablet 250 mg PO BID 7 Days Qty: 14 0RF prednisone 20 mg tablet 20 mg PO DAILY 5 Days Qty: 5 0RF albuterol sulfate 90 mcg/actuation aerosol powdr breath activated 2 inh inhalation Q4-6H PRN (Reason: shortness of breath or wheezing) Qty: 1 0RF acetaminophen [Tylenol Extra Strength] 500 mg tablet 1,000 mg PO QID PRN (Reason: fever or pain) Qty: 14 0RF tramadol 50 mg tablet 50 mg PO Q8H PRN (Reason: pain) Qty: 14 0RF Rx Instructions: May partially fill upon patient request cyclobenzaprine 10 mg tablet 10 mg PO Q8H Qty: 14 0RF <YOSVANY Isabel - Last Filed: 09/27/22 20:06> Referrals: Prudence Hooks MD [Primary Care Provider] - <YOSVANY Isabel - Last Filed: 09/27/22 20:06>
[2022-09-27 20:05] VITALS: PULSE 102; RESP 16; TEMP 36.6; O2SAT 98; BMI 50.8
[2022-09-27 20:06] LABS: MANUAL DIFF FLAG NO
[2022-09-27 20:15] LABS: Basophils Percent Auto 0.5 % (0-2); Eosinophils Absolute Auto 0.3 X10*3/uL (0.0-0.4); Eosinophils Percent Auto 3.5 % (0-4); Hematocrit 43.7 % (37.0-47.0); Hemoglobin 14.3 g/dl (12.0-16.0); Imm Gran Abs Auto 0.02 X10*3/uL (0.00-0.03); Imm Gran Pct Auto 0.3 % (0.0-0.4); Lymphocytes Absolute Auto 2.6 X10*3/uL (1.2-4.9); Lymphocytes Percent Auto 34.6 % (20-40); Mean Corpuscular HGB Conc 32.7 g/dl (31.0-35.0); Mean Corpuscular Hemoglobin 27.9 pg (27.0-33.0); Mean Corpuscular Volume 85.2 fL (80.0-98.0); Mean Platelet Volume 11.4 fL (9.4-12.3); Monocytes Absolute Auto 0.5 X10*3/uL (0.1-1.2); Monocytes Percent Auto 6.4 % (2-11); Neutrophils Absolute Auto 4.2 x10*3/uL (2.0-8.3); Neutrophils Percent Auto 54.7 % (45-73); Platelet Count 209 X10*3/uL (160-400); Red Blood Count 5.13 X10*6/uL (4.20-5.50); Red Cell Distribution Width 12.2 % (11.0-16.0); White Blood Count 7.6 X10*3/uL (4.8-10.8)
[2022-09-27 20:26] LABS: Appearance Urine Clear; Color Urine Yellow; Glucose Urine UA >=1000 mg/dL (Negative); Leukocyte Esterase Urine Negative (Negative); Nitrite Urine Negative (Negative); PH 6.5 (5.0-9.0); Specific Gravity - Urine >= 1.030 (1.005-1.025); UMIC TRIGGER UACC YES; Urine Blood Small (1+) (Negative); Urine Ketones Negative (Negative); Urine Protein 100 (2+) mg/dL (Neg-Trace)
[2022-09-27 20:26] LABS: Alanine Aminotransferase 36 U/L (0-31); Albumin Level 3.8 g/dL (3.5-5.0); Alkaline Phosphatase 125 U/L (39-117); Anion Gap 15 (12-20); Aspartate Amino Transferase 27 U/L (5-31); Bilirubin Total 0.3 mg/dL (0.0-1.0); Blood Urea Nitrogen 14 mg/dL (9-16); Calcium 9.8 mg/dL (8.4-10.2); Carbon Dioxide 28 mmol/L (22-29); Chloride 96 mmol/L (96-108); Creatinine Clr Calc Pharmacy 102.3; Estimated Glomerular Filt Rate > 60; Glucose Random 508 mg/dL (60-115); Lipase 40 U/L (8-78); Magnesium 1.6 mg/dL (1.6-2.6); Sodium 135 mmol/L (135-145); Total Protein 6.7 g/dL (6.5-8.0)
[2022-09-27 20:28] LABS: UPreg QC Valid YES; Urine Pregnancy NEGATIVE (NEGATIVE)
--- NOTE | 2022-09-27 20:29 | PC.NURSE ---
critical lab reported to [id number]
[2022-09-27 20:30] LABS: Triglycerides 196 mg/dL
[2022-09-27 20:47] LABS: Bacteria Urine None Seen (None Seen); Hyaline Casts Urine 0-2 /LPF (0-2); Squamous Epithelial Cell Urine 0-2 /HPF (0-2); WBC Urine 0-5 /HPF (0-5)
[2022-09-27 21:34] LABS: Venous Blood Gas Refer to POC result
[2022-09-27 21:35] LABS: VBG Base Excess 1.9 mmol/L; VBG HCO3 25 mmol/L (22-26); VBG pCO2 36 mmHg; VBG pH 7.45 (7.32-7.43); VBG pO2 100 mmHg
[2022-09-27 21:39] LABS: Acetone, serum QL Negative (Negative)
--- NOTE | 2022-09-27 21:59 | ECG_ITS ---
Test Reason : EPIGASTRIC PAIN Blood Pressure : / mmHG Vent. Rate : 093 BPM Atrial Rate : 093 BPM P-R Int : 150 ms QRS Dur : 074 ms QT Int : 360 ms P-R-T Axes : 035 000 012 degrees QTc Int : 447 ms Normal sinus rhythm Normal ECG When compared with ECG of 13-APR-2022 17:52, No significant change was found Referred By: Hallie Marie Electronically Signed By:TUYET ZHANG
[2022-09-27] MEDS: Lidocaine HCl Viscous 2 % 15 ML SOLUTION 10 ML MUCOUS MEM (22:22)
[2022-09-27] MEDS: Acetaminophen 325 MG TABLET 975 MG PO (22:22)
[2022-09-27] MEDS: Magnesium Hydrox/Alum Hydrox 30 ML ORAL.SUSP PO (22:22)
[2022-09-27 22:30] LABS: Glucose, Whole Blood 403 mg/dL (60-115)
--- NOTE | 2022-09-28 00:44 | PC.NURSE ---
pt assess and discharge by provider, the Rn print and reviewed discharge instruction with pt. pt verbalized understanding. pt reports she received medication from attending nurse.
== END 2022-09-28 00:44 | disposition home or self-care (01) ==
PROVIDERS: Physician Assistant; Emergency Provider Student in an Organized Health Care Education/Training Program; PCP Internal Medicine
DX: R10.10 Upper abdominal pain, unspecified (principal); K59.00 Constipation, unspecified; K29.70 Gastritis, unspecified, without bleeding; E11.65 Type 2 diabetes mellitus with hyperglycemia; I10 Essential (primary) hypertension; Z79.84 Long term (current) use of oral hypoglycemic drugs; Z79.82 Long term (current) use of aspirin; Z79.02 Long term (current) use of antithrombotics/antiplatelets; Z79.899 Other long term (current) drug therapy
CPT/HCPCS: 36415; 74176; 80053; 81001; 81025; 82009; 82803; 82947; 83690; 83735; 84478; 85025; 93005; 99284

== ENCOUNTER 2022-10-20 08:45 | Outpatient (REF) | payer MEDICAID, SELFPAY ==
[2022-10-20 09:10] LABS: MANUAL DIFF FLAG NO
[2022-10-20 09:59] LABS: Basophils Percent Auto 0.7 % (0-2); Eosinophils Absolute Auto 0.2 X10*3/uL (0.0-0.4); Eosinophils Percent Auto 4.1 % (0-4); Hematocrit 42.9 % (37.0-47.0); Hemoglobin 13.8 g/dl (12.0-16.0); Imm Gran Abs Auto 0.01 X10*3/uL (0.00-0.03); Imm Gran Pct Auto 0.2 % (0.0-0.4); Lymphocytes Absolute Auto 2.3 X10*3/uL (1.2-4.9); Lymphocytes Percent Auto 38.8 % (20-40); Mean Corpuscular HGB Conc 32.2 g/dl (31.0-35.0); Mean Corpuscular Hemoglobin 28.8 pg (27.0-33.0); Mean Corpuscular Volume 89.4 fL (80.0-98.0); Mean Platelet Volume 11.7 fL (9.4-12.3); Monocytes Absolute Auto 0.4 X10*3/uL (0.1-1.2); Monocytes Percent Auto 7.4 % (2-11); Neutrophils Absolute Auto 2.9 x10*3/uL (2.0-8.3); Neutrophils Percent Auto 48.8 % (45-73); Platelet Count 214 X10*3/uL (160-400); Red Cell Distribution Width 12.5 % (11.0-16.0); White Blood Count 5.8 X10*3/uL (4.8-10.8)
[2022-10-20 10:11] LABS: Estimated Average Glucose 283 mg/dL; Hemoglobin A1c % 11.5 %
[2022-10-20 11:06] LABS: HBS Num1 1.51 mIU/mL (0-7.99); HBc Num1 8.12 S/CO (0.00-0.79); HBsAGNum1 0.36 S/CO (0.00-0.99); Hepatitis A Antibody IgM 0.17 Index (0-0.79); Hepatitis B Surface Antigen Negative (Negative); ~HepC Num1 14.74 S/CO (0.00-0.79); ~Hepatitis A Antibody IgM Nonreactive (Nonreactive); ~Hepatitis B Surface Antibody NONREACTIVE (Nonreactive); ~Hepatitis C Antibody Reactive (Nonreactive)
[2022-10-20 11:08] LABS: Creatinine Urine 94.98 mg/dL
[2022-10-20 11:10] LABS: Cholesterol 194 mg/dL; HDL Cholesterol 58 mg/dL; LDL Cholesterol Calculated 115 mg/dl; Triglycerides 106 mg/dL
[2022-10-20 11:16] LABS: Thyroid Stimulating Hormone 4.59 uIU/mL (0.32-4.0)
[2022-10-20 11:31] LABS: Microalbumin Urine > 2000.0 mg/L
[2022-10-20 14:03] LABS: HBc Num2 8.56 S/CO; HBc Num3 8.28 S/CO
[2022-10-20 14:04] LABS: Hepatitis B Core Antibody Reactive (Nonreactive)
[2022-10-21 10:23] LABS: Hepatitis B Core Antibody IgM NON-REACTIVE (NON-REACTIVE)
== END 2022-10-20 08:46 | disposition home or self-care (01) ==
LOC: HO.LAB 08:45
PROVIDERS: PCP Internal Medicine; Visit Provider Internal Medicine
DX: B18.2 Chronic viral hepatitis C (principal); E11.65 Type 2 diabetes mellitus with hyperglycemia; E78.00 Pure hypercholesterolemia, unspecified; F02.80 Dementia in other diseases classified elsewhere, unspecified severity, without behavioral disturbance, psychotic disturbance, mood disturbance, and anxiety; I10 Essential (primary) hypertension; J45.909 Unspecified asthma, uncomplicated
CPT/HCPCS: 36415; 80061; 82043; 83036; 84443; 85025; 86704; 86705; 86706; 86709; 86803; 87340

== ENCOUNTER 2022-11-18 08:23 | Outpatient (REF) | payer MEDICAID, SELFPAY ==
--- NOTE | ~2022-11-18 | MM_ITS ---
EXAMINATION: MM DIAGNOSTIC DIGITAL BREAST TOMOSYNTHESIS, BILATERAL CLINICAL INFORMATION: Intermittent bilateral breast pain noted by patient for months. Due for yearly. No known family history breast cancer. The lifetime risk of breast cancer based on the Tyrer-Cuzick Model is 6%. COMPARISON: Mammography: 04/06/2018, 12/25/2015, 10/02/2014 TECHNIQUE: Digital breast tomosynthesis is performed in both the craniocaudal and mediolateral oblique views along with computer-aided detection (CAD). Synthesized 2D images are generated from the tomosynthesis. Additional bilateral CC views and additional bilateral MLO views are provided. FINDINGS: There are scattered areas of fibroglandular density (ACR BI-RADS breast composition Category b). Parenchymal pattern is similar to prior studies. There is no significant mass or architectural abnormality, developing density, or abnormal calcifications. There is scattered bilateral small stable smooth nodularity. There are scattered benign round and rim and vascular calcifications. The axilla are unremarkable. No skin thickening or coarsening of the Blake's ligaments. Preliminary results are provided to the patient by the technologist. Bilateral diagnostic breast ultrasound is scheduled for later this week. MM/MM tomosynthesis diagnostic BI IMPRESSION: No mammographic evidence of malignancy or inflammatory changes. ASSESSMENT: BI-RADS 0: Incomplete - Need Additional Imaging Evaluation RECOMMENDATION: Bilateral diagnostic breast ultrasound scheduled for later this week. This patient's information was entered into a reminder system with a target due date for their next mammogram.
== END 2022-11-18 08:24 | disposition home or self-care (01) ==
LOC: HO.MAMMO 08:23
PROVIDERS: PCP Internal Medicine; Visit Provider Internal Medicine
DX: N64.4 Mastodynia (principal)
CPT/HCPCS: 77062; 77066

== ENCOUNTER 2022-11-20 08:47 | Outpatient (REF) | payer MEDICAID, SELFPAY ==
--- NOTE | ~2022-11-20 | US_ITS ---
EXAMINATION: US DIAGNOSTIC ULTRASOUND BREAST, RIGHT US DIAGNOSTIC ULTRASOUND BREAST, LEFT CLINICAL INFORMATION: Intermittent bilateral breast pain noted by patient for approximately one year. No erythema or palpable mass. Postmenopausal. COMPARISON: Mammography 11/18/2022, 04/06/2018, 12/25/2015, 10/02/2014. TECHNIQUE: Ultrasound of both breasts is targeted to the areas of clinical concern using grayscale imaging and color Doppler without and with harmonics. Patient is able to point areas of symptoms at time of imaging, upper right breast and upper inner left breast, respectively. FINDINGS: Right: There is no focal suspicious finding. There is no cystic or solid mass, architectural abnormality, duct ectasia, or edema in the soft tissue planes. No skin thickening. Left: There is no focal suspicious finding. There is no cystic or solid mass, architectural abnormality, duct ectasia, or edema in the soft tissue planes. No skin thickening. Results are discussed with the patient at time of visit. US/US breast LT limited IMPRESSION: Normal study. ASSESSMENT: BI-RADS 1: Negative RECOMMENDATION: 1. Patient's intermittent bilateral mastodynia should be managed based on the clinical impression. 2. Otherwise, routine annual screening mammography. This patient's information was entered into a reminder system with a target due date for their next mammogram.
--- NOTE | ~2022-11-20 | US_ITS ---
EXAMINATION: US DIAGNOSTIC ULTRASOUND BREAST, RIGHT US DIAGNOSTIC ULTRASOUND BREAST, LEFT CLINICAL INFORMATION: Intermittent bilateral breast pain noted by patient for approximately one year. No erythema or palpable mass. Postmenopausal. COMPARISON: Mammography 11/18/2022, 04/06/2018, 12/25/2015, 10/02/2014. TECHNIQUE: Ultrasound of both breasts is targeted to the areas of clinical concern using grayscale imaging and color Doppler without and with harmonics. Patient is able to point areas of symptoms at time of imaging, upper right breast and upper inner left breast, respectively. FINDINGS: Right: There is no focal suspicious finding. There is no cystic or solid mass, architectural abnormality, duct ectasia, or edema in the soft tissue planes. No skin thickening. Left: There is no focal suspicious finding. There is no cystic or solid mass, architectural abnormality, duct ectasia, or edema in the soft tissue planes. No skin thickening. Results are discussed with the patient at time of visit. US/US breast RT limited IMPRESSION: Normal study. ASSESSMENT: BI-RADS 1: Negative RECOMMENDATION: 1. Patient's intermittent bilateral mastodynia should be managed based on the clinical impression. 2. Otherwise, routine annual screening mammography. This patient's information was entered into a reminder system with a target due date for their next mammogram.
== END 2022-11-20 08:48 | disposition home or self-care (01) ==
LOC: HO.MAMMO 08:47
PROVIDERS: PCP Internal Medicine; Visit Provider Internal Medicine
DX: N64.4 Mastodynia (principal)
CPT/HCPCS: 76642

== ENCOUNTER 2022-11-30 13:58 | Emergency (ER) | payer MEDICAID, SELFPAY ==
--- NOTE | ~2022-11-30 | XR_ITS ---
EXAMINATION: XR CHEST CLINICAL INFORMATION: Cough COMPARISON: April 13, 2022 and February 01, 2020 TECHNIQUE: AP portable chest view of the chest was obtained. FINDINGS: There is again noted to be discoid scarring about the left lower lung. There is no evidence of acute parenchymal disease, pneumothorax, or pleural effusion. Heart normal size. No evidence of pulmonary edema. XR/XR chest 1V IMPRESSION: No acute disease.
[2022-11-30 14:56] VITALS: BP 124/49; PULSE 97; RESP 18; TEMP 36.4; O2SAT 96; BMI 51.5
--- NOTE | 2022-11-30 14:58 | ED_ITS ---
HPI - General Adult General Chief complaint: Dyspnea Stated complaint: Asthma/pain when breathing Time Seen by Provider: 11/30/22 15:05 Source: patient, RN notes reviewed and old records reviewed Mode of arrival: ambulatory History of Present Illness HPI narrative: 57-year-old female with a past medical history of asthma, bipolar, depression, diabetes, GERD, hepatitis, HTN, sleep apnea, presenting to the ED complaining of dry cough, wheezing, chest tightness, SOB worse with deep inspiration x 1 week. Has been using inhaler without relief. Denies recent travel, history of clots, oral OCPs, cigarette smoking, abdominal pain, pedal edema, calf tenderness Onset (ago): week(s) Related Data Home Medications Medication Instructions Recorded Confirmed albuterol sulfate 90 mcg/actuation 2 puff inhalation QID 10/27/20 10/27/20 aerosol inhaler (ProAir HFA) alcohol swabs (Alcohol Prep Pads) 1 pledget topical BID 10/27/20 10/27/20 aspirin 81 mg tablet,delayed 1 tab PO BEDTIME 10/27/20 10/27/20 release blood sugar diagnostic (FreeStyle 10/27/20 10/27/20 Lite Strips) glipizide 10 mg tablet, extended 1 tab PO QAM 10/27/20 10/27/20 release 24 hr insulin lispro protamine-lispro 50 unit subcut BID 10/27/20 10/27/20 100 unit/mL (75-25) subcutaneous pen (Humalog Mix 75-25 KwikPen) lancets 33 gauge (TRUEplus Lancets) 10/27/20 10/27/20 lisinopril 20 1 tab PO QAM 10/27/20 10/27/20 mg-hydrochlorothiazide 25 mg tablet metformin 500 mg tablet 2 tab PO BID 10/27/20 10/27/20 pen needle, diabetic 32 gauge x 10/27/20 10/27/2032 (Pentips) rosuvastatin 5 mg tablet 1 tab PO QPM 10/27/20 10/27/20 Previous Rx's Medication Instructions Recorded gabapentin 100 mg capsule 200 mg PO TID 30 days #180 caps 11/14/20 lorazepam 1 mg tablet 1 mg PO TID 30 days #90 tabs 11/14/20 memantine 5 mg tablet 5 mg PO BEDTIME 30 days #30 tabs 11/14/20 olanzapine 7.5 mg tablet 7.5 mg PO BEDTIME 30 days #30 tabs 11/14/20 venlafaxine 37.5 mg 37.5 mg PO DAILY 30 days #30 caps 11/14/20 capsule,extended release 24 hr venlafaxine 75 mg capsule,extended 75 mg PO DAILY 30 days #30 caps 11/14/20 release 24 hr cefuroxime axetil 250 mg tablet 250 mg PO BID 7 days #14 tabs 04/21/21 phenazopyridine 200 mg tablet 200 mg PO TID PRN pain 6 doses #6 04/21/21 (Pyridium) tabs benzonatate 200 mg capsule 200 mg PO TID PRN cough #30 caps 01/08/22 prednisone 20 mg tablet 40 mg PO DAILY #8 tabs 01/08/22 albuterol sulfate 90 mcg/actuation 2 inh inhalation Q4-6H PRN 04/13/22 breath activated powder inhaler shortness of breath or wheezing #1 ea cefuroxime axetil 250 mg tablet 250 mg PO BID 7 days #14 tabs 04/13/22 prednisone 20 mg tablet 20 mg PO DAILY 5 days #5 tabs 04/13/22 acetaminophen 500 mg tablet 1,000 mg PO QID PRN fever or pain 05/27/22 (Tylenol Extra Strength) #14 tabs cyclobenzaprine 10 mg tablet 10 mg PO Q8H #14 tabs 05/27/22 tramadol 50 mg tablet 50 mg PO Q8H PRN pain #14 tabs 05/27/22 albuterol sulfate 2.5 mg/0.5 mL 5 mg inhalation Q4H PRN shortness 11/30/22 solution for nebulization of breath or wheezing #30 ea prednisone 20 mg tablet 40 mg PO DAILY 5 days #10 tabs 11/30/22 Allergies Allergy/AdvReac Type Severity Reaction Status Date / Time No Known Allergies Allergy Verified 11/30/22 14:55 Review of Systems Review of Systems: Constitutional: No Fever, No Chills ENT/Mouth: No Ear Pain, No Nasal Congestion, No Sinus Pain, No Hoarseness, No sore throat, No Rhinorrhea, No Swallowing Difficulty Cardiovascular: + Chest Pain, + SOB Respiratory: + Cough, No Sputum, + Wheezing Gastrointestinal: No Nausea, No Vomiting, No Diarrhea, No Constipation, No Abdominal pain Genitourinary: No Dysuria, No Urinary Frequency Musculoskeletal: No joint pain, No Myalgias, No Joint Swelling Skin: No Skin Lesions, No rash Neuro: No Weakness, No Numbness, No Paresthesias Yes all other systems are reviewed and are negative Constitutional: Constitutional: Reports as per [facility] Past Medical History Attestation statement: The following information was validated with the patient. Source: old records reviewed Medical History Asthma Bipolar 1 disorder Depression Diabetes GERD (gastroesophageal reflux disease) Hepatitis HTN (hypertension) Sleep apnea Surgical History History of section Social History Social History Household Members: Spouse and Children Housing: House Do you presently have visiting nurse or other home services: No Alcohol intake: never Advance Directives: No Advance Directives Information Provided: No service: No Sexual orientation: Don't Know Physical Exam ED Vital Signs: Vital Signs - 24 hr 11/30/22 14:56 11/30/22 15:34 Temperature 97.5 F Pulse Rate 97 97 Respiratory Rate 18 18 Blood Pressure 124/49 L Pulse Oximetry 96 Oxygen Delivery Method Room Air BMI result Body Mass Index 51.5 Const General: cooperative, healthy appearing and no acute distress Orientation/consciousness: patient oriented x3 Limitations: no limitations HENMT Head: Yes normal to inspection and Yes atraumatic Ears: hearing grossly normal bilaterally General nose exam: Normal external nose present Face and sinus: Yes normal facial exam Eyes General: appearance normal, both eyes and all related structures EOM: EOMs intact bilaterally Neck Neck: Yes normal visual inspection and Yes no meningeal signs Resp Effort & Inspection: normal respiratory effort and no respiratory distress Auscultation: clear to auscultation bilaterally, wheezes expiratory wheezes and lower bilaterally (faint) and diminished lung sounds bilateral in the lower lung elena Cardio Rate: regular rate Heart sounds: S1 normal heart sound present and S2 normal heart sound present GI Inspection: Yes normal to inspection Palpation (GI): Soft to palpation, nontender, no guarding and not rigid General: Yes no CVA tenderness Back/Spine/Pelvis Back: no CVA tenderness Skin Rashes: no rashes Wounds: no wounds Neuro General: patient oriented x3, tone normal and no meningeal signs Gait exam (Neuro): Normal gait present Extrem General: Yes normal to inspection, Yes no pedal edema and Yes no calf tenderness Course Course Course Narrative: RME: 57 yold female presents to the ED for cough with white phleghn, wheezing, for one week. SARS and chest xray ordered -1613--no leukocytosis. D-dimer WNL. Troponin WNL. Magnesium slightly low at 1.5 >p.o. repletion ordered. -AST/ALT mildly elevated -chest x-ray unremarkable >lungs with better air movement after DuoNeb. Offered additional DuoNeb however patient states she will use her machine when she gets home, feels safe for discharge home at this time Results discussed with patient including worrisome signs and symptoms and strict return precautions, and when to return to the emergency department. They verbalized understanding and feel safe for discharge at this time. Medications Administered Discontinued Medications Generic Name Dose Route Start Last Admin Trade Name Mary Jane PRN Reason Stop Dose Admin Acetaminophen 650 mg 11/30/22 16:44 11/30/22 17:06 Acetaminophen 325 Mg Tablet PO 11/30/22 16:45 650 mg ONCE ONE Administration Albuterol/Ipratropium 3 ml 11/30/22 15:17 11/30/22 15:34 Albuterol/Iprat 2.5/0.5mg 3 Ml Ampul.Neb INHALE 11/30/22 15:18 3 ml ONCE ONE Administration Magnesium Oxide 800 mg 11/30/22 16:13 11/30/22 16:18 Magnesium Oxide 400 Mg Tablet PO 11/30/22 16:14 800 mg ONCE ONE Administration Prednisone 40 mg 11/30/22 16:11 11/30/22 16:18 Prednisone 20 Mg Tablet PO 11/30/22 16:12 40 mg ONCE ONE Administration Medical Decision Making Medical Decision Making MDM Narrative: 57-year-old female with a past medical history of asthma, bipolar, depression, diabetes, GERD, hepatitis, HTN, sleep apnea, presenting to the ED complaining of dry cough, wheezing, chest tightness, SOB worse with deep inspiration x 1 week. On exam vital signs stable, NAD, nontoxic appearing, diminished lung sounds bibasilarly with faint expiratory wheeze, no pedal edema or calf tenderness. Concern for asthma exacerbation vs viral syndrome vs pneumonia/bronchitis vs PE. Symptoms atypical for ACS. Low suspicion for DVT plan: EKG, labs, CXR, COVID/influenza testing, DuoNeb, p.o. prednisone Please refer to course for remaining clinical decision making, interpretation of labs/imaging results, and discussions with consultants and/or family members. Differential Diagnosis Differential Diagnoses: The differential diagnosis associated with the presentation includes As above Admission/Observation Consideration of admission/observation: Escalation of care including admission/observation considered Lab Data MDM Lab Attestation statement: I reviewed the patient's lab results. 11/30/22 15:25 11/30/22 15:25 Labs: Lab Results 11/30/22 11/30/22 11/30/22 Range/Units 15:05 15:25 15:25 WBC 7.5 (4.8-10.8) X10*3/uL RBC 5.18 (4.20-5.50) X10*6/uL Hgb 14.5 (12.0-16.0) g/dl Hct 44.9 (37.0-47.0) % MCV 86.7 (80.0-98.0) fL MCH 28.0 (27.0-33.0) pg MCHC 32.3 (31.0-35.0) g/dl RDW 12.8 (11.0-16.0) % Plt Count 216 (160-400) X10*3/uL MPV 10.7 (9.4-12.3) fL Immature Gran % (Auto) 0.3 (0.0-0.4) % Neut % (Auto) 54.8 (45-73) % Lymph % (Auto) 34.1 (20-40) % [place] % (Auto) 5.8 (2-11) % Eos % (Auto) 4.5 H (0-4) % Baso % (Auto) 0.5 (0-2) % Lymph # (Auto) 2.6 (1.2-4.9) X10*3/uL [place] # (Auto) 0.4 (0.1-1.2) X10*3/uL Eos # (Auto) 0.3 (0.0-0.4) X10*3/uL Baso # (Auto) 0.0 (0.0-0.2) X10*3/uL Abs Immat Gran (auto) 0.02 (0.00-0.03) X10*3/uL Absolute Neuts (auto) 4.1 (2.0-8.3) x10*3/uL Absolute Nucleated RBC 0.000 (0.0-0.012) X10*3/uL Nucleated RBC % (auto) 0.0 (0.0-0.2) /100WBC D-Dimer High Sensitivty < 150 NG/ML Sodium (135-145) mmol/L Potassium (3.3-5.1) mmol/L Chloride (96-108) mmol/L Carbon Dioxide (22-29) mmol/L Anion Gap (12-20) BUN (9-16) mg/dL Creatinine (0.5-1.4) mg/dL Estim Creat Clear Calc Estimated GFR Random Glucose (60-115) mg/dL Calcium (8.4-10.2) mg/dL Magnesium (1.6-2.6) mg/dL Total Bilirubin (0.0-1.0) mg/dL Direct Bilirubin (0.0-0.5) mg/dL AST (5-31) U/L ALT (0-31) U/L Alkaline Phosphatase (39-117) U/L Troponin I High Sens (<3.5-17.0) ng/L B-Natriuretic Peptide (<100) pg/mL Total Protein (6.5-8.0) g/dL Albumin (3.5-5.0) g/dL Influenza Type A (PCR) NEGATIVE (Negative) Influenza Type B (PCR) NEGATIVE (Negative) RSV RNA Qual (PCR) NEGATIVE (Negative) SARS-CoV-2 RNA (RT-PCR) NEGATIVE (Negative) 11/30/22 11/30/22 11/30/22 Range/Units 15:25 15:25 15:25 WBC (4.8-10.8) X10*3/uL RBC (4.20-5.50) X10*6/uL Hgb (12.0-16.0) g/dl Hct (37.0-47.0) % MCV (80.0-98.0) fL MCH (27.0-33.0) pg MCHC (31.0-35.0) g/dl RDW (11.0-16.0) % Plt Count (160-400) X10*3/uL MPV (9.4-12.3) fL Immature Gran % (Auto) (0.0-0.4) % Neut % (Auto) (45-73) % Lymph % (Auto) (20-40) % [place] % (Auto) (2-11) % Eos % (Auto) (0-4) % Baso % (Auto) (0-2) % Lymph # (Auto) (1.2-4.9) X10*3/uL [place] # (Auto) (0.1-1.2) X10*3/uL Eos # (Auto) (0.0-0.4) X10*3/uL Baso # (Auto) (0.0-0.2) X10*3/uL Abs Immat Gran (auto) (0.00-0.03) X10*3/uL Absolute Neuts (auto) (2.0-8.3) x10*3/uL Absolute Nucleated RBC (0.0-0.012) X10*3/uL Nucleated RBC % (auto) (0.0-0.2) /100WBC D-Dimer High Sensitivty NG/ML Sodium 144 (135-145) mmol/L Potassium 4.4 (3.3-5.1) mmol/L Chloride 102 (96-108) mmol/L Carbon Dioxide 30 H (22-29) mmol/L Anion Gap 16 (12-20) BUN 10 (9-16) mg/dL Creatinine 0.70 (0.5-1.4) mg/dL Estim Creat Clear Calc 125.0 Estimated GFR > 60 Random Glucose 161 H (60-115) mg/dL Calcium 10.2 (8.4-10.2) mg/dL Magnesium 1.5 L (1.6-2.6) mg/dL Total Bilirubin 0.4 (0.0-1.0) mg/dL Direct Bilirubin 0.1 (0.0-0.5) mg/dL AST 37 H (5-31) U/L ALT 42 H (0-31) U/L Alkaline Phosphatase 86 (39-117) U/L Troponin I High Sens < 2.7 (<3.5-17.0) ng/L B-Natriuretic Peptide 11 (<100) pg/mL Total Protein 7.6 (6.5-8.0) g/dL Albumin 4.1 (3.5-5.0) g/dL Influenza Type A (PCR) (Negative) Influenza Type B (PCR) (Negative) RSV RNA Qual (PCR) (Negative) SARS-CoV-2 RNA (RT-PCR) (Negative) Independent Interpretation I performed an independent interpretation of an: EKG (EKG normal sinus rhythm at a rate of 98. QTC 436. No STEMI. No significant change when compared to prior ) Radiology Impression Discussion of test interpretation with radiology: I have reviewed the radio logist's reading. External Record Review External record reviewed: Inpatient record, Office record, Outpatient record, Prior outpatient labs, Prior outpatient radiology, Primary care record and Outside ED record Tests considered The following testing was considered but not selected: As above Discharge Plan Discharge Clinical Impression: Asthma with exacerbation Patient Disposition: Home, Self-Care Instructions: Asthma (DC) Additional Instructions: Your blood work was reassuring. Her x-ray is unremarkable. You Tested negative for COVID and flu and RSV Continue to use home medications including inhalers and nebulizer machine Prednisone as a steroid based take as prescribed Follow-up with her doctor If symptoms persist or worsen return to the ED Prescriptions: New prednisone 20 mg tablet 40 mg PO DAILY 5 Days Qty: 10 0RF albuterol sulfate 2.5 mg/0.5 mL solution for nebulization 5 mg inhalation Q4H PRN (Reason: shortness of breath or wheezing) Qty: 30 0RF No Action metformin 500 mg tablet 2 tab PO BID glipizide 10 mg tablet extended release 24hr 1 tab PO QAM (DME) FreeStyle Lite Strips Strip MISCELLANEOUS TID aspirin 81 mg tablet,delayed release (DR/EC) 1 tab PO BEDTIME lisinopril-hydrochlorothiazide 20-25 mg tablet 1 tab PO QAM alcohol swabs [Alcohol Prep Pads] Pads, Medicated 1 pledget topical BID albuterol sulfate [ProAir HFA] 90 mcg/actuation HFA aerosol inhaler 2 puff inhalation QID insulin lispro protamin-lispro [Humalog Mix 75-25 KwikPen] 100 unit/mL (75-25) insulin pen 50 unit subcut BID rosuvastatin 5 mg tablet 1 tab PO QPM (DME) pen needle, diabetic [Pentips] 32 gauge x 5/32 needle MISCELLANEOUS BID (DME) lancets [TRUEplus Lancets] 33 gauge misc MISCELLANEOUS TID venlafaxine 37.5 mg Capsule,Extended Release 24hr 37.5 mg PO DAILY 30 Days Qty: 30 0RF venlafaxine 75 mg Capsule,Extended Release 24hr 75 mg PO DAILY 30 Days Qty: 30 0RF olanzapine 7.5 mg Tablet 7.5 mg PO BEDTIME 30 Days Qty: 30 0RF gabapentin 100 mg Capsule 200 mg PO TID 30 Days Qty: 180 0RF lorazepam 1 mg Tablet 1 mg PO TID 30 Days Qty: 90 0RF memantine 5 mg Tablet 5 mg PO BEDTIME 30 Days Qty: 30 0RF cefuroxime axetil 250 mg tablet 250 mg PO BID 7 Days Qty: 14 0RF phenazopyridine [Pyridium] 200 mg tablet 200 mg PO TID PRN (Reason: pain) Qty: 6 0RF prednisone 20 mg tablet 40 mg PO DAILY Qty: 8 0RF benzonatate 200 mg capsule 200 mg PO TID PRN (Reason: cough) Qty: 30 0RF cefuroxime axetil 250 mg tablet 250 mg PO BID 7 Days Qty: 14 0RF prednisone 20 mg tablet 20 mg PO DAILY 5 Days Qty: 5 0RF albuterol sulfate 90 mcg/actuation aerosol powdr breath activated 2 inh inhalation Q4-6H PRN (Reason: shortness of breath or wheezing) Qty: 1 0RF acetaminophen [Tylenol Extra Strength] 500 mg tablet 1,000 mg PO QID PRN (Reason: fever or pain) Qty: 14 0RF tramadol 50 mg tablet 50 mg PO Q8H PRN (Reason: pain) Qty: 14 0RF Rx Instructions: May partially fill upon patient request cyclobenzaprine 10 mg tablet 10 mg PO Q8H Qty: 14 0RF Referrals: Prudence Hooks MD [Primary Care Provider] - 5 days Interventions: ED Discharge Assessment Last Done: 11/30/22 17:29 Discharge Date/Time: 11/30/22 17:29
--- NOTE | 2022-11-30 15:17 | ECG_ITS ---
Test Reason : SOB Blood Pressure : / mmHG Vent. Rate : 098 BPM Atrial Rate : 098 BPM P-R Int : 142 ms QRS Dur : 070 ms QT Int : 342 ms P-R-T Axes : 035 -02 012 degrees QTc Int : 436 ms Normal sinus rhythm Normal ECG When compared with ECG of 27-SEP-2022 22:25, No significant change was found Referred By: Genie Albarado Electronically Signed By:Oswald Cantor
--- NOTE | 2022-11-30 15:29 | PC.NURSE ---
20G Iv placed in right ac, BASIC LABS, TROP, AND COAGS PENDING- PT WITH SPOUSE AT [facility], AWAITING RESP TX AT THIS TIME WCTM
[2022-11-30 15:30] LABS: MANUAL DIFF FLAG NO
[2022-11-30 15:32] LABS: Basophils Percent Auto 0.5 % (0-2); Eosinophils Absolute Auto 0.3 X10*3/uL (0.0-0.4); Eosinophils Percent Auto 4.5 % (0-4); Hematocrit 44.9 % (37.0-47.0); Hemoglobin 14.5 g/dl (12.0-16.0); Imm Gran Abs Auto 0.02 X10*3/uL (0.00-0.03); Imm Gran Pct Auto 0.3 % (0.0-0.4); Lymphocytes Absolute Auto 2.6 X10*3/uL (1.2-4.9); Lymphocytes Percent Auto 34.1 % (20-40); Mean Corpuscular HGB Conc 32.3 g/dl (31.0-35.0); Mean Corpuscular Volume 86.7 fL (80.0-98.0); Mean Platelet Volume 10.7 fL (9.4-12.3); Monocytes Absolute Auto 0.4 X10*3/uL (0.1-1.2); Monocytes Percent Auto 5.8 % (2-11); Neutrophils Absolute Auto 4.1 x10*3/uL (2.0-8.3); Neutrophils Percent Auto 54.8 % (45-73); Platelet Count 216 X10*3/uL (160-400); Red Blood Count 5.18 X10*6/uL (4.20-5.50); Red Cell Distribution Width 12.8 % (11.0-16.0); White Blood Count 7.5 X10*3/uL (4.8-10.8)
[2022-11-30 15:34] VITALS: PULSE 97; RESP 18; O2SAT 96
[2022-11-30] MEDS: Albuterol/Iprat 2.5/0.5MG 3 ML AMPUL.NEB INHALE (15:34)
[2022-11-30 15:51] LABS: Influenza A PCR NEGATIVE (Negative); Influenza B PCR NEGATIVE (Negative); Resp Syncy Virus RNA Qual PCR NEGATIVE (Negative); SARS COV2 PCR INHOUSE NEGATIVE (Negative)
[2022-11-30 15:59] LABS: B Type Natriuretic Peptide 11 pg/mL (<100)
[2022-11-30 16:04] LABS: Alanine Aminotransferase 42 U/L (0-31); Albumin Level 4.1 g/dL (3.5-5.0); Alkaline Phosphatase 86 U/L (39-117); Anion Gap 16 (12-20); Aspartate Amino Transferase 37 U/L (5-31); Bilirubin Direct 0.1 mg/dL (0.0-0.5); Bilirubin Total 0.4 mg/dL (0.0-1.0); Blood Urea Nitrogen 10 mg/dL (9-16); Calcium 10.2 mg/dL (8.4-10.2); Carbon Dioxide 30 mmol/L (22-29); Chloride 102 mmol/L (96-108); D Dimer High Sensitivity < 150 NG/ML; Estimated Glomerular Filt Rate > 60; Glucose Random 161 mg/dL (60-115); Magnesium 1.5 mg/dL (1.6-2.6); Potassium 4.4 mmol/L (3.3-5.1); Sodium 144 mmol/L (135-145); Total Protein 7.6 g/dL (6.5-8.0); Troponin-I High Sensitivity < 2.7 ng/L (<3.5-17.0)
[2022-11-30] MEDS: Magnesium Oxide 400 MG TABLET 800 MG PO (16:18)
[2022-11-30] MEDS: predniSONE 20 MG TABLET 40 MG PO (16:18)
[2022-11-30] MEDS: Acetaminophen 325 MG TABLET 650 MG PO (17:06)
== END 2022-11-30 17:29 | disposition home or self-care (01) ==
PROVIDERS: Physician Assistant; Emergency Provider Internal Medicine; PCP Internal Medicine
DX: J45.901 Unspecified asthma with (acute) exacerbation (principal); R06.02 Shortness of breath; R07.89 Other chest pain; I10 Essential (primary) hypertension; Z20.822 Contact with and (suspected) exposure to COVID-19; Z20.828 Contact with and (suspected) exposure to other viral communicable diseases; Z79.899 Other long term (current) drug therapy
CPT/HCPCS: 0241U; 36415; 71045; 80048; 80076; 83735; 83880; 84484; 85025; 85379; 93005; 94640; 99284

== ENCOUNTER 2023-01-12 09:54 | Outpatient (REF) | payer MEDICAID, SELFPAY ==
[2023-01-16 08:59] LABS: HPV mRNA E6/E7 rflx Not Detected (Not Detected)
== END 2023-01-12 09:55 | disposition home or self-care (01) ==
LOC: HO.LNP 09:54
PROVIDERS: PCP Internal Medicine; Visit Provider Obstetrics & Gynecology
DX: Z01.419 Encounter for gynecological examination (general) (routine) without abnormal findings (principal); Z11.51 Encounter for screening for human papillomavirus (HPV)
CPT/HCPCS: 87624; 88142

== ENCOUNTER 2023-01-12 09:54 | Outpatient (AMB) | payer MEDICAID, SELFPAY ==
[2023-01-12 10:00] VITALS: BP 126/90; BMI 51.5
--- NOTE | 2023-01-12 10:00 | MHC.OFFVIS ---
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 No complaints. Last Pap/HPV was unsatisfactory/HPV negative in 04/13 Last Mammogram was BI-RADS 1 in 11/18 No previous screening Colonoscopy PFSH Medical History Asthma Bipolar 1 disorder Depression Diabetes GERD (gastroesophageal reflux disease) Hepatitis HTN (hypertension) Sleep apnea Surgical History History of section Hx of cholecystectomy Hx of tubal ligation Social History Household Members: Spouse and Children Housing: House Do you presently have visiting nurse or other home services: No Alcohol intake: never service: No Sexual orientation: Don't Know Female Reproductive History Menstrual control method: permanent sterilization Total pregnancies: 5 Full term: 4 Number of Living Children: 4 Ab induced: 1 Date of last pap smear: 07/07/11 (negative) Date of Mammogram: 11/20/22 Review of Systems Const All systems reviewed & are unremarkable except as noted in HPI and below Card Reports as per HPI Resp Reports as per HPI GI Reports as per HPI and Reports no additional complaints Reports as per HPI Physical Exam Vital Signs: Last Vital Signs BP 126/90 H 01/12/23 10:00 BMI result Body Mass Index 51.5 Const General: cooperative, healthy appearing and comfortable Chest Chest palpation & inspection: normal inspection of the chest and normal palpation of entire chest wall Breast/axilla inspection: normal inspection of the breasts and normal inspection of the axillae Breast/axilla palpation: normal palpation of the breasts, normal palpation of the axillae and no axillary lymphadenopathy Resp Effort & Inspection: normal respiratory effort Auscultation: clear to auscultation bilaterally Percussion: percussion normal Cardio Palpation: normal PMI Rate: regular rate Rhythm: regular rhythm Heart sounds: no murmurs and no rubs Peripheral pulses: Peripheral pulses 2+ throughout GI Inspection: Yes normal to inspection Palpation (GI): Soft to palpation, nontender, no guarding, not rigid and No hepatosplenomegaly present Percussion: Yes normal to percussion Auscultation: normal bowel sounds Rectal Exam - Female: deferred General: Yes bladder normal to palpation External Female Exam: No lesion Speculum Exam - Vagina: normal appearance of the vagina, normal palpation, normal vaginal discharge and not erythematous Speculum Exam - Cervix: normal appearance of the cervix and normal palpation Bimanual exam- vagina & uterus: normal bimanual exam, normal palpation, uterine size normal, bladder normal to palpation, consistency normal and normal palpation Bimanual Exam- Adnexa, other: normal adnexae, no masses and no tenderness Assessment & Plan Assessment & Plan (1) Well woman exam: Code(s): Z01.419 - Encounter for gynecological examination (general) (routine) without abnormal findings Plan: Co testing done. Counseled the patient about the recommended dietary allowance of 1200 mg of Calcium & 600 IU of vitamin D. Instructions given the patient to schedule her next screen Mammogram in 11/19 , the patient was referred to GI for screening colonoscopy . The patient was instructed to perform monthly self-breast exams and schedule annual exam in a year; all questions answered and the patient verbalized understanding. Orders: Referrals Gastroenterology Referral Z12.11 - Encounter for screening for malignant neoplasm of colon Coding Level of Care Code New Pt Prev Care 40-64y(84053) Diagnoses Well woman exam Z01.419
== END 2023-01-12 10:47 | disposition home or self-care (01) ==
LOC: HO.HWS 09:54
PROVIDERS: PCP Internal Medicine; Visit Provider Obstetrics & Gynecology
DX: Z01.419 Encounter for gynecological examination (general) (routine) without abnormal findings (principal)
CPT/HCPCS: 99386

== ENCOUNTER 2023-01-30 08:35 | Outpatient (REF) | payer MEDICAID, SELFPAY ==
[2023-01-30 09:15] LABS: Estimated Average Glucose 232 mg/dL; Hemoglobin A1c % 9.7 %
[2023-01-30 10:00] LABS: Alanine Aminotransferase 42 U/L (0-31); Alkaline Phosphatase 80 U/L (39-117); Anion Gap 16 (12-20); Aspartate Amino Transferase 30 U/L (5-31); Bilirubin Total 0.4 mg/dL (0.0-1.0); Blood Urea Nitrogen 10 mg/dL (9-16); Carbon Dioxide 25 mmol/L (22-29); Chloride 103 mmol/L (96-108); Cholesterol 139 mg/dL; Estimated Glomerular Filt Rate > 60; Glucose Random 216 mg/dL (60-115); HDL Cholesterol 42 mg/dL; LDL Cholesterol Calculated 81 mg/dl; Potassium 3.8 mmol/L (3.3-5.1); Sodium 140 mmol/L (135-145); Total Protein 7.4 g/dL (6.5-8.0); Triglycerides 81 mg/dL
== END 2023-01-30 08:36 | disposition home or self-care (01) ==
LOC: HO.LAB 08:35
PROVIDERS: PCP Internal Medicine; Visit Provider Internal Medicine
DX: E11.65 Type 2 diabetes mellitus with hyperglycemia (principal); E78.00 Pure hypercholesterolemia, unspecified; J45.909 Unspecified asthma, uncomplicated; R80.8 Other proteinuria
CPT/HCPCS: 36415; 80053; 80061; 83036

== ENCOUNTER 2023-03-24 09:26 | Outpatient (AMB) | payer MEDICAID, SELFPAY ==
--- NOTE | 2023-03-24 09:27 | MHC.OFFVIS ---
Intake Vital Signs 03/24/23 09:28 Height 5 ft 4 in Weight 299 lb 13.259 oz BMI 51.5 BP 98/73 Blood Pressure Location Lt brachial Position Sitting Pulse 98 Intake Visit Reasons: hepatitis c / discuss colo Intake Note: Barbra presents in the office for hep c and discuss colonoscopy. CC: She is having trouble with constipation. She has never had a colonoscopy before and no fHx of Colon Cancer. Health And Safety Trainer Required: No Allergies No Known Allergies Allergy (Verified 03/24/23 09:32) HPI HPI Comments History of Present Illness Details 58 y.o F with PMH of chronic HCV, copd, morbid obesity with BMI 50, uncontrolled T2DM, HTN who is here for two issues: - CRC screening: no gastrointestinal complaints to include abd pain, N,V, D, blood in stool. No fam hx of CRC in first degree relatives. No anemia noted on labs. Has never had any CRC screening including stool test or colo. - Chronic HCV: reports IVDU in her 20s + sharing needles. 2 of her brothers also had hepatitis C and one from cirrhosis due to it. First found out about it 5-7 years ago and tx was prescribed through her PCP's office but pt never took it. Labs reviewed: HCV Ab + with HBcAb +. HBsAg neg. HIV neg. PFSH Medical History Bipolar 1 disorder Depression Sleep apnea HTN (hypertension) Hepatitis GERD (gastroesophageal reflux disease) Diabetes Asthma Surgical History Hx of tubal ligation Hx of cholecystectomy History of section Social History Household Members: Spouse and Children Housing: House Do you presently have visiting nurse or other home services: No Alcohol intake: never service: No Sexual orientation: Don't Know Review of Systems Const All systems reviewed & are unremarkable except as noted in HPI and below Physical Exam Vital Signs: Last Vital Signs Pulse 98 03/24/23 09:28 BP 98/73 03/24/23 09:28 BMI result Body Mass Index 51.5 Gen appear: with obesity HEENT: nonicteric, no cervical lymphadenopathy Chest: CTA CVS: Regular S1/S2 Abd: soft, large pannus, multiple excoriation dsouza on abd, nontender, could not appreciate hepatomegaly Ext: no peripheral edema Neuro: A/Ox3, noted to move all extremities spontaneously Psych: interacting appropriately Assessment & Plan Assessment & Plan (1) Obesity, morbid, BMI 50 or higher: Code(s): E66.01 - Morbid (severe) obesity due to excess calories (2) Hepatitis C: Code(s): B19.20 - Unspecified viral hepatitis C without hepatic coma (3) Sleep apnea: Code(s): G47.30 - Sleep apnea, unspecified (4) HTN (hypertension): Code(s): I10 - Essential (primary) hypertension (5) Diabetes: Code(s): E11.9 - Type 2 diabetes mellitus without complications (6) Colon cancer screening: Code(s): Z12.11 - Encounter for screening for malignant neoplasm of colon Plan 1. Colon cancer screening: At average risk for CRC. Split PEG prep instructions reviewed with the pt with ADDITIONAL instructions to avoid fiber x 3 days and to start miralax BID x2 days before the procedure since she reports baseline hx of constipation. She is also aware of insulin adjustments. We also discussed relatively high risk of periprocedural cardiopulm complications due to her super morbid obesity and untreated EBONI. She was advised to discuss replacement of CPAP machine with her PCP juan francisco so she can back on it. Bariatric medicine referral also placed for longitudinal management of the obesity. Sister, Keturah Ratliff [phone] requests to be contacted for pre-colo instructions and appt confirmation. 2. Chronic HCV: Will need to establish if positive Ab is assoc with chronic infection. Labs and US ordered. Fib 4 1.20 i.e argues against advanced fibrosis and therefore EGD not indicated at this time for variceal screening. Depending on results, if chronic HCV confirmed, will likely need Mavyret or Epclusa. Due to occult HBV, she will need close monitoring of her LFTs while on treatment. Follow up in 6 weeks. Orders: Orders HCV RNA QN PROG TO GENOTYPE Today B19.20 - Unspecified viral hepatitis C without hepatic coma Liver Fibrosis Pnl Today B19.20 - Unspecified viral hepatitis C without hepatic coma Complete Blood Count Auto Diff Today B19.20 - Unspecified viral hepatitis C without hepatic coma US abdomen complete Today B19.20 - Unspecified viral hepatitis C without hepatic coma Prothrombin Time INR Today B19.20 - Unspecified viral hepatitis C without hepatic coma Liver Panel Today B19.20 - Unspecified viral hepatitis C without hepatic coma Referrals Bariatric Surgery Referral E66.01 - Morbid (severe) obesity due to excess calories Medications: New peg 3350-electrolytes [id number] -5.86 gram (Golytely) as per split prep instructions, until fecal effluent is clear 240 mL PO Q10M 4,000 mL 0RF colonoscopy Coding Level of Care Code New Pt Level 5 (65621) Diagnoses Obesity, morbid, BMI 50 or higher E66.01 Hepatitis C B19.20 Sleep apnea G47.30 HTN (hypertension) I10 Diabetes E11.9 Colon cancer screening Z12.11
[2023-03-24 09:28] VITALS: BP 98/73; PULSE 98; BMI 51.5
== END 2023-03-24 10:26 | disposition home or self-care (01) ==
PROVIDERS: PCP Internal Medicine; Visit Provider Internal Medicine
DX: B19.20 Unspecified viral hepatitis C without hepatic coma (principal); Z12.11 Encounter for screening for malignant neoplasm of colon
CPT/HCPCS: 99214

== ENCOUNTER 2023-03-24 09:26 | Outpatient (REF) | payer MEDICAID, SELFPAY ==
[2023-03-24 10:27] LABS: MANUAL DIFF FLAG NO
[2023-03-24 10:32] LABS: Basophils Percent Auto 0.4 % (0-2); Eosinophils Absolute Auto 0.3 X10*3/uL (0.0-0.4); Eosinophils Percent Auto 2.8 % (0-4); Hematocrit 44.2 % (37.0-47.0); Hemoglobin 14.5 g/dl (12.0-16.0); Imm Gran Abs Auto 0.02 X10*3/uL (0.00-0.03); Imm Gran Pct Auto 0.2 % (0.0-0.4); Lymphocytes Absolute Auto 2.9 X10*3/uL (1.2-4.9); Lymphocytes Percent Auto 32.2 % (20-40); Mean Corpuscular HGB Conc 32.8 g/dl (31.0-35.0); Mean Corpuscular Hemoglobin 28.9 pg (27.0-33.0); Mean Corpuscular Volume 88.2 fL (80.0-98.0); Monocytes Absolute Auto 0.6 X10*3/uL (0.1-1.2); Monocytes Percent Auto 6.3 % (2-11); Neutrophils Absolute Auto 5.3 x10*3/uL (2.0-8.3); Neutrophils Percent Auto 58.1 % (45-73); Platelet Count 226 X10*3/uL (160-400); Red Blood Count 5.01 X10*6/uL (4.20-5.50)
[2023-03-24 10:44] LABS: Prothrombin Time 12.5 SEC (11.1-13.3)
[2023-03-24 11:07] LABS: Alanine Aminotransferase 52 U/L (0-31); Albumin Level 4.1 g/dL (3.5-5.0); Alkaline Phosphatase 79 U/L (39-117); Aspartate Amino Transferase 36 U/L (5-31); Bilirubin Direct 0.1 mg/dL (0.0-0.5); Bilirubin Total 0.4 mg/dL (0.0-1.0); Total Protein 7.5 g/dL (6.5-8.0)
[2023-03-26 14:49] LABS: HCV RNA PCR Qn <1.18 NOT DETECTED Log IU/mL (NOT DETECTED); HCV RNA PCR Qn <15 NOT DETECTED IU/mL (NOT DETECTED)
[2023-04-01 12:18] LABS: FIB-ALT 46 U/L (6-29); FIB-Alpha-2-Macroglobulin 596 mg/dL (106-279); FIB-Apolipoprotein A1 172 mg/dL (101-198); FIB-GGT 114 U/L (3-70); FIB-Haptoglobin 160 mg/dL (43-212); FIB-Total Bilirubin 0.3 mg/dL (0.2-1.2)
== END 2023-03-24 09:27 | disposition home or self-care (01) ==
LOC: HO.LAB 09:26
PROVIDERS: PCP Internal Medicine; Visit Provider Internal Medicine
DX: B19.20 Unspecified viral hepatitis C without hepatic coma (principal); E66.01 Morbid (severe) obesity due to excess calories; G47.30 Sleep apnea, unspecified; I10 Essential (primary) hypertension; E11.9 Type 2 diabetes mellitus without complications
CPT/HCPCS: 36415; 80076; 81596; 85025; 85610; 87522; 99212

== ENCOUNTER 2023-04-21 09:39 | Outpatient (REF) | payer MEDICAID, SELFPAY ==
--- NOTE | ~2023-04-21 | US_ITS ---
EXAMINATION: US ABDOMEN COMPLETE CLINICAL INFORMATION: Unspecified viral hepatitis C without hepatic coma. COMPARISON: CT abdomen and pelvis 09/27/2022. Ultrasound abdomen complete 02/01/2020 and 03/04/2018. MRI abdomen 03/05/2018. TECHNIQUE: Real-time imaging of the abdominal viscera. FINDINGS: PANCREAS: Normal. ABDOMINAL AORTA: The proximal, mid, and distal segments are normal in caliber. INFERIOR VENA CAVA: Visualized portions are normal. LIVER: Diffuse increased and coarsened echogenicity to liver parenchyma nodular contour. No focal hepatic lesion. There is no intrahepatic biliary duct dilatation seen. GALLBLADDER: Surgically absent. COMMON BILE DUCT: Normal in caliber measuring 0.4 cm in diameter. RIGHT KIDNEY: 1.0 x 1.0 x 1.0 cm mid pole cyst with associated nonshadowing echogenicity. No hydronephrosis or renal calculi. The kidney measures 13.0 cm in maximum dimension. LEFT KIDNEY: 1.3 x 1.0 x 1.0 cm lower pole cyst. No hydronephrosis or renal calculi. The kidney measures 13.1 cm in maximum dimension. SPLEEN: 1.4 cm splenule. The spleen measures 13.7 cm in maximum dimension. FREE FLUID: None. US/US abdomen complete IMPRESSION: Echogenic liver with nodular contour suggesting cirrhosis. Bilateral renal cysts, on the right with question milk of calcium.
== END 2023-04-21 09:40 | disposition home or self-care (01) ==
LOC: HO.US 09:39
PROVIDERS: PCP Internal Medicine; Visit Provider Internal Medicine
DX: B19.20 Unspecified viral hepatitis C without hepatic coma (principal)
CPT/HCPCS: 76700

== ENCOUNTER 2023-04-30 08:34 | Outpatient (REF) | payer MEDICAID, SELFPAY ==
[2023-04-30 09:15] LABS: Estimated Average Glucose 180 mg/dL; Hemoglobin A1c % 7.9 % (<6.0)
[2023-04-30 09:32] LABS: Alanine Aminotransferase 48 U/L (0-31); Albumin Level 3.9 g/dL (3.5-5.0); Alkaline Phosphatase 87 U/L (39-117); Anion Gap 14 (12-20); Aspartate Amino Transferase 40 U/L (5-31); Bilirubin Total 0.3 mg/dL (0.0-1.0); Blood Urea Nitrogen 8 mg/dL (9-16); Carbon Dioxide 27 mmol/L (22-29); Chloride 104 mmol/L (96-108); Estimated Glomerular Filt Rate > 60; Glucose Random 256 mg/dL (60-115); Potassium 3.8 mmol/L (3.3-5.1); Sodium 141 mmol/L (135-145); Total Protein 7.2 g/dL (6.5-8.0)
== END 2023-04-30 08:35 | disposition home or self-care (01) ==
LOC: HO.LAB 08:34
PROVIDERS: PCP Internal Medicine; Visit Provider Internal Medicine
DX: B18.2 Chronic viral hepatitis C (principal); E11.65 Type 2 diabetes mellitus with hyperglycemia; G47.33 Obstructive sleep apnea (adult) (pediatric); I10 Essential (primary) hypertension; J45.909 Unspecified asthma, uncomplicated
CPT/HCPCS: 36415; 80053; 83036; 87522; 87902

== ENCOUNTER 2023-05-21 17:27 | Emergency (ER) | payer MEDICAID, SELFPAY ==
--- NOTE | ~2023-05-21 | CT_ITS ---
EXAMINATION: CT ABDOMEN AND PELVIS WITH CONTRAST CLINICAL INFORMATION: Left lower quadrant pain. COMPARISON: Abdominal ultrasound done on 04/21/[address] of the abdomen and pelvis done on 09/27/2022. TECHNIQUE: Multidetector volumetric images were obtained from the superior aspect of the liver through the pubic symphysis following administration 85 mL of Omnipaque 350 intravenous contrast. Sagittal and coronal reformatted images were obtained on the technologist's workstation. Oral contrast: No This CT examination was performed using dose optimization techniques as appropriate, variously including the following: *Automated exposure control *Adjustment of mA and/or kV according to patient size (this includes techniques or standardized protocols for targeted exams where dose is matched to indication/reason for exam; i.e. extremities or head) *Use of iterative reconstruction technique DLP: 1683 mGy-cm FINDINGS: LUNG BASES: Bibasilar airspace disease likely represent hypoventilatory, atelectatic changes, similar to prior study. LIVER, GALLBLADDER, AND BILIARY TREE: The liver appear heterogeneous and slightly nodular along its surface, most consistent with changes secondary to cirrhosis, unchanged. No superimposed focal liver lesion. Surgically absent gallbladder, unchanged. PANCREAS: Unremarkable. SPLEEN: Unremarkable. Accessory splenic tissue is noted around the inferior part of the splenic bed, unchanged. ADRENAL GLANDS: Unremarkable. KIDNEYS AND URETERS: The kidneys are normal in size, shape, and attenuation. No hydronephrosis, hydroureter, or calculi seen. No perinephric stranding. BLADDER: Unremarkable. GASTROINTESTINAL TRACT: The small and large bowel are unremarkable. The appendix is unremarkable. ABDOMINAL WALL: No significant hernia is appreciated. LYMPH NODES: Normal. VASCULAR: Calcific atherosclerotic disease of the aorta without aneurysm formation, unchanged. PELVIC VISCERA: There is no pelvic mass present. No evidence of any free fluid and/or free air. OSSEOUS STRUCTURES: No suspicious focal lesion. CT/CT abdomen pelvis w IV con IMPRESSION: No CT evidence of any acute intra-abdominal and/or intrapelvic pathology, essentially remains stable since 09/27/2022. The etiology for left lower quadrant pain is not evident on these images. Fleischner guidelines were followed.
[2023-05-21 17:30] VITALS: BP 132/96; PULSE 92; RESP 20; TEMP 36.3; O2SAT 97; BMI 49.9
--- NOTE | 2023-05-21 17:30 | ED_ITS ---
HPI - General Adult General Chief complaint: Abdominal Pain Stated complaint: left sided abd pain, cough Time Seen by Provider: 05/21/23 19:25 Source: patient Mode of arrival: ambulatory Limitations: no limitations History of Present Illness HPI narrative: Patient comes to emergency room complaining of 1 week of intermittent asthma and 1 day of left lower quadrant pain. Patient states the pain radiates towards her back. Denies hematuria or dysuria, denies any heavy lifting or any trauma. Patient denies nausea vomiting or diarrhea, no fever or chills. Related Data Home Medications Medication Instructions Recorded Confirmed alcohol swabs (Alcohol Prep Pads) 1 pledget topical BID 10/27/20 10/27/20 aspirin 81 mg tablet,delayed 1 tab PO BEDTIME 10/27/20 10/27/20 release blood sugar diagnostic (FreeStyle 10/27/20 10/27/20 Lite Strips) glipizide 10 mg tablet, extended 1 tab PO QAM 10/27/20 10/27/20 release 24 hr insulin lispro protamine-lispro 50 unit subcut BID 10/27/20 10/27/20 100 unit/mL (75-25) subcutaneous pen (Humalog Mix 75-25 KwikPen) lancets 33 gauge (TRUEplus Lancets) 10/27/20 10/27/20 lisinopril 20 1 tab PO QAM 10/27/20 10/27/20 mg-hydrochlorothiazide 25 mg tablet pen needle, diabetic 32 gauge x 10/27/20 10/27/20 (Pentips) amlodipine 5 mg tablet 5 mg PO DAILY 03/24/23 budesonide-formoterol HFA 80 2 puff inhalation BID 03/24/23 mcg-4.5 mcg/actuation aerosol inhaler (Symbicort) cholecalciferol (vitamin D3) 50 50 mcg PO QAM 03/24/23 mcg (2,000 unit) capsule (Vitamin D3) dulaglutide 1.5 mg/0.5 mL mg subcut QWEEK 03/24/23 subcutaneous [facility] flash glucose sensor (FreeStyle #1 ea 03/24/23 Sandra 2 Sensor kit) insulin glargine U-300 conc 300 100 unit subcut BEDTIME 03/24/23 unit/mL (1.5 mL) subcutaneous pen (Toujeo SoloStar U-300 Insulin) loratadine 10 mg tablet 10 mg PO DAILY 03/24/23 metformin 1,000 mg tablet 1,000 mg PO 03/24/23 rosuvastatin 20 mg tablet 20 mg PO QPM 03/24/23 trazodone 100 mg tablet 100 mg PO BEDTIME PRN insomnia 03/24/23 Previous Rx's Medication Instructions Recorded gabapentin 100 mg capsule 200 mg (2 x 100 mg) PO TID 30 days 11/14/20 #180 caps lorazepam 1 mg tablet 1 mg PO TID 30 days #90 tabs 11/14/20 memantine 5 mg tablet 5 mg PO BEDTIME 30 days #30 tabs 11/14/20 olanzapine 7.5 mg tablet 7.5 mg PO BEDTIME 30 days #30 tabs 11/14/20 venlafaxine 37.5 mg 37.5 mg PO DAILY 30 days #30 caps 11/14/20 capsule,extended release 24 hr venlafaxine 75 mg capsule,extended 75 mg PO DAILY 30 days #30 caps 11/14/20 release 24 hr phenazopyridine 200 mg tablet 200 mg PO TID PRN pain 6 doses #6 04/21/21 (Pyridium) tabs benzonatate 200 mg capsule 200 mg PO TID PRN cough #30 caps 01/08/22 prednisone 20 mg tablet 40 mg (2 x 20 mg) PO DAILY #8 tabs 01/08/22 cefuroxime axetil 250 mg tablet 250 mg PO BID 7 days #14 tabs 04/13/22 prednisone 20 mg tablet 20 mg PO DAILY 5 days #5 tabs 04/13/22 acetaminophen 500 mg tablet 1,000 mg (2 x 500 mg) PO QID PRN 05/27/22 (Tylenol Extra Strength) fever or pain #14 tabs cyclobenzaprine 10 mg tablet 10 mg PO Q8H #14 tabs 05/27/22 tramadol 50 mg tablet 50 mg PO Q8H PRN pain #14 tabs 05/27/22 albuterol sulfate 2.5 mg/0.5 mL 5 mg inhalation Q4H PRN shortness 11/30/22 solution for nebulization of breath or wheezing #30 ea prednisone 20 mg tablet 40 mg (2 x 20 mg) PO DAILY 5 days 11/30/22 #10 tabs peg 3350-electrolytes 236 240 ml PO Q10M colonoscopy #4,000 03/24/23 gram-22.74 gram-6.74 gram-5.86 mL gram solution (Golytely) acetaminophen 325 mg tablet 325 mg PO QID PRN fever or pain 05/21/23 (Tylenol) #20 tabs dicyclomine 20 mg tablet 20 mg PO TID PRN abdominal pain 05/21/23 #20 tabs Allergies Allergy/AdvReac Type Severity Reaction Status Date / Time No Known Allergies Allergy Verified 05/21/23 17:33 Review of Systems 2 Review of Systems: Constitutional : No Weight loss, No Fever, No Chills, No Night Sweats, No Fatigue, No Malaise ENT/Mouth : No Hearing loss, No Ear Pain, No Nasal Congestion, No Sinus Pain, No Hoarseness, No sore throat, No Rhinorrhea, No Swallowing Difficulty Eyes: No Eye Pain, No Swelling, No Redness, No Foreign Body, No Discharge, No Vision Changes Cardiovascular : No Chest Pain, No SOB, No Dyspnea on Exertion, No Orthopnea, No Edema, No Palpitations Respiratory : Complaining of cough and wheezing, No Smoke Exposure, No Dyspnea Gastrointestinal : No Nausea, No Vomiting, No Diarrhea, No Constipation, complaining of left lower quadrant pain, left flank pain, no melena Genitourinary : no irregular bleeding, No Dysuria, No Urinary Frequency, No Hematuria, No Urinary Incontinence, No Urgency, No Flank Pain, No Urinary Flow Changes, No Hesitancy Musculoskeletal : No joint pain, No Myalgias, No Joint Swelling Skin : No Skin Lesions, No rash Neuro : No Weakness, No Numbness, No Paresthesias, No Loss of Consciousness, No Dizziness, No Headache Psych : No Anxiety/Panic, No Depression, No SI/HI/AH/VH, No Social Issues, Heme/Lymph: No Bruising, No Bleeding,No Lymphadenopathy Endocrine : No Polyuria, No Polydipsia, No Temperature Intolerance [facility] Past Medical History Medical History Bipolar 1 disorder Depression Sleep apnea HTN (hypertension) Hepatitis GERD (gastroesophageal reflux disease) Diabetes Asthma Surgical History Hx of tubal ligation Hx of cholecystectomy History of section Social History (Reviewed 03/24/23 @ 09:33 by LAZARO Mcgee Household Members: Spouse and Children Housing: House Do you presently have visiting nurse or other home services: No Alcohol intake: never Smoked in Last 30 Days: No Use of substances other than those prescribed or required for medical reasons: No Advance Directives: No Advance Directives Information Provided: Yes Patient : No service: No Sexual orientation: Don't Know Physical Exam ED Vital Signs: Vital Signs - 24 hr 05/21/23 17:30 Temperature 97.4 F Pulse Rate 92 Respiratory Rate 20 Blood Pressure 132/96 H Pulse Oximetry 97 Oxygen Delivery Method Room Air BMI result Body Mass Index 49.9 HENLA Other: Appearance: Alert. Oriented X3. No acute distress. Eyes: Pupils equal, round and reactive to light. ENT: Pharynx normal. Neck: Normal inspection. Neck supple. No lymph nodes noted. No crepitus CVS: Normal heart rate and rhythm. Pulses normal. Normal S1 and S2 Respiratory: No respiratory distress. Breath sounds normal. No wheezing at all. No rales Abdomen: Soft and nontender. No rigidity. No distention, no flank pain, mild discomfort on the lower back, seems mostly musculoskeletal, no rebound, no guarding Skin: Skin warm and dry. Normal skin color. Normal skin turgor. Extremities: No lower extremity edema. No Lacerations. No Rash Neuro: Oriented X 3. No motor deficit. No sensory deficit. Moving all extremities. No slurred speech. CN 2 through 12 grossly intact Psych: calm, cooperative, normal affect Course Course Course Narrative: This is a rapid medical exam: Additional HPI, ROS, PE not included below will be deferred to primary provider. Patient is a 58-year-old female presenting to the emergency department with complaint of left sided mid abdominal pain radiating around to back since earlier today. States pain has been constant, began after she woke. Denies nausea, vomiting, diarrhea, constipation. Denies fever. Denies dysuria, frequency, or other urinary symptoms. Also complains of cough and wheezing x 1 week, history of asthma and has been using inhalers with little relief. Plan: UA, labs, swab for flu/Covid Medications Administered Discontinued Medications Generic Name Dose Route Start Last Admin Trade Name Freq PRN Reason Stop Dose Admin Iohexol 100 ml 05/21/23 21:10 05/21/23 21:10 Iohexol 350 Mg/Ml 100 Ml Infus..Btl IV 05/21/23 21:11 100 ml ONCE ONE Administration Ketorolac Tromethamine 30 mg 05/21/23 19:32 05/21/23 20:05 Ketorolac Tromethamine 30 Mg/Ml Vial IVPUSH 05/21/23 19:33 30 mg ONCE ONE Administration Morphine Sulfate 4 mg 05/21/23 22:43 05/21/23 22:54 Morphine Sulfate 4 Mg/Ml Cartridge IVPUSH 05/21/23 22:44 4 mg ONCE ONE Administration Protocol Medical Decision Making Medical Decision Making [facility] Narrative: -my interpretation of labs: Normal hematology, unremarkable chemistry, LFTs at baseline, urinalysis negative for UTI -CT scan of the abdomen/ pelvis pending -patient's source likely musculoskeletal. CT scan of the abdomen pelvis pending. -sign-out given to Dr. Moser 2300 CT scan negative for acute will discharge patient home on tramadol Differential Diagnosis Differential Diagnoses: The differential diagnosis associated with the presentation includes (Musculoskeletal pain, renal colic, ureterolithiasis, diverticulitis) Admission/Observation Consideration of admission/observation: Escalation of care including admission/observation considered (Given patient's level of discomfort on presentation to ED, patient was considered) Lab Data [facility] Lab Attestation statement: I reviewed the patient's lab results. 05/21/23 20:06 05/21/23 20:07 Labs: Lab Results 05/21/23 05/21/23 Range/Units 20:06 20:07 WBC 9.3 (4.8-10.8) X10*3/uL RBC 4.99 (4.20-5.50) X10*6/uL Hgb 14.1 (12.0-16.0) g/dl Hct 43.6 (37.0-47.0) % MCV 87.4 (80.0-98.0) fL MCH 28.3 (27.0-33.0) pg MCHC 32.3 (31.0-35.0) g/dl RDW 13.2 (11.0-16.0) % Plt Count 252 (160-400) X10*3/uL MPV 10.9 (9.4-12.3) fL Immature Gran % (Auto) 0.3 (0.0-0.4) % Neut % (Auto) 47.6 (45-73) % Lymph % (Auto) 39.2 (20-40) % Sanders % (Auto) 7.9 (2-11) % Eos % (Auto) 4.6 H (0-4) % Baso % (Auto) 0.4 (0-2) % Lymph # (Auto) 3.6 (1.2-4.9) X10*3/uL Sanders # (Auto) 0.7 (0.1-1.2) X10*3/uL Eos # (Auto) 0.4 (0.0-0.4) X10*3/uL Baso # (Auto) 0.0 (0.0-0.2) X10*3/uL Abs Immat Gran (auto) 0.03 (0.00-0.03) X10*3/uL Absolute Neuts (auto) 4.4 (2.0-8.3) x10*3/uL Absolute Nucleated RBC 0.000 (0.0-0.012) X10*3/uL Nucleated RBC % (auto) 0.0 (0.0-0.2) /100WBC Sodium 139 (135-145) mmol/L Potassium 3.8 (3.3-5.1) mmol/L Chloride 102 (96-108) mmol/L Carbon Dioxide 29 (22-29) mmol/L Anion Gap 12 (12-20) BUN 12 (9-16) mg/dL Creatinine 0.83 (0.5-1.4) mg/dL Estim Creat Clear Calc 105.8 Estimated GFR > 60 Random Glucose 157 H (60-115) mg/dL Calcium 9.9 (8.4-10.2) mg/dL Total Bilirubin 0.3 (0.0-1.0) mg/dL AST 30 (5-31) U/L ALT 34 H (0-31) U/L Alkaline Phosphatase 76 (39-117) U/L Total Protein 7.8 (6.5-8.0) g/dL Albumin 4.4 (3.5-5.0) g/dL Lipase 32 (8-78) U/L Urine Color Yellow Urine Appearance Clear Urine pH 7.0 (5.0-9.0) Ur Specific Evans <= 1.005 (1.005-1.025) Urine Protein 100 (2+) H (Neg-Trace) mg/dL Urine Glucose (UA) Negative (Negative) mg/dL Urine Ketones Negative (Negative) mg/dL Urine Blood Negative (Negative) Urine Nitrite Negative (Negative) Ur Leukocyte Esterase Negative (Negative) Urine RBC 0-2 (0-2) /HPF Urine WBC 0-5 (0-5) /HPF Ur Squamous Epith Cells 0-2 (0-2) /HPF Urine Bacteria None Seen (None Seen) Hyaline Casts 0-2 (0-2) /LPF COVID-19 (RADHA) Negative (Negative) COVID-19 Clin Com See Note Influenza Type A (JIMY) Negative (Negative) Influenza Type B (JIMY) Negative (Negative) Influenza A & B Note See Note Radiology Impression Discussion of test interpretation with radiology: I have reviewed the radiologist's reading. Radiologist Impression: CT/CT abdomen pelvis w IV con IMPRESSION: No CT evidence of any acute intra-abdominal and/or intrapelvic pathology, essentially remains stable since 09/27/2022. The etiology for left lower quadrant pain is not evident on these images. Fleischner guidelines were followed. Critical Care Time Critical Care Time Critical Care Time: Yes Total Critical Care Time: 60 Attestation: I have personally provided critical care time. Time includes review of lab data, radiology results, discussion with consultants, and monitoring for potential decompensation. Intervention performed as documented. Discharge Plan Discharge Clinical Impression: Abdominal pain, chronic, generalized Patient Disposition: Home, Self-Care Instructions: Abdominal Pain (ED) Additional Instructions: Please follow-up with your primary care physician tomorrow. If you have any worsening or new symptoms, please return to the emergency room or call 911 Take pain medication as prescribed drink plenty of fluids Prescriptions: New acetaminophen [Tylenol] 325 mg tablet 325 mg PO QID PRN (Reason: fever or pain) Qty: 20 0RF dicyclomine 20 mg tablet 20 mg PO TID PRN (Reason: abdominal pain) Qty: 20 0RF No Action glipizide 10 mg tablet extended release 24hr 1 tab PO QAM (DME) FreeStyle Lite Strips Strip MISCELLANEOUS TID aspirin 81 mg tablet,delayed release (DR/EC) 1 tab PO BEDTIME lisinopril-hydrochlorothiazide 20-25 mg tablet 1 tab PO QAM alcohol swabs [Alcohol Prep Pads] Pads, Medicated 1 pledget topical BID insulin lispro protamin-lispro [Humalog Mix 75-25 KwikPen] 100 unit/mL (75-25) insulin pen 50 unit subcut BID (DME) pen needle, diabetic [Pentips] 32 gauge x 5/32 needle MISCELLANEOUS BID (DME) lancets [TRUEplus Lancets] 33 gauge misc MISCELLANEOUS TID venlafaxine 37.5 mg Capsule,Extended Release 24hr 37.5 mg PO DAILY 30 Days Qty: 30 0RF venlafaxine 75 mg Capsule,Extended Release 24hr 75 mg PO DAILY 30 Days Qty: 30 0RF olanzapine 7.5 mg Tablet 7.5 mg PO BEDTIME 30 Days Qty: 30 0RF gabapentin 100 mg Capsule 200 mg PO TID 30 Days Qty: 180 0RF lorazepam 1 mg Tablet 1 mg PO TID 30 Days Qty: 90 0RF memantine 5 mg Tablet 5 mg PO BEDTIME 30 Days Qty: 30 0RF phenazopyridine [Pyridium] 200 mg tablet 200 mg PO TID PRN (Reason: pain) Qty: 6 0RF prednisone 20 mg tablet 40 mg PO DAILY Qty: 8 0RF benzonatate 200 mg capsule 200 mg PO TID PRN (Reason: cough) Qty: 30 0RF cefuroxime axetil 250 mg tablet 250 mg PO BID 7 Days Qty: 14 0RF prednisone 20 mg tablet 20 mg PO DAILY 5 Days Qty: 5 0RF acetaminophen [Tylenol Extra Strength] 500 mg tablet 1,000 mg PO QID PRN (Reason: fever or pain) Qty: 14 0RF tramadol 50 mg tablet 50 mg PO Q8H PRN (Reason: pain) Qty: 14 0RF Rx Instructions: May partially fill upon patient request cyclobenzaprine 10 mg tablet 10 mg PO Q8H Qty: 14 0RF prednisone 20 mg tablet 40 mg PO DAILY 5 Days Qty: 10 0RF albuterol sulfate 2.5 mg/0.5 mL solution for nebulization 5 mg inhalation Q4H PRN (Reason: shortness of breath or wheezing) Qty: 30 0RF trazodone 100 mg tablet 100 mg PO BEDTIME PRN (Reason: insomnia) amlodipine 5 mg tablet 5 mg PO DAILY (DME) FreeStyle Sandra 2 Sensor Kit See Rx Instructions .ROUTE DIRECTED Qty: 1 Rx Instructions: As directed loratadine 10 mg tablet 10 mg PO DAILY metformin 1,000 mg tablet 1,000 mg PO Toujeo SoloStar U-300 Insulin 300 unit/mL (1.5 mL) insulin pen 100 unit subcut BEDTIME Trulicity 1.5 mg/0.5 mL pen injector subcut QWEEK budesonide-formoterol [Symbicort] 80-4.5 mcg/actuation HFA aerosol inhaler 2 puff inhalation BID rosuvastatin 20 mg tablet 20 mg PO QPM cholecalciferol (vitamin D3) [Vitamin D3] 50 mcg (2,000 unit) capsule 50 mcg PO QAM peg 3350-electrolytes [Golytely] 236-22.74-6.74 -5.86 gram recon soln 240 ml PO Q10M Qty: 4000 0RF Rx Instructions: as per split prep instructions, until fecal effluent is clear Interventions: ED Discharge Assessment Last Done: 05/21/23 23:37 Discharge Date/Time: 05/21/23 23:37
[2023-05-21] MEDS: Ketorolac Tromethamine 30 MG/ML VIAL IVPUSH (20:05)
--- NOTE | 2023-05-21 20:11 | PC.NURSE ---
Pt presents to ED with left sided abd pain starting today. Pt is A&Ox4, GCS 15. Pt was able to ambulate to bathroom to give urine sample. 20g IV placed in the left AC. Bloodwork, swabs, and urine collected and sent to lab. Pt waiting CT and lab results at this time.
[2023-05-21 20:13] LABS: MANUAL DIFF FLAG NO
[2023-05-21 20:15] LABS: Basophils Percent Auto 0.4 % (0-2); Eosinophils Absolute Auto 0.4 X10*3/uL (0.0-0.4); Eosinophils Percent Auto 4.6 % (0-4); Hematocrit 43.6 % (37.0-47.0); Hemoglobin 14.1 g/dl (12.0-16.0); Imm Gran Abs Auto 0.03 X10*3/uL (0.00-0.03); Imm Gran Pct Auto 0.3 % (0.0-0.4); Lymphocytes Absolute Auto 3.6 X10*3/uL (1.2-4.9); Lymphocytes Percent Auto 39.2 % (20-40); Mean Corpuscular HGB Conc 32.3 g/dl (31.0-35.0); Mean Corpuscular Hemoglobin 28.3 pg (27.0-33.0); Mean Corpuscular Volume 87.4 fL (80.0-98.0); Mean Platelet Volume 10.9 fL (9.4-12.3); Monocytes Absolute Auto 0.7 X10*3/uL (0.1-1.2); Monocytes Percent Auto 7.9 % (2-11); Neutrophils Absolute Auto 4.4 x10*3/uL (2.0-8.3); Neutrophils Percent Auto 47.6 % (45-73); Platelet Count 252 X10*3/uL (160-400); Red Blood Count 4.99 X10*6/uL (4.20-5.50); Red Cell Distribution Width 13.2 % (11.0-16.0); White Blood Count 9.3 X10*3/uL (4.8-10.8)
[2023-05-21 20:16] LABS: Appearance Urine Clear; Color Urine Yellow; Glucose Urine UA Negative (Negative); Leukocyte Esterase Urine Negative (Negative); Nitrite Urine Negative (Negative); Specific Gravity - Urine <= 1.005 (1.005-1.025); UMIC TRIGGER UACC YES; Urine Blood Negative (Negative); Urine Ketones Negative (Negative); Urine Protein 100 (2+) mg/dL (Neg-Trace)
[2023-05-21 20:21] LABS: Bacteria Urine None Seen (None Seen); Hyaline Casts Urine 0-2 /LPF (0-2); RBC Urine 0-2 /HPF (0-2); Squamous Epithelial Cell Urine 0-2 /HPF (0-2); WBC Urine 0-5 /HPF (0-5)
[2023-05-21 20:30] LABS: COVID-19 Test Negative (Negative); IDNOW Serial# 08D9AD1C; IDNOW Serial# BCCEAD1C; Influenza A Negative (Negative); Influenza B2 Negative (Negative)
[2023-05-21 20:31] LABS: Alanine Aminotransferase 34 U/L (0-31); Albumin Level 4.4 g/dL (3.5-5.0); Alkaline Phosphatase 76 U/L (39-117); Anion Gap 12 (12-20); Aspartate Amino Transferase 30 U/L (5-31); Bilirubin Total 0.3 mg/dL (0.0-1.0); Blood Urea Nitrogen 12 mg/dL (9-16); Calcium 9.9 mg/dL (8.4-10.2); Carbon Dioxide 29 mmol/L (22-29); Chloride 102 mmol/L (96-108); Creatinine Clr Calc Pharmacy 105.8; Estimated Glomerular Filt Rate > 60; Glucose Random 157 mg/dL (60-115); Lipase 32 U/L (8-78); Potassium 3.8 mmol/L (3.3-5.1); Sodium 139 mmol/L (135-145); Total Protein 7.8 g/dL (6.5-8.0)
[2023-05-21] MEDS: iohexoL 350 MG/ML 100 ML INFUS..BTL IV (21:10)
[2023-05-21] MEDS: Morphine Sulfate 4 MG/ML CARTRIDGE IVPUSH (22:54)
== END 2023-05-21 23:37 | disposition home or self-care (01) ==
PROVIDERS: Registered Nurse Emergency; Emergency Provider Emergency Medicine; PCP Internal Medicine
DX: G89.29 Other chronic pain (principal); R10.84 Generalized abdominal pain; Z11.52 Encounter for screening for COVID-19; R05.9 Cough, unspecified; E11.9 Type 2 diabetes mellitus without complications; I10 Essential (primary) hypertension; Z90.49 Acquired absence of other specified parts of digestive tract; Z98.51 Tubal ligation status; E66.9 Obesity, unspecified; Z68.42 Body mass index [BMI] 45.0-49.9, adult; B19.20 Unspecified viral hepatitis C without hepatic coma; Z79.82 Long term (current) use of aspirin; Z79.899 Other long term (current) drug therapy; Z79.85 Long-term (current) use of injectable non-insulin antidiabetic drugs
CPT/HCPCS: 74177; 80053; 81001; 83690; 85025; 87502; 87635; 96374; 96375; 99284; J1885; J2270; Q9967

== ENCOUNTER 2023-05-26 16:35 | Emergency (ER) | payer MEDICAID, SELFPAY ==
--- NOTE | ~2023-05-26 | XR_ITS ---
EXAMINATION: XR CHEST CLINICAL INFORMATION: Chest tightness. Shortness of breath. COMPARISON: 11/30/2022. TECHNIQUE: Frontal view of the chest was obtained. FINDINGS: The cardiomediastinal silhouette is stable. There is lingular/left lung base chronic atelectasis/scarring. The lungs are otherwise clear. There are no significant pleural effusions. The bony structures and soft tissues are unremarkable. XR/XR chest 1V IMPRESSION: Lingular and left lung base atelectasis/scarring similar to previous. No evidence for active cardiopulmonary disease.
[2023-05-26 17:05] VITALS: BP 140/75; PULSE 106; RESP 18; TEMP 36.4; O2SAT 96; BMI 47.3
--- NOTE | 2023-05-26 17:05 | ED_ITS ---
HPI - General Adult General Chief complaint: Upper Respiratory Symptoms Stated complaint: upper respiratory Time Seen by Provider: 05/26/23 23:39 Related Data Home Medications ?Medication ?Instructions ?Recorded ?Confirmed alcohol swabs (Alcohol Prep Pads) 1 pledget topical BID 10/27/20 12/14/23 aspirin 81 mg tablet,delayed 1 tab PO BEDTIME 10/27/20 12/14/23 release blood sugar diagnostic (FreeStyle 10/27/20 12/14/23 Lite Strips) glipizide 10 mg tablet, extended 1 tab PO QAM 10/27/20 12/14/23 release 24 hr insulin lispro protamine-lispro 50 unit subcut BID 10/27/20 12/14/23 100 unit/mL (75-25) subcutaneous pen (Humalog Mix 75-25 KwikPen) lancets 33 gauge (TRUEplus Lancets) 10/27/20 12/14/23 lisinopril 20 1 tab PO QAM 10/27/20 12/14/23 mg-hydrochlorothiazide 25 mg tablet pen needle, diabetic 32 gauge x 10/27/20 12/14/23 5/32 (Pentips) amlodipine 5 mg tablet 5 mg PO DAILY 03/24/23 12/14/23 budesonide-formoterol HFA 80 2 puff inhalation BID 03/24/23 12/14/23 mcg-4.5 mcg/actuation aerosol inhaler (Symbicort) cholecalciferol (vitamin D3) 50 50 mcg PO QAM 03/24/23 12/14/23 mcg (2,000 unit) capsule (Vitamin D3) dulaglutide 1.5 mg/0.5 mL mg subcut QWEEK 03/24/23 12/14/23 subcutaneous pen injector ([facility]) flash glucose sensor (FreeStyle #1 ea 03/24/23 12/14/23 Sandra 2 Sensor kit) insulin glargine U-300 conc 300 100 unit subcut BEDTIME 03/24/23 12/14/23 unit/mL (1.5 mL) subcutaneous pen (Toujeo SoloStar U-300 Insulin) loratadine 10 mg tablet 10 mg PO DAILY 03/24/23 12/14/23 metformin 1,000 mg tablet 1,000 mg PO 09/26/23 06/17/24 rosuvastatin 20 mg tablet 20 mg PO QPM 03/24/23 12/14/23 trazodone 100 mg tablet 100 mg PO BEDTIME PRN insomnia 03/24/23 12/14/23 Previous Rx's ?Medication ?Instructions ?Recorded gabapentin 100 mg capsule 200 mg (2 x 100 mg) PO TID 30 days 11/14/20 #180 caps lorazepam 1 mg tablet 1 mg PO TID 30 days #90 tabs 11/14/20 memantine 5 mg tablet 5 mg PO BEDTIME 30 days #30 tabs 11/14/20 olanzapine 7.5 mg tablet 7.5 mg PO BEDTIME 30 days #30 tabs 11/14/20 venlafaxine 37.5 mg 37.5 mg PO DAILY 30 days #30 caps 11/14/20 capsule,extended release 24 hr venlafaxine 75 mg capsule,extended 75 mg PO DAILY 30 days #30 caps 11/14/20 release 24 hr phenazopyridine 200 mg tablet 200 mg PO TID PRN pain 6 doses #6 04/21/21 (Pyridium) tabs acetaminophen 500 mg tablet 1,000 mg (2 x 500 mg) PO QID PRN 05/27/22 (Tylenol Extra Strength) fever or pain #14 tabs cyclobenzaprine 10 mg tablet 10 mg PO Q8H #14 tabs 05/27/22 tramadol 50 mg tablet 50 mg PO Q8H PRN pain #14 tabs 05/27/22 albuterol sulfate 2.5 mg/0.5 mL 5 mg inhalation Q4H PRN shortness 11/30/22 solution for nebulization of breath or wheezing #30 ea acetaminophen 325 mg tablet 325 mg PO QID PRN fever or pain 05/21/23 (Tylenol) #20 tabs dicyclomine 20 mg tablet 20 mg PO TID PRN abdominal pain 05/21/23 #20 tabs ibuprofen 600 mg tablet 600 mg PO Q6H PRN fever or pain 05/26/23 #30 tabs dicyclomine 20 mg tablet 20 mg PO TID PRN abdominal pain 06/10/23 #20 tabs omeprazole 20 mg capsule,delayed 20 mg PO DAILY 8 weeks #56 caps 09/09/23 release Allergies Allergy/AdvReac Type Severity Reaction Status Date / Time No Known Allergies Allergy Verified 12/14/23 09:06 [facility] Past Medical History Medical History (Updated 12/14/23 @ 09:20 by Ayan Grant MD) DJD (degenerative joint disease) Insomnia Hyperlipidemia Morbid obesity Scalp mass Bipolar 1 disorder Depression Sleep apnea HTN (hypertension) Hepatitis GERD (gastroesophageal reflux disease) Diabetes Asthma Surgical History History of excision of mass (~09/18/23) Hx of tubal ligation Hx of cholecystectomy History of section Social History Social History Household Members: Spouse and Children Housing: House Do you presently have visiting nurse or other home services: No Alcohol intake: never Patient Tobacco Use Status: Former Tobacco user service: No Sexual orientation: Don't Know Physical Exam ED Vital Signs: BMI result Body Mass Index 47.3 Course Course Course Narrative: This is an RME: Additional HPI, ROS, PE not included below will be deferred to primary provider. 58-year-old female presents for evaluation of chest congestion and purulent cough x 1 week. Plan: viral testing, cxr Medications Administered Discontinued Medications Generic Name Dose Route Start Last Admin Trade Name Freq PRN Reason Stop Dose Admin Guaifenesin/Codeine Phosphate 10 ml 05/26/23 23:47 05/27/23 00:04 Guaifen/Codeine Sf 200/20/10ml 10 Ml Liquid PO 05/26/23 23:48 10 ml ONCE ONE Administration Medical Decision Making Lab Data Labs: Lab Results 05/26/23 Range/Units 17:17 Influenza Type A (PCR) POSITIVE A (Negative) Influenza Type B (PCR) NEGATIVE (Negative) RSV RNA Qual (PCR) NEGATIVE (Negative) SARS-CoV-2 RNA (RT-PCR) NEGATIVE (Negative) Discharge Plan Discharge Clinical Impression: Influenza A Patient Disposition: Home, Self-Care Instructions: Influenza (ED) Additional Instructions: Keep hydrated Cough syrup as prescribed Ibuprofen for pain Prescriptions: New ibuprofen 600 mg tablet 600 mg PO Q6H PRN (Reason: fever or pain) Qty: 30 0RF No Action omeprazole 20 mg capsule,delayed release(DR/EC) 20 mg PO DAILY 56 Days Qty: 56 0RF glipizide 10 mg tablet extended release 24hr 1 tab PO QAM (DME) FreeStyle Lite Strips Strip MISCELLANEOUS TID aspirin 81 mg tablet,delayed release (DR/EC) 1 tab PO BEDTIME lisinopril-hydrochlorothiazide 20-25 mg tablet 1 tab PO QAM alcohol swabs [Alcohol Prep Pads] Pads, Medicated 1 pledget topical BID insulin lispro protamin-lispro [Humalog Mix 75-25 KwikPen] 100 unit/mL (75-25) insulin pen 50 unit subcut BID (DME) pen needle, diabetic [Pentips] 32 gauge x /32 needle MISCELLANEOUS BID (DME) lancets [TRUEplus Lancets] 33 gauge misc MISCELLANEOUS TID venlafaxine 37.5 mg Capsule,Extended Release 24hr 37.5 mg PO DAILY 30 Days Qty: 30 0RF venlafaxine 75 mg Capsule,Extended Release 24hr 75 mg PO DAILY 30 Days Qty: 30 0RF olanzapine 7.5 mg Tablet 7.5 mg PO BEDTIME 30 Days Qty: 30 0RF gabapentin 100 mg Capsule 200 mg PO TID 30 Days Qty: 180 0RF lorazepam 1 mg Tablet 1 mg PO TID 30 Days Qty: 90 0RF memantine 5 mg Tablet 5 mg PO BEDTIME 30 Days Qty: 30 0RF phenazopyridine [Pyridium] 200 mg tablet 200 mg PO TID PRN (Reason: pain) Qty: 6 0RF acetaminophen [Tylenol Extra Strength] 500 mg tablet 1,000 mg PO QID PRN (Reason: fever or pain) Qty: 14 0RF tramadol 50 mg tablet 50 mg PO Q8H PRN (Reason: pain) Qty: 14 0RF Rx Instructions: May partially fill upon patient request cyclobenzaprine 10 mg tablet 10 mg PO Q8H Qty: 14 0RF dicyclomine 20 mg tablet 20 mg PO TID PRN (Reason: abdominal pain) Qty: 20 0RF albuterol sulfate 2.5 mg/0.5 mL solution for nebulization 5 mg inhalation Q4H PRN (Reason: shortness of breath or wheezing) Qty: 30 0RF acetaminophen [Tylenol] 325 mg tablet 325 mg PO QID PRN (Reason: fever or pain) Qty: 20 0RF dicyclomine 20 mg tablet 20 mg PO TID PRN (Reason: abdominal pain) Qty: 20 0RF trazodone 100 mg tablet 100 mg PO BEDTIME PRN (Reason: insomnia) amlodipine 5 mg tablet 5 mg PO DAILY (DME) FreeStyle Sandra 2 Sensor Kit See Rx Instructions .ROUTE DIRECTED Qty: 1 Rx Instructions: As directed loratadine 10 mg tablet 10 mg PO DAILY metformin 1,000 mg tablet 1,000 mg PO Toujealyssa SoloStar U-300 Insulin 300 unit/mL (1.5 mL) insulin pen 100 unit subcut BEDTIME Trulicity 1.5 mg/0.5 mL pen injector subcut QWEEK budesonide-formoterol [Symbicort] 80-4.5 mcg/actuation HFA aerosol inhaler 2 puff inhalation BID rosuvastatin 20 mg tablet 20 mg PO QPM cholecalciferol (vitamin D3) [Vitamin D3] 50 mcg (2,000 unit) capsule 50 mcg PO QAM Interventions: ED Discharge Assessment Last Done: 05/27/23 00:11 Discharge Date/Time: 05/27/23 00:00 Print Language: Sinhala
[2023-05-26 18:03] LABS: Influenza A PCR POSITIVE (Negative); Influenza B PCR NEGATIVE (Negative); Resp Syncy Virus RNA Qual PCR NEGATIVE (Negative); SARS COV2 PCR INHOUSE NEGATIVE (Negative)
--- NOTE | 2023-05-26 23:49 | ED.URI ---
HPI - URI/Sore Throat General Chief Complaint: Upper Respiratory Symptoms Stated Complaint: upper respiratory Time Seen by Provider: 05/26/23 23:39 Source: patient Mode of arrival: ambulatory Limitations: no limitations History of Present Illness HPI Narrative: Patient been congested for last 1 week with dry cough body aches low-grade fever and on does have history of asthma and sleep apnea using nebulizing treatment no significant shortness of breath was saturating 96% at room air on arrival Related Data Home Medications Medication Instructions Recorded Confirmed alcohol swabs (Alcohol Prep Pads) 1 pledget topical BID 10/27/20 10/27/20 aspirin 81 mg tablet,delayed 1 tab PO BEDTIME 10/27/20 10/27/20 release blood sugar diagnostic (FreeStyle 10/27/20 10/27/20 Lite Strips) glipizide 10 mg tablet, extended 1 tab PO QAM 10/27/20 10/27/20 release 24 hr insulin lispro protamine-lispro 50 unit subcut BID 10/27/20 10/27/20 100 unit/mL (75-25) subcutaneous pen (Humalog Mix 75-25 KwikPen) lancets 33 gauge (TRUEplus Lancets) 10/27/20 10/27/20 lisinopril 20 1 tab PO QAM 10/27/20 10/27/20 mg-hydrochlorothiazide 25 mg tablet pen needle, diabetic 32 gauge x 10/27/20 10/27/20 (Pentips) amlodipine 5 mg tablet 5 mg PO DAILY 03/24/23 budesonide-formoterol HFA 80 2 puff inhalation BID 03/24/23 mcg-4.5 mcg/actuation aerosol inhaler (Symbicort) cholecalciferol (vitamin D3) 50 50 mcg PO QAM 03/24/23 mcg (2,000 unit) capsule (Vitamin D3) dulaglutide 1.5 mg/0.5 mL mg subcut QWEEK 03/24/23 subcutaneous pen injector ([employer]) flash glucose sensor (FreeStyle #1 ea 03/24/23 Sandra 2 Sensor kit) insulin glargine U-300 conc 300 100 unit subcut BEDTIME 03/24/23 unit/mL (1.5 mL) subcutaneous pen (Farntz Stover U-300 Insulin) loratadine 10 mg tablet 10 mg PO DAILY 03/24/23 metformin 1,000 mg tablet 1,000 mg PO 03/24/23 rosuvastatin 20 mg tablet 20 mg PO QPM 03/24/23 trazodone 100 mg tablet 100 mg PO BEDTIME PRN insomnia 03/24/23 Previous Rx's Medication Instructions Recorded gabapentin 100 mg capsule 200 mg (2 x 100 mg) PO TID 30 days 11/14/20 #180 caps lorazepam 1 mg tablet 1 mg PO TID 30 days #90 tabs 11/14/20 memantine 5 mg tablet 5 mg PO BEDTIME 30 days #30 tabs 11/14/20 olanzapine 7.5 mg tablet 7.5 mg PO BEDTIME 30 days #30 tabs 11/14/20 venlafaxine 37.5 mg 37.5 mg PO DAILY 30 days #30 caps 11/14/20 capsule,extended release 24 hr venlafaxine 75 mg capsule,extended 75 mg PO DAILY 30 days #30 caps 11/14/20 release 24 hr phenazopyridine 200 mg tablet 200 mg PO TID PRN pain 6 doses #6 04/21/21 (Pyridium) tabs benzonatate 200 mg capsule 200 mg PO TID PRN cough #30 caps 01/08/22 prednisone 20 mg tablet 40 mg (2 x 20 mg) PO DAILY #8 tabs 01/08/22 cefuroxime axetil 250 mg tablet 250 mg PO BID 7 days #14 tabs 04/13/22 prednisone 20 mg tablet 20 mg PO DAILY 5 days #5 tabs 04/13/22 acetaminophen 500 mg tablet 1,000 mg (2 x 500 mg) PO QID PRN 05/27/22 (Tylenol Extra Strength) fever or pain #14 tabs cyclobenzaprine 10 mg tablet 10 mg PO Q8H #14 tabs 05/27/22 tramadol 50 mg tablet 50 mg PO Q8H PRN pain #14 tabs 05/27/22 albuterol sulfate 2.5 mg/0.5 mL 5 mg inhalation Q4H PRN shortness 11/30/22 solution for nebulization of breath or wheezing #30 ea prednisone 20 mg tablet 40 mg (2 x 20 mg) PO DAILY 5 days 11/30/22 #10 tabs peg 3350-electrolytes 236 240 ml PO Q10M colonoscopy #4,000 03/24/23 gram-22.74 gram-6.74 gram-5.86 mL gram solution (Golytely) acetaminophen 325 mg tablet 325 mg PO QID PRN fever or pain 05/21/23 (Tylenol) #20 tabs dicyclomine 20 mg tablet 20 mg PO TID PRN abdominal pain 05/21/23 #20 tabs codeine 10 mg-guaifenesin 100 mg/5 10 ml PO Q6H PRN cough #237 mL 05/26/23 mL oral liquid ibuprofen 600 mg tablet 600 mg PO Q6H PRN fever or pain 05/26/23 #30 tabs Allergies Allergy/AdvReac Type Severity Reaction Status Date / Time No Known Allergies Allergy Verified 05/21/23 17:33 Review of Systems Review of Systems: Yes all other systems are reviewed and are negative [facility] Past Medical History Medical History Bipolar 1 disorder Depression Sleep apnea HTN (hypertension) Hepatitis GERD (gastroesophageal reflux disease) Diabetes Asthma Surgical History Hx of tubal ligation Hx of cholecystectomy History of section Social History Social History Household Members: Spouse and Children Housing: House Do you presently have visiting nurse or other home services: No Alcohol intake: never Advance Directives: No Advance Directives Information Provided: Yes service: No Sexual orientation: Don't Know Physical Exam Vital Signs: Vital Signs: Last Vital Signs Temp 97.6 F 05/26/23 17:05 Pulse 106 H 05/26/23 17:05 Resp 18 05/26/23 17:05 BP 140/75 H 05/26/23 17:05 Pulse Ox 96 05/26/23 17:05 O2 Del Method Room Air 05/26/23 17:05 BMI result Body Mass Index 47.3 Appearance: Alert. Oriented X3. No acute distress, obese ENT: Pharynx normal. Oral Mucosa moist clear nasal discharge Neck: Normal inspection. Neck supple. CVS: Normal heart rate and rhythm. Pulses normal. Respiratory: No respiratory distress. Equal air entry bilateral, no wheezing/rales/rhonchi Abdomen: Soft and nontender. Bowel sounds are present, no mass palpable, no CVA tenderness Skin: Skin warm and dry. Normal skin color. Normal skin turgor. Extremities: No lower extremity edema. No calf tenderness Neuro: Oriented X 3. Medical Decision Making Medical Decision Making MDM Narrative: Patient was influenza A positive chest x-ray negative discharge patient home symptomatic treat Lab Data [facility] Lab Attestation statement: I reviewed the patient's lab results. Labs: Lab Results 05/26/23 Range/Units 17:17 Influenza Type A (PCR) POSITIVE A (Negative) Influenza Type B (PCR) NEGATIVE (Negative) RSV RNA Qual (PCR) NEGATIVE (Negative) SARS-CoV-2 RNA (RT-PCR) NEGATIVE (Negative) Independent Interpretation I performed an independent interpretation of an: Plain X-Ray Radiology Impression Discussion of test interpretation with radiology: I have reviewed the radiologist's reading. Discharge Plan Discharge Clinical Impression: Influenza A Patient Disposition: Home, Self-Care Instructions: Influenza (ED) Additional Instructions: Keep hydrated Cough syrup as prescribed Ibuprofen for pain Prescriptions: New codeine-guaifenesin 10-100 mg/5 mL liquid 10 ml PO Q6H PRN (Reason: cough) Qty: 237 0RF ibuprofen 600 mg tablet 600 mg PO Q6H PRN (Reason: fever or pain) Qty: 30 0RF No Action glipizide 10 mg tablet extended release 24hr 1 tab PO QAM (DME) FreeStyle Lite Strips Strip MISCELLANEOUS TID aspirin 81 mg tablet,delayed release (DR/EC) 1 tab PO BEDTIME lisinopril-hydrochlorothiazide 20-25 mg tablet 1 tab PO QAM alcohol swabs [Alcohol Prep Pads] Pads, Medicated 1 pledget topical BID insulin lispro protamin-lispro [Humalog Mix 75-25 KwikPen] 100 unit/mL (75-25) insulin pen 50 unit subcut BID (DME) pen needle, diabetic [Pentips] 32 gauge x 5/32 needle MISCELLANEOUS BID (DME) lancets [TRUEplus Lancets] 33 gauge misc MISCELLANEOUS TID venlafaxine 37.5 mg Capsule,Extended Release 24hr 37.5 mg PO DAILY 30 Days Qty: 30 0RF venlafaxine 75 mg Capsule,Extended Release 24hr 75 mg PO DAILY 30 Days Qty: 30 0RF olanzapine 7.5 mg Tablet 7.5 mg PO BEDTIME 30 Days Qty: 30 0RF gabapentin 100 mg Capsule 200 mg PO TID 30 Days Qty: 180 0RF lorazepam 1 mg Tablet 1 mg PO TID 30 Days Qty: 90 0RF memantine 5 mg Tablet 5 mg PO BEDTIME 30 Days Qty: 30 0RF phenazopyridine [Pyridium] 200 mg tablet 200 mg PO TID PRN (Reason: pain) Qty: 6 0RF prednisone 20 mg tablet 40 mg PO DAILY Qty: 8 0RF benzonatate 200 mg capsule 200 mg PO TID PRN (Reason: cough) Qty: 30 0RF cefuroxime axetil 250 mg tablet 250 mg PO BID 7 Days Qty: 14 0RF prednisone 20 mg tablet 20 mg PO DAILY 5 Days Qty: 5 0RF acetaminophen [Tylenol Extra Strength] 500 mg tablet 1,000 mg PO QID PRN (Reason: fever or pain) Qty: 14 0RF tramadol 50 mg tablet 50 mg PO Q8H PRN (Reason: pain) Qty: 14 0RF Rx Instructions: May partially fill upon patient request cyclobenzaprine 10 mg tablet 10 mg PO Q8H Qty: 14 0RF prednisone 20 mg tablet 40 mg PO DAILY 5 Days Qty: 10 0RF albuterol sulfate 2.5 mg/0.5 mL solution for nebulization 5 mg inhalation Q4H PRN (Reason: shortness of breath or wheezing) Qty: 30 0RF acetaminophen [Tylenol] 325 mg tablet 325 mg PO QID PRN (Reason: fever or pain) Qty: 20 0RF dicyclomine 20 mg tablet 20 mg PO TID PRN (Reason: abdominal pain) Qty: 20 0RF trazodone 100 mg tablet 100 mg PO BEDTIME PRN (Reason: insomnia) amlodipine 5 mg tablet 5 mg PO DAILY (DME) FreeStyle Sandra 2 Sensor Kit See Rx Instructions .ROUTE DIRECTED Qty: 1 Rx Instructions: As directed loratadine 10 mg tablet 10 mg PO DAILY metformin 1,000 mg tablet 1,000 mg PO Frantz Stover U-300 Insulin 300 unit/mL (1.5 mL) insulin pen 100 unit subcut BEDTIME Trulicity 1.5 mg/0.5 mL pen injector subcut QWEEK budesonide-formoterol [Symbicort] 80-4.5 mcg/actuation HFA aerosol inhaler 2 puff inhalation BID rosuvastatin 20 mg tablet 20 mg PO QPM cholecalciferol (vitamin D3) [Vitamin D3] 50 mcg (2,000 unit) capsule 50 mcg PO QAM peg 3350-electrolytes [Golytely] 236-22.74-6.74 -5.86 gram recon soln 240 ml PO Q10M Qty: 4000 0RF Rx Instructions: as per split prep instructions, until fecal effluent is clear
[2023-05-26 23:51] VITALS: BP 157/71; PULSE 109; RESP 15; TEMP 37.4; O2SAT 94
--- NOTE | 2023-05-26 23:54 | MHC.EDTECH ---
This Pct just assumed care of pt ,vitals taken ,RN Trini is aware of pt high hr ,Patient waiting was discharge Paper work .
[2023-05-27] MEDS: guaiFEN/Codeine SF 200/20/10ML 10 ML LIQUID PO (00:04)
== END 2023-05-27 | disposition home or self-care (01) ==
PROVIDERS: Physician Assistant; Emergency Provider Internal Medicine; PCP Internal Medicine
DX: J10.1 Influenza due to other identified influenza virus with other respiratory manifestations (principal); Z11.52 Encounter for screening for COVID-19
CPT/HCPCS: 0241U; 71045; 99283; 99284

== ENCOUNTER 2023-06-10 18:28 | Emergency (ER) | payer MEDICAID, SELFPAY ==
[2023-06-10 18:35] VITALS: BP 126/86; PULSE 98; O2SAT 98
--- NOTE | 2023-06-10 18:58 | ED_ITS ---
HPI - Abdominal Pain General Chief Complaint: Abdominal Pain Stated Complaint: L QUAD PAIN Time Seen by Provider: 06/10/23 21:05 Source: patient Mode of arrival: ambulatory Limitations: no limitations History of Present Illness HPI narrative: Patient history of chronic off and on abdominal pain comes here for 3 weeks of left upper abdominal pain with sharp intermittent no nausea no vomiting or diarrhea was seen here 05/21 CT scan was negative she a had similar pain and she was seen in the ER in 10/19 at that time also CT scan and ultrasound was negative patient denied any constipation no fever no chills no relation of the pain with food patient feels hungry feels bloated no urinary complaints Related Data Home Medications Medication Instructions Recorded Confirmed alcohol swabs (Alcohol Prep Pads) 1 pledget topical BID 10/27/20 10/27/20 aspirin 81 mg tablet,delayed 1 tab PO BEDTIME 10/27/20 10/27/20 release blood sugar diagnostic (FreeStyle 10/27/20 10/27/20 Lite Strips) glipizide 10 mg tablet, extended 1 tab PO QAM 10/27/20 10/27/20 release 24 hr insulin lispro protamine-lispro 50 unit subcut BID 10/27/20 10/27/20 100 unit/mL (75-25) subcutaneous pen (Humalog Mix 75-25 KwikPen) lancets 33 gauge (TRUEplus Lancets) 10/27/20 10/27/20 lisinopril 20 1 tab PO QAM 10/27/20 10/27/20 mg-hydrochlorothiazide 25 mg tablet pen needle, diabetic 32 gauge x 10/27/20 10/27/20 (Pentips) amlodipine 5 mg tablet 5 mg PO DAILY 03/24/23 budesonide-formoterol HFA 80 2 puff inhalation BID 03/24/23 mcg-4.5 mcg/actuation aerosol inhaler (Symbicort) cholecalciferol (vitamin D3) 50 50 mcg PO QAM 03/24/23 mcg (2,000 unit) capsule (Vitamin D3) dulaglutide 1.5 mg/0.5 mL mg subcut QWEEK 03/24/23 subcutaneous pen injector ([facility]) flash glucose sensor (FreeStyle #1 ea 03/24/23 Sandra 2 Sensor kit) insulin glargine U-300 conc 300 100 unit subcut BEDTIME 03/24/23 unit/mL (1.5 mL) subcutaneous pen (Frantz SolLaureanoar U-300 Insulin) loratadine 10 mg tablet 10 mg PO DAILY 03/24/23 metformin 1,000 mg tablet 1,000 mg PO 03/24/23 rosuvastatin 20 mg tablet 20 mg PO QPM 03/24/23 trazodone 100 mg tablet 100 mg PO BEDTIME PRN insomnia 03/24/23 Previous Rx's Medication Instructions Recorded gabapentin 100 mg capsule 200 mg (2 x 100 mg) PO TID 30 days 11/14/20 #180 caps lorazepam 1 mg tablet 1 mg PO TID 30 days #90 tabs 11/14/20 memantine 5 mg tablet 5 mg PO BEDTIME 30 days #30 tabs 11/14/20 olanzapine 7.5 mg tablet 7.5 mg PO BEDTIME 30 days #30 tabs 11/14/20 venlafaxine 37.5 mg 37.5 mg PO DAILY 30 days #30 caps 11/14/20 capsule,extended release 24 hr venlafaxine 75 mg capsule,extended 75 mg PO DAILY 30 days #30 caps 11/14/20 release 24 hr phenazopyridine 200 mg tablet 200 mg PO TID PRN pain 6 doses #6 04/21/21 (Pyridium) tabs benzonatate 200 mg capsule 200 mg PO TID PRN cough #30 caps 01/08/22 prednisone 20 mg tablet 40 mg (2 x 20 mg) PO DAILY #8 tabs 01/08/22 cefuroxime axetil 250 mg tablet 250 mg PO BID 7 days #14 tabs 04/13/22 prednisone 20 mg tablet 20 mg PO DAILY 5 days #5 tabs 04/13/22 acetaminophen 500 mg tablet 1,000 mg (2 x 500 mg) PO QID PRN 05/27/22 (Tylenol Extra Strength) fever or pain #14 tabs cyclobenzaprine 10 mg tablet 10 mg PO Q8H #14 tabs 05/27/22 tramadol 50 mg tablet 50 mg PO Q8H PRN pain #14 tabs 05/27/22 albuterol sulfate 2.5 mg/0.5 mL 5 mg inhalation Q4H PRN shortness 11/30/22 solution for nebulization of breath or wheezing #30 ea prednisone 20 mg tablet 40 mg (2 x 20 mg) PO DAILY 5 days 11/30/22 #10 tabs peg 3350-electrolytes 236 240 ml PO Q10M colonoscopy #4,000 03/24/23 gram-22.74 gram-6.74 gram-5.86 mL gram solution (Golytely) acetaminophen 325 mg tablet 325 mg PO QID PRN fever or pain 05/21/23 (Tylenol) #20 tabs dicyclomine 20 mg tablet 20 mg PO TID PRN abdominal pain 05/21/23 #20 tabs codeine 10 mg-guaifenesin 100 mg/5 10 ml PO Q6H PRN cough #237 mL 05/26/23 mL oral liquid ibuprofen 600 mg tablet 600 mg PO Q6H PRN fever or pain 05/26/23 #30 tabs dicyclomine 20 mg tablet 20 mg PO TID PRN abdominal pain 06/10/23 #20 tabs Allergies Allergy/AdvReac Type Severity Reaction Status Date / Time No Known Allergies Allergy Verified 06/10/23 19:02 Review of Systems Review of Systems Yes all other systems are reviewed and are negative [facility] Past Medical History Medical History Bipolar 1 disorder Depression Sleep apnea HTN (hypertension) Hepatitis GERD (gastroesophageal reflux disease) Diabetes Asthma Surgical History Hx of tubal ligation Hx of cholecystectomy History of section Social History Social History Household Members: Spouse and Children Housing: House Do you presently have visiting nurse or other home services: No Alcohol intake: never Advance Directives: No Advance Directives Information Provided: No service: No Sexual orientation: Don't Know Physical Exam ED Vital Signs: Vital Signs - 24 hr 06/10/23 18:59 06/10/23 21:01 Temperature 98.4 F 98.5 F Pulse Rate 97 92 Respiratory Rate 18 16 Blood Pressure 116/68 129/78 Pulse Oximetry 98 94 Oxygen Delivery Method Room Air Room Air BMI result Body Mass Index 47.0 Appearance: Alert. Oriented X3. No acute distress. Obese Eyes: No pallor or icterus ENT: Pharynx normal. Oral Mucosa moist Neck: Normal inspection. Neck supple. CVS: Normal heart rate and rhythm. Pulses normal. Respiratory: No respiratory distress. Equal air entry bilateral, no wheezing/rales/rhonchi Abdomen: Soft , mild deep tenderness left mid abdomen no rebound tenderness guarding. Bowel sounds are present, no mass palpable, no CVA tenderness Skin: Skin warm and dry. Normal skin color. Normal skin turgor. Extremities: No lower extremity edema. No calf tenderness Neuro: Oriented X 3. Course Course Course Narrative: RME: 58yo F w/PMHx HTN, hepatitis, GERD, DM, depression, Asthma, c/o intermittent LUQ abdominal pain x3 weeks. described as sharp. Denies N/V/D, urinary sx abdomen soft +LUQ ttp no rebound or guarding Labs & UA ordered Full HPI, ROS and PE to be performed by primary ED provider. Medical Decision Making Medical Decision Making [facility] Narrative: Patient with chronic abdominal with multiple CT scan negative discharge patient home on Bentyl Differential Diagnosis Differential Diagnoses: The differential diagnosis associated with the presentation includes Chronic abdominal pain/constipation/UTI/abdominal wall pain/diverticular Lab Data [facility] Lab Attestation statement: I reviewed the patient's lab results. 06/10/23 19:20 06/10/23 19:20 Labs: Lab Results 06/10/23 Range/Units 19:20 WBC 13.4 H (4.8-10.8) X10*3/uL RBC 4.97 (4.20-5.50) X10*6/uL Hgb 14.2 (12.0-16.0) g/dl Hct 43.0 (37.0-47.0) % MCV 86.5 (80.0-98.0) fL MCH 28.6 (27.0-33.0) pg MCHC 33.0 (31.0-35.0) g/dl RDW 13.0 (11.0-16.0) % Plt Count 305 (160-400) X10*3/uL MPV 10.7 (9.4-12.3) fL Immature Gran % (Auto) 0.3 (0.0-0.4) % Neut % (Auto) 44.4 L (45-73) % Lymph % (Auto) 45.3 H (20-40) % Crook % (Auto) 7.4 (2-11) % Eos % (Auto) 2.2 (0-4) % Baso % (Auto) 0.4 (0-2) % Lymph # (Auto) 6.1 H (1.2-4.9) X10*3/uL [place]ok # (Auto) 1.0 (0.1-1.2) X10*3/uL Eos # (Auto) 0.3 (0.0-0.4) X10*3/uL Baso # (Auto) 0.1 (0.0-0.2) X10*3/uL Abs Immat Gran (auto) 0.04 H (0.00-0.03) X10*3/uL Absolute Neuts (auto) 6.0 (2.0-8.3) x10*3/uL Absolute Nucleated RBC 0.000 (0.0-0.012) X10*3/uL Nucleated RBC % (auto) 0.0 (0.0-0.2) /100WBC Smear Tech's Comments VERIFIED Sodium 139 (135-145) mmol/L Potassium 3.4 (3.3-5.1) mmol/L Chloride 105 (96-108) mmol/L Carbon Dioxide 26 (22-29) mmol/L Anion Gap 11 L (12-20) BUN 6 L (9-16) mg/dL Creatinine 0.64 (0.5-1.4) mg/dL Estim Creat Clear Calc 141.5 Estimated GFR > 60 Random Glucose 69 (60-115) mg/dL Calcium 10.2 (8.4-10.2) mg/dL Magnesium 1.5 L (1.6-2.6) mg/dL Total Bilirubin 0.4 (0.0-1.0) mg/dL Direct Bilirubin 0.2 (0.0-0.5) mg/dL AST 35 H (5-31) U/L ALT 42 H (0-31) U/L Alkaline Phosphatase 72 (39-117) U/L Total Protein 7.7 (6.5-8.0) g/dL Albumin 4.2 (3.5-5.0) g/dL Lipase 44 (8-78) U/L Urine Color Yellow Urine Appearance Clear Urine pH 7.0 (5.0-9.0) Ur Specific [place] <= 1.005 (1.005-1.025) Urine Protein 100 (2+) H (Neg-Trace) mg/dL Urine Glucose (UA) Negative (Negative) mg/dL Urine Ketones Negative (Negative) mg/dL Urine Blood Negative (Negative) Urine Nitrite Negative (Negative) Ur Leukocyte Esterase Negative (Negative) Urine RBC 0-2 (0-2) /HPF Urine WBC 0-5 (0-5) /HPF Ur Squamous Epith Cells 0-2 (0-2) /HPF Urine Bacteria None Seen (None Seen) Hyaline Casts 0-2 (0-2) /LPF Medications Administered Discontinued Medications Generic Name Dose Route Start Last Admin Trade Name Freq PRN Reason Stop Dose Admin Al Hydroxide/Mg Hydroxide 30 ml 06/10/23 21:40 06/10/23 21:50 Magnesium Hydrox/Alum Hydrox 30 Ml Oral.Susp PO 06/10/23 21:41 30 ml ONCE ONE Administration Dicyclomine HCl 20 mg 06/10/23 21:40 06/10/23 21:50 Dicyclomine Hcl 10 Mg Capsule PO 06/10/23 21:41 20 mg ONCE ONE Administration Morphine Sulfate 15 mg 06/10/23 22:22 06/10/23 22:27 Morphine Sulfate Immed Release 15 Mg Tablet PO 06/10/23 22:23 15 mg ONCE ONE Administration Discharge Plan Discharge Clinical Impression: Chronic abdominal pain Patient Disposition: Home, Self-Care Instructions: Chronic Abdominal Pain (ED) Additional Instructions: Drink plenty of fluids Pain medication as prescribed Follow with PCP Prescriptions: New dicyclomine 20 mg tablet 20 mg PO TID PRN (Reason: abdominal pain) Qty: 20 0RF No Action glipizide 10 mg tablet extended release 24hr 1 tab PO QAM (DME) FreeStyle Lite Strips Strip MISCELLANEOUS TID aspirin 81 mg tablet,delayed release (DR/EC) 1 tab PO BEDTIME lisinopril-hydrochlorothiazide 20-25 mg tablet 1 tab PO QAM alcohol swabs [Alcohol Prep Pads] Pads, Medicated 1 pledget topical BID insulin lispro protamin-lispro [Humalog Mix 75-25 KwikPen] 100 unit/mL (75-25) insulin pen 50 unit subcut BID (DME) pen needle, diabetic [Pentips] 32 gauge x 5/32 needle MISCELLANEOUS BID (DME) lancets [TRUEplus Lancets] 33 gauge misc MISCELLANEOUS TID venlafaxine 37.5 mg Capsule,Extended Release 24hr 37.5 mg PO DAILY 30 Days Qty: 30 0RF venlafaxine 75 mg Capsule,Extended Release 24hr 75 mg PO DAILY 30 Days Qty: 30 0RF olanzapine 7.5 mg Tablet 7.5 mg PO BEDTIME 30 Days Qty: 30 0RF gabapentin 100 mg Capsule 200 mg PO TID 30 Days Qty: 180 0RF lorazepam 1 mg Tablet 1 mg PO TID 30 Days Qty: 90 0RF memantine 5 mg Tablet 5 mg PO BEDTIME 30 Days Qty: 30 0RF phenazopyridine [Pyridium] 200 mg tablet 200 mg PO TID PRN (Reason: pain) Qty: 6 0RF prednisone 20 mg tablet 40 mg PO DAILY Qty: 8 0RF benzonatate 200 mg capsule 200 mg PO TID PRN (Reason: cough) Qty: 30 0RF cefuroxime axetil 250 mg tablet 250 mg PO BID 7 Days Qty: 14 0RF prednisone 20 mg tablet 20 mg PO DAILY 5 Days Qty: 5 0RF acetaminophen [Tylenol Extra Strength] 500 mg tablet 1,000 mg PO QID PRN (Reason: fever or pain) Qty: 14 0RF tramadol 50 mg tablet 50 mg PO Q8H PRN (Reason: pain) Qty: 14 0RF Rx Instructions: May partially fill upon patient request cyclobenzaprine 10 mg tablet 10 mg PO Q8H Qty: 14 0RF prednisone 20 mg tablet 40 mg PO DAILY 5 Days Qty: 10 0RF albuterol sulfate 2.5 mg/0.5 mL solution for nebulization 5 mg inhalation Q4H PRN (Reason: shortness of breath or wheezing) Qty: 30 0RF acetaminophen [Tylenol] 325 mg tablet 325 mg PO QID PRN (Reason: fever or pain) Qty: 20 0RF dicyclomine 20 mg tablet 20 mg PO TID PRN (Reason: abdominal pain) Qty: 20 0RF codeine-guaifenesin 10-100 mg/5 mL liquid 10 ml PO Q6H PRN (Reason: cough) Qty: 237 0RF ibuprofen 600 mg tablet 600 mg PO Q6H PRN (Reason: fever or pain) Qty: 30 0RF trazodone 100 mg tablet 100 mg PO BEDTIME PRN (Reason: insomnia) amlodipine 5 mg tablet 5 mg PO DAILY (DME) FreeStyle Sandra 2 Sensor Kit See Rx Instructions .ROUTE DIRECTED Qty: 1 Rx Instructions: As directed loratadine 10 mg tablet 10 mg PO DAILY metformin 1,000 mg tablet 1,000 mg PO Toujeo SoloStar U-300 Insulin 300 unit/mL (1.5 mL) insulin pen 100 unit subcut BEDTIME Trulicity 1.5 mg/0.5 mL pen injector subcut QWEEK budesonide-formoterol [Symbicort] 80-4.5 mcg/actuation HFA aerosol inhaler 2 puff inhalation BID rosuvastatin 20 mg tablet 20 mg PO QPM cholecalciferol (vitamin D3) [Vitamin D3] 50 mcg (2,000 unit) capsule 50 mcg PO QAM peg 3350-electrolytes [Golytely] 236-22.74-6.74 -5.86 gram recon soln 240 ml PO Q10M Qty: 4000 0RF Rx Instructions: as per split prep instructions, until fecal effluent is clear Interventions: ED Discharge Assessment Last Done: 06/10/23 22:41 Discharge Date/Time: 06/10/23 22:42
[2023-06-10 18:59] VITALS: BP 116/68; PULSE 97; RESP 18; TEMP 36.9; O2SAT 98; BMI 47.0
[2023-06-10 19:29] LABS: Basophils Absolute Auto 0.1 X10*3/uL (0.0-0.2); Basophils Percent Auto 0.4 % (0-2); Eosinophils Absolute Auto 0.3 X10*3/uL (0.0-0.4); Eosinophils Percent Auto 2.2 % (0-4); Hemoglobin 14.2 g/dl (12.0-16.0); Imm Gran Abs Auto 0.04 X10*3/uL (0.00-0.03); Imm Gran Pct Auto 0.3 % (0.0-0.4); Lymphocytes Percent Auto 45.3 % (20-40); MANUAL DIFF FLAG SCAN; Mean Corpuscular Hemoglobin 28.6 pg (27.0-33.0); Mean Corpuscular Volume 86.5 fL (80.0-98.0); Mean Platelet Volume 10.7 fL (9.4-12.3); Monocytes Percent Auto 7.4 % (2-11); Neutrophils Percent Auto 44.4 % (45-73); Platelet Count 305 X10*3/uL (160-400); Red Blood Count 4.97 X10*6/uL (4.20-5.50); SCAN SMEAR FLAG 1; White Blood Count 13.4 X10*3/uL (4.8-10.8)
[2023-06-10 19:32] LABS: Lymphocytes Absolute Auto 6.1 X10*3/uL (1.2-4.9)
[2023-06-10 19:36] LABS: Appearance Urine Clear; Color Urine Yellow; Glucose Urine UA Negative (Negative); Leukocyte Esterase Urine Negative (Negative); Nitrite Urine Negative (Negative); Specific Gravity - Urine <= 1.005 (1.005-1.025); UMIC TRIGGER UACC YES; Urine Blood Negative (Negative); Urine Ketones Negative (Negative); Urine Protein 100 (2+) mg/dL (Neg-Trace)
[2023-06-10 19:40] LABS: Bacteria Urine None Seen (None Seen); Hyaline Casts Urine 0-2 /LPF (0-2); RBC Urine 0-2 /HPF (0-2); Squamous Epithelial Cell Urine 0-2 /HPF (0-2); WBC Urine 0-5 /HPF (0-5)
[2023-06-10 19:47] LABS: Alanine Aminotransferase 42 U/L (0-31); Albumin Level 4.2 g/dL (3.5-5.0); Alkaline Phosphatase 72 U/L (39-117); Anion Gap 11 (12-20); Aspartate Amino Transferase 35 U/L (5-31); Bilirubin Direct 0.2 mg/dL (0.0-0.5); Bilirubin Total 0.4 mg/dL (0.0-1.0); Blood Urea Nitrogen 6 mg/dL (9-16); Calcium 10.2 mg/dL (8.4-10.2); Carbon Dioxide 26 mmol/L (22-29); Chloride 105 mmol/L (96-108); Creatinine Clr Calc Pharmacy 141.5; Estimated Glomerular Filt Rate > 60; Glucose Random 69 mg/dL (60-115); Lipase 44 U/L (8-78); Magnesium 1.5 mg/dL (1.6-2.6); Potassium 3.4 mmol/L (3.3-5.1); Sodium 139 mmol/L (135-145); Total Protein 7.7 g/dL (6.5-8.0)
[2023-06-10 20:06] LABS: SLIDE REVIEW VERIFIED
[2023-06-10 21:01] VITALS: BP 129/78; PULSE 92; RESP 16; TEMP 36.9; O2SAT 94
[2023-06-10] MEDS: Dicyclomine HCl 10 MG CAPSULE 20 MG PO (21:50)
[2023-06-10] MEDS: Magnesium Hydrox/Alum Hydrox 30 ML ORAL.SUSP PO (21:50)
[2023-06-10] MEDS: Morphine Sulfate Immed Release 15 MG TABLET PO (22:27)
== END 2023-06-10 22:42 | disposition home or self-care (01) ==
PROVIDERS: Physician Assistant; Emergency Provider Internal Medicine; PCP Internal Medicine
DX: G89.29 Other chronic pain (principal); R10.12 Left upper quadrant pain; B19.20 Unspecified viral hepatitis C without hepatic coma; E11.9 Type 2 diabetes mellitus without complications; I10 Essential (primary) hypertension; E66.9 Obesity, unspecified; Z68.42 Body mass index [BMI] 45.0-49.9, adult; Z79.4 Long term (current) use of insulin; Z79.899 Other long term (current) drug therapy
CPT/HCPCS: 36415; 80048; 80076; 81001; 83690; 83735; 85025; 99283

== ENCOUNTER 2023-08-05 08:44 | Outpatient (REF) | payer MEDICAID, SELFPAY ==
[2023-08-05 09:52] LABS: Estimated Average Glucose 197 mg/dL; Hemoglobin A1c % 8.5 % (<6.0)
[2023-08-05 10:29] LABS: Alanine Aminotransferase 30 U/L (0-31); Albumin Level 3.8 g/dL (3.5-5.0); Alkaline Phosphatase 80 U/L (39-117); Anion Gap 13 (12-20); Aspartate Amino Transferase 22 U/L (5-31); Bilirubin Total 0.3 mg/dL (0.0-1.0); Blood Urea Nitrogen 10 mg/dL (9-16); Calcium 9.9 mg/dL (8.4-10.2); Carbon Dioxide 31 mmol/L (22-29); Chloride 102 mmol/L (96-108); Cholesterol 165 mg/dL (<200); Estimated Glomerular Filt Rate > 60; Glucose Random 160 mg/dL (60-115); HDL Cholesterol 52 mg/dL (>40); LDL Cholesterol Calculated 94 mg/dL (<100); Sodium 142 mmol/L (135-145); Total Protein 7.3 g/dL (6.5-8.0); Triglycerides 98 mg/dL (<150)
[2023-08-05 10:45] LABS: Thyroid Stimulating Hormone 3.57 uIU/mL (0.32-4.0)
== END 2023-08-05 08:45 | disposition home or self-care (01) ==
LOC: HO.LAB 08:44
PROVIDERS: PCP Internal Medicine; Visit Provider Internal Medicine
DX: Z13.89 Encounter for screening for other disorder (principal)
CPT/HCPCS: 36415; 80053; 80061; 83036; 84443

== ENCOUNTER 2023-08-26 09:47 | Outpatient (AMB) | payer MEDICAID, SELFPAY ==
--- NOTE | 2023-08-26 09:48 | MHC.OFFVIS ---
Intake Vital Signs 08/26/23 10:00 Height 5 ft 7 in Weight 301 lb BMI 47.1 BP 138/63 Blood Pressure Location Rt brachial Position Sitting Pulse 94 Intake Visit Reasons: scalp cyst Intake Note: Patient presents for an assessment for scalp cyst. Pt c/o; scalp cyst x2, cyst right lower extremity. 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 Accompanied by: Other Relationship Allergies No Known Allergies Allergy (Verified 08/26/23 09:56) Medication List - Last Reconciled 08/26/23 by Gurjit Herrera MD acetaminophen (Tylenol Extra Strength) 1,000 mg (2 x 500 mg) PO QID PRN acetaminophen (Tylenol) 325 mg PO QID PRN albuterol sulfate 5 mg inhalation Q4H PRN alcohol swabs (Alcohol Prep Pads) 1 pledget topical BID amlodipine 5 mg PO DAILY aspirin 1 tab PO BEDTIME benzonatate 200 mg PO TID PRN blood sugar diagnostic (FreeStyle Lite Strips) budesonide-formoterol 80-4.5 mcg/actuation (Symbicort) 2 puffs inhalation BID cefuroxime axetil 250 mg PO BID 7 days cholecalciferol (vitamin D3) (Vitamin D3) 50 mcg PO QAM codeine-guaifenesin 10-100 mg/5 mL 10 mL PO Q6H PRN cyclobenzaprine 10 mg PO Q8H dicyclomine 20 mg PO TID PRN dicyclomine 20 mg PO TID PRN dulaglutide (Trulicity) mg subcut QWEEK flash glucose sensor (FreeStyle Sandra 2 Sensor kit) As directed gabapentin 200 mg (2 x 100 mg) PO TID 30 days glipizide ER 1 tab PO QAM ibuprofen 600 mg PO Q6H PRN insulin glargine U-300 conc (Toujeo SoloStar U-300 Insulin) 100 units subcut BEDTIME insulin lispro protamin-lispro 100 unit/mL (75-25) (Humalog Mix 75-25 KwikPen) 50 units subcut BID lancets (TRUEplus Lancets) lisinopril-hydrochlorothiazide 20-25 mg 1 tab PO QAM loratadine 10 mg PO DAILY lorazepam 1 mg PO TID 30 days memantine 5 mg PO BEDTIME 30 days metformin 1,000 mg PO olanzapine 7.5 mg PO BEDTIME 30 days peg 3350-electrolytes 236-22.74-6.74 -5.86 gram (Golytely) 240 mL PO Q10M pen needle, diabetic (Pentips) phenazopyridine (Pyridium) 200 mg PO TID PRN 6 doses prednisone 40 mg (2 x 20 mg) PO DAILY prednisone 20 mg PO DAILY 5 days prednisone 40 mg (2 x 20 mg) PO DAILY 5 days rosuvastatin 20 mg PO QPM tramadol 50 mg PO Q8H PRN trazodone 100 mg PO BEDTIME PRN venlafaxine ER 37.5 mg PO DAILY 30 days venlafaxine ER 75 mg PO DAILY 30 days HPI scalp cyst HPI Details [age] year old female referred for a scalp cyst. She says she has 2 lumps on her scalp that she has had for many years. She wants these removed. She describes discomfort with this. She denies any drainage. [facility] Medical History Scalp mass Bipolar 1 disorder Depression Sleep apnea HTN (hypertension) Hepatitis GERD (gastroesophageal reflux disease) Diabetes Asthma Surgical History Hx of tubal ligation Hx of cholecystectomy History of section Social History Household Members: Spouse and Children Housing: House Do you presently have visiting nurse or other home services: No Alcohol intake: never service: No Sexual orientation: Don't Know Review of Systems Const Denies chills and Denies fever(s) Card Denies chest pain, Denies dyspnea and Denies dyspnea on exertion Resp Denies cough, Denies dyspnea and Denies dyspnea on exertion GI Denies hematochezia and Denies change in bowel habits Denies hematuria Musc Denies back pain and Denies limited range of motion Neuro Denies focal weakness and Denies convulsions Psych Denies depression and Denies mood swings Physical Exam Const General: comfortable and no acute distress Orientation/consciousness: patient oriented x3 HEENT Other: On the frontal aspect of the scalp is note of 2 subcutaneous masses. One is about 2.5 cm and another 1 adjacent to this is about 1.5 cm Neck Neck: Yes no lymphadenopathy Resp Auscultation: clear to auscultation bilaterally Cardio Rhythm: regular rhythm GI Palpation (GI): Soft to palpation, nontender and no guarding Neuro General: patient oriented x3 Assessment & Plan Assessment & Plan (1) Scalp mass: Code(s): R22.0 - Localized swelling, mass and lump, head Plan: She has 2 masses in the scalp on the frontal area as described above. These are well-defined and smooth and appeared to be lipomas versus scalp cysts. I explained to her the technique of excision under local anesthesia. I reviewed the risks including but not limited to bleeding and infections and poor healing, as well as the benefits and alternatives. I described to her what to expect post procedure. She wants to proceed. This will be scheduled in the minor procedure room in the hospital. Coding Level of Care Code New Pt Level 3 (23043) Diagnoses Scalp mass R22.0
[2023-08-26 10:00] VITALS: BP 138/63; PULSE 94; BMI 47.1
== END 2023-08-26 10:10 | disposition home or self-care (01) ==
PROVIDERS: PCP Internal Medicine; Referring Provider Internal Medicine; Visit Provider Surgery
DX: R22.0 Localized swelling, mass and lump, head (principal)
CPT/HCPCS: 99203

== ENCOUNTER → 2023-08-26 09:47 | Outpatient (BNVA) | payer MEDICAID, SELFPAY | PROVIDERS: PCP Internal Medicine; Referring Provider Internal Medicine; Visit Provider Surgery | DX: R22.0 Localized swelling, mass and lump, head (principal) | CPT/HCPCS: 99202 ==

== ENCOUNTER 2023-09-08 10:18 | Day surgery (SDC) | payer MEDICAID, SELFPAY ==
[2023-09-08 11:17] VITALS: BP 167/95; PULSE 82; RESP 16; TEMP 36.6; O2SAT 96
[2023-09-08] MEDS: Albuterol Sulfate (0.083%) 2.5 MG/3 ML VIAL.NEB INHALE (11:25)
[2023-09-08 11:27] VITALS: PULSE 78; RESP 16; O2SAT 97
[2023-09-08 11:45] LABS: Glucose, Whole Blood 152 mg/dL (60-115)
[2023-09-08] MEDS: Lactated Ringers 1,000 ML 100 ML IVCONT (11:55)
--- NOTE | 2023-09-08 13:10 | HO.ANESPROP2 ---
Documented by User: Vika Aponte NP 09/07/23 09:10 HPI - Anesthesia Eval Consult details Narrative: 58yo F for Upper Endoscopy and Colonoscopy Anesthesia Pre-Procedure Meds Is the patient on any of the following meds?: Dulaglutide (Trulicity) PMFSH Active Problems Active Problems: All Active Problems (Updated 08/26/23 @ 10:06 by Gurjit Herrera MD) Scalp mass (Acute) Colon cancer screening (Acute) Obesity, morbid, BMI 50 or higher (Acute) Hepatitis C (Acute) Well woman exam (Acute) Sleep apnea (Acute) HTN (hypertension) (Acute) Hepatitis (Acute) GERD (gastroesophageal reflux disease) (Acute) Diabetes (Acute) Depression (Acute) Bipolar 1 disorder (Acute) Asthma (Acute) Frontal lobe dementia (Acute) Past Medical History Medical History Scalp mass Bipolar 1 disorder Depression Sleep apnea HTN (hypertension) Hepatitis GERD (gastroesophageal reflux disease) Diabetes Asthma Surgical History Surgical History Hx of tubal ligation Hx of cholecystectomy History of section Social History Social History Household Members: Spouse and Children Housing: House Do you presently have visiting nurse or other home services: No Alcohol intake: never Patient Tobacco Use Status: Former Tobacco user Quit Date: 40 years Use of substances other than those prescribed or required for medical reasons: No Are you DNR?: No Advance Directives: No Advance Directives Information Provided: Yes service: No Sexual orientation: Don't Know Meds Allergies Allergy/AdvReac Type Severity Reaction Status Date / Time No Known Allergies Allergy Verified 08/26/23 09:56 Home Medications Medication Instructions Recorded Confirmed Last Taken Type alcohol swabs (Alcohol Prep Pads) 1 pledget topical BID 10/27/20 08/26/23 Unknown History aspirin 81 mg tablet,delayed 1 tab PO BEDTIME 10/27/20 08/26/23 Unknown History release blood sugar diagnostic (FreeStyle 10/27/20 08/26/23 Unknown History Lite Strips) glipizide 10 mg tablet, extended 1 tab PO QAM 10/27/20 08/26/23 Unknown History release 24 hr insulin lispro protamine-lispro 50 unit subcut BID 10/27/20 08/26/23 Unknown History 100 unit/mL (75-25) subcutaneous pen (Humalog Mix 75-25 KwikPen) lancets 33 gauge (TRUEplus Lancets) 10/27/20 08/26/23 Unknown History lisinopril 20 1 tab PO QAM 10/27/20 08/26/23 Unknown History mg-hydrochlorothiazide 25 mg tablet pen needle, diabetic 32 gauge x 10/27/20 08/26/23 Unknown History (Pentips) amlodipine 5 mg tablet 5 mg PO DAILY 03/24/23 08/26/23 Unknown History budesonide-formoterol HFA 80 2 puff inhalation BID 03/24/23 08/26/23 Unknown History mcg-4.5 mcg/actuation aerosol inhaler (Symbicort) cholecalciferol (vitamin D3) 50 50 mcg PO QAM 03/24/23 08/26/23 Unknown History mcg (2,000 unit) capsule (Vitamin D3) dulaglutide 1.5 mg/0.5 mL mg subcut QWEEK 03/24/23 08/26/23 Unknown History subcutaneous pen injector (Trulicity) flash glucose sensor (FreeStyle #1 ea 03/24/23 08/26/23 Unknown History Sandra 2 Sensor kit) insulin glargine U-300 conc 300 100 unit subcut BEDTIME 03/24/23 08/26/23 Unknown History unit/mL (1.5 mL) subcutaneous pen (Touje[employer] SoloStar U-300 Insulin) loratadine 10 mg tablet 10 mg PO DAILY 03/24/23 08/26/23 Unknown History metformin 1,000 mg tablet 1,000 mg PO 03/24/23 08/26/23 Unknown History rosuvastatin 20 mg tablet 20 mg PO QPM 03/24/23 08/26/23 Unknown History trazodone 100 mg tablet 100 mg PO BEDTIME PRN insomnia 03/24/23 08/26/23 Unknown History Exam Pertinent Lab Results Pertinent Lab Results: Laboratory Tests 06/10/23 06/10/23 08/05/23 19:20 19:20 08:57 WBC 13.4 H Hgb 14.2 Hct 43.0 Plt Count 305 Sodium 142 Potassium 4.0 Chloride 102 Carbon Dioxide BUN Creatinine 08/05/23 08:57 WBC Hgb Hct Plt Count Sodium Potassium Chloride Carbon Dioxide 31 H BUN 10 Creatinine 0.73 Assessment and Plan Assessment Anesthesia Assessment: Chart Reviewed Documented by User: Tatyana Marie DO 09/08/23 13:14 HPI - Anesthesia Eval Anesthesia Pre-Procedure Meds Is the patient on any of the following meds?: Dulaglutide (Trulicity) If Yes to any meds - educate patient: Pt education - increased risk of aspiration PMFSH Past Medical History Medical History Scalp mass Bipolar 1 disorder Depression Sleep apnea HTN (hypertension) Hepatitis GERD (gastroesophageal reflux disease) Diabetes Asthma Family History Family history of problems with anesthesia: No Surgical History Surgical History Hx of tubal ligation Hx of cholecystectomy History of section History of Problems with Anesthesia: No Social History Social History Household Members: Spouse and Children Housing: House Do you presently have visiting nurse or other home services: No Alcohol intake: never Patient Tobacco Use Status: Former Tobacco user Quit Date: 40 years Use of substances other than those prescribed or required for medical reasons: No Are you DNR?: No Advance Directives: No Advance Directives Information Provided: Yes service: No Sexual orientation: Don't Know Meds Allergies Allergy/AdvReac Type Severity Reaction Status Date / Time No Known Allergies Allergy Verified 08/26/23 09:56 Home Medications Medication Instructions Recorded Confirmed Last Taken Type alcohol swabs (Alcohol Prep Pads) 1 pledget topical BID 10/27/20 08/26/23 Unknown History aspirin 81 mg tablet,delayed 1 tab PO BEDTIME 10/27/20 08/26/23 Unknown History release blood sugar diagnostic (FreeStyle 10/27/20 08/26/23 Unknown History Lite Strips) glipizide 10 mg tablet, extended 1 tab PO QAM 10/27/20 08/26/23 Unknown History release 24 hr insulin lispro protamine-lispro 50 unit subcut BID 10/27/20 08/26/23 Unknown History 100 unit/mL (75-25) subcutaneous pen (Humalog Mix 75-25 KwikPen) lancets 33 gauge (TRUEplus Lancets) 10/27/20 08/26/23 Unknown History lisinopril 20 1 tab PO QAM 10/27/20 08/26/23 Unknown History mg-hydrochlorothiazide 25 mg tablet pen needle, diabetic 32 gauge x 10/27/20 08/26/23 Unknown History (Pentips) amlodipine 5 mg tablet 5 mg PO DAILY 03/24/23 08/26/23 Unknown History budesonide-formoterol HFA 80 2 puff inhalation BID 03/24/23 08/26/23 Unknown History mcg-4.5 mcg/actuation aerosol inhaler (Symbicort) cholecalciferol (vitamin D3) 50 50 mcg PO QAM 03/24/23 08/26/23 Unknown History mcg (2,000 unit) capsule (Vitamin D3) dulaglutide 1.5 mg/0.5 mL mg subcut QWEEK 03/24/23 08/26/23 Unknown History subcutaneous pen injector (Trulicity) flash glucose sensor (FreeStyle #1 ea 03/24/23 08/26/23 Unknown History Sandra 2 Sensor kit) insulin glargine U-300 conc 300 100 unit subcut BEDTIME 03/24/23 08/26/23 Unknown History unit/mL (1.5 mL) subcutaneous pen ([place] SoloStar U-300 Insulin) loratadine 10 mg tablet 10 mg PO DAILY 03/24/23 08/26/23 Unknown History metformin 1,000 mg tablet 1,000 mg PO 03/24/23 08/26/23 Unknown History rosuvastatin 20 mg tablet 20 mg PO QPM 03/24/23 08/26/23 Unknown History trazodone 100 mg tablet 100 mg PO BEDTIME PRN insomnia 03/24/23 08/26/23 Unknown History Exam Exam Date and Time: September 08, 2023 1310 Height,Weight and Vital Signs: Vital Signs Temperature 97.9 F 09/08/23 11:17 Pulse Rate 82 09/08/23 11:17 Respiratory Rate 16 09/08/23 11:17 Blood Pressure 167/95 H 09/08/23 11:17 Pulse Oximetry 96 09/08/23 11:17 Oxygen Delivery Method Room Air 09/08/23 11:17 Temperature 97.9 F 09/08/23 11:17 Pulse Rate 78 09/08/23 11:27 Respiratory Rate 16 09/08/23 11:27 Blood Pressure 167/95 H 09/08/23 11:17 Pulse Oximetry 96 09/08/23 11:17 Oxygen Delivery Method Room Air 09/08/23 11:17 Airway Mallampati Class: III TM Dist: >3cm Neck ROM: Full Loose/Missing/Broken Teeth: Yes (edentulous) Heart: S1S2 Lungs: Diminished B/L Assessment and Plan Assessment Anesthesia Assessment: Anesthesia Plan Discussed and Chart Reviewed Final Anesthetic Review Family History of Problems with Anesthesia: No History of Problems with Anesthesia: No NPO: Yes ASA Class: III Final Preanesthetic Review: No Changes in Pt Med Stat, Meds/Allgs Chart Reviewed, Consent Obtained/Reviewed and Anes Risks/Benef Reviewed Patient Risk: Intermediate Procedure Risk: Low Anesthetic Plan Anesthetic Plan: MAC: and Agree w/ Assess. and Plan Disposition: Standard PACU
--- NOTE | 2023-09-08 13:39 | MHC.SHP ---
Pre-Procedural Eval Section A - 24 Hr Update-Section A only Date of Service: 09/08/23 Section B - Complete if H&P > 30 days Chief Complaint: Screening, cirrhosis Details of Present Illness: Bipolar 1 disorder Depression Sleep apnea HTN (hypertension) Hepatitis GERD (gastroesophageal reflux disease) Diabetes Asthma Surgical History Hx of tubal ligation Hx of cholecystectomy History of section Allergies: Allergies Allergy/AdvReac Type Severity Reaction Status Date / Time No Known Allergies Allergy Verified 08/26/23 09:56 Review of Systems Review of Systems Comment: 10 point ROS negative Exam Surgical H&P Exam: Normal: HEENT, Normal: Heart, Normal: Lungs, Normal: Extremities, Normal: Abdomen, Normal: Skin and Normal: Neurological Plan Diagnosis/Plan: Unchanged I have reviewed the history and physical and performed a pertinent physical examination on my patient. No changes have occurred unless specified. Time Spent With Patient Time: Total time managing care of this patient today ____ minutes.
--- NOTE | 2023-09-08 13:40 | P.OP_ITS ---
Operative Note Operative Note Date of Service: 09/08/23 Narrative: Procedure: Upper endoscopy and colonoscopy Indication: Cirrhosis, screening Endoscopist: Wilda Figueroa MD Anesthesia Provider: Dr Denzel Rausch Anesthesia type: MAC Instrument: Olympus [id number] ?? EGD Procedure:?? The procedure, indications, preparation and potential complications were reviewed with the patient, who indicated understanding and gave written informed consent to proceed. A physical exam was performed. The endoscope was introduced through the mouth, and advanced to the duodenum. The mucosa was carefully examined on slow withdrawal of the endoscope. The patient tolerated the procedure well. There were no immediate complications.? ? EGD Findings:? * Esophagus:? Normal esophageal mucosa. No varices were noted. Z line was at 41 cm. A moderate sized hiatal hernia was noted wiht the diaphragmatic pinch at 46 cm. * Stomach:? Erythema, scant erosions and heme noted in the body of the stomach. Retroflexion was performed in the cardia that showed Hill grade III hiatal hernia. Cold forceps biopsies were taken to rule out H Pylori. * Duodenum: Normal duodenal mucosa to the extent visualised. Colonoscopy Procedure: The patient was then turned for the colonoscopy. A digital rectal exam was performed which was abnormal for anal tag. A distal attachment cap was affixed to the tip of the adult colonoscope which was then inserted through the anus and advanced through the colon to the cecum at 85 cm. Appendiceal orifice and ileocecal valve were identified. Mucosa was carefully examined under high definition white light as the instrument was slowly withdrawn in a retrograde panoramic fashion. Retroflexion was performed in the rectum. The procedure was not difficult. There were no immediate obvious c omplications. The quality of the prep was BBPS: 1+3+3 = inadequate in cecum Withdrawal time 16 minutes. Limitations: Poor prep Colonoscopy Findings: Mucosa: There was adherent dark liquid stool in the cecum and ascending colon which could not be washed off adequately despite extensive flushing and suctioning. The remaining colon mucosa was endoscopically normal. Protruding lesions: * Moderate internal hemorrhoids without stigmata of recent bleeding. Impressions:? * Normal esophagus * Gastritis (biopsy) * Normal duodenum * Poor prep * Hemorrhoids Recommendations: - Follow path results - Will be prescribed tx if H Pylori positive - Repeat EGD for variceal screening in 1-2 years - Will need a repeat colo within 6-12 months for completion - Pt with poor airway due to neck size and body habitus, and anesthesiologist recommends LMA for future procedures.
[2023-09-08 14:31] VITALS: BP 123/78; PULSE 91; RESP 18; TEMP 36.9; O2SAT 97
[2023-09-08 14:33] VITALS: BMI 47.3
[2023-09-08 14:46] VITALS: BP 128/94; PULSE 91; RESP 20; TEMP 36.9; O2SAT 97
== END 2023-09-08 15:00 | disposition home or self-care (01) ==
PROVIDERS: PCP Internal Medicine; Visit Provider Internal Medicine
PROC: (CPT 43239; principal; 2023-09-08 12:20)
DX: K29.70 Gastritis, unspecified, without bleeding (principal); K44.9 Diaphragmatic hernia without obstruction or gangrene; B19.20 Unspecified viral hepatitis C without hepatic coma; K21.9 Gastro-esophageal reflux disease without esophagitis; Z12.11 Encounter for screening for malignant neoplasm of colon; K64.8 Other hemorrhoids; K64.4 Residual hemorrhoidal skin tags; E11.9 Type 2 diabetes mellitus without complications; I10 Essential (primary) hypertension; G47.30 Sleep apnea, unspecified; J44.9 Chronic obstructive pulmonary disease, unspecified; G31.09 Other frontotemporal neurocognitive disorder; E66.9 Obesity, unspecified; Z68.43 Body mass index [BMI] 50.0-59.9, adult; Z87.891 Personal history of nicotine dependence
CPT/HCPCS: 43239; 45378; 82947; 88305; 88313; 88342; 94640; J1100; J1596; J2250; J2704

== ENCOUNTER → 2023-09-08 10:18 | Outpatient (BNV) | payer MEDICAID, SELFPAY | PROVIDERS: PCP Internal Medicine; Visit Provider Internal Medicine | DX: Z12.11 Encounter for screening for malignant neoplasm of colon (principal); K29.70 Gastritis, unspecified, without bleeding | CPT/HCPCS: 43239; 45378 ==

== ENCOUNTER 2023-09-18 | Outpatient (REF) | payer MEDICAID, SELFPAY | END 2023-09-18 00:01 | disposition home or self-care (01) | LOC: HO.MS | PROVIDERS: PCP Internal Medicine; Visit Provider Surgery | DX: L72.11 Pilar cyst (principal) | CPT/HCPCS: 11421; 11422; 88304 ==

== ENCOUNTER 2023-09-18 08:49 | Outpatient (AMB) | payer MEDICAID, SELFPAY ==
[2023-09-18 08:55] VITALS: BP 126/76; BMI 47.3
--- NOTE | 2023-09-18 08:55 | MHC.OFFVIS ---
Intake Vital Signs 09/18/23 08:55 Height 5 ft 7 in Weight 302 lb BMI 47.3 BP 126/76 Blood Pressure Location Rt brachial Position Sitting Intake Visit Reasons: Excision Scalp Mass X2 Accompanied by: sister Kaila Allergies No Known Allergies Allergy (Verified 08/26/23 09:56) HPI Excision Scalp Mass X2 HPI Details She is here for excision of 2 scalp masses. [facility] Medical History Scalp mass Bipolar 1 disorder Depression Sleep apnea HTN (hypertension) Hepatitis GERD (gastroesophageal reflux disease) Diabetes Asthma Surgical History Hx of tubal ligation Hx of cholecystectomy History of section Social History Household Members: Spouse and Children Housing: House Do you presently have visiting nurse or other home services: No Alcohol intake: never Patient Tobacco Use Status: Former Tobacco user Quit Date: 40 years service: No Sexual orientation: Don't Know Physical Exam Vital Signs: Last Vital Signs BP 126/76 09/18/23 08:55 BMI result Body Mass Index 47.3 Office Procedures Excision Details: She was placed in reclining position. There were 2 scalp masses on the frontal aspect on the right side. Once of the scalp masses was about 2 cm in diameter. The 2nd 1 was about 1 cm in diameter. This area was prepped and draped. Lidocaine 1% was used for local anesthesia. I made an incision on the skin overlying the larger mass using blade 15. This was carried down through the full-thickness of the skin and subcutaneous fat until a cyst capsule was visualized. I sharply dissected the cyst capsule off of the rest of the subcutaneous layer until this was delivered and sent as a specimen. I closed the incision with multiple nylon 3-0 simple interrupted sutures. I irrigated the area prior to closure I infiltrated the scalp on the 2nd cyst with lidocaine 1%. I used a blade 15 to make the incision and this was carried down until I visualized the cyst capsule. I sharply dissected this is capsule off of the rest of the subcutaneous layer and this was delivered. I irrigated the area. I closed the incision with full-thickness nylon 3-0 interrupted sutures. Bacitracin was applied and the procedure was completed. She tolerated procedure well. There were no immediate complications There was minimal blood loss. She was given wound care instructions.. [id number] scalp/neck/hands/feet/genitalia 3.1cm-4cm Procedure code (CPT) selection complete Assessment & Plan Assessment & Plan (1) Scalp mass: Code(s): R22.0 - Localized swelling, mass and lump, head Plan: Excision of 2 scalp cysts were done. One was 2 cm in diameter. The 2nd 1 was about 1 cm in diameter. Orders: Orders Surgical Today R22.0 - Localized swelling, mass and lump, head Coding Level of Care Code Procedure Only Diagnoses Scalp mass R22.0 CPT Codes Scalp/Neck/Hands/Feet/Genetalia - CPT: 38489-[id number] scalp/neck/hands/feet/genitalia 3.1cm-4cm ([id number])
== END 2023-09-18 09:33 | disposition home or self-care (01) ==
PROVIDERS: PCP Internal Medicine; Visit Provider Surgery
DX: L72.11 Pilar cyst (principal)
CPT/HCPCS: 11421; 11422

== ENCOUNTER 2023-09-18 09:36 | Outpatient (REF) | payer MEDICAID, SELFPAY | END 2023-09-18 09:37 | disposition home or self-care (01) | LOC: HO.LNP 09:36 | PROVIDERS: Visit Provider Surgery | DX: R22.0 Localized swelling, mass and lump, head (principal) | CPT/HCPCS: 88304 ==

== ENCOUNTER 2023-09-30 08:55 | Outpatient (AMB) | payer MEDICAID, SELFPAY ==
--- NOTE | 2023-09-30 08:57 | A.OFFVIS_ITS ---
Intake Vital Signs 09/30/23 08:58 Height 5 ft 7 in Weight 302 lb 0.003 oz BMI 47.3 Intake Visit Reasons: S/P excision scalp mass x2 Intake Note: This patient presents for a follow-up assessment status post In office procedure for excision of scalp cyst x2. Pt c/o; reports no complaints at this time. 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 She tolerated procedure well. She denies significant complaints at this time. [facility] Medical History Scalp mass Bipolar 1 disorder Depression Sleep apnea HTN (hypertension) Hepatitis GERD (gastroesophageal reflux disease) Diabetes Asthma Surgical History History of excision of mass (~09/18/23) Hx of tubal ligation Hx of cholecystectomy History of section Social History Household Members: Spouse and Children Housing: House Do you presently have visiting nurse or other home services: No Alcohol intake: never Patient Tobacco Use Status: Former Tobacco user Quit Date: 40 years service: No Sexual orientation: Don't Know Review of Systems Const Denies chills and Denies fever(s) Card Denies chest pain, Denies dyspnea and Denies dyspnea on exertion Resp Denies cough, Denies dyspnea and Denies dyspnea on exertion GI Denies hematochezia and Denies change in bowel habits Denies hematuria Musc Denies back pain and Denies limited range of motion Neuro Denies focal weakness and Denies convulsions Psych Denies depression and Denies mood swings Physical Exam Vital Signs: BMI result Body Mass Index 47.3 Const General: comfortable and no acute distress HEENT Other: Excision sites well healed, sutures intact Assessment & Plan Assessment & Plan (1) Scalp mass: Code(s): R22.0 - Localized swelling, mass and lump, head Plan: Status post excision. Both excision sites are healing well. The path report shows her cyst. I removed her sutures. She can follow up on a p.r.n. basis. Coding Level of Care Code Global (20258) Diagnoses Scalp mass R22.0
[2023-09-30 08:58] VITALS: BMI 47.3
== END 2023-09-30 09:18 | disposition home or self-care (01) ==
PROVIDERS: PCP Internal Medicine; Visit Provider Surgery
DX: R22.0 Localized swelling, mass and lump, head (principal)
CPT/HCPCS: 99024

== ENCOUNTER → 2023-09-30 08:55 | Outpatient (BNVA) | payer MEDICAID, SELFPAY | PROVIDERS: PCP Internal Medicine; Visit Provider Surgery | DX: Z48.817 Encounter for surgical aftercare following surgery on the skin and subcutaneous tissue (principal); Z98.890 Other specified postprocedural states | CPT/HCPCS: 99212 ==

== ENCOUNTER 2023-10-02 12:28 | Outpatient (AMB) | payer MEDICAID, SELFPAY ==
--- NOTE | 2023-10-02 12:34 | MHC.OFFVIS ---
Intake Vital Signs 10/02/23 12:36 Height 5 ft 7 in Weight 302 lb BMI 47.3 BP 127/57 L Blood Pressure Location Lt brachial Position Sitting Pulse 99 Intake Visit Reasons: f/u double Intake Note: Patient follow up for EGD/Colonoscopy screening. Patient cc: abdominal pain with bloating and burning sensation, denies any GI issues. 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 No fam hx of CRC in first degree relatives. No anemia noted on labs. Has never had any CRC screening including stool test or colo. - Chronic HCV: reports IVDU in her 20s + sharing needles. 2 of her brothers also had hepatitis C and one from cirrhosis due to it. First found out about it 5-7 years ago and tx was prescribed through her PCP's office but pt never took it. Labs reviewed: HCV Ab + with HBcAb +. HBsAg neg. HIV neg. 09/08/23: Normal esophagus Gastritis (biopsy) Normal duodenum Poor prep Hemorrhoids Path: Diagnosis Stomach, random, biopsy: Gastric body mucosa with focal mild chronic inactive inflammation; negative for H.pylori and intestinal metaplasia. 10/02/23: Patient here with her sister Kaila. Reports intermittent abdominal pain with heartburn. She is unsure if she started the omeprazole that was sent to her pharmacy on 09/09/23. Otherwise, in terms of liver disease, has advanced fibrosis versus early cirrhosis likely due to metabolic liver disease. Hepatitis-C viral load negative. No varices seen on upper endoscopy. She is due for repeat ultrasound for HCC screening. She is aware that she will need a repeat colonoscopy, although remains hesitant to pursue it at this time, but sister reassures me that she will talk to her. Of note, patient noted to be short of breath and tachypneic even while sitting down, which only worsened when she was moved for an exam. Has risk factors for both CAD as well as right heart failure, no recent echo in system. [facility] Medical History Scalp mass Bipolar 1 disorder Depression Sleep apnea HTN (hypertension) Hepatitis GERD (gastroesophageal reflux disease) Diabetes Asthma Surgical History History of excision of mass (~09/18/23) Hx of tubal ligation Hx of cholecystectomy History of section Social History Household Members: Spouse and Children Housing: House Do you presently have visiting nurse or other home services: No Alcohol intake: never Patient Tobacco Use Status: Former Tobacco user Quit Date: 40 years service: No Sexual orientation: Don't Know Review of Systems Const All systems reviewed & are unremarkable except as noted in HPI and below Physical Exam Vital Signs: Last Vital Signs Pulse 99 10/02/23 12:36 BP 127/57 L 10/02/23 12:36 BMI result Body Mass Index 47.3 No acute distress, with a obesity, nonicteric Tachypneic abdomen soft, nontender Nonpitting edema Assessment & Plan Assessment & Plan (1) Obesity, morbid, BMI 50 or higher: Code(s): E66.01 - Morbid (severe) obesity due to excess calories (2) Sleep apnea: Code(s): G47.30 - Sleep apnea, unspecified (3) Colon cancer screening: Code(s): Z12.11 - Encounter for screening for malignant neoplasm of colon (4) Shortness of breath: Code(s): R06.02 - Shortness of breath (5) Cirrhosis: Code(s): K74.60 - Unspecified cirrhosis of liver Plan 1. Chronic liver disease Has advanced fibrosis versus early cirrhosis. No clinically significant portal hypertension based on clinical assessment and endoscopy so far. This is likely secondary to metabolic liver disease. No evidence of chronic hepatitis-C based on labs. Plan: -strongly counseled for obesity management. We will recent bariatric surgery referral -reinforced diabetes and hyperlipidemia control -ultrasound abdomen ordered for HCC screening -next EGD due in 2025 -no evidence of hepatic encephalopathy or ascites on exam today 2. Shortness of breath Patient's sister reports has been having worsening fatigue and shortness of breath, even on minimal activities. Sometimes seems short of breath even with just sitting down. No chest pain, diaphoresis, nausea. Has EBONI but does not wear CPAP. Also has COPD. Plan: -check echo to evaluate right and left heart function 3. Colon cancer screening: At average risk for CRC. Colonoscopy could not be completed due to poor prep on the right side. Will need another colonoscopy within a year. Workload already in. Follow up 6 months Orders: Orders US abdomen complete Today K74.60 - Unspecified cirrhosis of liver CA echo transthoracic complete Today K74.60 - Unspecified cirrhosis of liver, R06.02 - Shortness of breath Coding Level of Care Code Est Pt Level 4 (86784) Diagnoses Obesity, morbid, BMI 50 or higher E66.01 Sleep apnea G47.30 Colon cancer screening Z12.11 Shortness of breath R06.02 Cirrhosis K74.60
[2023-10-02 12:36] VITALS: BP 127/57; PULSE 99; BMI 47.3
== END 2023-10-02 13:13 | disposition home or self-care (01) ==
PROVIDERS: PCP Internal Medicine; Visit Provider Internal Medicine
DX: E66.01 Morbid (severe) obesity due to excess calories (principal); G47.30 Sleep apnea, unspecified; Z12.11 Encounter for screening for malignant neoplasm of colon; R06.02 Shortness of breath; K74.60 Unspecified cirrhosis of liver
CPT/HCPCS: 99214

== ENCOUNTER → 2023-10-02 12:28 | Outpatient (BNVA) | payer MEDICAID, SELFPAY | PROVIDERS: PCP Internal Medicine; Visit Provider Internal Medicine | DX: K74.60 Unspecified cirrhosis of liver (principal); E66.01 Morbid (severe) obesity due to excess calories; G47.30 Sleep apnea, unspecified; Z68.42 Body mass index [BMI] 45.0-49.9, adult; Z90.49 Acquired absence of other specified parts of digestive tract; Z12.11 Encounter for screening for malignant neoplasm of colon | CPT/HCPCS: 99212 ==

== ENCOUNTER → 2023-10-19 09:26 | Outpatient (BNVA) | payer MEDICAID, SELFPAY | PROVIDERS: PCP Internal Medicine; Visit Provider Physician Assistant Surgical ==

== ENCOUNTER 2023-10-19 12:18 | Emergency (ER) | payer MEDICAID, SELFPAY ==
--- NOTE | ~2023-10-19 | XR_ITS ---
EXAMINATION: XR ABDOMEN KUB CLINICAL INDICATION: Left upper quadrant pain, questionable constipation COMPARISON: None available. TECHNIQUE: AP view of the abdomen. FINDINGS: There is no significant constipation, with moderate amount of fecal debris through the colon. The bowel gas pattern is normal with no evidence of ileus or obstruction. No unusual soft tissue calcifications are noted. The bones are unremarkable. XR/XR KUB IMPRESSION: Mild constipation
[2023-10-19 12:28] VITALS: BP 138/63; PULSE 93; RESP 16; TEMP 36.4; O2SAT 94; BMI 45.7
--- NOTE | 2023-10-19 12:34 | ED_ITS ---
HPI - General Adult General Chief complaint: General Medical Stated complaint: L sided pain from abd to back Time Seen by Provider: 10/19/23 18:22 Related Data Home Medications ?Medication ?Instructions ?Recorded ?Confirmed alcohol swabs (Alcohol Prep Pads) 1 pledget topical BID 10/27/20 08/26/23 aspirin 81 mg tablet,delayed 1 tab PO BEDTIME 10/27/20 08/26/23 release blood sugar diagnostic (FreeStyle 10/27/20 08/26/23 Lite Strips) glipizide 10 mg tablet, extended 1 tab PO QAM 10/27/20 08/26/23 release 24 hr insulin lispro protamine-lispro 50 unit subcut BID 10/27/20 08/26/23 100 unit/mL (75-25) subcutaneous pen (Humalog Mix 75-25 KwikPen) lancets 33 gauge (TRUEplus Lancets) 10/27/20 08/26/23 lisinopril 20 1 tab PO QAM 10/27/20 08/26/23 mg-hydrochlorothiazide 25 mg tablet pen needle, diabetic 32 gauge x 10/27/20 08/26/23/32 (Pentips) amlodipine 5 mg tablet 5 mg PO DAILY 03/24/23 08/26/23 budesonide-formoterol HFA 80 2 puff inhalation BID 03/24/23 08/26/23 mcg-4.5 mcg/actuation aerosol inhaler (Symbicort) cholecalciferol (vitamin D3) 50 50 mcg PO QAM 03/24/23 08/26/23 mcg (2,000 unit) capsule (Vitamin D3) dulaglutide 1.5 mg/0.5 mL mg subcut QWEEK 03/24/23 08/26/23 subcutaneous pen injector (Trulicity) flash glucose sensor (FreeStyle #1 ea 03/24/23 08/26/23 Sandra 2 Sensor kit) insulin glargine U-300 conc 300 100 unit subcut BEDTIME 03/24/23 08/26/23 unit/mL (1.5 mL) subcutaneous pen (Toujeo SoloStar U-300 Insulin) loratadine 10 mg tablet 10 mg PO DAILY 03/24/23 08/26/23 metformin 1,000 mg tablet 1,000 mg PO 03/24/23 08/26/23 rosuvastatin 20 mg tablet 20 mg PO QPM 03/24/23 08/26/23 trazodone 100 mg tablet 100 mg PO BEDTIME PRN insomnia 03/24/23 08/26/23 Previous Rx's ?Medication ?Instructions ?Recorded gabapentin 100 mg capsule 200 mg (2 x 100 mg) PO TID 30 days 11/14/20 #180 caps lorazepam 1 mg tablet 1 mg PO TID 30 days #90 tabs 11/14/20 memantine 5 mg tablet 5 mg PO BEDTIME 30 days #30 tabs 11/14/20 olanzapine 7.5 mg tablet 7.5 mg PO BEDTIME 30 days #30 tabs 11/14/20 venlafaxine 37.5 mg 37.5 mg PO DAILY 30 days #30 caps 11/14/20 capsule,extended release 24 hr venlafaxine 75 mg capsule,extended 75 mg PO DAILY 30 days #30 caps 11/14/20 release 24 hr phenazopyridine 200 mg tablet 200 mg PO TID PRN pain 6 doses #6 04/21/21 (Pyridium) tabs benzonatate 200 mg capsule 200 mg PO TID PRN cough #30 caps 01/08/22 prednisone 20 mg tablet 40 mg (2 x 20 mg) PO DAILY #8 tabs 01/08/22 cefuroxime axetil 250 mg tablet 250 mg PO BID 7 days #14 tabs 04/13/22 prednisone 20 mg tablet 20 mg PO DAILY 5 days #5 tabs 04/13/22 acetaminophen 500 mg tablet 1,000 mg (2 x 500 mg) PO QID PRN 05/27/22 (Tylenol Extra Strength) fever or pain #14 tabs cyclobenzaprine 10 mg tablet 10 mg PO Q8H #14 tabs 05/27/22 tramadol 50 mg tablet 50 mg PO Q8H PRN pain #14 tabs 05/27/22 albuterol sulfate 2.5 mg/0.5 mL 5 mg inhalation Q4H PRN shortness 11/30/22 solution for nebulization of breath or wheezing #30 ea prednisone 20 mg tablet 40 mg (2 x 20 mg) PO DAILY 5 days 11/30/22 #10 tabs acetaminophen 325 mg tablet 325 mg PO QID PRN fever or pain 05/21/23 (Tylenol) #20 tabs dicyclomine 20 mg tablet 20 mg PO TID PRN abdominal pain 05/21/23 #20 tabs codeine 10 mg-guaifenesin 100 mg/5 10 ml PO Q6H PRN cough #237 mL 05/26/23 mL oral liquid ibuprofen 600 mg tablet 600 mg PO Q6H PRN fever or pain 05/26/23 #30 tabs dicyclomine 20 mg tablet 20 mg PO TID PRN abdominal pain 06/10/23 #20 tabs omeprazole 20 mg capsule,delayed 20 mg PO DAILY 8 weeks #56 caps 09/09/23 release Allergies Allergy/AdvReac Type Severity Reaction Status Date / Time No Known Allergies Allergy Verified 10/19/23 12:30 [facility] Past Medical History Medical History Scalp mass Bipolar 1 disorder Depression Sleep apnea HTN (hypertension) Hepatitis GERD (gastroesophageal reflux disease) Diabetes Asthma Surgical History History of excision of mass (~09/18/23) Hx of tubal ligation Hx of cholecystectomy History of section Social History Social History Household Members: Spouse and Children Housing: House Do you presently have visiting nurse or other home services: No Alcohol intake: never Patient Tobacco Use Status: Former Tobacco user Quit Date: 40 years Smoked in Last 30 Days: No Use of substances other than those prescribed or required for medical reasons: No Advance Directives: No Advance Directives Information Provided: Yes service: No Sexual orientation: Don't Know Physical Exam ED Vital Signs: Vital Signs - 24 hr 10/19/23 12:28 10/19/23 19:17 Temperature 97.5 F Pulse Rate 93 82 Respiratory Rate 16 16 Blood Pressure 138/63 102/49 L Pulse Oximetry 94 95 Oxygen Delivery Method Room Air Room Air BMI result Body Mass Index 45.7 Course Course Course Narrative: This is a rapid medical exam. Defer additional HPI, ROS, PE to primary provider. 58-year-old female here with left-sided abdominal pain for months with no other associated symptoms. Will obtain labs, UA. Vitals stable Medications Administered Discontinued Medications Generic Name Dose Route Start Last Admin Trade Name Freq PRN Reason Stop Dose Admin Ketorolac Tromethamine 60 mg 10/19/23 18:33 10/19/23 19:19 Ketorolac Tromethamine 60 Mg/2 Ml Vial IM 10/19/23 18:34 60 mg ONCE ONE Administration Medical Decision Making Medical Decision Making [facility] Narrative: -my interpretation of labs: Hematology and chemistry within normal limits, urine negative for UTI -physical exam was relatively benign, no pain to palpation. -KUB: No obstructive pattern, no free air. Patient's pain likely musculoskeletal, has been ongoing for several months. - Differential Diagnosis Differential Diagnoses: The differential diagnosis associated with the presentation includes (UTI, pyelo, musculoskeletal pain, SBO, constipation) Admission/Observation Consideration of admission/observation: Escalation of care including admission/observation considered (Given patient's length of symptoms, admission was considered) Lab Data [facility] Lab Attestation statement: I reviewed the patient's lab results. 10/19/23 12:44 10/19/23 12:44 Labs: Lab Results 10/19/23 Range/Units 12:44 WBC 8.1 (4.8-10.8) X10*3/uL RBC 4.69 (4.20-5.50) X10*6/uL Hgb 13.6 (12.0-16.0) g/dl Hct 41.5 (37.0-47.0) % MCV 88.5 (80.0-98.0) fL MCH 29.0 (27.0-33.0) pg MCHC 32.8 (31.0-35.0) g/dl RDW 13.0 (11.0-16.0) % Plt Count 223 D (160-400) X10*3/uL MPV 10.7 (9.4-12.3) fL Immature Gran % (Auto) 0.2 (0.0-0.4) % Neut % (Auto) 54.3 (45-73) % Lymph % (Auto) 36.0 (20-40) % [place] % (Auto) 5.9 (2-11) % Eos % (Auto) 3.2 (0-4) % Baso % (Auto) 0.4 (0-2) % Lymph # (Auto) 2.9 (1.2-4.9) X10*3/uL [place] # (Auto) 0.5 (0.1-1.2) X10*3/uL Eos # (Auto) 0.3 (0.0-0.4) X10*3/uL Baso # (Auto) 0.0 (0.0-0.2) X10*3/uL Abs Immat Gran (auto) 0.02 (0.00-0.03) X10*3/uL Absolute Neuts (auto) 4.4 (2.0-8.3) x10*3/uL Absolute Nucleated RBC 0.000 (0.0-0.012) X10*3/uL Nucleated RBC % (auto) 0.0 (0.0-0.2) /100WBC Sodium 138 (135-145) mmol/L Potassium 3.9 (3.3-5.1) mmol/L Chloride 102 (96-108) mmol/L Carbon Dioxide 27 (22-29) mmol/L Anion Gap 13 (12-20) BUN 11 (9-16) mg/dL Creatinine 0.76 (0.5-1.4) mg/dL Estim Creat Clear Calc 117.3 Estimated GFR > 60 Random Glucose 180 H (60-115) mg/dL Calcium 10.1 (8.4-10.2) mg/dL Total Bilirubin 0.3 (0.0-1.0) mg/dL AST 28 (5-31) U/L ALT 32 H (0-31) U/L Alkaline Phosphatase 70 (39-117) U/L Total Protein 7.4 (6.5-8.0) g/dL Albumin 4.0 (3.5-5.0) g/dL Lipase 27 (8-78) U/L Urine Color Yellow Urine Appearance Clear Urine pH 7.0 (5.0-9.0) Ur Specific [place] 1.015 (1.005-1.025) Urine Protein 300 (3+) H (Neg-Trace) mg/dL Urine Glucose (UA) Negative (Negative) mg/dL Urine Ketones Negative (Negative) mg/dL Urine Blood Negative (Negative) Urine Nitrite Negative (Negative) Ur Leukocyte Esterase Negative (Negative) Urine RBC 0-2 (0-2) /HPF Urine WBC 0-5 (0-5) /HPF Ur Squamous Epith Cells 6-10 (0-2) /HPF Urine Bacteria Trace (None Seen) Hyaline Casts 0-2 (0-2) /LPF Urine Test NEGATIVE (NEGATIVE) Independent Interpretation I performed an independent interpretation of an: Plain X-Ray Radiology Impression Discussion of test interpretation with radiology: I have reviewed the radiologist's reading. Radiologist Impression: FINDINGS: There is no significant constipation, with moderate amount of fecal debris through the colon. The bowel gas pattern is normal with no evidence of ileus or obstruction. No unusual soft tissue calcifications are noted. The bones are unremarkable. XR/XR KUB IMPRESSION: Mild constipation Critical Care Time Critical Care Time Critical Care Time: Yes Total Critical Care Time: 35 Attestation: I have personally provided critical care time. Time includes review of lab data, radiology results, discussion with consultants, and monitoring for potential decompensation. Intervention performed as documented. Discharge Plan Discharge Clinical Impression: Chronic abdominal pain Patient Disposition: Home, Self-Care Instructions: Abdominal Pain (ED) Additional Instructions: Please follow-up with your primary care physician tomorrow. If you have any worsening or new symptoms, please return to the emergency room or call 911 Prescriptions: No Action omeprazole 20 mg capsule,delayed release(DR/EC) 20 mg PO DAILY 56 Days Qty: 56 0RF glipizide 10 mg tablet extended release 24hr 1 tab PO QAM (DME) FreeStyle Lite Strips Strip MISCELLANEOUS TID aspirin 81 mg tablet,delayed release (DR/EC) 1 tab PO BEDTIME lisinopril-hydrochlorothiazide 20-25 mg tablet 1 tab PO QAM alcohol swabs [Alcohol Prep Pads] Pads, Medicated 1 pledget topical BID insulin lispro protamin-lispro [Humalog Mix 75-25 KwikPen] 100 unit/mL (75-25) insulin pen 50 unit subcut BID (DME) pen needle, diabetic [Pentips] 32 gauge x 5/32 needle MISCELLANEOUS BID (DME) lancets [TRUEplus Lancets] 33 gauge misc MISCELLANEOUS TID venlafaxine 37.5 mg Capsule,Extended Release 24hr 37.5 mg PO DAILY 30 Days Qty: 30 0RF venlafaxine 75 mg Capsule,Extended Release 24hr 75 mg PO DAILY 30 Days Qty: 30 0RF olanzapine 7.5 mg Tablet 7.5 mg PO BEDTIME 30 Days Qty: 30 0RF gabapentin 100 mg Capsule 200 mg PO TID 30 Days Qty: 180 0RF lorazepam 1 mg Tablet 1 mg PO TID 30 Days Qty: 90 0RF memantine 5 mg Tablet 5 mg PO BEDTIME 30 Days Qty: 30 0RF phenazopyridine [Pyridium] 200 mg tablet 200 mg PO TID PRN (Reason: pain) Qty: 6 0RF prednisone 20 mg tablet 40 mg PO DAILY Qty: 8 0RF benzonatate 200 mg capsule 200 mg PO TID PRN (Reason: cough) Qty: 30 0RF cefuroxime axetil 250 mg tablet 250 mg PO BID 7 Days Qty: 14 0RF prednisone 20 mg tablet 20 mg PO DAILY 5 Days Qty: 5 0RF acetaminophen [Tylenol Extra Strength] 500 mg tablet 1,000 mg PO QID PRN (Reason: fever or pain) Qty: 14 0RF tramadol 50 mg tablet 50 mg PO Q8H PRN (Reason: pain) Qty: 14 0RF Rx Instructions: May partially fill upon patient request cyclobenzaprine 10 mg tablet 10 mg PO Q8H Qty: 14 0RF dicyclomine 20 mg tablet 20 mg PO TID PRN (Reason: abdominal pain) Qty: 20 0RF prednisone 20 mg tablet 40 mg PO DAILY 5 Days Qty: 10 0RF albuterol sulfate 2.5 mg/0.5 mL solution for nebulization 5 mg inhalation Q4H PRN (Reason: shortness of breath or wheezing) Qty: 30 0RF acetaminophen [Tylenol] 325 mg tablet 325 mg PO QID PRN (Reason: fever or pain) Qty: 20 0RF dicyclomine 20 mg tablet 20 mg PO TID PRN (Reason: abdominal pain) Qty: 20 0RF codeine-guaifenesin 10-100 mg/5 mL liquid 10 ml PO Q6H PRN (Reason: cough) Qty: 237 0RF ibuprofen 600 mg tablet 600 mg PO Q6H PRN (Reason: fever or pain) Qty: 30 0RF trazodone 100 mg tablet 100 mg PO BEDTIME PRN (Reason: insomnia) amlodipine 5 mg tablet 5 mg PO DAILY (DME) FreeStyle Sandra 2 Sensor Kit See Rx Instructions .ROUTE DIRECTED Qty: 1 Rx Instructions: As directed loratadine 10 mg tablet 10 mg PO DAILY metformin 1,000 mg tablet 1,000 mg PO Toujeo SoloStar U-300 Insulin 300 unit/mL (1.5 mL) insulin pen 100 unit subcut BEDTIME Trulicity 1.5 mg/0.5 mL pen injector subcut QWEEK budesonide-formoterol [Symbicort] 80-4.5 mcg/actuation HFA aerosol inhaler 2 puff inhalation BID rosuvastatin 20 mg tablet 20 mg PO QPM cholecalciferol (vitamin D3) [Vitamin D3] 50 mcg (2,000 unit) capsule 50 mcg PO QAM Print Language: Albanian
[2023-10-19 12:52] LABS: MANUAL DIFF FLAG NO
[2023-10-19 12:54] LABS: Basophils Percent Auto 0.4 % (0-2); Eosinophils Absolute Auto 0.3 X10*3/uL (0.0-0.4); Eosinophils Percent Auto 3.2 % (0-4); Hematocrit 41.5 % (37.0-47.0); Hemoglobin 13.6 g/dl (12.0-16.0); Imm Gran Abs Auto 0.02 X10*3/uL (0.00-0.03); Imm Gran Pct Auto 0.2 % (0.0-0.4); Lymphocytes Absolute Auto 2.9 X10*3/uL (1.2-4.9); Mean Corpuscular HGB Conc 32.8 g/dl (31.0-35.0); Mean Corpuscular Volume 88.5 fL (80.0-98.0); Mean Platelet Volume 10.7 fL (9.4-12.3); Monocytes Absolute Auto 0.5 X10*3/uL (0.1-1.2); Monocytes Percent Auto 5.9 % (2-11); Neutrophils Absolute Auto 4.4 x10*3/uL (2.0-8.3); Neutrophils Percent Auto 54.3 % (45-73); Platelet Count 223 X10*3/uL (160-400); Red Blood Count 4.69 X10*6/uL (4.20-5.50); White Blood Count 8.1 X10*3/uL (4.8-10.8)
[2023-10-19 12:58] LABS: Appearance Urine Clear; Color Urine Yellow; Glucose Urine UA Negative (Negative); Leukocyte Esterase Urine Negative (Negative); Nitrite Urine Negative (Negative); Specific Gravity - Urine 1.015 (1.005-1.025); UMIC TRIGGER UACC YES; Urine Blood Negative (Negative); Urine Ketones Negative (Negative); Urine Protein 300 (3+) mg/dL (Neg-Trace)
[2023-10-19 13:01] LABS: Bacteria Urine Trace (None Seen); Hyaline Casts Urine 0-2 /LPF (0-2); RBC Urine 0-2 /HPF (0-2); WBC Urine 0-5 /HPF (0-5)
[2023-10-19 13:03] LABS: UPreg QC Valid YES; Urine Pregnancy NEGATIVE (NEGATIVE)
[2023-10-19 13:09] LABS: Alanine Aminotransferase 32 U/L (0-31); Alkaline Phosphatase 70 U/L (39-117); Anion Gap 13 (12-20); Aspartate Amino Transferase 28 U/L (5-31); Bilirubin Total 0.3 mg/dL (0.0-1.0); Blood Urea Nitrogen 11 mg/dL (9-16); Calcium 10.1 mg/dL (8.4-10.2); Carbon Dioxide 27 mmol/L (22-29); Chloride 102 mmol/L (96-108); Creatinine Clr Calc Pharmacy 117.3; Estimated Glomerular Filt Rate > 60; Glucose Random 180 mg/dL (60-115); Lipase 27 U/L (8-78); Potassium 3.9 mmol/L (3.3-5.1); Sodium 138 mmol/L (135-145); Total Protein 7.4 g/dL (6.5-8.0)
[2023-10-19 19:17] VITALS: BP 102/49; PULSE 82; RESP 16; O2SAT 95
[2023-10-19] MEDS: Ketorolac Tromethamine 60 MG/2 ML VIAL IM (19:19)
[2023-10-19 20:45] VITALS: BP 102/49; PULSE 82; RESP 16; TEMP 36.4; O2SAT 95
== END 2023-10-19 20:47 | disposition home or self-care (01) ==
PROVIDERS: Nurse Practitioner Family; Emergency Provider Emergency Medicine; PCP Internal Medicine
DX: R10.9 Unspecified abdominal pain (principal); G89.29 Other chronic pain; I10 Essential (primary) hypertension; E11.9 Type 2 diabetes mellitus without complications; J45.909 Unspecified asthma, uncomplicated
CPT/HCPCS: 36415; 74018; 80053; 81001; 81025; 83690; 85025; 96372; 99284; J1885

== ENCOUNTER 2023-10-20 08:45 | Outpatient (REF) | payer MEDICAID, SELFPAY ==
--- NOTE | ~2023-10-20 | US_ITS ---
EXAMINATION: US ABDOMEN COMPLETE CLINICAL INFORMATION: Unspecified cirrhosis of liver. COMPARISON: X-ray abdomen KUB 10/19/2023. CT abdomen and pelvis with contrast 05/21/2023. Ultrasound abdomen complete 04/21/2023 and 02/01/2020. MR abdomen without contrast 03/05/2018. TECHNIQUE: Real-time imaging of the abdominal viscera. FINDINGS: PANCREAS: The pancreas appears unremarkable, without masses or ductal dilatation, with the exception of the tail which is obscured by bowel gas. ABDOMINAL AORTA: The proximal, mid, and distal segments are normal in caliber. INFERIOR VENA CAVA: Visualized portions are normal. LIVER: The liver is normal in size. The liver contour is mildly lobular. There is diffuse heterogeneously increased liver parenchymal echogenicity, consistent with hepatic steatosis. No focal hepatic lesion. There is no intrahepatic biliary duct dilatation seen. GALLBLADDER: Surgically absent. COMMON BILE DUCT: Normal in caliber measuring 1.0 cm in diameter. RIGHT KIDNEY: A benign 1 cm cm Bosniak class II renal cyst is noted with some calcification in its wall, which requires no additional imaging or follow up. No solid renal masses are seen. No hydronephrosis or renal calculi. The kidney measures 12.5 cm in maximum dimension. LEFT KIDNEY: Normal. No hydronephrosis. No renal calculi or focal parenchymal lesions. The kidney measures 12.5 cm in maximum dimension. SPLEEN: Spleen is enlarged measuring 12.9 cm in maximum dimension. FREE FLUID: None. US/US abdomen complete IMPRESSION: 1. Hepatic steatosis with mildly lobular contour, suggesting cirrhosis. 2. Mild splenomegaly.
== END 2023-10-20 08:46 | disposition home or self-care (01) ==
LOC: HO.US 08:45
PROVIDERS: PCP Internal Medicine; Visit Provider Internal Medicine
DX: K74.60 Unspecified cirrhosis of liver (principal)
CPT/HCPCS: 76700

== ENCOUNTER → 2023-11-03 07:49 | Outpatient (REF) | payer MEDICAID, SELFPAY ==
--- NOTE | 2023-11-03 07:52 | CA_ITS ---
Transthoracic Echocardiogram Patient (Last, First, Middle): Barbra Ratliff H Gender: Female Date of : 1965 Age: 58 Procedure Date: 11/03/2023 Procedure Type: Transthoracic Echocardiogram Location: OP Height: 170.18 cm Weight: 137.89 kg BSA: 2.42 m2 Heart Rate: 87 bpm BP: 108 / 72 mmHg Feed Miller: TO Referring MD: Wilda Figueroa MD Symptoms: K74.60 - Unspecified cirrhosis of liver Study Quality: Fair/Contrast ECG Rhythm: Sinus Conclusions: - The left ventricular systolic function is normal. The calculated ejection fraction is 66% by biplane method. - There is no evidence of interatrial shunt by agitated saline. - No obvious valvular pathology seen on this study. Findings Procedure Information Contrast agent, definity, is being given per protocol without apparent complications. The study quality is limited by patients body habitus. Left Ventricle Normal left ventricular cavity size. There is mildly increased left ventricular wall thickness. The left ventricular systolic function is normal. The calculated ejection fraction is 66% by biplane method. There is no evidence of regional wall motion abnormalities. Diastolic function is normal for age. Right Ventricle Normal right ventricular cavity size and systolic function. Atria Both atria are normal in size. There is no evidence of interatrial shunt by agitated saline. (with rest and valsalva). Aortic Valve There is a normal trileaflet aortic valve. There is mild calcification of the aortic valve. There is no aortic valve stenosis. There is no aortic valve regurgitation. Mitral Valve The mitral valve appears normal. There is mild mitral annular calcification. There is no mitral valve regurgitation. There is no mitral valve stenosis. Pulmonic Valve The pulmonic valve is likely normal. Tricuspid Valve There is trace tricuspid valve regurgitation. Tricuspid regurgitation envelope is inadequate for calculation of right ventricular systolic pressure. Great Vessels The asc aorta is normal in size. Venous The inferior vena cava was not well visualized. The inferior vena cava is normal in size. Pericardium/Pleural There is no evidence of pericardial effusion. Prior Study Comparison No significant change compared to prior study dated: 04/10/2016. Recommendations, Care & Conclusions No obvious valvular pathology seen on this study. Measurements 2D Linear Measurements IVSd: 1.21 0.6-0.9/0.6-1.0 cm LVIDd: 4.27 3.9-5.3/4.2-5.9 cm LVIDd Index: 1.76 2.4-3.2/2.2-3.1 cm/m2 LVIDs: 2.76 2.0-3.6 cm LVPWd: 1.09 0.7-1.1 cm LA Diam: 3.60 2.7-3.8/3.0-4.0 cm LAIDs Index: 1.49 1.5-2.3 cm/m2 LV Mass: 213.97 67-162/88-224 g LV Mass Index: 88.42 43-95/49-115 g/m2 LVOT Diam: 2.10 3.0+(-)1.3 cm 2D Systolic Function EF 4C: 67.80 >55% EF 2C: 62.40 >55% EF BiP: 65.80 >55% Mitral Valve MV Pk E: 0.61 MV PK A: 0.75 MV Decel Time: 122.00 E/A: 0.80 E'Lateral: 7.40 E'Medial: 7.29 E/E' Med: 8.30 E/E' Lat: 8.20 PHT: 38.00 MVA PHT: 5.79 Decel [place]: 4.91 Aortic Valve AoV Pk Adria: 1.41 AoV Mn Adria: 1.01 AoV VTI: 0.26 AoV Pk Grad: 8.00 Aov Mn Grad: 4.00 ÓSCAR Cont.VTI: 2.74 LVOT LVOT Pk Adria: 1.01 LVOT Mn Adria: 0.73 LVOT VTI: 0.21 LVOT Pk Grad: 4.00 LVOT Mn Grad: 2.00 LVOT Diam: 2.10 LVOT Area: 3.46 Diastolic Function MV Pk E: 0.61 MV Pk A: 0.75 E/A: 0.80 E'Medial: 7.29 E/E' Med: 8.30 E' Laterial: 7.40 E/E' Lat: 8.20 Right Ventricle TAPSE (mm): 27.20 TVS' Adria: 14.70 Tricuspid Valve RA Press: 3.00 Great Vessels Aorta Sinus of Valsalva: 3.96 2.0-3.5 cm Ao Asc: 3.30 2.1-3.4 cm Updated in Other Vendor System with Status of Final Sivakumar Zay MD electronically signed on 11/03/2023 12:03:50 PM with status of Final
== END ==
LOC: HO.CARD 07:49
PROVIDERS: PCP Internal Medicine; Visit Provider Internal Medicine
DX: K74.60 Unspecified cirrhosis of liver (principal); R06.02 Shortness of breath
CPT/HCPCS: 93306; Q9957

== ENCOUNTER → 2023-11-03 07:52 | Outpatient (BNV) | payer MEDICAID, SELFPAY | PROVIDERS: PCP Internal Medicine; Visit Provider Internal Medicine | DX: I35.8 Other nonrheumatic aortic valve disorders (principal) | CPT/HCPCS: 93306 ==

== ENCOUNTER 2023-11-05 08:26 | Outpatient (REF) | payer MEDICAID, SELFPAY ==
[2023-11-05 09:13] LABS: Estimated Average Glucose 203 mg/dL; Hemoglobin A1c % 8.7 % (<6.0)
[2023-11-05 09:40] LABS: Alanine Aminotransferase 43 U/L (0-31); Albumin Level 4.1 g/dL (3.5-5.0); Alkaline Phosphatase 75 U/L (39-117); Anion Gap 15 (12-20); Aspartate Amino Transferase 35 U/L (5-31); Bilirubin Total 0.3 mg/dL (0.0-1.0); Blood Urea Nitrogen 9 mg/dL (9-16); Carbon Dioxide 30 mmol/L (22-29); Chloride 101 mmol/L (96-108); Cholesterol 141 mg/dL (<200); Estimated Glomerular Filt Rate > 60; Glucose Random 183 mg/dL (60-115); HDL Cholesterol 49 mg/dL (>40); LDL Cholesterol Calculated 73 mg/dL (<100); Sodium 142 mmol/L (135-145); Total Protein 7.6 g/dL (6.5-8.0); Triglycerides 95 mg/dL (<150)
== END 2023-11-05 08:27 | disposition home or self-care (01) ==
LOC: HO.LAB 08:26
PROVIDERS: PCP Internal Medicine; Visit Provider Internal Medicine
DX: E11.65 Type 2 diabetes mellitus with hyperglycemia (principal); E66.01 Morbid (severe) obesity due to excess calories; E78.00 Pure hypercholesterolemia, unspecified; G47.33 Obstructive sleep apnea (adult) (pediatric); L72.3 Sebaceous cyst
CPT/HCPCS: 36415; 80053; 80061; 83036

== ENCOUNTER 2023-11-24 22:27 | Emergency (ER) | payer MEDICAID, SELFPAY ==
--- NOTE | ~2023-11-24 | XR_ITS ---
EXAMINATION: XR CHEST, 2 VIEWS CLINICAL INFORMATION: Cough/shortness of breath COMPARISON: 05/26/2023 TECHNIQUE: PA and lateral views of the chest were obtained. FINDINGS: Minimal linear atelectasis or pleural parenchymal scarring at the left lung base. No consolidation, pneumothorax, or pleural effusion. Cardiac and mediastinal contours are normal. Pulmonary vasculature is unremarkable. No acute osseous findings. XR/XR chest 2V IMPRESSION: No acute cardiopulmonary findings.
[2023-11-24 22:43] VITALS: BP 109/70; PULSE 101; RESP 20; TEMP 35.5; O2SAT 94; BMI 47.6
[2023-11-24 23:15] LABS: Basophils Absolute Auto 0.1 X10*3/uL (0.0-0.2); Basophils Percent Auto 0.4 % (0-2); Eosinophils Absolute Auto 0.2 X10*3/uL (0.0-0.4); Eosinophils Percent Auto 1.2 % (0-4); Hematocrit 44.2 % (37.0-47.0); Hemoglobin 14.8 g/dl (12.0-16.0); Imm Gran Abs Auto 0.05 X10*3/uL (0.00-0.03); Imm Gran Pct Auto 0.4 % (0.0-0.4); Lymphocytes Absolute Auto 5.5 X10*3/uL (1.2-4.9); Lymphocytes Percent Auto 38.3 % (20-40); MANUAL DIFF FLAG SCAN; Mean Corpuscular HGB Conc 33.5 g/dl (31.0-35.0); Mean Corpuscular Hemoglobin 28.8 pg (27.0-33.0); Mean Platelet Volume 10.8 fL (9.4-12.3); Monocytes Absolute Auto 0.8 X10*3/uL (0.1-1.2); Monocytes Percent Auto 5.6 % (2-11); Neutrophils Absolute Auto 7.7 x10*3/uL (2.0-8.3); Neutrophils Percent Auto 54.1 % (45-73); Platelet Count 290 X10*3/uL (160-400); Red Blood Count 5.14 X10*6/uL (4.20-5.50); Red Cell Distribution Width 12.6 % (11.0-16.0); SCAN SMEAR FLAG 1; White Blood Count 14.3 X10*3/uL (4.8-10.8)
[2023-11-24 23:31] LABS: Alanine Aminotransferase 33 U/L (0-31); Albumin Level 4.1 g/dL (3.5-5.0); Alkaline Phosphatase 94 U/L (39-117); Anion Gap 17 (12-20); Aspartate Amino Transferase 17 U/L (5-31); Bilirubin Total 0.3 mg/dL (0.0-1.0); Blood Urea Nitrogen 27 mg/dL (9-16); Calcium 10.5 mg/dL (8.4-10.2); Carbon Dioxide 27 mmol/L (22-29); Chloride 94 mmol/L (96-108); Creatinine Clr Calc Pharmacy 80.3; Estimated Glomerular Filt Rate 51; Glucose Random 282 mg/dL (60-115); Magnesium 1.9 mg/dL (1.6-2.6); Potassium 3.8 mmol/L (3.3-5.1); Sodium 134 mmol/L (135-145); Total Protein 7.9 g/dL (6.5-8.0)
[2023-11-24 23:38] LABS: SLIDE REVIEW VERIFIED
[2023-11-24 23:52] LABS: Influenza A PCR NEGATIVE (Negative); Influenza B PCR NEGATIVE (Negative); Resp Syncy Virus RNA Qual PCR NEGATIVE (Negative); SARS COV2 PCR INHOUSE NEGATIVE (Negative)
[2023-11-25] VITALS (13 sets, daily range): BP systolic 85–141; BP diastolic 35–108; PULSE 83–106; RESP 10–22; TEMP 36.4–36.8; O2SAT 92–97
[2023-11-25 01:00] LABS: Glucose, Whole Blood 314 mg/dL (60-115)
--- NOTE | 2023-11-25 05:36 | ED_ITS ---
HPI - URI/Sore Throat General Chief Complaint: Upper Respiratory Symptoms Stated Complaint: cough body aches dizziness weakness Time Seen by Provider: 11/25/23 05:36 Source: patient Mode of arrival: ambulatory Limitations: no limitations History of Present Illness ED Provider: jenna BUENROSTRO Narrative: Patient's history of asthma bipolar disorder obesity hypertension complaining of cough wheezing for last 2 weeks prescribed prednisone 40 mg daily by PCP on 11/17 patient comes here as still coughing with mucopurulent phlegm and wheezing and feel dizzy when standing no vomiting no diarrhea no fever Related Data Home Medications ?Medication ?Instructions ?Recorded ?Confirmed alcohol swabs (Alcohol Prep Pads) 1 pledget topical BID 10/27/20 08/26/23 aspirin 81 mg tablet,delayed 1 tab PO BEDTIME 10/27/20 08/26/23 release blood sugar diagnostic (FreeStyle 10/27/20 08/26/23 Lite Strips) glipizide 10 mg tablet, extended 1 tab PO QAM 10/27/20 08/26/23 release 24 hr insulin lispro protamine-lispro 50 unit subcut BID 10/27/20 08/26/23 100 unit/mL (75-25) subcutaneous pen (Humalog Mix 75-25 KwikPen) lancets 33 gauge (TRUEplus Lancets) 10/27/20 08/26/23 lisinopril 20 1 tab PO QAM 10/27/20 08/26/23 mg-hydrochlorothiazide 25 mg tablet pen needle, diabetic 32 gauge x 10/27/20 08/26/23 5/32 (Pentips) amlodipine 5 mg tablet 5 mg PO DAILY 03/24/23 08/26/23 budesonide-formoterol HFA 80 2 puff inhalation BID 03/24/23 08/26/23 mcg-4.5 mcg/actuation aerosol inhaler (Symbicort) cholecalciferol (vitamin D3) 50 50 mcg PO QAM 03/24/23 08/26/23 mcg (2,000 unit) capsule (Vitamin D3) dulaglutide 1.5 mg/0.5 mL mg subcut QWEEK 03/24/23 08/26/23 subcutaneous pen injector (Trulicity) flash glucose sensor (FreeStyle #1 ea 03/24/23 08/26/23 Sandra 2 Sensor kit) insulin glargine U-300 conc 300 100 unit subcut BEDTIME 03/24/23 08/26/23 unit/mL (1.5 mL) subcutaneous pen (Frantz VerdugoLaureanobipin U-300 Insulin) loratadine 10 mg tablet 10 mg PO DAILY 03/24/23 08/26/23 metformin 1,000 mg tablet 1,000 mg PO 03/24/23 08/26/23 rosuvastatin 20 mg tablet 20 mg PO QPM 03/24/23 08/26/23 trazodone 100 mg tablet 100 mg PO BEDTIME PRN insomnia 03/24/23 08/26/23 Previous Rx's ?Medication ?Instructions ?Recorded gabapentin 100 mg capsule 200 mg (2 x 100 mg) PO TID 30 days 11/14/20 #180 caps lorazepam 1 mg tablet 1 mg PO TID 30 days #90 tabs 11/14/20 memantine 5 mg tablet 5 mg PO BEDTIME 30 days #30 tabs 11/14/20 olanzapine 7.5 mg tablet 7.5 mg PO BEDTIME 30 days #30 tabs 11/14/20 venlafaxine 37.5 mg 37.5 mg PO DAILY 30 days #30 caps 11/14/20 capsule,extended release 24 hr venlafaxine 75 mg capsule,extended 75 mg PO DAILY 30 days #30 caps 11/14/20 release 24 hr phenazopyridine 200 mg tablet 200 mg PO TID PRN pain 6 doses #6 04/21/21 (Pyridium) tabs benzonatate 200 mg capsule 200 mg PO TID PRN cough #30 caps 01/08/22 prednisone 20 mg tablet 40 mg (2 x 20 mg) PO DAILY #8 tabs 01/08/22 cefuroxime axetil 250 mg tablet 250 mg PO BID 7 days #14 tabs 04/13/22 prednisone 20 mg tablet 20 mg PO DAILY 5 days #5 tabs 04/13/22 acetaminophen 500 mg tablet 1,000 mg (2 x 500 mg) PO QID PRN 05/27/22 (Tylenol Extra Strength) fever or pain #14 tabs cyclobenzaprine 10 mg tablet 10 mg PO Q8H #14 tabs 05/27/22 tramadol 50 mg tablet 50 mg PO Q8H PRN pain #14 tabs 05/27/22 albuterol sulfate 2.5 mg/0.5 mL 5 mg inhalation Q4H PRN shortness 11/30/22 solution for nebulization of breath or wheezing #30 ea prednisone 20 mg tablet 40 mg (2 x 20 mg) PO DAILY 5 days 11/30/22 #10 tabs acetaminophen 325 mg tablet 325 mg PO QID PRN fever or pain 05/21/23 (Tylenol) #20 tabs dicyclomine 20 mg tablet 20 mg PO TID PRN abdominal pain 05/21/23 #20 tabs codeine 10 mg-guaifenesin 100 mg/5 10 ml PO Q6H PRN cough #237 mL 05/26/23 mL oral liquid ibuprofen 600 mg tablet 600 mg PO Q6H PRN fever or pain 05/26/23 #30 tabs dicyclomine 20 mg tablet 20 mg PO TID PRN abdominal pain 06/10/23 #20 tabs omeprazole 20 mg capsule,delayed 20 mg PO DAILY 8 weeks #56 caps 09/09/23 release Allergies Allergy/AdvReac Type Severity Reaction Status Date / Time No Known Allergies Allergy Verified 11/24/23 22:46 Review of Systems 2 Review of Systems: Yes all other systems are reviewed and are negative [facility] Past Medical History Medical History Scalp mass Bipolar 1 disorder Depression Sleep apnea HTN (hypertension) Hepatitis GERD (gastroesophageal reflux disease) Diabetes Asthma Surgical History History of excision of mass (~09/18/23) Hx of tubal ligation Hx of cholecystectomy History of section Social History Social History Household Members: Spouse and Children Housing: House Do you presently have visiting nurse or other home services: No Alcohol intake: never Patient Tobacco Use Status: Former Tobacco user Quit Date: 40 years Smoked in Last 30 Days: No Use of substances other than those prescribed or required for medical reasons: No Advance Directives: No Advance Directives Information Provided: No Do you have a plan to hurt others: No Plan Patient : No service: No Sexual orientation: Don't Know Physical Exam 2 Vital Signs: Vital Signs: Last Vital Signs Temp 97.5 F 11/25/23 03:13 Pulse 102 H 11/25/23 06:47 Resp 14 11/25/23 06:04 BP 91/43 L 11/25/23 06:47 Pulse Ox 96 11/25/23 05:16 O2 Del Method Room Air 11/25/23 05:16 BMI result Body Mass Index 47.6 Appearance: Alert. Oriented X3. No acute distress. Obese Eyes: PERRLA, No Nystagmus ENT: Pharynx normal. Oral Mucosa moist Neck: Normal inspection. Neck supple. CVS: Normal heart rate and rhythm. Pulses normal. Respiratory: No respiratory distress. Equal air entry bilateral, bilateral wheezing Abdomen: Soft and nontender. Bowel sounds are present, no mass palpable, no CVA tenderness Skin: Skin warm and dry. Normal skin color. Normal skin turgor. Extremities: No lower extremity edema. No calf tenderness Neuro: Oriented X 3. No motor deficit. No sensory deficit.No cerebellar signs , cranial nerves II-XII intact Medications Administered Generic Name Dose Route Start Last Admin Trade Name Freq PRN Reason Stop Dose Admin Sodium Chloride 1,000 mls @ 999 mls/hr 11/25/23 06:46 11/25/23 07:01 Ns IV 11/25/23 07:46 999 mls/hr .Q1H1M ONE Administration Discontinued Medications Generic Name Dose Route Start Last Admin Trade Name Freq PRN Reason Stop Dose Admin Albuterol Sulfate 2.5 mg/ 0 mg 11/25/23 05:43 11/25/23 06:03 Albuterol/Ipratropium 3 ml INHALE 11/25/23 05:44 2.5 dose ONCE ONE Administration Medical Decision Making Medical Decision Making [facility] Narrative: Patient complaining of dizziness on standing for last few days orthostatic was positive with drop in blood pressure with dizziness feeling no change in medication patient does take amlodipine 5 mg daily will give IV fluids No signs of sepsis but will give Rocephin for chronic lung disease elevated WBC count secondary to prednisone use Patient is signed out Dr. Hand pending further disposition Differential Diagnosis Differential Diagnoses: The differential diagnosis associated with the presentation includes Admission/Observation Consideration of admission/observation: Escalation of care including admission/observation considered Lab Data [facility] Lab Attestation statement: I reviewed the patient's lab results. 11/24/23 23:07 11/24/23 23:07 Labs: Lab Results 11/24/23 11/25/23 Range/Units 23:07 00:52 WBC 14.3 H (4.8-10.8) X10*3/uL RBC 5.14 (4.20-5.50) X10*6/uL Hgb 14.8 (12.0-16.0) g/dl Hct 44.2 (37.0-47.0) % MCV 86.0 (80.0-98.0) fL MCH 28.8 (27.0-33.0) pg MCHC 33.5 (31.0-35.0) g/dl RDW 12.6 (11.0-16.0) % Plt Count 290 D (160-400) X10*3/uL MPV 10.8 (9.4-12.3) fL Immature Gran % (Auto) 0.4 (0.0-0.4) % Neut % (Auto) 54.1 (45-73) % Lymph % (Auto) 38.3 (20-40) % [place] % (Auto) 5.6 (2-11) % Eos % (Auto) 1.2 (0-4) % Baso % (Auto) 0.4 (0-2) % Lymph # (Auto) 5.5 H (1.2-4.9) X10*3/uL [place] # (Auto) 0.8 (0.1-1.2) X10*3/uL Eos # (Auto) 0.2 (0.0-0.4) X10*3/uL Baso # (Auto) 0.1 (0.0-0.2) X10*3/uL Abs Immat Gran (auto) 0.05 H (0.00-0.03) X10*3/uL Absolute Neuts (auto) 7.7 (2.0-8.3) x10*3/uL Absolute Nucleated RBC 0.000 (0.0-0.012) X10*3/uL Nucleated RBC % (auto) 0.0 (0.0-0.2) /100WBC Smear Tech's Comments VERIFIED Sodium 134 L (135-145) mmol/L Potassium 3.8 (3.3-5.1) mmol/L Chloride 94 L (96-108) mmol/L Carbon Dioxide 27 (22-29) mmol/L Anion Gap 17 (12-20) BUN 27 H (9-16) mg/dL Creatinine 1.10 (0.5-1.4) mg/dL Estim Creat Clear Calc 80.3 Estimated GFR 51 POC Glucose 314 H (60-115) mg/dL Random Glucose 282 H (60-115) mg/dL Calcium 10.5 H (8.4-10.2) mg/dL Magnesium 1.9 (1.6-2.6) mg/dL Total Bilirubin 0.3 (0.0-1.0) mg/dL AST 17 (5-31) U/L ALT 33 H (0-31) U/L Alkaline Phosphatase 94 (39-117) U/L Total Protein 7.9 (6.5-8.0) g/dL Albumin 4.1 (3.5-5.0) g/dL Influenza Type A (PCR) NEGATIVE (Negative) Influenza Type B (PCR) NEGATIVE (Negative) RSV RNA Qual (PCR) NEGATIVE (Negative) SARS-CoV-2 RNA (RT-PCR) NEGATIVE (Negative) Independent Interpretation I performed an independent interpretation of an: Plain X-Ray Interpretation: negative Radiology Impression Discussion of test interpretation with radiology: I have reviewed the radiologist's reading. Discharge Plan Discharge Clinical Impression: Acute bronchitis, Acute exacerbation of chronic obstructive pulmonary disease Patient Disposition: Still a Patient Prescriptions: No Action omeprazole 20 mg capsule,delayed release(DR/EC) 20 mg PO DAILY 56 Days Qty: 56 0RF glipizide 10 mg tablet extended release 24hr 1 tab PO QAM (DME) FreeStyle Lite Strips Strip MISCELLANEOUS TID aspirin 81 mg tablet,delayed release (DR/EC) 1 tab PO BEDTIME lisinopril-hydrochlorothiazide 20-25 mg tablet 1 tab PO QAM alcohol swabs [Alcohol Prep Pads] Pads, Medicated 1 pledget topical BID insulin lispro protamin-lispro [Humalog Mix 75-25 KwikPen] 100 unit/mL (75-25) insulin pen 50 unit subcut BID (DME) pen needle, diabetic [Pentips] 32 gauge x 5/32 needle MISCELLANEOUS BID (DME) lancets [TRUEplus Lancets] 33 gauge misc MISCELLANEOUS TID venlafaxine 37.5 mg Capsule,Extended Release 24hr 37.5 mg PO DAILY 30 Days Qty: 30 0RF venlafaxine 75 mg Capsule,Extended Release 24hr 75 mg PO DAILY 30 Days Qty: 30 0RF olanzapine 7.5 mg Tablet 7.5 mg PO BEDTIME 30 Days Qty: 30 0RF gabapentin 100 mg Capsule 200 mg PO TID 30 Days Qty: 180 0RF lorazepam 1 mg Tablet 1 mg PO TID 30 Days Qty: 90 0RF memantine 5 mg Tablet 5 mg PO BEDTIME 30 Days Qty: 30 0RF phenazopyridine [Pyridium] 200 mg tablet 200 mg PO TID PRN (Reason: pain) Qty: 6 0RF prednisone 20 mg tablet 40 mg PO DAILY Qty: 8 0RF benzonatate 200 mg capsule 200 mg PO TID PRN (Reason: cough) Qty: 30 0RF cefuroxime axetil 250 mg tablet 250 mg PO BID 7 Days Qty: 14 0RF prednisone 20 mg tablet 20 mg PO DAILY 5 Days Qty: 5 0RF acetaminophen [Tylenol Extra Strength] 500 mg tablet 1,000 mg PO QID PRN (Reason: fever or pain) Qty: 14 0RF tramadol 50 mg tablet 50 mg PO Q8H PRN (Reason: pain) Qty: 14 0RF Rx Instructions: May partially fill upon patient request cyclobenzaprine 10 mg tablet 10 mg PO Q8H Qty: 14 0RF dicyclomine 20 mg tablet 20 mg PO TID PRN (Reason: abdominal pain) Qty: 20 0RF prednisone 20 mg tablet 40 mg PO DAILY 5 Days Qty: 10 0RF albuterol sulfate 2.5 mg/0.5 mL solution for nebulization 5 mg inhalation Q4H PRN (Reason: shortness of breath or wheezing) Qty: 30 0RF acetaminophen [Tylenol] 325 mg tablet 325 mg PO QID PRN (Reason: fever or pain) Qty: 20 0RF dicyclomine 20 mg tablet 20 mg PO TID PRN (Reason: abdominal pain) Qty: 20 0RF codeine-guaifenesin 10-100 mg/5 mL liquid 10 ml PO Q6H PRN (Reason: cough) Qty: 237 0RF ibuprofen 600 mg tablet 600 mg PO Q6H PRN (Reason: fever or pain) Qty: 30 0RF trazodone 100 mg tablet 100 mg PO BEDTIME PRN (Reason: insomnia) amlodipine 5 mg tablet 5 mg PO DAILY (DME) FreeStyle Sandra 2 Sensor Kit See Rx Instructions .ROUTE DIRECTED Qty: 1 Rx Instructions: As directed loratadine 10 mg tablet 10 mg PO DAILY metformin 1,000 mg tablet 1,000 mg PO [place] SoloStar U-300 Insulin 300 unit/mL (1.5 mL) insulin pen 100 unit subcut BEDTIME Trulicity 1.5 mg/0.5 mL pen injector subcut QWEEK budesonide-formoterol [Symbicort] 80-4.5 mcg/actuation HFA aerosol inhaler 2 puff inhalation BID rosuvastatin 20 mg tablet 20 mg PO QPM cholecalciferol (vitamin D3) [Vitamin D3] 50 mcg (2,000 unit) capsule 50 mcg PO QAM Print Language: Luxembourger
[2023-11-25] MEDS: Albuterol Sulfate 2.5 MG, Albuterol/Iprat 2.5/0.5MG 3 ML 3 ML INHALE (06:03)
--- NOTE | 2023-11-25 06:47 | MHC.EDTECH ---
orthostatic vitals completed MD and RN aware
[2023-11-25] MEDS: 0.9 % Sodium Chloride 1,000 ML 999 ML IV ×2 (07:01→08:25)
--- NOTE | 2023-11-25 07:28 | PC.NURSE ---
Provider notified of hypotension, stating BP is fine and patient has fluids going.
[2023-11-25] MEDS: cefTRIAXone sodium 1 GM in 0.9 % Sodium Chloride 50 ML IV (07:33)
[2023-11-25 07:45] LABS: Lactic Acid 2.3 mmol/L (0.5-2.0)
[2023-11-25 09:06] LABS: Reflex Lactate? Lactic Acid Added
[2023-11-25 09:45] LABS: ~Lactic Acid-LAB USE ONLY 2.5 mmol/L (0.5-2.0)
[2023-11-25 11:31] LABS: Reflex Lactate? 2 Y
== END 2023-11-25 11:15 | disposition home or self-care (01) ==
PROVIDERS: Emergency Provider Internal Medicine; PCP Internal Medicine
DX: J44.1 Chronic obstructive pulmonary disease with (acute) exacerbation (principal); J44.0 Chronic obstructive pulmonary disease with (acute) lower respiratory infection; J20.9 Acute bronchitis, unspecified; E11.9 Type 2 diabetes mellitus without complications; I10 Essential (primary) hypertension; E78.5 Hyperlipidemia, unspecified; B19.20 Unspecified viral hepatitis C without hepatic coma; Z87.891 Personal history of nicotine dependence; Z79.4 Long term (current) use of insulin; Z79.85 Long-term (current) use of injectable non-insulin antidiabetic drugs; Z79.84 Long term (current) use of oral hypoglycemic drugs; Z79.82 Long term (current) use of aspirin; Z03.818 Encounter for observation for suspected exposure to other biological agents ruled out
CPT/HCPCS: 0241U; 36415; 71046; 80053; 82947; 83605; 83735; 85025; 87040; 94640; 96361; 96374; 99285; J0696

== ENCOUNTER 2023-12-03 09:24 | Outpatient (REF) | payer MEDICAID, SELFPAY | END 2023-12-03 09:25 | disposition home or self-care (01) | LOC: HO.MAMMO 09:24 | PROVIDERS: PCP Internal Medicine; Visit Provider Internal Medicine | DX: Z12.31 Encounter for screening mammogram for malignant neoplasm of breast (principal) | CPT/HCPCS: 77063; 77067 ==

== ENCOUNTER → 2023-12-03 09:30 | Outpatient (BNV) | payer MEDICAID, SELFPAY | PROVIDERS: PCP Internal Medicine; Visit Provider Radiology Diagnostic Radiology | DX: Z12.31 Encounter for screening mammogram for malignant neoplasm of breast (principal) | CPT/HCPCS: 77063; 77067 ==

== ENCOUNTER 2023-12-14 08:10 | Outpatient (AMB) | payer MEDICAID, SELFPAY ==
--- NOTE | 2023-12-14 09:06 | MHC.OFFVISWM ---
VS Expanded 12/14/23 09:43 Height 5 ft 4 in Weight 297 lb 6 oz BMI 51.0 Body Fat % 49.8 Body Fat Mass 148.2 Fat Free Mass 149.2 Visceral Fat Rating 18 Body Water % 35.7 Body Water Mass 106.2 Basal Metabolic Rate/Score 2,139 Intake Visit Reasons: TV [employer] SWL BMI 46.6 Allergies No Known Allergies Allergy (Verified 12/14/23 09:06) Medication List - Last Reconciled 12/14/23 by Ayan Grant MD acetaminophen (Tylenol Extra Strength) 1,000 mg (2 x 500 mg) PO QID PRN acetaminophen (Tylenol) 325 mg PO QID PRN albuterol sulfate 5 mg inhalation Q4H PRN alcohol swabs (Alcohol Prep Pads) 1 pledget topical BID amlodipine 5 mg PO DAILY aspirin 1 tab PO BEDTIME blood sugar diagnostic (FreeStyle Lite Strips) budesonide-formoterol 80-4.5 mcg/actuation (Symbicort) 2 puffs inhalation BID cholecalciferol (vitamin D3) (Vitamin D3) 50 mcg PO QAM cyclobenzaprine 10 mg PO Q8H dicyclomine 20 mg PO TID PRN dicyclomine 20 mg PO TID PRN dulaglutide (Trulicity) mg subcut QWEEK flash glucose sensor (FreeStyle Sandra 2 Sensor kit) As directed gabapentin 200 mg (2 x 100 mg) PO TID 30 days glipizide ER 1 tab PO QAM ibuprofen 600 mg PO Q6H PRN insulin glargine U-300 conc (Toujeo SoloStar U-300 Insulin) 100 units subcut BEDTIME insulin lispro protamin-lispro 100 unit/mL (75-25) (Humalog Mix 75-25 KwikPen) 50 units subcut BID lancets (TRUEplus Lancets) lisinopril-hydrochlorothiazide 20-25 mg 1 tab PO QAM loratadine 10 mg PO DAILY lorazepam 1 mg PO TID 30 days memantine 5 mg PO BEDTIME 30 days metformin 1,000 mg PO olanzapine 7.5 mg PO BEDTIME 30 days omeprazole 20 mg PO DAILY 8 weeks pen needle, diabetic ([place]) phenazopyridine (Pyridium) 200 mg PO TID PRN 6 doses rosuvastatin 20 mg PO QPM tramadol 50 mg PO Q8H PRN trazodone 100 mg PO BEDTIME PRN venlafaxine ER 37.5 mg PO DAILY 30 days venlafaxine ER 75 mg PO DAILY 30 days HPI HPI TV [employer] SWL BMI 46.6: Details: Start time: 9.00am, End time: 9.53am ?I spent 48 minutes speaking with the patient on the phone plus an additional 5 minutes reviewing and updating records for a total of 53 minutes HPI Comments Details: Previous weight loss efforts: self diets Wakes up: 7am, Sleeps: 10pm Breakfast: Celebrate shake (2 scoops in water) Lunch: 12pm Celebrate shake (2 scoops in water) Dinner: 3pm (vegetables with beef or chicken) Snacks: 10am (plum), 2pm ([place]man), 10pm (grapes) Exercise: none Fluids: Coffee: 1 cup/day (cream and sugar), tea: none, soda: none, juice: with low sugar, ETOH: none PFSH Medical History (Updated 12/14/23 @ 09:20 by Ayan Grant MD) DJD (degenerative joint disease) Insomnia Hyperlipidemia Morbid obesity Scalp mass Bipolar 1 disorder Depression Sleep apnea HTN (hypertension) Hepatitis GERD (gastroesophageal reflux disease) Diabetes Asthma Surgical History History of excision of mass (~09/18/23) Hx of tubal ligation Hx of cholecystectomy History of section Social History Household Members: Spouse and Children Housing: House Do you presently have visiting nurse or other home services: No Alcohol intake: never Patient Tobacco Use Status: Former Tobacco user service: No Sexual orientation: Don't Know Telehealth Telehealth Telehealth Platform: Telephone Location of provider rendering services: practice address Location of patient: address on file Patient Identification confirmed using: Name, : Yes Telehealth method: voice only Patient verbally consented to treatment: Yes Patient verbally consented to billing insurance company: Yes Patient informed of any privacy concerns related to visit: Yes Minutes spent on Phone/Video with Pt.: 53 Assessment & Plan Assessment & Plan (1) Morbid obesity: Code(s): E66.01 - Morbid (severe) obesity due to excess calories Category: Medical Plan: 1.? Plan for lap sleeve gastrectomy. If diaphragmatic or ventral hernias are present at time of surgery, these will be repaired laparoscopically as well. Risks and complications were discussed in detail including possible conversion to an open procedure, anastomotic leak, bleeding requiring transfusion, small bowel obstruction, , DVT and pulmonary embolism, cardiac, or pulmonary complications, as long-term complications such as anastomotic ulcer, insufficient weight loss and vitamin deficiencies. I emphasized the importance of close follow-up, adherence to instructions and good communication. 2. Nutritional counseling. Start with 2 CELEBRATE REBUILD protein (buy at [facility]'s [employer] shop) shakes (ONE scoop EACH in 8oz low fat unsweetened almond milk each) at 8am-10am and 11am-1pm, 1 protein bar (CELEBRATE protein bars, buy at [facility]'s [employer]) at 2pm-4pm, dinner at 5pm (10 forks of protein and 10 forks of salad/vegetables) AND one more protein bar after dinner at 7pm-9pm. So you do 2 protein shakes, 2 protein bars and one meal per day. Meal to include lean meat (beef, fish, pork, turkey, chicken), or irish yogurt, or egg whites, or beans with a salad with olive oil and fruits (berries, pears, apples, kiwi). Avoid salt, breads, potatoes, rice, pasta, desserts. 3. Each shake would be drunk slowly, like coffee in a period of 2 hours. 4. Cut each bar in 4 pieces and eat each piece in 30min ?to make each bar last 2 hours. 5. I emphasized the importance of measuring accurately the food portion and measure it when serving the food in plate 6. The meal portions include 10 full-size forks of meat and 10 full-size forks of salad. You always eat the meat portion but you can replace up to 5 forks for salad/vegetables with rice, potatoes or pasta, or a fruit ?if you like. The less you do it the better weight loss will be. 7. One full-size fork is what it can be scooped on the fork without falling aside and not what can be bit with the fork. Use regular forks like those you find in a typical restaurant. 8.? Please send me weight measurements as soon as possible and then once a week. Always include your diet and exercise plan. 9. Start walking outside daily, tracking calories with a goal of 300 calories per day, daily. Goal is to burn 2000 calories per week on exercise, which means either 300 calories daily, or 400 calories 5 days per week, or 500 calories 4 days per week, or 650 calories 3 days per week. 10. The best choice would be to purchase a stationary bike, elliptical or treadmill at home that can track calories. Let me know if you do so I can give you an exercise plan. 11.?Goal is to lose at least 1.5-2lbs per week 12. Goal to lose 10% of your weight before surgery, which is about 30lbs. Ultimate weight goal: 267lbs before surgery 13. Please follow the diet plan exactly without any change. If you don't like something about the plan or you feel hungry you need to communicate with me so I can help you revise the plan. You should not change the plan yourself. 14. To be scheduled for EGD due to history of GERD. The possibility of biopsies was discussed. Patient needs to avoid use of NSAIDs and aspirin for 1 week prior to EGD. Risks of perforation and? bleeding was discussed with the patient. This will be an outpatient procedure with IV sedation. 15. Emphasized the importance of checking his blood glucose levels frequently and daily and to report to me any blood glucose below 100, so we can adjust her insulin and prevent hypoglycemic episodes 16. Emphasized the importance of monitoring the blood pressure daily in am when wakes up and two more times throughout the day. If systolic blood pressure is 110 mmHg, or less I explained to the patient that needs to notify me. Also I explained the symptoms of orthostatic hypotension (dizziness and lightheadedness) for which the patient also needs to notify me. Orders: Orders Lipid Panel Today E11.9 - Type 2 diabetes mellitus without complications, E66.01 - Morbid (severe) obesity due to excess calories, E78.5 - Hyperlipidemia, unspecified, I10 - Essential (primary) hypertension, J45.909 - Unspecified asthma, uncomplicated, K21.9 - Gastro-esophageal reflux disease without esophagitis, R06.02 - Shortness of breath IRON PROFILE Today E11.9 - Type 2 diabetes mellitus without complications, E66.01 - Morbid (severe) obesity due to excess calories, E78.5 - Hyperlipidemia, unspecified, I10 - Essential (primary) hypertension, J45.909 - Unspecified asthma, uncomplicated, K21.9 - Gastro-esophageal reflux disease without esophagitis, R06.02 - Shortness of breath Vitamin B1 Today E11.9 - Type 2 diabetes mellitus without complications, E66.01 - Morbid (severe) obesity due to excess calories, E78.5 - Hyperlipidemia, unspecified, I10 - Essential (primary) hypertension, J45.909 - Unspecified asthma, uncomplicated, K21.9 - Gastro-esophageal reflux disease without esophagitis, R06.02 - Shortness of breath Vitamin A Today E11.9 - Type 2 diabetes mellitus without complications, E66.01 - Morbid (severe) obesity due to excess calories, E78.5 - Hyperlipidemia, unspecified, I10 - Essential (primary) hypertension, J45.909 - Unspecified asthma, uncomplicated, K21.9 - Gastro-esophageal reflux disease without esophagitis, R06.02 - Shortness of breath TSH reflex Free T4 Today E11.9 - Type 2 diabetes mellitus without complications, E66.01 - Morbid (severe) obesity due to excess calories, E78.5 - Hyperlipidemia, unspecified, I10 - Essential (primary) hypertension, J45.909 - Unspecified asthma, uncomplicated, K21.9 - Gastro-esophageal reflux disease without esophagitis, R06.02 - Shortness of breath Vitamin D 25-OH Total Today E11.9 - Type 2 diabetes mellitus without complications, E66.01 - Morbid (severe) obesity due to excess calories, E78.5 - Hyperlipidemia, unspecified, I10 - Essential (primary) hypertension, J45.909 - Unspecified asthma, uncomplicated, K21.9 - Gastro-esophageal reflux disease without esophagitis, R06.02 - Shortness of breath ECG 12 lead EKG Today E11.9 - Type 2 diabetes mellitus without complications, E66.01 - Morbid (severe) obesity due to excess calories, E78.5 - Hyperlipidemia, unspecified, I10 - Essential (primary) hypertension, J45.909 - Unspecified asthma, uncomplicated, K21.9 - Gastro-esophageal reflux disease without esophagitis, R06.02 - Shortness of breath FL upper GI w air Today E11.9 - Type 2 diabetes mellitus without complications, E66.01 - Morbid (severe) obesity due to excess calories, E78.5 - Hyperlipidemia, unspecified, I10 - Essential (primary) hypertension, J45.909 - Unspecified asthma, uncomplicated, K21.9 - Gastro-esophageal reflux disease without esophagitis, R06.02 - Shortness of breath Hepatitis A,B,C Profile Today B19.20 - Unspecified viral hepatitis C without hepatic coma Insulin Today E11.9 - Type 2 diabetes mellitus without complications, E66.01 - Morbid (severe) obesity due to excess calories, E78.5 - Hyperlipidemia, unspecified, I10 - Essential (primary) hypertension, J45.909 - Unspecified asthma, uncomplicated, K21.9 - Gastro-esophageal reflux disease without esophagitis, R06.02 - Shortness of breath Hemoglobin A1c Today E11.9 - Type 2 diabetes mellitus without complications, E66.01 - Morbid (severe) obesity due to excess calories, E78.5 - Hyperlipidemia, unspecified, I10 - Essential (primary) hypertension, J45.909 - Unspecified asthma, uncomplicated, K21.9 - Gastro-esophageal reflux disease without esophagitis, R06.02 - Shortness of breath H Pylori Breath Test Today E11.9 - Type 2 diabetes mellitus without complications, E66.01 - Morbid (severe) obesity due to excess calories, E78.5 - Hyperlipidemia, unspecified, I10 - Essential (primary) hypertension, J45.909 - Unspecified asthma, uncomplicated, K21.9 - Gastro-esophageal reflux disease without esophagitis, R06.02 - Shortness of breath Complete Blood Count Auto Diff Today E11.9 - Type 2 diabetes mellitus without complications, E66.01 - Morbid (severe) obesity due to excess calories, E78.5 - Hyperlipidemia, unspecified, I10 - Essential (primary) hypertension, J45.909 - Unspecified asthma, uncomplicated, K21.9 - Gastro-esophageal reflux disease without esophagitis, R06.02 - Shortness of breath Comprehensive Met. Panel Today E11.9 - Type 2 diabetes mellitus without complications, E66.01 - Morbid (severe) obesity due to excess calories, E78.5 - Hyperlipidemia, unspecified, I10 - Essential (primary) hypertension, J45.909 - Unspecified asthma, uncomplicated, K21.9 - Gastro-esophageal reflux disease without esophagitis, R06.02 - Shortness of breath Vitamin B12 and Folate Today E11.9 - Type 2 diabetes mellitus without complications, E66.01 - Morbid (severe) obesity due to excess calories, E78.5 - Hyperlipidemia, unspecified, I10 - Essential (primary) hypertension, J45.909 - Unspecified asthma, uncomplicated, K21.9 - Gastro-esophageal reflux disease without esophagitis, R06.02 - Shortness of breath Zinc Today E11.9 - Type 2 diabetes mellitus without complications, E66.01 - Morbid (severe) obesity due to excess calories, E78.5 - Hyperlipidemia, unspecified, I10 - Essential (primary) hypertension, J45.909 - Unspecified asthma, uncomplicated, K21.9 - Gastro-esophageal reflux disease without esophagitis, R06.02 - Shortness of breath C Reactive Protein Today E11.9 - Type 2 diabetes mellitus without complications, E66.01 - Morbid (severe) obesity due to excess calories, E78.5 - Hyperlipidemia, unspecified, I10 - Essential (primary) hypertension, J45.909 - Unspecified asthma, uncomplicated, K21.9 - Gastro-esophageal reflux disease without esophagitis, R06.02 - Shortness of breath Ferritin Today E11.9 - Type 2 diabetes mellitus without complications, E66.01 - Morbid (severe) obesity due to excess calories, E78.5 - Hyperlipidemia, unspecified, I10 - Essential (primary) hypertension, J45.909 - Unspecified asthma, uncomplicated, K21.9 - Gastro-esophageal reflux disease without esophagitis, R06.02 - Shortness of breath US abdomen comp w elastography Today E11.9 - Type 2 diabetes mellitus without complications, E66.01 - Morbid (severe) obesity due to excess calories, E78.5 - Hyperlipidemia, unspecified, I10 - Essential (primary) hypertension, J45.909 - Unspecified asthma, uncomplicated, K21.9 - Gastro-esophageal reflux disease without esophagitis, R06.02 - Shortness of breath XR chest 2V Today E11.9 - Type 2 diabetes mellitus without complications, E66.01 - Morbid (severe) obesity due to excess calories, E78.5 - Hyperlipidemia, unspecified, I10 - Essential (primary) hypertension, J45.909 - Unspecified asthma, uncomplicated, K21.9 - Gastro-esophageal reflux disease without esophagitis, R06.02 - Shortness of breath Referrals Behavioral Health Referral E11.9 - Type 2 diabetes mellitus without complications, E66.01 - Morbid (severe) obesity due to excess calories, E78.5 - Hyperlipidemia, unspecified, I10 - Essential (primary) hypertension, J45.909 - Unspecified asthma, uncomplicated, K21.9 - Gastro-esophageal reflux disease without esophagitis, R06.02 - Shortness of breath Nutrition/Dietitian Referral E11.9 - Type 2 diabetes mellitus without complications, E66.01 - Morbid (severe) obesity due to excess calories, E78.5 - Hyperlipidemia, unspecified, I10 - Essential (primary) hypertension, J45.909 - Unspecified asthma, uncomplicated, K21.9 - Gastro-esophageal reflux disease without esophagitis, R06.02 - Shortness of breath
[2023-12-14 09:43] VITALS: BMI 51.0
== END 2023-12-14 09:54 | disposition home or self-care (01) ==
LOC: HO.HBS 08:10
PROVIDERS: PCP Internal Medicine; Visit Provider Surgery
DX: E66.01 Morbid (severe) obesity due to excess calories (principal); Z68.42 Body mass index [BMI] 45.0-49.9, adult
CPT/HCPCS: 99204

== ENCOUNTER → 2023-12-14 08:10 | Outpatient (BNVA) | payer MEDICAID, SELFPAY | PROVIDERS: PCP Internal Medicine; Visit Provider Surgery ==

== ENCOUNTER 2024-01-20 09:19 | Outpatient (REF) | payer MEDICAID, SELFPAY ==
--- NOTE | ~2024-01-20 | US_ITS ---
EXAMINATION: US COMPLETE ABDOMEN WITH LIVER ELASTOGRAPHY CLINICAL INFORMATION: Morbid obesity. COMPARISON: None available. TECHNIQUE: Real-time imaging of the abdominal viscera. Noninvasive ultrasound liver fibrosis assessment is performed using Jayant ElastPQ point quantification shear wave elastography (pSWE) with a C5-2 MHz transducer. Multiple elastography samples are obtained. FINDINGS: PANCREAS: Normal. The visualized pancreatic head and body are normal in appearance. The remainder of the pancreas is obscured from visualization by the overlying bowel gas. ABDOMINAL AORTA: The proximal and mid aortic segments are normal in caliber. The distal segment is poorly visualized. INFERIOR VENA CAVA: Visualized portions are normal. LIVER: The liver demonstrates increase size, an irregular contour and increased echogenicity. No focal lesion or intrahepatic biliary duct dilatation. The right lobe measures 19.0 cm in length. The left lobe measures 15.1 cm in length. Portal flow is towards the liver (hepatopetal). Shear wave liver elastography median stiffness is 1.67 m/s (reference: normal median stiffness is 1.3 m/s or less). IQR/median stiffness to assess sampling precision is 0.10 (reference: good quality data set is IQR/median stiffness of 0.15 or less). GALLBLADDER: Normal. The gallbladder is physiologically distended without evidence of stones, sludge, polyps, wall thickening or pericholecystic fluid. COMMON BILE DUCT: Normal in caliber measuring 0.3 cm in diameter. RIGHT KIDNEY: At the interpolar aspect, a 1.6 on the mildly complex cyst is redemonstrated, with tiny wall calcification. Again, this requires no follow-up. No hydronephrosis. No renal calculi or focal parenchymal lesions. The kidney measures 11.0 cm in maximum dimension. LEFT KIDNEY: Normal at the interpolar aspect laterally, a 1.6 evident benign, simple cyst is seen, which requires no imaging follow-up. No hydronephrosis. No renal calculi or focal parenchymal lesions. The kidney measures 11.7 cm in maximum dimension. SPLEEN: Normal. The spleen measures 12.0 cm in maximum dimension. No focal finding. FREE FLUID: None. US/US abdomen comp w elastography IMPRESSION: 1. There is hepatomegaly 2. There is generalized increase in hepatic echotexture, consistent with fatty infiltration or hepatocellular disease. Please correlate clinically. No focal hepatic mass or intrahepatic biliary dilatation is seen. 3. Liver elastography: In the absence of other known clinical signs, measurements rule out compensated advanced chronic liver disease. If there are known clinical signs, further testing may be needed for confirmation. REFERENCE: Society of Radiologists in Ultrasound Liver Stiffness Thresholds (2020): LIVER STIFFNESS THRESHOLDS: *Liver Stiffness equal or less than 1.3 m/s: High probability of being normal. *Liver Stiffness less than 1.7 m/s: In the absence of other known clinical signs, rules out compensated advanced chronic liver disease. *Liver Stiffness 1.7-2.1 m/s: Suggestive of compensated advanced chronic liver disease but need further test for confirmation. *Liver Stiffness over 2.1 m/s: Rules in compensated advanced chronic liver disease. *Liver Stiffness over 2.4 m/s: Suggestive of clinically significant portal hypertension. QUALITY OF DATA SET: *IQR/Median value equal or less than 0.15 implies a quality data set. *IQR/Median value over 0.15 implies a poor quality data set. SIGNIFICANT CHANGE FROM PRIOR EXAM: Significant change if liver stiffness measurement is 10% or greater from prior exam. OTHER CONSIDERATIONS: The stage of liver fibrosis may be overestimated in the setting of acute hepatitis, liver inflammation, elevated liver function tests, hepatic vascular congestion, obstructive cholestasis, non-fasting state, and infiltrative diseases such as amyloidosis and lymphoma. In some patients with NAFLD, the liver stiffness thresholds for compensated advanced chronic liver disease may be lower. In causes other than viral hepatitis and NAFLD, liver stiffness thresholds are not well established. Electronically signed by: Faraz Covarrubias MD 02/21/2024 10:42 PM EDT
--- NOTE | ~2024-01-20 | XR_ITS ---
EXAMINATION: XR CHEST CLINICAL INFORMATION: Obesity. COMPARISON: Most recent chest radiograph dated 11/24/2023. TECHNIQUE: 2 views of the chest were obtained. FINDINGS: Linear atelectasis versus scarring within the left lung base, unchanged. No new or increasing airspace consolidation. No pleural effusion or pneumothorax. Stable cardiomediastinal silhouette. XR/XR chest 2V IMPRESSION: Linear atelectasis versus scarring within the left lung base, unchanged.
== END 2024-01-20 09:20 | disposition home or self-care (01) ==
LOC: HO.US 09:19
PROVIDERS: PCP Internal Medicine; Visit Provider Surgery
DX: E66.01 Morbid (severe) obesity due to excess calories (principal); K21.9 Gastro-esophageal reflux disease without esophagitis; R06.02 Shortness of breath; I10 Essential (primary) hypertension; J45.909 Unspecified asthma, uncomplicated; E78.5 Hyperlipidemia, unspecified; E11.9 Type 2 diabetes mellitus without complications
CPT/HCPCS: 71046; 76700; 76981

== ENCOUNTER 2024-01-25 10:17 | Outpatient (AMB) | payer MEDICAID, SELFPAY ==
--- NOTE | 2024-01-25 10:19 | A.OFFVIS_ITS ---
Vital Signs 01/25/24 10:22 Height 5 ft 7 in Weight 287 lb 7.724 oz BMI 45.0 Pulse 90 Pulse Source Pulse Oximeter Pulse Oximetry (%) 95 Oxygen Delivery Method Room Air Intake Visit Reasons: Asthma Ip Technology Transactions Attorney Required: No Allergies No Known Allergies Allergy (Verified 01/25/24 10:23) HPI Comments Details: The patient is here for pulmonary evaluation. The patient is a 59 year woman with a known history of asthma in addition to obstructive sleep apnea. The patient was diagnosed with obstructive sleep apnea many years ago. Apparently she had been a CPAP at then stopped using it. She was on some difficulties with the machine. Right now the patient has not been using CPAP and she has been having worsening daytime drowsiness. She also complains of headaches. Her Epwo rth score is elevated 04/21. The patient also has cardiovascular risk factors including diabetes high blood pressure and hypercholesterolemia. Therefore the treatment of the obstructive sleep apnea becomes very important. Will go ahead and order another sleep study for her. The patient does have significant learning disabilities where she can not read or write. Therefore doing a home sleep study may be very limited for her. Will go ahead and request a in-lab sleep study at this time. In the meantime she also carries a diagnosis of asthma. The patient does have a prescription of Symbicort and also has albuterol. She does not uses Symbicort only uses her albuterol once or twice a day. I did teacher and explained to her the importance of using Symbicort as it is more effective with the combination therapy. Therefore she is going to start using the Symbicort and she is going to make sure to rinse well after using it. Therefore, the patient will continue using her respiratory medications and will get a sleep study will follow-up after that. [facility] Medical History (Updated 01/25/24 @ 21:08 by Joshua Rodriguez MD) EBONI (obstructive sleep apnea) DJD (degenerative joint disease) Insomnia Hyperlipidemia Morbid obesity Scalp mass Bipolar 1 disorder Depression Sleep apnea HTN (hypertension) Hepatitis GERD (gastroesophageal reflux disease) Diabetes Asthma Surgical History History of excision of mass (~09/18/23) Hx of tubal ligation Hx of cholecystectomy History of section Social History Household Members: Spouse and Children Housing: House Do you presently have visiting nurse or other home services: No Alcohol intake: never Patient Tobacco Use Status: Former Tobacco user service: No Sexual orientation: Don't Know Review of Systems Const Reports daytime sleepiness, Reports headache(s), Reports snoring and Reports stops breathing during sleep Eyes Reports change in vision ENT Reports headache(s) Card Denies chest pain and Reports dyspnea on exertion Resp Reports cough, Reports dyspnea on exertion and Reports snoring GI Denies abdominal pain Musc Reports myalgias Skin/Breast Denies rash Neuro Reports headache(s) Gelacio/Lymph Reports no additional complaints Physical Exam Vital Signs: Last Vital Signs Pulse 90 01/25/24 10:22 Pulse Ox 95 01/25/24 10:22 Oxygen Delivery Method Room Air 01/25/24 10:22 BMI result Body Mass Index 45.0 Const General: comfortable HEENT Head: Yes normocephalic Neck Neck: Yes supple Chest Chest palpation & inspection: normal inspection of the chest Resp Effort & Inspection: normal respiratory effort Auscultation: diminished lung sounds Cardio Heart sounds: S1 normal heart sound present and S2 normal heart sound present GI Palpation (GI): Soft to palpation Skin General skin exam: no rashes or lesions noted Extrem General: No clubbing, No cyanosis and Yes edema Assessment & Plan Assessment & Plan (1) EBONI (obstructive sleep apnea): Code(s): G47.33 - Obstructive sleep apnea (adult) (pediatric) Category: Medical (2) Asthma: Code(s): J45.909 - Unspecified asthma, uncomplicated Category: Medical Qualifiers: Asthma severity: moderate Asthma persistence: persistent Asthma complication type: uncomplicated Qualified Code(s): J45.40 - Moderate persistent asthma, uncomplicated Plan start Symbicort YESY as needed in lab PSG F/U 2-3 months Orders: Orders RT PSG in-lab sleep study Today G47.33 - Obstructive sleep apnea (adult) (pediatric) Coding Level of Care Code New Pt Level 4 (72884) Diagnoses EBONI (obstructive sleep apnea) G47.33 Moderate persistent asthma without complication J45.40 Asthma severity: moderate Asthma persistence: persistent Asthma complication type: uncomplicated Time Spent (min) 34
[2024-01-25 10:22] VITALS: PULSE 90; O2SAT 95; BMI 45.0
== END 2024-01-25 10:37 | disposition home or self-care (01) ==
PROVIDERS: PCP Internal Medicine; Referring Provider Internal Medicine; Visit Provider Hospitalist
DX: G47.33 Obstructive sleep apnea (adult) (pediatric) (principal); J45.40 Moderate persistent asthma, uncomplicated
CPT/HCPCS: 99204

== ENCOUNTER → 2024-01-25 10:17 | Outpatient (BNVA) | payer MEDICAID, SELFPAY | PROVIDERS: PCP Internal Medicine; Referring Provider Internal Medicine; Visit Provider Hospitalist | DX: J45.40 Moderate persistent asthma, uncomplicated (principal); G47.33 Obstructive sleep apnea (adult) (pediatric) | CPT/HCPCS: 99202 ==

== ENCOUNTER 2024-02-05 08:32 | Outpatient (REF) | payer MEDICAID, SELFPAY ==
[2024-02-05 09:29] LABS: Estimated Average Glucose 272 mg/dL; Hemoglobin A1c % 11.1 % (<6.0)
[2024-02-05 09:47] LABS: Alanine Aminotransferase 37 U/L (0-31); Albumin Level 4.2 g/dL (3.5-5.0); Alkaline Phosphatase 78 U/L (39-117); Anion Gap 12 (12-20); Aspartate Amino Transferase 29 U/L (5-31); Bilirubin Total 0.3 mg/dL (0.0-1.0); Blood Urea Nitrogen 13 mg/dL (9-16); Calcium 9.8 mg/dL (8.4-10.2); Carbon Dioxide 30 mmol/L (22-29); Chloride 102 mmol/L (96-108); Estimated Glomerular Filt Rate > 60; Glucose Random 223 mg/dL (60-115); Potassium 3.9 mmol/L (3.3-5.1); Sodium 140 mmol/L (135-145); Total Protein 7.4 g/dL (6.5-8.0)
[2024-02-05 11:13] LABS: Creatinine Urine 60.79 mg/dL
[2024-02-05 11:27] LABS: Microalbum/Creatinine Ratio Ur 1051.1 ug/mg cr (<30)
== END 2024-02-05 08:33 | disposition home or self-care (01) ==
LOC: HO.LAB 08:32
PROVIDERS: PCP Internal Medicine; Visit Provider Internal Medicine
DX: Z00.01 Encounter for general adult medical examination with abnormal findings (principal); E11.65 Type 2 diabetes mellitus with hyperglycemia; E78.00 Pure hypercholesterolemia, unspecified; I10 Essential (primary) hypertension; J45.909 Unspecified asthma, uncomplicated
CPT/HCPCS: 36415; 80053; 82043; 82570; 83036

== ENCOUNTER 2024-02-25 08:20 | Outpatient (AMB) | payer MEDICAID, SELFPAY ==
--- NOTE | 2024-02-25 08:43 | A.OFFVIS_ITS ---
VS Expanded 02/25/24 08:52 BP 142/75 H Blood Pressure Location Rt brachial Blood Pressure Position Sitting Pulse 93 Pulse Source Pulse Oximeter Temp 96.4 F L Temperature Source Temporal Artery Scan Pulse Oximetry 95 Oxygen Delivery Method Room Air Height 5 ft 4 in Weight 282 lb 3.2 oz BMI 48.4 Body Fat % 51.9 Body Fat Mass 146.4 Fat Free Mass 135.8 Visceral Fat Rating 19.0 Body Water % 34.2 Body Water Mass 96.6 Muscle Mass/Score 129.0 Basal Metabolic Rate/Score 1,958 Intake Visit Reasons: (OV) F/U SWL Allergies No Known Allergies Allergy (Verified 02/25/24 08:58) HPI Comments Details: Patient is a pleasant 59-year-old female who returns to the office today in follow-up. She was initially seen on 12/14/2023 with a weight of 297.6 lb with a BMI of 51. Weight today is 282.2 lb with a BMI of 48.5. Total weight loss 15.4 lb or 5.1 %. She states she was doing 4 shakes per day and 1 scoop each, she was measuring the food with a little bowl and not forks. She additionally has financial constraints and can not afford the protein shakes anymore. She bought the shakes previously with money that she got from her family for her birthday, but this has run out. We will attempt to get shakes covered by her insurance although it may not be celebrate. recommended meal plan: Start with 2 CELEBRATE REBUILD protein (buy at [facility] gift shop) shakes (ONE scoop EACH in 8oz low fat unsweetened almond milk each) at 8am-10am and 11am- 1pm, 1 protein bar (CELEBRATE protein bars, buy at [facility] [employer] [facility]) at 2pm- 4pm, dinner at 5pm (10 forks of protein and 10 forks of salad/vegetables) AND one more protein bar after dinner at 7pm-9pm. Exericse plan: [employer] 1 hour walking on treadmill, daily [facility] Medical History EBONI (obstructive sleep apnea) DJD (degenerative joint disease) Insomnia Hyperlipidemia Morbid obesity Scalp mass Bipolar 1 disorder Depression Sleep apnea HTN (hypertension) Hepatitis GERD (gastroesophageal reflux disease) Diabetes Asthma Surgical History History of excision of mass (~09/18/23) Hx of tubal ligation Hx of cholecystectomy History of section Social History Household Members: Spouse and Children Housing: House Do you presently have visiting nurse or other home services: No Alcohol intake: never Patient Tobacco Use Status: Former Tobacco user service: No Sexual orientation: Don't Know Assessment & Plan Assessment & Plan (1) Morbid obesity: Code(s): E66.01 - Morbid (severe) obesity due to excess calories Category: Medical Plan: We will attempt to get shakes covered by her insurance company. Encouraged her to continue exercising as she is able. Additionally, encouraged switching from treadmill to stationary bike as she is walking very slowly on the treadmill as she is afraid to fall. We will have her return to the office in approximately 2 weeks
[2024-02-25 08:52] VITALS: BP 142/75; PULSE 93; TEMP 35.8; O2SAT 95; BMI 48.4
== END 2024-02-25 09:11 | disposition home or self-care (01) ==
PROVIDERS: PCP Internal Medicine; Visit Provider Physician Assistant Surgical
DX: E66.01 Morbid (severe) obesity due to excess calories (principal)
CPT/HCPCS: 99213

== ENCOUNTER → 2024-02-25 08:20 | Outpatient (BNVA) | payer MEDICAID, SELFPAY | PROVIDERS: PCP Internal Medicine; Visit Provider Physician Assistant Surgical | DX: E66.01 Morbid (severe) obesity due to excess calories (principal); Z68.42 Body mass index [BMI] 45.0-49.9, adult | CPT/HCPCS: 99212 ==

== ENCOUNTER → 2024-03-02 09:26 | Outpatient (BNVA) | payer MEDICAID, SELFPAY | PROVIDERS: PCP Internal Medicine; Visit Provider Counselor Mental Health ==

== ENCOUNTER → 2024-03-02 10:12 | Outpatient (AMB) | payer OTHER, SELFPAY ==
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
== END ==
PROVIDERS: PCP Internal Medicine; Visit Provider Counselor Mental Health
DX: F32.1 Major depressive disorder, single episode, moderate (principal)
CPT/HCPCS: 90791; 90837

== ENCOUNTER 2024-03-14 09:24 | Outpatient (AMB) | payer MEDICAID, SELFPAY ==
--- NOTE | 2024-03-14 09:26 | MHC.OFFVISWM ---
VS Expanded 03/14/24 09:32 BP 118/55 L Blood Pressure Location Rt brachial Blood Pressure Position Sitting Pulse 96 Pulse Source Pulse Oximeter Temp 96.7 F L Temperature Source Temporal Artery Scan Pulse Oximetry 97 Oxygen Delivery Method Room Air Height 5 ft 4 in Weight 279 lb 9.6 oz BMI 48.0 Body Fat % 52.4 Body Fat Mass 146.4 Fat Free Mass 133.2 Visceral Fat Rating 19.0 Body Water % 33.8 Body Water Mass 94.6 Muscle Mass/Score 126.6 Basal Metabolic Rate/Score 1,924 Intake Visit Reasons: (OV) F/U SWL Electrical Technician Instructor Required: No Allergies No Known Allergies Allergy (Verified 03/14/24 09:34) Medication List - Last Reconciled 03/14/24 by YOSVANY Rahman acetaminophen (Tylenol Extra Strength) 1,000 mg (2 x 500 mg) PO QID PRN acetaminophen (Tylenol) 325 mg PO QID PRN albuterol sulfate 5 mg inhalation Q4H PRN alcohol swabs (Alcohol Prep Pads) 1 pledget topical BID amlodipine 5 mg PO DAILY aspirin 1 tab PO BEDTIME blood sugar diagnostic (FreeStyle Lite Strips) budesonide-formoterol 80-4.5 mcg/actuation (Symbicort) 2 puffs inhalation BID cholecalciferol (vitamin D3) (Vitamin D3) 50 mcg PO QAM cyclobenzaprine 10 mg PO Q8H dicyclomine 20 mg PO TID PRN dicyclomine 20 mg PO TID PRN dulaglutide (Trulicity) mg subcut QWEEK flash glucose sensor (FreeStyle Sandra 2 Sensor kit) As directed gabapentin 200 mg (2 x 100 mg) PO TID 30 days glipizide ER 1 tab PO QAM ibuprofen 600 mg PO Q6H PRN insulin glargine U-300 conc (Toujeo SoloStar U-300 Insulin) 100 units subcut BEDTIME insulin lispro protamin-lispro 100 unit/mL (75-25) (Humalog Mix 75-25 KwikPen) 50 units subcut BID lancets (TRUEplus Lancets) lisinopril-hydrochlorothiazide 20-25 mg 1 tab PO QAM loratadine 10 mg PO DAILY lorazepam 1 mg PO TID 30 days memantine 5 mg PO BEDTIME 30 days metformin 1,000 mg PO olanzapine 7.5 mg PO BEDTIME 30 days omeprazole 20 mg PO DAILY 8 weeks pen needle, diabetic (Pentips) phenazopyridine (Pyridium) 200 mg PO TID PRN 6 doses rosuvastatin 20 mg PO QPM tramadol 50 mg PO Q8H PRN trazodone 100 mg PO BEDTIME PRN venlafaxine ER 37.5 mg PO DAILY 30 days venlafaxine ER 75 mg PO DAILY 30 days HPI Comments Details: Patient is a pleasant 59-year-old female who returns to the office today in follow-up. She was initially seen on 12/14/2023 with a weight of 297.6 lb with a BMI of 51. Weight today is 279.6 lb with a BMI of 48. Total weight loss 18 lb or 6 %. She states she has not started using the fork to measure as she had forgotten. She states her was able to help her buy another container of celebrate rebuild. She has been doing 3 shakes per day, 1 scoop each and no bars. She was doing the shakes in the morning, at noon, in the early afternoon, then her meal. Measuring the food in a little bowl but not counting forks and she was also drinking her shakes over about 10 minutes each. Not using the protein bars. She would also have string cheese after dinner. We will attempt to get shakes covered by her insurance although it may not be celebrate. We have sent a request for shakes through her insurance company. Pt was accompanied by her sister who is literate and helps her in her care. recommended meal plan: Start with 2 CELEBRATE REBUILD protein (buy at [facility] gift shop) shakes (ONE scoop EACH in 8oz low fat unsweetened almond milk each) at 8am-10am and 11am-1pm, 1 protein bar (CELEBRATE protein bars, buy at [facility]) at 2pm-4pm, dinner at 5pm (10 forks of protein and 10 forks of salad/vegetables) AND one more protein bar after dinner at 7pm-9pm. Exericse plan: [employer] 1 hour walking on treadmill, daily PFSH Medical History EBONI (obstructive sleep apnea) DJD (degenerative joint disease) Insomnia Hyperlipidemia Morbid obesity Scalp mass Bipolar 1 disorder Depression Sleep apnea HTN (hypertension) Hepatitis GERD (gastroesophageal reflux disease) Diabetes Asthma Surgical History History of excision of mass (~09/18/23) Hx of tubal ligation Hx of cholecystectomy History of section Social History Household Members: Spouse and Children Housing: House Do you presently have visiting nurse or other home services: No Alcohol intake: never Patient Tobacco Use Status: Former Tobacco user service: No Sexual orientation: Don't Know Physical Exam Const General: healthy appearing and no acute distress Resp Effort & Inspection: normal respiratory effort Auscultation: clear to auscultation bilaterally Cardio Rate: regular rate Rhythm: regular rhythm GI Auscultation: normal bowel sounds Extrem General: Yes normal to inspection Assessment & Plan Assessment & Plan (1) Morbid obesity: Code(s): E66.01 - Morbid (severe) obesity due to excess calories Category: Medical Plan: Patient has lost approximately 18 lb or 6% total body weight loss since initiating the program about 3 months ago. She is illiterate and has difficulty remembering her plan given history of frontal temporal dementia. She has help at home including her sister and . She additionally has financial barriers to her success. She states that she was sick last week and did not go to the gym. She is now planning on returning to the gym today or tomorrow, utilizing both the treadmill and stationary bike. We discussed the importance of measuring her food accurately using a dinner fork. Discussed the importance following the meal plans exactly and communicating if she is unable to. Discussed the importance of drinking her shake slowly over 2 hour period we will change her meal plan to include celebrate rebuild, 2 scoops at 9-11, 1-3 and 7-9. She will continue with her meal at approximately 17:00 with 10 forks of protein and 10 of vegetables. We will have her return to the office in approximately 2 weeks.
[2024-03-14 09:32] VITALS: BP 118/55; PULSE 96; TEMP 35.9; O2SAT 97; BMI 48.0
== END 2024-03-14 10:18 | disposition home or self-care (01) ==
PROVIDERS: PCP Internal Medicine; Visit Provider Physician Assistant Surgical
DX: E66.01 Morbid (severe) obesity due to excess calories (principal)
CPT/HCPCS: 99213

== ENCOUNTER → 2024-03-14 09:24 | Outpatient (BNVA) | payer MEDICAID, SELFPAY | PROVIDERS: PCP Internal Medicine; Visit Provider Physician Assistant Surgical | DX: E66.01 Morbid (severe) obesity due to excess calories (principal); Z71.3 Dietary counseling and surveillance; Z68.42 Body mass index [BMI] 45.0-49.9, adult | CPT/HCPCS: 99212 ==

== ENCOUNTER 2024-03-18 08:20 | Outpatient (REF) | payer MEDICAID, SELFPAY ==
--- NOTE | 2024-03-18 08:30 | ECG_ITS ---
Test Reason : Mor OBS Blood Pressure : / mmHG Vent. Rate : 084 BPM Atrial Rate : 084 BPM P-R Int : 156 ms QRS Dur : 078 ms QT Int : 386 ms P-R-T Axes : 050 009 045 degrees QTc Int : 456 ms Normal sinus rhythm Normal ECG When compared with ECG of 30-NOV-2022 15:29, No significant change was found Referred By: Ayan Grant Electronically Signed By:CATHI BAUER
[2024-03-18 08:52] LABS: MANUAL DIFF FLAG NO
[2024-03-18 09:45] LABS: Basophils Percent Auto 0.4 % (0-2); Eosinophils Absolute Auto 0.3 X10*3/uL (0.0-0.4); Hematocrit 41.8 % (37.0-47.0); Hemoglobin 13.9 g/dl (12.0-16.0); Imm Gran Abs Auto 0.01 X10*3/uL (0.00-0.03); Imm Gran Pct Auto 0.1 % (0.0-0.4); Lymphocytes Percent Auto 43.2 % (20-40); Mean Corpuscular HGB Conc 33.3 g/dl (31.0-35.0); Mean Corpuscular Hemoglobin 29.1 pg (27.0-33.0); Mean Corpuscular Volume 87.6 fL (80.0-98.0); Mean Platelet Volume 11.6 fL (9.4-12.3); Monocytes Absolute Auto 0.5 X10*3/uL (0.1-1.2); Monocytes Percent Auto 7.2 % (2-11); Neutrophils Absolute Auto 3.1 x10*3/uL (2.0-8.3); Neutrophils Percent Auto 45.1 % (45-73); Platelet Count 263 X10*3/uL (160-400); Red Blood Count 4.77 X10*6/uL (4.20-5.50); Red Cell Distribution Width 12.7 % (11.0-16.0)
[2024-03-18 10:17] LABS: Alanine Aminotransferase 42 U/L (0-31); Albumin Level 4.3 g/dL (3.5-5.0); Alkaline Phosphatase 84 U/L (39-117); Anion Gap 11 (12-20); Aspartate Amino Transferase 34 U/L (5-31); Bilirubin Total 0.4 mg/dL (0.0-1.0); Blood Urea Nitrogen 15 mg/dL (9-16); C Reactive Protein < 0.10 mg/dL (< or = 0.50); Calcium 10.1 mg/dL (8.4-10.2); Carbon Dioxide 29 mmol/L (22-29); Chloride 101 mmol/L (96-108); Cholesterol 110 mg/dL (<200); Estimated Glomerular Filt Rate > 60; Glucose Random 250 mg/dL (60-115); HDL Cholesterol 38 mg/dL (>40); Iron 69 mcg/dL (30-160); LDL Cholesterol Calculated 52 mg/dL (<100); Percent Iron Saturation 24 % (15-50); Potassium 3.8 mmol/L (3.3-5.1); Sodium 137 mmol/L (135-145); Total Iron Binding Capacity 285 mcg/dL (228-428); Total Protein 7.7 g/dL (6.5-8.0); Triglycerides 101 mg/dL (<150); Unsaturated Iron Binding 216 ug/dL
[2024-03-18 10:37] LABS: Estimated Average Glucose 260 mg/dL; Hemoglobin A1c % 10.7 % (<6.0); Total Hemoglobin (HGBA1C) 3442.8992 umol/L
[2024-03-18 10:45] LABS: Ferritin 66 ng/mL (10-250); Insulin 38 uU/mL (2-29); Vitamin D 25-OH Total 43.3 ng/mL (>30)
[2024-03-18 10:58] LABS: HBS Num1 2.05 mIU/mL (0-7.99); HBc Num1 6.25 S/CO (0.00-0.79); Hepatitis B Surface Antigen Negative (Negative); ~HepC Num1 15.05 S/CO (0.00-0.79); ~Hepatitis A Antibody IgM Nonreactive (Nonreactive); ~Hepatitis B Surface Antibody NONREACTIVE (Nonreactive); ~Hepatitis C Antibody Reactive (Nonreactive)
[2024-03-18 11:00] LABS: Folate 10.6 ng/mL (> or = 4.0); Vitamin B12 512 pg/mL (200-900)
[2024-03-18 11:25] LABS: Free T4 (Free Thyroxine) 1.01 ng/dL (0.71-1.85)
[2024-03-18 11:41] LABS: HBc Num3 6.39 S/CO
[2024-03-18 11:42] LABS: Hepatitis B Core Antibody Reactive (Nonreactive)
[2024-03-19 16:32] LABS: Hepatitis B Core Antibody IgM NON-REACTIVE (NON-REACTIVE)
[2024-03-22 05:02] LABS: Zinc 111 mcg/dL (60-130)
[2024-03-23 19:48] LABS: Vitamin A 62 mcg/dL (38-98)
[2024-03-27 07:43] LABS: Vitamin B1 23 nmol/L (8-30)
== END 2024-03-18 08:21 | disposition home or self-care (01) ==
LOC: HO.LAB 08:20
PROVIDERS: PCP Internal Medicine; Visit Provider Surgery
DX: E66.01 Morbid (severe) obesity due to excess calories (principal); E78.5 Hyperlipidemia, unspecified; R06.02 Shortness of breath; I10 Essential (primary) hypertension; J45.909 Unspecified asthma, uncomplicated; K21.9 Gastro-esophageal reflux disease without esophagitis; E11.9 Type 2 diabetes mellitus without complications; B19.20 Unspecified viral hepatitis C without hepatic coma
CPT/HCPCS: 36415; 80053; 80061; 82306; 82607; 82728; 82746; 83036; 83525; 83540; 84425; 84439; 84443; 84590; 84630; 85025; 86140; 86704; 86705; 86706; 86709; 86803; 87340; 93005

== ENCOUNTER → 2024-03-21 12:10 | Outpatient (BNVA) | payer MEDICAID, SELFPAY | PROVIDERS: PCP Internal Medicine; Visit Provider Counselor Mental Health ==

== ENCOUNTER → 2024-03-21 12:10 | Outpatient (AMB) | payer OTHER, SELFPAY ==
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
== END ==
PROVIDERS: PCP Internal Medicine; Visit Provider Counselor Mental Health
DX: F32.9 Major depressive disorder, single episode, unspecified (principal)
CPT/HCPCS: 90834

== ENCOUNTER 2024-04-06 08:52 | Outpatient (AMB) | payer MEDICAID, SELFPAY ==
--- NOTE | 2024-04-06 08:54 | A.OFFVIS_ITS ---
Vital Signs 04/06/24 08:55 Height 5 ft 4 in Weight 277 lb 12.519 oz BMI 47.7 BP 105/63 Blood Pressure Location Lt brachial Position Sitting Pulse 90 Intake Visit Reasons: 6 month f/u Intake Note: Barbra presents in the office as a 6 month follow up. CC: She states that she is feeling okay - no concerns at this time. Lead Care Manager Required: No Allergies No Known Allergies Allergy (Verified 04/06/24 10:59) HPI Comments Details: 58 y.o F with PMH of chronic HCV, copd, morbid obesity with BMI 50, uncontrolled T2DM, HTN who is here for two issues: - CRC screening: no gastrointestinal complaints to include abd pain, N,V, D, blood in stool. No fam hx of CRC in first degree relatives. No anemia noted on labs. Has never had any CRC screening including stool test or colo. - Chronic HCV: reports IVDU in her 20s + sharing needles. 2 of her brothers also had hepatitis C and one from cirrhosis due to it. First found out about it 5-7 years ago and tx was prescribed through her PCP's office but pt never took it. Labs reviewed: HCV Ab + with HBcAb +. HBsAg neg. HIV neg. 09/08/23: * Normal esophagus * Gastritis (biopsy) * Normal duodenum * Poor prep * Hemorrhoids Path: Diagnosis Stomach, random, biopsy: Gastric body mucosa with focal mild chronic inactive inflammation; negative for H.pylori and intestinal metaplasia. 10/02/23: Patient here with her sister Kaila. Reports intermittent abdominal pain with heartburn. She is unsure if she started the omeprazole that was sent to her pharmacy on 09/09/23. Otherwise, in terms of liver disease, has advanced fibrosis versus early cirrhosis likely due to metabolic liver disease. Hepatitis-C viral load negative. No varices seen on upper endoscopy. She is due for repeat ultrasound for HCC screening. She is aware that she will need a repeat colonoscopy, although remains hesitant to pursue it at this time, but sister reassures me that she will talk to her. Of note, patient noted to be short of breath and tachypneic even while sitting down, which only worsened when she was moved for an exam. Has risk factors for both CAD as well as right heart failure, no recent echo in system. 04/06/24: Here for routine follow-up. Now established with Bariatric Medicine and has had almost 20 lb weight loss since starting the program. She is looking forward to reaching her goal weight in the next few months to allow her to have sleeve gastrectomy. Labs and imaging reviewed. Echo reassuring. Seems to have had some degree of liver function recuperation already based on the elastography. Not immune to hepatitis-B, and will be receiving vaccination in office today. [facility] Medical History EBNOI (obstructive sleep apnea) DJD (degenerative joint disease) Insomnia Hyperlipidemia Morbid obesity Scalp mass Bipolar 1 disorder Depression Sleep apnea HTN (hypertension) Hepatitis GERD (gastroesophageal reflux disease) Diabetes Asthma Surgical History History of excision of mass (~09/18/23) Hx of tubal ligation Hx of cholecystectomy History of section Social History Household Members: Spouse and Children Housing: House Do you presently have visiting nurse or other home services: No Alcohol intake: never Patient Tobacco Use Status: Former Tobacco user service: No Sexual orientation: Don't Know Review of Systems Const All systems reviewed & are unremarkable except as noted in HPI and below Physical Exam Vital Signs: Last Vital Signs Pulse 90 04/06/24 08:55 BP 105/63 04/06/24 08:55 BMI result Body Mass Index 47.7 No acute distress, with a obesity, nonicteric abdomen soft, nontender Nonpitting edema Assessment & Plan Assessment & Plan (1) Fatty liver disease, nonalcoholic: Code(s): K76.0 - Fatty (change of) liver, not elsewhere classified Category: Medical (2) Obesity, morbid, BMI 50 or higher: Code(s): E66.01 - Morbid (severe) obesity due to excess calories Category: Medical (3) Colon cancer screening: Code(s): Z12.11 - Encounter for screening for malignant neoplasm of colon Category: Medical Plan 1. Chronic liver disease Has advanced fibrosis versus early cirrhosis from LEARY/MASLD. No clinically significant portal hypertension based on clinical assessment and endoscopy so far. No evidence of chronic hepatitis-C based on labs. Plan: -promising weight loss since enrolling in bariatric program -reinforced diabetes and hyperlipidemia control -HBV vaccination series -Next US abd due in Jun 2024 - ordered -indication for further variceal screening contingent on overall clinical course and improvement in liver function -no evidence of hepatic encephalopathy or ascites on exam today -MELD labs before next OV 2. Colon cancer screening: At average risk for CRC. Colonoscopy 2023 could not be completed due to poor prep on the right side. Will need another colonoscopy within a year. Workload already in. Pt prefers to hold this off for a few months. Follow up 6 months Orders: Orders Complete Blood Count no Diff 6 Months K74.60 - Unspecified cirrhosis of liver US abdomen complete 3 Months K74.60 - Unspecified cirrhosis of liver Hepatitis B Adult Immunization Today Z23 - Encounter for immunization Comprehensive Met. Panel 6 Months K74.60 - Unspecified cirrhosis of liver Prothrombin Time INR 6 Months K74.60 - Unspecified cirrhosis of liver Coding Level of Care Code Est Pt Level 4 (73909) Diagnoses Fatty liver disease, nonalcoholic K76.0 Obesity, morbid, BMI 50 or higher E66.01 Colon cancer screening Z12.11
[2024-04-06 08:55] VITALS: BP 105/63; PULSE 90; BMI 47.7
== END 2024-04-06 09:44 | disposition home or self-care (01) ==
PROVIDERS: PCP Internal Medicine; Visit Provider Internal Medicine
DX: K76.0 Fatty (change of) liver, not elsewhere classified (principal); E66.01 Morbid (severe) obesity due to excess calories; Z12.11 Encounter for screening for malignant neoplasm of colon; Z23 Encounter for immunization
CPT/HCPCS: 99214

== ENCOUNTER → 2024-04-06 08:52 | Outpatient (BNVA) | payer MEDICAID, SELFPAY | PROVIDERS: PCP Internal Medicine; Visit Provider Internal Medicine | DX: E66.01 Morbid (severe) obesity due to excess calories (principal); K76.0 Fatty (change of) liver, not elsewhere classified; K74.60 Unspecified cirrhosis of liver; Z23 Encounter for immunization; Z71.3 Dietary counseling and surveillance; Z68.42 Body mass index [BMI] 45.0-49.9, adult | CPT/HCPCS: 90471; 90746; 99212 ==

== ENCOUNTER 2024-04-06 10:26 | Outpatient (AMB) | payer MEDICAID, SELFPAY ==
[2024-04-06 10:55] VITALS: BP 122/62; PULSE 93; TEMP 36; O2SAT 98; BMI 47.5
--- NOTE | 2024-04-06 10:55 | A.OFFVIS_ITS ---
VS Expanded 04/06/24 10:55 BP 122/62 Blood Pressure Location Rt brachial Blood Pressure Position Sitting Pulse 93 Pulse Source Pulse Oximeter Temp 96.8 F Temperature Source Temporal Artery Scan Pulse Oximetry 98 Oxygen Delivery Method Room Air Height 5 ft 4 in Weight 277 lb BMI 47.5 Body Fat % 50.7 Body Fat Mass 140.4 Fat Free Mass 136.4 Visceral Fat Rating 18 Body Water % 35 Body Water Mass 97 Muscle Mass/Score 129.6 Basal Metabolic Rate/Score 1,956 Intake Visit Reasons: (OV) F/U SWL [facility] Shearer Required: No Allergies No Known Allergies Allergy (Verified 04/06/24 10:59) HPI Comments Details: Patient is a pleasant 59-year-old female who returns to the office today in follow-up. She was initially seen on 12/14/2023 with a weight of 297.6 lb with a BMI of 51. Weight today is 277 lb with a BMI of 47.6. Total weight loss 20.6 lb or 6.9 %. She states she has started using the fork to measure but was only doing 5 forks of meat and 5 of vegetables. She started the shakes 2 weeks ago but was using the celebrate 4 in 1 and not the rebuild. She was using 1.5 scoops per shake with 8 oz almond milk. She was doing 4 shakes per day at 8, 12, 2, 4. Drinking her shake in 20 minutes. She reports her sugars are 170s She had difficulty remembering the meal plan. She has not been exercising consistently. She states that she had multiple appointments. She also had some confusion regarding her medications. It is unclear whether she will be an appropriate candidate for our program. We will give her 1 further opportunity. Again, her meal plan was written down for her and given to her. Her sister took this and will translated into Beninese. Although this was done last time, we want to give her another opportunity to succeed. Pt was accompanied by her sister who is literate and helps her in her care. recommended meal plan: celebrate rebuild, 2 scoops at 9-11, 1-3 and 7-9. She will continue with her meal at approximately 5pm with 10 forks of protein and 10 of vegetables. Exericse plan: [employer] 1 hour walking on treadmill, daily [facility] Medical History EBONI (obstructive sleep apnea) DJD (degenerative joint disease) Insomnia Hyperlipidemia Morbid obesity Scalp mass Bipolar 1 disorder Depression Sleep apnea HTN (hypertension) Hepatitis GERD (gastroesophageal reflux disease) Diabetes Asthma Surgical History History of excision of mass (~09/18/23) Hx of tubal ligation Hx of cholecystectomy History of section Social History Household Members: Spouse and Children Housing: House Do you presently have visiting nurse or other home services: No Alcohol intake: never Patient Tobacco Use Status: Former Tobacco user service: No Sexual orientation: Don't Know Physical Exam Vital Signs: Last Vital Signs Temp 96.8 F 04/06/24 10:55 Pulse 93 04/06/24 10:55 BP 122/62 04/06/24 10:55 Pulse Ox 98 04/06/24 10:55 Oxygen Delivery Method Room Air 04/06/24 10:55 BMI result Body Mass Index 47.5 Const General: healthy appearing and no acute distress Resp Effort & Inspection: normal respiratory effort Auscultation: clear to auscultation bilaterally Cardio Rate: regular rate Rhythm: regular rhythm GI Auscultation: normal bowel sounds Extrem General: Yes normal to inspection Assessment & Plan Assessment & Plan (1) Morbid obesity: Code(s): E66.01 - Morbid (severe) obesity due to excess calories Category: Medical Plan: Patient will be given another opportunity to succeed and follow the meal plan and exercise plan as was given to her multiple times. She has lost 20 lb in the last 4 months, this by way of no further candy or soda. Blood sugars are improved however still remain 170s. She will return to the office in approximately 1 month.
== END 2024-04-06 11:29 | disposition home or self-care (01) ==
PROVIDERS: PCP Internal Medicine; Visit Provider Physician Assistant Surgical
DX: E66.01 Morbid (severe) obesity due to excess calories (principal)
CPT/HCPCS: 99213

== ENCOUNTER 2024-05-04 07:59 | Outpatient (AMB) | payer MEDICAID, SELFPAY ==
--- NOTE | 2024-04-06 09:36 | AM.OFFVISNUR ---
Intake Visit Reasons: Hep B #2 Allergies No Known Allergies Allergy (Verified 04/06/24 08:55)
== END 2024-05-04 08:18 | disposition home or self-care (01) ==
LOC: HO.HGI 07:59
PROVIDERS: PCP Internal Medicine; Visit Provider Internal Medicine
DX: Z23 Encounter for immunization (principal)

== ENCOUNTER → 2024-05-04 07:59 | Outpatient (BNVA) | payer MEDICAID, SELFPAY | PROVIDERS: PCP Internal Medicine; Visit Provider Internal Medicine | DX: Z23 Encounter for immunization (principal) | CPT/HCPCS: 90471; 90746 ==

== ENCOUNTER 2024-05-04 08:19 | Outpatient (REF) | payer MEDICAID, SELFPAY ==
[2024-05-04 09:42] LABS: Estimated Average Glucose 237 mg/dL; Hemoglobin A1C 293.2764 umol/L; Hemoglobin A1c % 9.9 % (<6.0); Total Hemoglobin (HGBA1C) 3447.0517 umol/L
[2024-05-04 09:47] LABS: Alanine Aminotransferase 45 U/L (0-31); Albumin Level 4.2 g/dL (3.5-5.0); Alkaline Phosphatase 88 U/L (39-117); Anion Gap 13 (12-20); Aspartate Amino Transferase 33 U/L (5-31); Bilirubin Total 0.4 mg/dL (0.0-1.0); Blood Urea Nitrogen 16 mg/dL (9-16); Calcium 10.2 mg/dL (8.4-10.2); Carbon Dioxide 28 mmol/L (22-29); Chloride 99 mmol/L (96-108); Estimated Glomerular Filt Rate 60; Glucose Random 309 mg/dL (60-115); Potassium 3.7 mmol/L (3.3-5.1); Sodium 136 mmol/L (135-145); Total Protein 7.6 g/dL (6.5-8.0)
[2024-05-06 15:38] LABS: HCV RNA PCR Qn <1.18 NOT DETECTED Log IU/mL (NOT DETECTED); HCV RNA PCR Qn <15 NOT DETECTED IU/mL (NOT DETECTED)
== END 2024-05-04 08:20 | disposition home or self-care (01) ==
LOC: HO.LAB 08:19
PROVIDERS: PCP Internal Medicine; Visit Provider Internal Medicine
DX: E11.65 Type 2 diabetes mellitus with hyperglycemia (principal); E66.01 Morbid (severe) obesity due to excess calories; E78.00 Pure hypercholesterolemia, unspecified; I10 Essential (primary) hypertension; J45.909 Unspecified asthma, uncomplicated; R80.8 Other proteinuria
CPT/HCPCS: 36415; 80053; 83036; 87522

== ENCOUNTER 2024-06-23 17:07 | Emergency (ER) | payer MEDICAID, SELFPAY ==
--- NOTE | 2024-06-23 17:52 | ED_ITS ---
HPI - General Adult General Chief complaint: Urogenital-Female Stated complaint: ?uti Time Seen by Provider: 06/24/24 00:52 Source: patient Limitations: no limitations History of Present Illness ED Provider: Daysi Cruz PA-C HPI narrative: 59-year-old female with a history of morbid obesity, hypertension, diabetes, bipolar, Murrell with subsequent cirrhosis, hep C, hypothyroidism, sleep apnea, degenerative disc disease, hyperlipidemia, asthma, dementia presents with dysuria x1 day. Associated suprapubic discomfort, low back pain and increased urine frequency. Denies flank pain, fever, nausea, vomiting, history of kidney stones. Related Data Home Medications ?Medication ?Instructions ?Recorded ?Confirmed alcohol swabs (Alcohol Prep Pads) 1 pledget topical BID 10/27/20 03/14/24 aspirin 81 mg tablet,delayed 1 tab PO BEDTIME 10/27/20 03/14/24 release blood sugar diagnostic (FreeStyle 10/27/20 03/14/24 Lite Strips) glipizide 10 mg tablet, extended 1 tab PO QAM 10/27/20 03/14/24 release 24 hr lancets 33 gauge (TRUEplus Lancets) 10/27/20 03/14/24 lisinopril 20 1 tab PO QAM 10/27/20 03/14/24 mg-hydrochlorothiazide 25 mg tablet pen needle, diabetic 32 gauge x 10/27/20 03/14/24 5/32 (Pentips Pen Needle) amlodipine 5 mg tablet 5 mg PO DAILY 03/24/23 03/14/24 cholecalciferol (vitamin D3) 50 50 mcg PO QAM 03/24/23 03/14/24 mcg (2,000 unit) capsule (Vitamin D3) flash glucose sensor (FreeStyle #1 ea 03/24/23 03/14/24 Sandra 2 Sensor kit) insulin glargine U-300 conc 300 100 unit subcut BEDTIME 03/24/23 03/14/24 unit/mL (1.5 mL) subcutaneous pen (Frantz SolNiko U-300 Insulin) loratadine 10 mg tablet 10 mg PO DAILY 03/24/23 03/14/24 metformin 1,000 mg tablet 1,000 mg PO 03/24/23 03/14/24 trazodone 100 mg tablet 100 mg PO BEDTIME PRN insomnia 03/24/23 03/14/24 budesonide-formoterol HFA 160 2 puff inhalation BID 04/06/24 mcg-4.5 mcg/actuation aerosol inhaler (Symbicort) dulaglutide 3 mg/0.5 mL mg subcut QWEEK 04/06/24 subcutaneous pen injector (Trulicity) insulin lispro 100 unit/mL 40 unit subcut TID 04/06/24 subcutaneous pen levothyroxine 25 mcg tablet 25 mcg PO QAM 04/06/24 pantoprazole 40 mg tablet,delayed 40 mg PO QAM 04/06/24 release rosuvastatin 40 mg tablet 40 mg PO QPM 04/06/24 venlafaxine 37.5 mg 37.5 mg PO DAILY 04/06/24 capsule,extended release 24 hr Previous Rx's ?Medication ?Instructions ?Recorded gabapentin 100 mg capsule 200 mg (2 x 100 mg) PO TID 30 days 11/14/20 #180 caps memantine 5 mg tablet 5 mg PO BEDTIME 30 days #30 tabs 11/14/20 olanzapine 7.5 mg tablet 7.5 mg PO BEDTIME 30 days #30 tabs 11/14/20 venlafaxine 75 mg capsule,extended 75 mg PO DAILY 30 days #30 caps 11/14/20 release 24 hr acetaminophen 500 mg tablet 1,000 mg (2 x 500 mg) PO QID PRN 05/27/22 (Tylenol Extra Strength) fever or pain #14 tabs tramadol 50 mg tablet 50 mg PO Q8H PRN pain #14 tabs 05/27/22 albuterol sulfate 2.5 mg/0.5 mL 5 mg inhalation Q4H PRN shortness 11/30/22 solution for nebulization of breath or wheezing #30 ea acetaminophen 325 mg tablet 325 mg PO QID PRN fever or pain 05/21/23 (Tylenol) #20 tabs cephalexin 500 mg capsule 500 mg PO BID #14 caps 06/24/24 phenazopyridine 200 mg tablet 200 mg PO TID PRN pain #10 tabs 06/24/24 (Pyridium) Allergies Allergy/AdvReac Type Severity Reaction Status Date / Time No Known Allergies Allergy Verified 06/23/24 17:54 Review of Systems Review of Systems: Yes all other systems are reviewed and are negative Constitutional: Constitutional: Reports fatigue and Denies fever(s) Cardiovascular: Cardiovascular: Denies chest pain and Denies dyspnea Respiratory: Respiratory: Denies dyspnea Gastrointestinal: Gastrointestinal: Reports abdominal pain, Denies nausea and Denies vomiting Genitourinary: Genitourinary: Reports hematuria, Reports dysuria, Denies flank pain and Reports urinary urgency Musculoskeletal: Musculoskeletal: Reports back pain Endocrine: Endocrine: Reports fatigue PMFSH Past Medical History Attestation statement: The following information was validated with the patient. Medical History EBONI (obstructive sleep apnea) DJD (degenerative joint disease) Insomnia Hyperlipidemia Morbid obesity Scalp mass Bipolar 1 disorder Depression Sleep apnea HTN (hypertension) Hepatitis GERD (gastroesophageal reflux disease) Diabetes Asthma Surgical History History of excision of mass (~09/18/23) Hx of tubal ligation Hx of cholecystectomy History of section Social History Social History Household Members: Spouse and Children Housing: House Do you presently have visiting nurse or other home services: No Unable to assess alcohol history related to: Unknown Alcohol intake: never Patient Tobacco Use Status: Former Tobacco user Use of substances other than those prescribed or required for medical reasons: Unknown Advance Directives: No Advance Directives Information Provided: Yes Patient : No service: No Sexual orientation: Don't Know Physical Exam ED Vital Signs: Vital Signs - 24 hr 06/23/24 17:53 06/23/24 22:00 06/24/24 00:33 Temperature 98.6 F 98.7 F Pulse Rate 95 98 100 Respiratory Rate 18 18 18 Blood Pressure 150/68 H 133/66 121/79 Pulse Oximetry 97 98 Oxygen Delivery Method Room Air Room Air Room Air BMI result Body Mass Index 49.8 Const Other: Awake, appears older than stated age Orientation/consciousness: patient oriented x3 Resp Other: Nonlabored respiration Cardio Other: Normal peripheral perfusion GI Other: Abdomen is soft, obese, nondistended, minimal tenderness to palpation in suprapubic region no guarding, exam secured secondary to habitus Back/Spine/Pelvis Other: No CVA tenderness Skin Other: Warm dry no rash Neuro General: patient oriented x3, no focal motor deficits and CN's II-XI intact bilaterally Psych Other: Calm cooperative Course Course Course Narrative: RME, this is a rapid medical exam performed by Justin Guzman please refer to primary provider for complete H&P- 59-year-old female presents for evaluation of burning with urination and blood in her urine that started today. Plan for urinalysis Medications Administered Discontinued Medications Generic Name Dose Route Start Last Admin Trade Name Mary Jane PRN Reason Stop Dose Admin Cephalexin HCl 500 mg 06/24/24 01:16 06/24/24 01:33 Cephalexin 500 Mg Capsule PO 06/24/24 01:17 500 mg ONCE ONE Administration Ketorolac Tromethamine 15 mg 06/24/24 01:17 06/24/24 01:33 Ketorolac Tromethamine 15 Mg/Ml Vial IM 06/24/24 01:18 15 mg ONCE ONE Administration Phenazopyridine HCl 200 mg 06/24/24 01:33 06/24/24 01:36 Phenazopyridine Hcl 200 Mg Tablet PO 06/24/24 01:34 200 mg ONCE ONE Administration Medical Decision Making Medical Decision Making MDM Narrative: 59-year-old female with a history of morbid obesity, hypertension, diabetes, bipolar, Murrell with subsequent cirrhosis, hep C, hypothyroidism, sleep apnea, degenerative disc disease, hyperlipidemia, asthma, dementia presents with dysuria x1 day. Associated suprapubic discomfort, low back pain and increased urine frequency. Denies flank pain, fever, nausea, vomiting, history of kidney stones. Problem: Morbid obesity, diabetes, immunocompromise states History: Per patient I have considered the following differential diagnoses: UTI, pyelonephritis, renal colic Plan: Patient has evidence of urinary tract infection, her exam was overall benign, she has no CVA tenderness to suggest pyelonephritis, she is not having flank pain to suggest a migrating kidney stone, her pain is focal to the suprapubic region. She does not require imaging. We will treat her for a simple UTI. I have independently reviewed the following tests: Labs: Urine appears infected, however there was no nitrite, we will treat with Keflex Lab Data Labs: Lab Results 06/23/24 Range/Units 17:59 Urine Color Red A Urine Appearance Cloudy Urine pH 6.5 (5.0-9.0) Ur Specific [place] 1.025 (1.005-1.025) Urine Protein 100 (2+) H (Neg-Trace) mg/dL Urine Glucose (UA) >=1000 H (Negative) mg/dL Urine Ketones Negative (Negative) mg/dL Urine Blood Large (3+) H (Negative) Urine Nitrite Negative (Negative) Ur Leukocyte Esterase Moderate (2+) H (Negative) Urine RBC >20 H (0-2) /HPF Urine WBC >50 H (0-5) /HPF Ur Squamous Epith Cells 0-2 (0-2) /HPF Urine Bacteria None Seen (None Seen) Hyaline Casts 0-2 (0-2) /LPF Discharge Plan Discharge Clinical Impression: Urinary tract infection Patient Disposition: Home, Self-Care Instructions: Urinary Tract Infection in Women (ED) Additional Instructions: You were found to have a urinary tract infection. See home care instructions. Take the cephalexin as directed this is an antibiotic. Use the Pyridium as needed, this is for bladder pain. To note, the Pyridium will cause your urine to turn bright orange, this will resolve. Follow up with your primary care provider as needed Prescriptions: New cephalexin 500 mg capsule 500 mg PO BID Qty: 14 0RF phenazopyridine [Pyridium] 200 mg tablet 200 mg PO TID PRN (Reason: pain) Qty: 10 0RF No Action glipizide 10 mg tablet extended release 24hr 1 tab PO QAM (DME) FreeStyle Lite Strips Strip MISCELLANEOUS TID aspirin 81 mg tablet,delayed release (DR/EC) 1 tab PO BEDTIME lisinopril-hydrochlorothiazide 20-25 mg tablet 1 tab PO QAM alcohol swabs [Alcohol Prep Pads] Pads, Medicated 1 pledget topical BID (DME) pen needle, diabetic [Pentips Pen Needle] 32 gauge x 5/32 needle MISCELLANEOUS BID (DME) lancets [TRUEplus Lancets] 33 gauge misc MISCELLANEOUS TID venlafaxine 75 mg Capsule,Extended Release 24hr 75 mg PO DAILY 30 Days Qty: 30 0RF olanzapine 7.5 mg Tablet 7.5 mg PO BEDTIME 30 Days Qty: 30 0RF gabapentin 100 mg Capsule 200 mg PO TID 30 Days Qty: 180 0RF memantine 5 mg Tablet 5 mg PO BEDTIME 30 Days Qty: 30 0RF acetaminophen [Tylenol Extra Strength] 500 mg tablet 1,000 mg PO QID PRN (Reason: fever or pain) Qty: 14 0RF tramadol 50 mg tablet 50 mg PO Q8H PRN (Reason: pain) Qty: 14 0RF Rx Instructions: May partially fill upon patient request albuterol sulfate 2.5 mg/0.5 mL solution for nebulization 5 mg inhalation Q4H PRN (Reason: shortness of breath or wheezing) Qty: 30 0RF acetaminophen [Tylenol] 325 mg tablet 325 mg PO QID PRN (Reason: fever or pain) Qty: 20 0RF trazodone 100 mg tablet 100 mg PO BEDTIME PRN (Reason: insomnia) amlodipine 5 mg tablet 5 mg PO DAILY (DME) FreeStyle Sandra 2 Sensor Kit See Rx Instructions .ROUTE DIRECTED Qty: 1 Rx Instructions: As directed loratadine 10 mg tablet 10 mg PO DAILY metformin 1,000 mg tablet 1,000 mg PO [place] SoloStar U-300 Insulin 300 unit/mL (1.5 mL) insulin pen 100 unit subcut BEDTIME cholecalciferol (vitamin D3) [Vitamin D3] 50 mcg (2,000 unit) capsule 50 mcg PO QAM levothyroxine 25 mcg tablet 25 mcg PO QAM Trulicity 3 mg/0.5 mL pen injector subcut QWEEK budesonide-formoterol [Symbicort] 160-4.5 mcg/actuation HFA aerosol inhaler 2 puff inhalation BID insulin lispro 100 unit/mL insulin pen 40 unit subcut TID pantoprazole 40 mg tablet,delayed release (DR/EC) 40 mg PO QAM rosuvastatin 40 mg tablet 40 mg PO QPM venlafaxine 37.5 mg capsule,extended release 24hr 37.5 mg PO DAILY Print Language: Arabic
[2024-06-23 17:53] VITALS: BP 150/68; PULSE 95; RESP 18; TEMP 37; O2SAT 97; BMI 49.8
[2024-06-23 18:09] LABS: Bacteria Urine None Seen (None Seen); Hyaline Casts Urine 0-2 /LPF (0-2); RBC Urine >20 /HPF (0-2); Squamous Epithelial Cell Urine 0-2 /HPF (0-2); WBC Urine >50 /HPF (0-5)
[2024-06-23 18:11] LABS: Appearance Urine Cloudy; Color Urine Red; Glucose Urine UA >=1000 mg/dL (Negative); Leukocyte Esterase Urine Moderate (2+) (Negative); Nitrite Urine Negative (Negative); PH 6.5 (5.0-9.0); Specific Gravity - Urine 1.025 (1.005-1.025); UACC Culture Trigger YES; UMIC TRIGGER UACC YES; Urine Blood Large (3+) (Negative); Urine Ketones Negative (Negative); Urine Protein 100 (2+) mg/dL (Neg-Trace)
[2024-06-23 22:00] VITALS: BP 133/66; PULSE 98; RESP 18
[2024-06-24 00:33] VITALS: BP 121/79; PULSE 100; RESP 18; TEMP 37.1; O2SAT 98
[2024-06-24] MEDS: cephALEXin 500 MG CAPSULE PO (01:33)
[2024-06-24] MEDS: Ketorolac Tromethamine 15 MG/ML VIAL IM (01:33)
[2024-06-24] MEDS: Phenazopyridine HCL 200 MG TABLET PO (01:36)
[2024-06-24 02:06] VITALS: BP 144/80; PULSE 102; RESP 16; TEMP 37.2; O2SAT 94
[2024-06-24 02:07] VITALS: BP 144/80; PULSE 102; RESP 16; TEMP 37.2; O2SAT 94
== END 2024-06-24 02:08 | disposition home or self-care (01) ==
PROVIDERS: Physician Assistant; Emergency Provider Emergency Medicine; PCP Internal Medicine
DX: N39.0 Urinary tract infection, site not specified (principal); E11.9 Type 2 diabetes mellitus without complications; I10 Essential (primary) hypertension; E78.5 Hyperlipidemia, unspecified; E03.9 Hypothyroidism, unspecified; B19.20 Unspecified viral hepatitis C without hepatic coma; K76.0 Fatty (change of) liver, not elsewhere classified; Z87.891 Personal history of nicotine dependence; Z79.82 Long term (current) use of aspirin; Z79.899 Other long term (current) drug therapy; Z79.4 Long term (current) use of insulin; Z79.84 Long term (current) use of oral hypoglycemic drugs; Z79.85 Long-term (current) use of injectable non-insulin antidiabetic drugs; Z79.02 Long term (current) use of antithrombotics/antiplatelets
CPT/HCPCS: 81001; 87086; 96372; 99284; J1885

== ENCOUNTER 2024-07-13 18:11 | Emergency (ER) | payer MEDICAID, SELFPAY ==
[2024-07-13 18:16] VITALS: BP 149/75; PULSE 87; RESP 20; TEMP 36.1; O2SAT 97; BMI 46.4
[2024-07-13 21:01] LABS: Appearance Urine Clear; Color Urine Yellow; Glucose Urine UA >=1000 mg/dL (Negative); Leukocyte Esterase Urine Negative (Negative); Nitrite Urine Negative (Negative); PH 7.5 (5.0-9.0); Specific Gravity - Urine 1.025 (1.005-1.025); UMIC TRIGGER UACC YES; Urine Blood Negative (Negative); Urine Ketones Negative (Negative); Urine Protein 100 (2+) mg/dL (Neg-Trace)
[2024-07-13 21:13] LABS: Bacteria Urine None Seen (None Seen); Hyaline Casts Urine 0-2 /LPF (0-2); RBC Urine 0-2 /HPF (0-2); WBC Urine 0-5 /HPF (0-5)
[2024-07-13] MEDS: methocarbamoL 750 MG TABLET 1500 MG PO (23:54)
[2024-07-14] VITALS: BP 134/59; PULSE 88; RESP 20; TEMP 36.7; O2SAT 96
--- NOTE | 2024-07-14 00:19 | ED_ITS ---
HPI - Back Pain/Injury General Chief Complaint: Back Pain/Injury Stated Complaint: back pain, no injury Time Seen by Provider: 07/13/24 21:39 Source: patient Limitations: no limitations History of Present Illness ED Provider: Daysi Cruz PA-C HPI Narrative: 59-year-old female with a history of morbid obesity, EBONI, Murrell, hypothyroidism, cirrhosis, hyperlipidemia, degenerative joint disease, hep C, hypertension, GERD diabetes, bipolar, asthma, dementia presents with back pain times 1 week. Patient states her entire back hurts. She denies new exercise new heavy lifting new activity. She denies trauma. Pain worse with movement and transitioning from lying down to sitting and sitting to standing. There was no radiation of pain down either lower extremity. Denies weakness of lower extremities, parest hesia, urinary retention or bowel incontinence. Related Data Home Medications ?Medication ?Instructions ?Recorded ?Confirmed alcohol swabs (Alcohol Prep Pads) 1 pledget topical BID 10/27/20 03/14/24 aspirin 81 mg tablet,delayed 1 tab PO BEDTIME 10/27/20 03/14/24 release blood sugar diagnostic (FreeStyle 10/27/20 03/14/24 Lite Strips) glipizide 10 mg tablet, extended 1 tab PO QAM 10/27/20 03/14/24 release 24 hr lancets 33 gauge (TRUEplus Lancets) 10/27/20 03/14/24 lisinopril 20 1 tab PO QAM 10/27/20 03/14/24 mg-hydrochlorothiazide 25 mg tablet pen needle, diabetic 32 gauge x 10/27/20 03/14/24 5/32 (Pentips Pen Needle) amlodipine 5 mg tablet 5 mg PO DAILY 03/24/23 03/14/24 cholecalciferol (vitamin D3) 50 50 mcg PO QAM 03/24/23 03/14/24 mcg (2,000 unit) capsule (Vitamin D3) flash glucose sensor (FreeStyle #1 ea 03/24/23 03/14/24 Sandra 2 Sensor kit) insulin glargine U-300 conc 300 100 unit subcut BEDTIME 03/24/23 03/14/24 unit/mL (1.5 mL) subcutaneous pen ([place] SoloStar U-300 Insulin) loratadine 10 mg tablet 10 mg PO DAILY 03/24/23 03/14/24 metformin 1,000 mg tablet 1,000 mg PO 03/24/23 03/14/24 trazodone 100 mg tablet 100 mg PO BEDTIME PRN insomnia 03/24/23 03/14/24 budesonide-formoterol HFA 160 2 puff inhalation BID 04/06/24 mcg-4.5 mcg/actuation aerosol inhaler (Symbicort) dulaglutide 3 mg/0.5 mL mg subcut QWEEK 04/06/24 subcutaneous pen injector (Trulicity) insulin lispro 100 unit/mL 40 unit subcut TID 04/06/24 subcutaneous pen levothyroxine 25 mcg tablet 25 mcg PO QAM 04/06/24 pantoprazole 40 mg tablet,delayed 40 mg PO QAM 04/06/24 release rosuvastatin 40 mg tablet 40 mg PO QPM 04/06/24 venlafaxine 37.5 mg 37.5 mg PO DAILY 04/06/24 capsule,extended release 24 hr Previous Rx's ?Medication ?Instructions ?Recorded gabapentin 100 mg capsule 200 mg (2 x 100 mg) PO TID 30 days 11/14/20 #180 caps memantine 5 mg tablet 5 mg PO BEDTIME 30 days #30 tabs 11/14/20 olanzapine 7.5 mg tablet 7.5 mg PO BEDTIME 30 days #30 tabs 11/14/20 venlafaxine 75 mg capsule,extended 75 mg PO DAILY 30 days #30 caps 11/14/20 release 24 hr acetaminophen 500 mg tablet 1,000 mg (2 x 500 mg) PO QID PRN 05/27/22 (Tylenol Extra Strength) fever or pain #14 tabs tramadol 50 mg tablet 50 mg PO Q8H PRN pain #14 tabs 05/27/22 albuterol sulfate 2.5 mg/0.5 mL 5 mg inhalation Q4H PRN shortness 11/30/22 solution for nebulization of breath or wheezing #30 ea acetaminophen 325 mg tablet 325 mg PO QID PRN fever or pain 05/21/23 (Tylenol) #20 tabs cephalexin 500 mg capsule 500 mg PO BID #14 caps 06/24/24 phenazopyridine 200 mg tablet 200 mg PO TID PRN pain #10 tabs 06/24/24 (Pyridium) methocarbamol 750 mg tablet 750 mg PO Q8H PRN pain, moderate 07/14/24 #15 tabs Allergies Allergy/AdvReac Type Severity Reaction Status Date / Time No Known Allergies Allergy Verified 07/13/24 18:19 Review of Systems Review of Systems: Yes all other systems are reviewed and are negative Constitutional: Constitutional: Denies fatigue and Denies fever(s) Cardiovascular: Cardiovascular: Denies chest pain and Denies dyspnea Respiratory: Respiratory: Denies dyspnea Gastrointestinal: Gastrointestinal: Denies abdominal pain Genitourinary: Genitourinary: Denies dysuria Musculoskeletal: Musculoskeletal: Reports back pain, Denies muscle weakness, Denies numbness and Denies radiating pain into limb Neurologic: Denies numbness Endocrine: Endocrine: Denies fatigue PMFSH Past Medical History Attestation statement: The following information was validated with the patient. Medical History EBONI (obstructive sleep apnea) DJD (degenerative joint disease) Insomnia Hyperlipidemia Morbid obesity Scalp mass Bipolar 1 disorder Depression Sleep apnea HTN (hypertension) Hepatitis GERD (gastroesophageal reflux disease) Diabetes Asthma Surgical History History of excision of mass (~09/18/23) Hx of tubal ligation Hx of cholecystectomy History of section Social History Social History Household Members: Spouse and Children Housing: House Do you presently have visiting nurse or other home services: No Unable to assess alcohol history related to: Unknown Alcohol intake: never Patient Tobacco Use Status: Former Tobacco user Advance Directives: No Advance Directives Information Provided: No Do you have a plan to hurt others: No Plan service: No Sexual orientation: Don't Know Physical Exam Vital Signs: Vital Signs: Last Vital Signs Temp 98.1 F 07/14/24 00:00 Pulse 88 07/14/24 00:00 Resp 20 07/14/24 00:00 BP 134/59 L 07/14/24 00:00 Pulse Ox 96 07/14/24 00:00 O2 Del Method Room Air 07/14/24 00:00 BMI result Body Mass Index 46.4 Const: Other: Alert, appears older than stated age Orientation/consciousness: patient oriented x3 Resp: Effort & Inspection: normal respiratory effort Cardio: Other: Normal peripheral perfusion Back/Spine/Pelvis: Other: No midline tenderness the length of the spine, Skin: Other: Warm dry no rash Neuro: General: patient oriented x3, gait normal, no focal motor deficits and CN's II-XI intact bilaterally Extrem: Other: Strength 5/5 bilateral upper and lower extremities Psych: Other: Cooperative Medications Administered Discontinued Medications Generic Name Dose Route Start Last Admin Trade Name Freq PRN Reason Stop Dose Admin Methocarbamol 1,500 mg 07/13/24 23:45 07/13/24 23:54 Methocarbamol 750 Mg Tablet PO 07/13/24 23:46 1,500 mg ONCE ONE Administration Medical Decision Making Medical Decision Making MDM Narrative: 59-year-old female with a history of morbid obesity, EBONI, Murrell, hypothyroidism, cirrhosis, hyperlipidemia, degenerative joint disease, hep C, hypertension, GERD diabetes, bipolar, asthma, dementia presents with back pain times 1 week. Patient states her entire back hurts. She denies new exercise new heavy lifting new activity. She denies trauma. Pain worse with movement and transitioning from lying down to sitting and sitting to standing. There was no radiation of pain down either lower extremity. Denies weakness of lower extremities, paresthesia, urinary retention or bowel incontinence. Problem: Obesity, degenerative joint disease History: Per patient I have considered the following differential diagnoses: Musculoskeletal strain, sciatica, cauda equina, fracture Plan: Patient here with nonspecific back pain, no mechanism of injury. She has no red flag signs symptoms concerning for cord compression. She is not having radicular symptoms. We will treat with a muscle relaxant she can follow up with primary care. Lab Data Labs: Lab Results 07/13/24 Range/Units 20:54 Urine Color Yellow Urine Appearance Clear Urine pH 7.5 (5.0-9.0) Ur Specific Ralph 1.025 (1.005-1.025) Urine Protein 100 (2+) H (Neg-Trace) mg/dL Urine Glucose (UA) >=1000 H (Negative) mg/dL Urine Ketones Negative (Negative) mg/dL Urine Blood Negative (Negative) Urine Nitrite Negative (Negative) Ur Leukocyte Esterase Negative (Negative) Urine RBC 0-2 (0-2) /HPF Urine WBC 0-5 (0-5) /HPF Ur Squamous Epith Cells 3-5 (0-2) /HPF Urine Bacteria None Seen (None Seen) Hyaline Casts 0-2 (0-2) /LPF Discharge Plan Discharge Clinical Impression: Back pain Patient Disposition: Home, Self-Care Instructions: Back Pain (ED), Lower Back Exercises (ED) Additional Instructions: You are being treated for back pain. See home care instructions. Use the methocarbamol, this is a muscle relaxant, as needed for your discomfort. This medication will cause drowsiness not drive or operate machinery while taking the medication. You should be taking [id number]-[id number] anti-inflammatory such as Tylenol 1000 mg taken every 8 hours, alternated with ueqn-jku-[id number] ibuprofen 600 mg taken every 6 hours with food. I have provided you with a list of exercises to perform to help strengthen the surrounding muscle groups. Weight loss is instrumental in helping to control and alleviate your back pain. You should be exercising on a daily basis. Follow up with your primary care provider. Prescriptions: New methocarbamol 750 mg tablet 750 mg PO Q8H PRN (Reason: pain, moderate) Qty: 15 0RF No Action glipizide 10 mg tablet extended release 24hr 1 tab PO QAM (DME) FreeStyle Lite Strips Strip MISCELLANEOUS TID aspirin 81 mg tablet,delayed release (DR/EC) 1 tab PO BEDTIME lisinopril-hydrochlorothiazide 20-25 mg tablet 1 tab PO QAM alcohol swabs [Alcohol Prep Pads] Pads, Medicated 1 pledget topical BID (DME) pen needle, diabetic [Pentips Pen Needle] 32 gauge x 5/32 needle MISCELLANEOUS BID (DME) lancets [TRUEplus Lancets] 33 gauge misc MISCELLANEOUS TID venlafaxine 75 mg Capsule,Extended Release 24hr 75 mg PO DAILY 30 Days Qty: 30 0RF olanzapine 7.5 mg Tablet 7.5 mg PO BEDTIME 30 Days Qty: 30 0RF gabapentin 100 mg Capsule 200 mg PO TID 30 Days Qty: 180 0RF memantine 5 mg Tablet 5 mg PO BEDTIME 30 Days Qty: 30 0RF acetaminophen [Tylenol Extra Strength] 500 mg tablet 1,000 mg PO QID PRN (Reason: fever or pain) Qty: 14 0RF tramadol 50 mg tablet 50 mg PO Q8H PRN (Reason: pain) Qty: 14 0RF Rx Instructions: May partially fill upon patient request albuterol sulfate 2.5 mg/0.5 mL solution for nebulization 5 mg inhalation Q4H PRN (Reason: shortness of breath or wheezing) Qty: 30 0RF acetaminophen [Tylenol] 325 mg tablet 325 mg PO QID PRN (Reason: fever or pain) Qty: 20 0RF cephalexin 500 mg capsule 500 mg PO BID Qty: 14 0RF phenazopyridine [Pyridium] 200 mg tablet 200 mg PO TID PRN (Reason: pain) Qty: 10 0RF trazodone 100 mg tablet 100 mg PO BEDTIME PRN (Reason: insomnia) amlodipine 5 mg tablet 5 mg PO DAILY (DME) FreeStyle Sandra 2 Sensor Kit See Rx Instructions .ROUTE DIRECTED Qty: 1 Rx Instructions: As directed loratadine 10 mg tablet 10 mg PO DAILY metformin 1,000 mg tablet 1,000 mg PO Frantz Nascimentoar U-300 Insulin 300 unit/mL (1.5 mL) insulin pen 100 unit subcut BEDTIME cholecalciferol (vitamin D3) [Vitamin D3] 50 mcg (2,000 unit) capsule 50 mcg PO QAM levothyroxine 25 mcg tablet 25 mcg PO QAM Trulicity 3 mg/0.5 mL pen injector subcut QWEEK budesonide-formoterol [Symbicort] 160-4.5 mcg/actuation HFA aerosol inhaler 2 puff inhalation BID insulin lispro 100 unit/mL insulin pen 40 unit subcut TID pantoprazole 40 mg tablet,delayed release (DR/EC) 40 mg PO QAM rosuvastatin 40 mg tablet 40 mg PO QPM venlafaxine 37.5 mg capsule,extended release 24hr 37.5 mg PO DAILY Print Language: Citizen Of [place]
[2024-07-14 00:42] VITALS: BP 134/59; PULSE 88; RESP 20; TEMP 36.7; O2SAT 96
== END 2024-07-14 00:46 | disposition home or self-care (01) ==
PROVIDERS: Physician Assistant; Emergency Provider Emergency Medicine; PCP Internal Medicine
DX: M54.50 Low back pain, unspecified (principal); Z79.899 Other long term (current) drug therapy; Z87.891 Personal history of nicotine dependence
CPT/HCPCS: 81001; 99283

== ENCOUNTER 2024-08-19 11:28 | Outpatient (REF) | payer MEDICAID, SELFPAY ==
--- OUTSIDE RECORDS SUMMARY | 2024-08-19 12:36 | XMS_ITS | Encounter Summary ---
Author Organization [employer] Address [address] [place] [address] [address] [place] [address] Care Team Providers Care Community Services Coordinator Name Role Phone Kelli Bryant Primary Care Provider [phone] Reason for Visit * Reason Comments Med Refill Encounter Details Date Type Department Care Team ([facility] st Contact Info) Description 07/21/2022 Refill [facility] PEDS [address] [place], [place] [phone] Kelli Bryant ANP [address] [place] [address] Social History Tobacco Use Types Packs/Day Years Used Date Smoking Tobacco: Never Assessed Comments Unknown Sex and Gender Information Value Date Recorded Sex Assigned at Female 04/28/2022 10:16 AM EDT Legal Sex Female 10:16 AM EDT Gender Identity Female 04/28/2022 10:16 AM EDT Sexual Orientation Straight 04/28/2022 10 :16 AM EDT documented as of this encounter Plan of Treatment Not on file documented as of this encounter Visit Diagnoses Not on filedocumented in this encounter Care Teams Community Services Coordinator Relationship Specialty Start Date End Date Kelli Bryant ANP [address] [place] [address] PCP - General Family Medicine 03/01/20 09/30/22 documented as of this encounter
--- OUTSIDE RECORDS SUMMARY | 2024-08-19 12:37 | XMS_ITS | Encounter Summary ---
Author Organization [employer] Address [address] [place] [address] [address] [place] [address] Care Team Providers Care Computer Networking Instructor Name Role Phone Kelli Bryant Primary Care Provider [phone] Encounter Details Date Type Department Care Team ([facility] st Contact Info) Description 07/22/2022 Orders Only [facility] MEDICINE [address] [place], [place] [id number] Lola Mitchell LPN Social History Tobacco Use Types Packs/Day Years [...] on filedocumented in this encounter Care Teams Computer Networking Instructor Relationship Specialty Start Date End Date Kelli Bryant ANP [address] [place] [address] PCP - General Family Medicine 03/01/20 09/30/22 documented as of this encounter
--- OUTSIDE RECORDS SUMMARY | 2024-08-19 12:37 | XMS_ITS | Encounter Summary ---
Author Organization [employer] Address [address] [place] [address] [address] [place] [address] Care Team Providers Care Quantitative Associate Name Role Phone Unavailable Primary Care Provider Unavailabl e Reason for Visit * Reason Comments Med Refill Encounter Details Date Type Department Care Team ([facility] st Contact Info) Description 12/19/2022 Refill [facility] [address] [place] [address] Kelli Bryant ANP [address] [place] [address] Social History Tobacco Use Types Packs/Day Years [...]
--- OUTSIDE RECORDS SUMMARY | 2024-08-19 12:37 | XMS_ITS | Encounter Summary ---
Author Organization [employer] Address [address] [facility] [address] [place] [address] Care Team Providers Care Apartment House Manager Name Role Phone Unavailable Primary Care Provider Unavailabl e Reason for Visit * Reason Comments Med Refill Encounter Details Date Type Department Care Team ([facility] st Contact Info) Description 10/26/2022 Refill [facility] MED & PEDS [address] [place] [address] Kelli Bryant, ANP [address] [place] [address] Essential hypertension Social History Tobacco Use Types Packs/Day Years [...] documented as of this encounter Visit Diagnoses Diagnosis Essential hypertension Unspecified essential hypertension documented in this encounter
--- OUTSIDE RECORDS SUMMARY | 2024-08-19 12:37 | XMS_ITS | Clinical Summary ---
Author Organization [employer] Address [address] [place] [address] 7t [place] [address] Care Team Providers Care Oxygraph Operator Name Role Phone Unavailable Primary Care Provider Unavailabl e Allergies No known active allergies Medications amoxicillin (Amoxil) 500 MG capsule take 1 capsule (500MG) by oral route every 8 hours until done 2 Active budesonide (Pulmicort) 0.5 MG/2ML nebulizer solution Inhale 2 mL every 12 (twelve) hours. 2 Active cholecalciferol (Vitamin D-3) 50 MCG (1999 UT) capsule Take 1 capsule by mouth in the morning. 2 Active fluconazole (Diflucan) 150 MG tablet take 1 tablet by oral route once for yeast infection, repeat in 3 days 2 Active glucose blood (FREESTYLE LITE) test strip Use 1 strip by as directed method 3 times daily 2 Active insulin lispro protamine-insuli n lispro (HumaLOG MIX 75/25 KWIKPEN) (75-25) 100 UNIT/ML injection inject 50 units by Subcutaneous route 2 times every day before breakfast and dinner 2 Active loratadine (Claritin) 10 MG tablet Take 1 tablet by mouth in the morning. 1 Active LORazepam (Ativan) 1 MG tablet take 1 tablet by oral route 3 times every day Active rosuvastatin (Crestor) 10 MG tablet Take 1 tablet by mouth at bed time. 2 Active zoster vaccine-recombin ant adjuvanted (Shingrix) 50 MCG/0.5ML vaccine Inject 0.5 mL into the shoulder, thigh, or buttocks. 0 Active gabapentin (Neurontin) 100 MG capsuleIndicatio ns:Fibromyalgia take 2 capsule by oral route Morning and mid-day, and 3 capsules at bedtime 210 capsule 5 2 Active venlafaxine XR (Effexor XR) 75 MG 24 hr capsuleIndicatio ns:Bipolar disease, chronic (CMS/HCC) TAKE 1 CAPSULE BY MOUTH EVERY MORNING WITH FOOD 90 capsule 2 Active venlafaxine XR (Effexor XR) 37.5 MG 24 hr capsuleIndicatio ns:Bipolar disease, chronic (CMS/HCC) TAKE 1 CAPSULE BY MOUTH EVERY MORNING WITH FOOD 90 capsule 2 Active OLANZapine (ZyPREXA) 7.5 MG tabletIndication s:Bipolar disease, chronic (CMS/HCC) TAKE 1 TABLET BY MOUTH AT BEDTIME 90 tablet 2 Active amLODIPine (Norvasc) 5 MG tabletIndication s:Essential hypertension TAKE 1 TABLET BY MOUTH EVERY DAY 90 tablet 1 3 Active albuterol (2.5 MG/3ML) 0.083% nebulizer solutionIndicati ons:Uncomplicate d asthma, unspecified asthma severity, unspecified whether persistent INHALE 1 AMPULE USING A NEBULIZER EVERY 6 HOURS NEEDED (for asthma) 90 mL 3 3 Active Pentips 32G X 4 MM miscIndications: Type 2 diabetes mellitus with hyperglycemia, with long-term current use of insulin ([facility]) USE WITH INSULIN PEN TWICE DAILY 100 each 5 3 Active memantine (Namenda) 5 MG tabletIndication s:Frontal lobe dementia ([facility]) TAKE 1 TABLET BY MOUTH AT BEDTIME 30 tablet 3 3 Active Symbicort 80-4.5 MCG/ACT inhalerIndicatio ns:Moderate persistent asthma without complication INHALE 2 PUFFS TWICE DAILY NEEDED RINSE MOUTH AFTER USING. 10.2 g 1 3 Active glipiZIDE XL (Glucotrol XL) 10 MG 24 hr tablet TAKE 1 TABLET BY MOUTH EVERY MORNING WITH BREAKFAST 90 tablet 1 3 Active Aspirin Low Dose 81 MG EC tablet TAKE 1 TABLET BY MOUTH AT BEDTIME 90 tablet 1 3 Active lisinopril-hydro CHLOROthiazide 20-25 MG tabletIndication s:Essential hypertension TAKE 1 TABLET BY MOUTH EVERY MORNING 90 tablet 1 3 Active acetaminophen (Tylenol) 500 MG tablet Take 1 tablet (500 mg) by mouth every 6 (six) hours if needed for mild pain for up to 20 doses. 20 tablet 4 Active ibuprofen 600 MG tablet Take 1 tablet (600 mg) by mouth every 6 (six) hours if needed for mild pain for up to 20 doses. 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 Hypertensive disorder 03/22/2015 Asthma 12/04/2014 Backache 12/04/2014 Bipolar disorder 04/03/2014 Pain in upper limb 04/03/2014 Amenorrhea 12/06/2012 Breast lump 01/12/2012 Chronic hepatitis C 12/25/2011 Depressive disorder 12/25/2011 Disorder of skeletal muscle 12/25/2011 Essential hypertension 12/25/2011 Obesity 12/25/2011 Urinary incontinence 12/25/2011 Anxiety state 12/25/2011 Immunizations Name Administration Dates Next Due Hep A, Adult 06/25/2018 Hep B, adult 05/03/2001,06/25/2000,05/25/2000 Influenza injectable quadriv alent IIV4 with preservative 04/06/2018,05/15/2016 Influenza injectable quadriv alent preservative free 03/17/2022,05/09/2021,06/28/2020,04/21,04/30/2017 Influenza, IIV3, injectable 04/03/2014, 1,04/08/2007 Influenza, Split (incl. kermit fied surface antigen) 08/16/2013,04/12/2012 Pfizer Covid-19 Vaccine 12+ 12/21/2020, 1 Pneumococcal Polysaccharide PPSV23 06/25/2018 TD (adult), 2 Lf tetanus tox oid, preservative free, adsorbed 07/01/2001 Tdap 10/05/2014 Social History Tobacco Use Types Packs/Day Years Used Date Smoking Tobacco: Never Passive Smoke Exposure: Never Smokeless Tobacco: Never Tobacco Cessation:Counseling Given: No Alcohol Use Standard Drinks/Week Comments Never 0 (1 standard drink = 0.6 oz pur e alcohol) Comments Unknown Sex and Gender Information Value Date Recorded Sex Assigned at Female 04/28/2022 10:16 AM EDT Legal Sex Female 10:16 AM EDT Gender Identity Female 04/28/2022 10:16 AM EDT Sexual Orientation Straight 04/28/2022 10 :16 AM EDT Last Filed Vital Signs Vital Sign Reading Time Taken Comments Blood Pressure 110/76 03/21/2024 8:16 AM EDT Pulse 96 04/15/2022 12:10 AM EDT Temperature - - Respiratory Rate - - Oxygen Saturation - - Inhaled Oxygen Concentration - - Weight 133 kg (293 lb) 04/15/2022 12:10 AM EDT Height 160 cm (5' 3 ) 04/15/2022 12:10 AM EDT Body Mass Index 51.9 04/15/2022 12:10 AM EDT Plan of Treatment Health Maintenance Due Date Last Done Comments CT Colonography 1967 Colonoscopy 1967 Colorectal Cancer Screening 1967 Depression Screening 1967 FIT DNA/Cologuard 1967 FIT 1967 FOBT 1967 HIV Screening 1967 SDOH Screening 1967 Sigmoidoscopy 1967 Diabetes: Foot Exam 1977 Eye Exam 1977 Alcohol/Substance Use Screening 1979 Pap Smear 01/18/1988 Cervical Cancer Screening 1997 HPV/Cotest 1997 Dental Prophylaxis 05/22/2018 11/18/2017 Hepatitis A Vaccines (2 of 2 - Risk 2-dose series) 12/24/2018 06/25/2018 Dental X-Ray: Bitewings 01/19/2020 01/18/20 19, 01/07/2017, 05/12/2014, Additional history exists Mammogram 04/07/2020 04/07/2018 Diabetes: Hemoglobin A1C 09/18/2020 06/20/2020, 05/30 Dental X-Ray: Full Mouth 01/18/2022 019, 05/12/2014, 10/28/2010, Additional history exists Diabetes: Urine Protein Screening 03/28/2023 03/28/2022, 03/14/2021 Lipid Panel 03/28/2023 03/28/2022, 02/27, 06/20/2020, Additional history exists COVID-19 Vaccine ( season) 2024 12/21/2020, 11/29/2020 Influenza Vaccine (#1) 2024 , 03/17/2022, 05/09/2021, Additional history exists Dental Oral Exam 09/19/2024 03/21/2024, , 01/07/2017, Additional history exists Tobacco Screening 03/21/2025 03/21/2024 DTaP/Tdap/Td Vaccines (3 - Td or Tdap) 11/08/2033 11/09/2023, 10/05/2014, 07/01/2001 RSV Patients and Patients Aged 60 years or older (1 - 1-dose 75+ series) 2042 Hepatitis B Vaccines Completed 05/03/2001, 06/25/2000, 05/25/2000 Pneumococcal Vaccine: 50+ Years Completed 11/09/2023, 06/25/2018 Zoster Vaccines Completed 02/05/2024, 11/09/2023 HIB Vaccines Aged Out No longer eligi ble based on patient's age to complete this topic HPV Vaccines Aged Out No longer eligi ble based on patient's age to complete this topic IPV Vaccines Aged Out No longer eligi ble based on patient's age to complete this topic Meningococcal Vaccine Aged Out No fouzia duong eligible based on patient's age to complete this topic RSV under 20 months Aged Out No longe r eligible based on patient's age to complete this topic Rotavirus Vaccines Aged Out No longer eligible based on patient's age to complete this topic Procedures Procedure Name Priority Date/Time Associated Diagnosis Comments PERIODIC ORAL EVALUATION - ESTABLISHED PATIENT Routine 03/21/2024 8:00 AM EDT ALBUMIN, RANDOM URINE W/CREATININE Routine 03/28/2022 12:05 PM EDT LIPID PANEL, STANDARD Routine 03/28/2022 12:05 PM EDT HEMOGLOBIN A1C Routine 06/20/2020 10:31 AM EST INTRAORAL - COMPLETE SERIES OF RADIOGRAPHIC IMAGES Routine 2019 12:00 AM EDT BI MAMMOGRAM SCREENING BILATERAL Routine 04/07/2018 1:48 PM EDT PROPHYLAXIS - ADULT Routine 11/18/2017 1 2:00 AM EDT from Last 3 Months or Most Recently Relevant to Health Maintenance Results * (ABNORMAL) ALBUMIN, RANDOM URINE W/CREATININE (03/28/2022 12:05 PM EDT) Microalbumin Urine 22.8 See Note: mg/dL [facility] Comment: Reference Range: ?? Reference Range Not established Microalb/Creat Ratio 374(H) <30 mcg/mg creat CONVERT[facility]GAC[facility] Comment: ?? The ADA defines abnormalities in albumin excretion as follows: ?? Albuminuria Category ?Result (mcg/mg creatinine) ?? Normal to Mildly increased ?? <30 Moderately increased ? 30-299 ?? Severely increased ? > OR = 300 ?? The ADA recommends that at least two of three specimens collected within a 3-6 month period be abnormal before considering a patient to be within a diagnostic category. Creatinine, Urine 61 20 - 275 mg/dL CONVERT[facility] 03/28/2022 12:0 5 PM EDT [facility] LAB URINE ORDERABLES Final Resul t CONVERTED LEGACY LABS * (ABNORMAL) LIPID PANEL, STANDARD (03/28/2022 12:05 PM EDT) Chol/HDLC Ratio 3.6 <5.0 (calc) CONVERTED [facility]GAC[facility] LAB[facility] Cholesterol, Total 163 <200 mg/dL [facility] HDL Cholesterol 45(L) > OR = 50 mg/dL [facility] LDL Cholesterol 99 mg/dL (calc) [facility] Comment: Reference range: <100 ?? Desirable range <100 mg/dL for primary prevention; ?? <70 mg/dL for patients with CHD or diabetic patients ?? with > or = 2 CHD risk factors. ?? LDL-C is now calculated using the Savita ?? calculation, which is a validated novel method providing ?? better accuracy than the Friedewald equation in the ?? estimation of LDL-C. ?? Esau MAHONEY et al. ALAINA. 2013;310(19): 7084-4115 ?? (http://Xetal.Foodfly/faq/YEN663) Non-HDL Cholesterol 118 <130 mg/dL (calc) [facility] Comment: For patients with diabetes plus 1 major ASCVD risk ?? factor, treating to a non-HDL-C goal of <100 mg/dL ?? (LDL-C of <70 mg/dL) is considered a therapeutic ?? option. Triglycerides 97 <150 mg/dL CONVE RTED [facility]GACY LABS 03/28/2022 12:0 5 PM EDT us Kelli Bryant ANP LAB BLOOD ORDERABLES Final Resul t Performing Organization Address [facility] de Phone Number CONVERTED LEGACY LABS * (ABNORMAL) HEMOGLOBIN A1c (06/20/2020 10:31 AM EST) Hemoglobin A1c 6.8(H) <5.7 % of total [facility] Comment: For someone without known diabetes, a hemoglobin A1c value of 6.5% or greater indicates that they may have ?? diabetes and this should be confirmed with a follow-up ?? test. ?? For someone with known diabetes, a value <7% indicates ?? that their diabetes is well controlled and a value ?? greater than or equal to 7% indicates suboptimal ?? control. A1c targets should be individualized based on ?? duration of diabetes, age, comorbid conditions, and ?? other considerations. ?? Currently, no consensus exists regarding use of hemoglobin A1c for diagnosis of diabetes for children. ?? 06/20/2020 10:3 1 AM EST us Kelli Bryant ANP LAB BLOOD ORDERABLES Final Resul t Performing Organization Address [facility] de Phone Number [facility] [address] [place] [address], * DIGITAL BILATERAL SCREEN 1 (04/07/2018 1:48 PM EDT) Anatomical Region Laterality Modality Breast Bilateral Mammography 04/07/2018 1:48 PM EDT Narrative 04/07/2018 1:49 PM EDT Refer to the Notes tab for result details Legacy Procedure: DIGITAL BILATERAL SCREEN 1 Procedure Note Provider, MD Shaila - 09/20/2022 Refer to the Notes tab for result details Legacy Procedure: DIGITAL BILATERAL SCREEN 1 Gavin King PRIMARY SUBSTANCE ABUSE COUNSELOR IMG BI PROCEDURES Final Result from Last 3 Months or Most Recently Relevant to Health Maintenance [facility]
--- OUTSIDE RECORDS SUMMARY | 2024-08-19 12:37 | XMS_ITS | Encounter Summary ---
Author Organization [email or web address] Address [address] [facility] 7t [place] [address] Care Team Providers Care Traffic Control Signaler Name Role Phone Unavailable Primary Care Provider Unavailabl e Reason for Visit * Reason Comments Med Refill Encounter Details Date Type Department Care Team ([facility] st Contact Info) Description 04/28/2023 Refill [facility] MED & PEDS [address] [place] [address] eKlli Bryant, ANP [address] [place] [address] Social History Tobacco Use Types Packs/Day Years [...]
--- OUTSIDE RECORDS SUMMARY | 2024-08-19 12:37 | XMS_ITS | Encounter Summary ---
Author Organization [employer] Address [address] [place] [address] 7t [place] [address] Care Team Providers Care Straightedge Worker Name Role Phone Unavailable Primary Care Provider Unavailabl e Reason for Visit * Reason Comments Med Refill Encounter Details Date Type Department Care Team ([facility] st Contact Info) Description 10/20/2022 Refill [facility] MEDICINE [address] [place], [place] [phone] Kelli Bryant ANP [address] [place] [address] Social History Tobacco Use Types Packs/Day Years [...]
--- OUTSIDE RECORDS SUMMARY | 2024-08-19 12:37 | XMS_ITS | Encounter Summary ---
Author Organization [employer] Address [address] [facility] 7t [place] [address] Care Team Providers Care Heart Nurse Name Role Phone Unavailable Primary Care Provider Unavailabl e Reason for Visit * Reason Comments Med Refill Encounter Details Date Type Department Care Team ([facility] st Contact Info) Description 10/27/2022 Refill [facility] MED & PEDS [address] [place] [address] Kelli Bryant, ANP [address] [place] [address] Essential hypertension Social History Tobacco Use Types [...]
--- OUTSIDE RECORDS SUMMARY | 2024-08-19 12:37 | XMS_ITS | Encounter Summary ---
Author Organization [employer] Address [address] [place] [address] 7t [place] [address] Care Team Providers Care Water Project Manager Name Role Phone Unavailable Primary Care Provider Unavailabl e Reason for Visit * Reason Comments Med Refill Encounter Details Date Type Department Care Team ([facility] st Contact Info) Description 11/25/2022 Refill [facility] [address] [place], [place] [phone] Kelli Bryant ANP [address] [place] [address] Fibromyalgia Social History Tobacco Use Types Packs/Day Years [...] as of this encounter Visit Diagnoses Diagnosis Fibromyalgia Unspecified myalgia and myositis documented in this encounter
--- OUTSIDE RECORDS SUMMARY | 2024-08-19 12:37 | XMS_ITS | Encounter Summary ---
Author Organization [employer] Address [address] [facility] 7t [place] [address] Care Team Providers Care Corporate Staff Accountant Name Role Phone Unavailable Primary Care Provider Unavailabl e Reason for Visit * Reason Comments Med Refill Encounter Details Date Type Department Care Team ([facility] st Contact Info) Description 04/28/2023 Refill [facility] CH[facility] MED & PEDS [address] [place] [address] Kelli Bryant, ANP [address] [place] [address] Social History Tobacco Use Types Packs/Day Years [...]
[2024-08-19 13:50] LABS: Estimated Average Glucose 269 mg/dL; Hemoglobin A1C 351.8847 umol/L; Total Hemoglobin (HGBA1C) 3621.8399 umol/L
[2024-08-19 14:23] LABS: Alanine Aminotransferase 41 U/L (0-31); Albumin Level 4.2 g/dL (3.5-5.0); Alkaline Phosphatase 86 U/L (39-117); Anion Gap 13 (12-20); Aspartate Amino Transferase 32 U/L (5-31); Bilirubin Total 0.4 mg/dL (0.0-1.0); Blood Urea Nitrogen 12 mg/dL (9-16); Calcium 10.2 mg/dL (8.4-10.2); Carbon Dioxide 28 mmol/L (22-29); Chloride 99 mmol/L (96-108); Estimated Glomerular Filt Rate > 60; Glucose Random 362 mg/dL (60-115); Potassium 4.3 mmol/L (3.3-5.1); Sodium 136 mmol/L (135-145)
== END 2024-08-19 11:29 | disposition home or self-care (01) ==
LOC: HO.LAB 11:28
PROVIDERS: PCP Internal Medicine; Visit Provider Internal Medicine
DX: E11.65 Type 2 diabetes mellitus with hyperglycemia (principal); G47.33 Obstructive sleep apnea (adult) (pediatric); K59.04 Chronic idiopathic constipation; R80.8 Other proteinuria
CPT/HCPCS: 36415; 80053; 83036

== ENCOUNTER 2024-11-16 08:48 | Outpatient (REF) | payer MEDICAID, SELFPAY ==
[2024-11-16 09:47] LABS: Prothrombin Time 11.4 SEC (10.9-12.4)
[2024-11-16 09:50] LABS: Hematocrit 41.1 % (37.0-47.0); Hemoglobin 13.3 g/dl (12.0-16.0); Mean Corpuscular HGB Conc 32.4 g/dl (31.0-35.0); Mean Corpuscular Hemoglobin 28.5 pg (27.0-33.0); Mean Corpuscular Volume 88.2 fL (80.0-98.0); Mean Platelet Volume 11.5 fL (9.4-12.3); Platelet Count 233 X10*3/uL (160-400); Red Blood Count 4.66 X10*6/uL (4.20-5.50); Red Cell Distribution Width 13.5 % (11.0-16.0); White Blood Count 6.4 X10*3/uL (4.8-10.8)
[2024-11-16 09:59] LABS: Estimated Average Glucose 329 mg/dL; Hemoglobin A1C 424.9386 umol/L; Hemoglobin A1c % 13.1 % (<6.0); Total Hemoglobin (HGBA1C) 3556.4161 umol/L
--- OUTSIDE RECORDS SUMMARY | 2024-11-16 10:04 | XMS_ITS | Encounter Summary ---
Author Organization [employer] Address [address] [place] [address] 7t [place] [address] Care Team Providers Care Safety Coordinator Name Role Phone Unavailable Primary Care Provider Unavailabl e Reason for Visit * Reason Comments Med Refill Encounter Details Date Type Department Care Team (Late st Contact Info) Description 12/19/2022 Refill [facility] [address] [place] [address] Kelli Bryant ANP [address] [place] [address] Social History Tobacco Use Types Packs/Day Years Used Date Smoking Tobacco: Never Assessed Comments Unknown Sex and Gender Information Value Date Recorded Sex Assigned at Female 04/28/2022 10:16 AM EDT Legal Sex Female 10:16 AM EDT Gender Identity Female 04/28/2022 10:16 AM EDT Sexual Orientation Straight 04/28/2022 10 :16 AM EDT documented as of this encounter Plan of Treatment Upcoming Encounters Date Type Department Care Team (Late st Contact Info) Description 01/10/2025 3:00 PM EDT Office Visit [facility] OPTOMETRY [address] [place] [address] Israel, Arlen, OD [address] [place] [address] documented as of this encounter Visit Diagnoses Not on filedocumented in this encounter
--- OUTSIDE RECORDS SUMMARY | 2024-11-16 10:04 | XMS_ITS | Clinical Summary ---
Author Organization [employer] Address [address] [place] [address] [address]t [place] [address] Care Team Providers Care Director Private Music Therapy Agency Name Role Phone Unavailable Primary Care Provider [...] hyperglycemia, with long-term current use of insulin ([facility]) USE WITH INSULIN PEN TWICE DAILY 100 each 5 3 Active memantine (Namenda) 5 MG tabletIndication s:Frontal lobe dementia ([facility]) TAKE 1 TABLET BY MOUTH AT BEDTIME [...] Urinary incontinence 12/25/2011 Anxiety state 12/25/2011 Immunizations Immunization Administration Dates Next Due Hep A, Adult [...] 04/15/2022 12:10 AM EDT Plan of Treatment Upcoming Encounters Date Type Department Care Team (Late st Contact Info) Description 01/10/2025 3:00 PM EDT Office Visit [facility] OPTOMETRY [address] [place] [address] Israel, Arlen, OD [address] [place] [address] Health Maintenance Due Date Last Done Comments CT Colonography 1967 Colonoscopy 1967 Colorectal Cancer Screening 1967 Depression Screening 1967 FIT DNA/Cologuard 1967 FIT 1967 FOBT 1967 HIV Screening 1967 SDOH Screening 1967 Sigmoidoscopy 1967 Disability Screening 1967 Diabetes: Foot Exam 1977 Eye Exam [...] older (1 - 1-dose 75+ series) 2042 Pneumococcal Vaccine: 50+ Years Completed 11/09/2023, 06/25/2018 Zoster Vaccines Completed 02/05/2024, 11/09/2023 Hepatitis B Vaccines Completed 05/04/2024, 04/06/2024, 05/03/2001, Additional history exists HIB Vaccines Aged Out No longer eligi ble based on patient's age to complete this topic HPV Vaccines Aged Out No longer eligi ble based on patient's age to complete this topic IPV Vaccines Aged Out No longer eligi ble based on patient's age to complete this topic Meningococcal B Vaccine Aged Out No l onger eligible based on patient's age to complete [...] 12:0 5 PM EDT us Kelli Bryant [facility] LAB URINE ORDERABLES Final Resul t CONVERTED [...] ?? Esau MAHONEY et al. ALAINA. 2013;310(19): 5398-7147 ?? (http://FieldEZ.Appointedd/faq/WMF892) Non-HDL Cholesterol 118 <130 mg/dL (calc) [facility] Comment: For patients with diabetes plus 1 major ASCVD risk ?? factor, treating to a non-HDL-C goal of <100 mg/dL ?? (LDL-C of <70 mg/dL) is considered a therapeutic ?? option. Triglycerides 97 <150 mg/dL CONVE RTED [facility]GAC[facility] 03/28/2022 12:0 5 PM EDT [facility] LAB BLOOD ORDERABLES Final Resul t CONVERTED [facility]GACY LAB[facility] * (ABNORMAL) HEMOGLOBIN A1c [...] 06/20/2020 10:3 1 AM EST us Kelli BHANDARI LAB BLOOD ORDERABLES Final Resul t [facility] [address] * DIGITAL BILATERAL SCREEN 1 (04/07/2018 1:48 PM EDT) Anatomical Region Laterality Modality Breast Bilateral Mammography 04/07/2018 1:48 PM EDT Narrative 04/07/2018 1:49 PM EDT Refer to the Notes tab for result details [facility] Procedure: DIGITAL BILATERAL SCREEN 1 Procedure Note Provider, MD Shaila - 09/20/2022 Refer to the Notes tab for result details [facility] Procedure: DIGITAL BILATERAL SCREEN 1 Gavin King POWER TONG OPERATOR IMG BI PROCEDURES Final Result from Last 3 Months or Most Recently Relevant to Health Maintenance [facility]
--- OUTSIDE RECORDS SUMMARY | 2024-11-16 10:04 | XMS_ITS | Encounter Summary ---
Author Organization [employer] Address [address] [place] [address] 7[address] [place] [address] Care Team Providers Care Senior Sql Database Developer Name Role Phone Unavailable Primary Care Provider Unavailabl e Reason for Visit * Reason Comments Med Refill Encounter Details Date Type Department Care Team (Late st Contact Info) Description 10/27/2022 Refill [facility] CH[facility] MED & PEDS [address] [place], [place] [phone] Kelli Bryant, ANP [address] [place] [address] Essential hypertension Social History Tobacco Use Types [...] Description 01/10/2025 3:00 PM EDT Office Visit [facility] OPTOMETRY [address] [place] [address] Israel, Arlen, OD [address] [place] [address] documented as of this encounter Visit Diagnoses Diagnosis Essential hypertension Unspecified essential hypertension documented in this encounter
--- OUTSIDE RECORDS SUMMARY | 2024-11-16 10:04 | XMS_ITS | Encounter Summary ---
Author Organization [employer] Address [address] [place] [address] [address]t [place] [address] Care Team Providers Care Nephrologist Name Role Phone Unavailable Primary Care Provider Unavailabl e Reason for Visit * Reason Comments Med Refill Encounter Details Date Type Department Care Team (Late st Contact Info) Description 11/25/2022 Refill [facility] [address] [place] [address] Kelli Bryant ANP [address] [place] [address] Fibromyalgia Social History Tobacco Use Types Packs/Day [...] Description 01/10/2025 3:00 PM EDT Office Visit [facility] OPTOMETRY [address] [place] [address] Israel, Arlen, OD [address] [place] [address] documented as of this encounter Visit Diagnoses Diagnosis Fibromyalgia Unspecified myalgia and myositis documented in this encounter
--- OUTSIDE RECORDS SUMMARY | 2024-11-16 10:04 | XMS_ITS | Encounter Summary ---
Author Organization [employer] Address [address] [place] [address] 7t [place] [address] Care Team Providers Care Rn Documentation Specialist Name Role Phone Unavailable Primary Care Provider Unavailabl e Reason for Visit * Reason Comments Med Refill Encounter Details Date Type Department Care Team (Late st Contact Info) Description 10/20/2022 Refill [facility] MEDICINE [address] [place] [address] Kelli Bryant ANP [address] [place] [address] Social History Tobacco Use Types Packs/Day Years [...] Description 01/10/2025 3:00 PM EDT Office Visit [facility] OPTOMETRY [address] [place] [address] Israel, Arlen, OD [address] [place] [address] documented as of this encounter Visit Diagnoses Not on filedocumented in this encounter
--- OUTSIDE RECORDS SUMMARY | 2024-11-16 10:04 | XMS_ITS | Encounter Summary ---
Author Organization [employer] Address [address] [place] [address] 7t [place] [address] Care Team Providers Care Home Health Outreach Coordinator Name Role Phone Kelli Bryant Primary Care Provider [phone] Reason for Visit * Reason Comments Med Refill Encounter Details Date Type Department Care Team (Late st Contact Info) Description 07/21/2022 Refill [facility] CH[facility] MED & PEDS [address] [place], [place] [phone] Kelli Bryant ANP [address] [place] [address] Social History Tobacco Use Types Packs/Day Years [...] Description 01/10/2025 3:00 PM EDT Office Visit [facility] OPTOMETRY [address] [place] [address] Israel, Arlen, OD [address] [place] [address] documented as of this encounter Visit Diagnoses Not on filedocumented in this encounter Care Teams Home Health Outreach Coordinator Relationship Specialty Start Date End Date Kelli Bryant ANP [address] [place] [address] PCP - General Family Medicine 03/01/20 09/30/22 documented as of this encounter
--- OUTSIDE RECORDS SUMMARY | 2024-11-16 10:04 | XMS_ITS | Encounter Summary ---
Author Organization [employer] Address [address] [place] [address] 7t [place] [address] Care Team Providers Care Water Aerobics Instructor Name Role Phone Unavailable Primary Care Provider Unavailabl e Reason for Visit * Reason Comments Med Refill Encounter Details Date Type Department Care Team (Late st Contact Info) Description 10/26/2022 Refill [facility] CHC MED & PEDS [address] [place], [place] [phone] Kelli Bryant, ANP [address] [place] [address] Essential hypertension Social History Tobacco Use Types [...] Description 01/10/2025 3:00 PM EDT Office Visit [facility] OPTOMETRY [address] [place] [address] Israel, Arlen, OD [address] [place] [address] documented as of this encounter Visit Diagnoses Diagnosis Essential hypertension Unspecified essential hypertension documented in this encounter
--- OUTSIDE RECORDS SUMMARY | 2024-11-16 10:04 | XMS_ITS | Encounter Summary ---
Author Organization [employer] Address [address] [place] [address] 7t [place] [address] Care Team Providers Care J2Ee Consultant Name Role Phone Unavailable Primary Care Provider Unavailabl e Reason for Visit * Reason Comments Med Refill Encounter Details Date Type Department Care Team (Late st Contact Info) Description 04/28/[address] [facility] CHC MED & PEDS [address] [place] [address] Kelli Bryant, ANP 230 [place] [address] Social History Tobacco Use Types Packs/Day Years [...] Description 01/10/2025 3:00 PM EDT Office Visit [facility] OPTOMETRY [address] [place] [address] Israel, Arlen, OD [address] [place] [address] documented as of this encounter Visit Diagnoses Not on filedocumented in this encounter
--- OUTSIDE RECORDS SUMMARY | 2024-11-16 10:04 | XMS_ITS | Encounter Summary ---
Author Organization [employer] Address [address] [place] [address] 7t [place] [address] Care Team Providers Care Sea Captain Name Role Phone Unavailable Primary Care Provider Unavailabl e Reason for Visit * Reason Comments Med Refill Encounter Details Date Type Department Care Team (Late st Contact Info) Description 04/28/2023 Refill [facility] CHC MED & PEDS [address] [place] [address] Kelli Bryant, ANP [address] [place] [address] Social History Tobacco Use Types Packs/Day Years [...] Description 01/10/2025 3:00 PM EDT Office Visit [facility] OPTOMETRY [address] [place] [address] Israel, Arlen, OD [address] [place] [address] documented as of this encounter Visit Diagnoses Not on filedocumented in this encounter
--- OUTSIDE RECORDS SUMMARY | 2024-11-16 10:05 | XMS_ITS | Encounter Summary ---
Author Organization [employer] Address [address] [place] [address] 7t [place] [address] Care Team Providers Care Retail Commission Sales Associate Name Role Phone Kelli Bryant Primary Care Provider Encounter Details Date Type Department Care Team (Late st Contact Info) Description 07/22/2022 Orders Only [facility] MEDICINE [address] [place] [address] Lola Mitchell LPN Social History Tobacco Use [...] Description 01/10/2025 3:00 PM EDT Office Visit [facility] OPTOMETRY [address] [place] [address] Israel, Arlen, OD [address] [place] [address] documented as of this encounter Visit Diagnoses Not on filedocumented in this encounter Care Teams Retail Commission Sales Associate Relationship Specialty Start Date End Date Kelli Bryant ANP [address] [place] [address] PCP - General Family Medicine 03/01/20 09/30/22 documented as of this encounter
[2024-11-16 11:04] LABS: Creatinine Urine 49.17 mg/dL; Microalbum/Creatinine Ratio Ur 679.2 ug/mg cr (<30)
[2024-11-16 11:37] LABS: Cholesterol 133 mg/dL (<200); HDL Cholesterol 44 mg/dL (>40); LDL Cholesterol Calculated 68 mg/dL (<100); Triglycerides 106 mg/dL (<150)
[2024-11-16 12:00] LABS: Alanine Aminotransferase 41 U/L (0-31); Alkaline Phosphatase 72 U/L (39-117); Anion Gap 11 (12-20); Aspartate Amino Transferase 36 U/L (5-31); Bilirubin Total 0.4 mg/dL (0.0-1.0); Blood Urea Nitrogen 15 mg/dL (9-16); Calcium 9.8 mg/dL (8.4-10.2); Carbon Dioxide 30 mmol/L (22-29); Chloride 104 mmol/L (96-108); Estimated Glomerular Filt Rate > 60; Glucose Random 158 mg/dL (60-115); Potassium 3.8 mmol/L (3.3-5.1); Sodium 141 mmol/L (135-145); Total Protein 7.2 g/dL (6.5-8.0)
== END 2024-11-16 08:49 | disposition home or self-care (01) ==
LOC: HO.LAB 08:48
PROVIDERS: Internal Medicine; PCP Internal Medicine; Visit Provider Internal Medicine
DX: K74.60 Unspecified cirrhosis of liver (principal); E11.65 Type 2 diabetes mellitus with hyperglycemia; E66.01 Morbid (severe) obesity due to excess calories; G47.33 Obstructive sleep apnea (adult) (pediatric); R80.8 Other proteinuria
CPT/HCPCS: 36415; 80053; 80061; 82043; 82570; 83036; 85027; 85610

== ENCOUNTER 2024-12-21 05:19 | Emergency (ER) | payer MEDICAID, SELFPAY ==
--- NOTE | ~2024-12-21 | XR_ITS ---
EXAMINATION: XR LUMBOSACRAL SPINE CLINICAL INFORMATION: right sciatic type pain COMPARISON: None available. TECHNIQUE: Three views of the lumbosacral spine. FINDINGS: No scoliosis. Normal lordosis. No subluxations. No fractures, compression deformities, or suspicious bone lesions. Normal facet alignment. There are early degenerative facet changes at L4-5 and L5-S1. Mild disc degeneration at L4-5 and L5-S1. There are vascular calcifications in the soft tissues. There are cholecystectomy clips present. XR/XR lumbar spine 2-3V IMPRESSION: 1. No acute bony abnormalities. 2. Mild spondylosis L4-5 and L5-S1. Electronically signed by: Lazaro Oneil MD 12/21/2024 08:01 AM EDT
[2024-12-21 05:28] VITALS: BP 146/87; PULSE 93; RESP 20; TEMP 36.6; O2SAT 97; BMI 46.6
--- NOTE | 2024-12-21 06:49 | ED.GENADULT ---
HPI - General Adult General Chief complaint: Back Pain/Injury Stated complaint: right side pain, radiates down leg Time Seen by Provider: 12/21/24 06:48 History of Present Illness ED Provider: Efrain BUENROSTRO narrative: The patient is a 59-year-old woman with a history of morbid obesity, obstructive sleep apnea, non alcoholic hepatic steatosis, hypothyroidism hyperlipidemia, type 2 diabetes, bipolar disorder, and asthma who says that she has had worsening right lower back pain for 3 weeks. She says the pain is worse with movement and a radiates into her right leg. She says it goes all the way down to her toes on the right side. She has not had any associated difficulty with control of bowel or bladder function. She has not had any fever, sweats, chills. She denies injury. She denies any lifting or straining type injury. She has never had a back pain syndrome like this before. She was in the emergency room 6 months ago in June for back pain that she says was a different kind of back pain. She has had left ear pain for 2 or 3 days. She denies sore throat. She denies a runny nose. She does not feel that she has had a cold. Related Data Home Medications ?Medication ?Instructions ?Recorded ?Confirmed alcohol swabs (Alcohol Prep Pads) 1 pledget topical BID 10/27/20 03/14/24 aspirin 81 mg tablet,delayed 1 tab PO BEDTIME 10/27/20 03/14/24 release blood sugar diagnostic (FreeStyle 10/27/20 03/14/24 Lite Strips) glipizide 10 mg tablet, extended 1 tab PO QAM 10/27/20 03/14/24 release 24 hr lancets 33 gauge (TRUEplus Lancets) 10/27/20 03/14/24 lisinopril 20 1 tab PO QAM 10/27/20 03/14/24 mg-hydrochlorothiazide 25 mg tablet pen needle, diabetic 32 gauge x 10/27/20 03/14/24/32 (Pentips Pen Needle) amlodipine 5 mg tablet 5 mg PO DAILY 03/24/23 03/14/24 cholecalciferol (vitamin D3) 50 50 mcg PO QAM 03/24/23 03/14/24 mcg (2,000 unit) capsule (Vitamin D3) flash glucose sensor (FreeStyle #1 ea 03/24/23 03/14/24 Sandra 2 Sensor kit) insulin glargine U-300 conc 300 100 unit subcut BEDTIME 03/24/23 03/14/24 unit/mL (1.5 mL) subcutaneous pen (Frantz LucinaLaureanoar U-300 Insulin) loratadine 10 mg tablet 10 mg PO DAILY 03/24/23 03/14/24 metformin 1,000 mg tablet 1,000 mg PO 03/24/23 03/14/24 trazodone 100 mg tablet 100 mg PO BEDTIME PRN insomnia 03/24/23 03/14/24 budesonide-formoterol HFA 160 2 puff inhalation BID 04/06/24 mcg-4.5 mcg/actuation aerosol inhaler (Symbicort) dulaglutide 3 mg/0.5 mL mg subcut QWEEK 04/06/24 subcutaneous pen injector (TrulicData Expedition) insulin lispro 100 unit/mL 40 unit subcut TID 04/06/24 subcutaneous pen levothyroxine 25 mcg tablet 25 mcg PO QAM 04/06/24 pantoprazole 40 mg tablet,delayed 40 mg PO QAM 04/06/24 release rosuvastatin 40 mg tablet 40 mg PO QPM 04/06/24 venlafaxine 37.5 mg 37.5 mg PO DAILY 04/06/24 capsule,extended release 24 hr Previous Rx's ?Medication ?Instructions ?Recorded gabapentin 100 mg capsule 200 mg (2 x 100 mg) PO TID 30 days 11/14/20 #180 caps memantine 5 mg tablet 5 mg PO BEDTIME 30 days #30 tabs 11/14/20 olanzapine 7.5 mg tablet 7.5 mg PO BEDTIME 30 days #30 tabs 11/14/20 venlafaxine 75 mg capsule,extended 75 mg PO DAILY 30 days #30 caps 11/14/20 release 24 hr acetaminophen 500 mg tablet 1,000 mg (2 x 500 mg) PO QID PRN 05/27/22 (Tylenol Extra Strength) fever or pain #14 tabs tramadol 50 mg tablet 50 mg PO Q8H PRN pain #14 tabs 05/27/22 albuterol sulfate 2.5 mg/0.5 mL 5 mg inhalation Q4H PRN shortness 11/30/22 solution for nebulization of breath or wheezing #30 ea acetaminophen 325 mg tablet 325 mg PO QID PRN fever or pain 05/21/23 (Tylenol) #20 tabs cephalexin 500 mg capsule 500 mg PO BID #14 caps 06/24/24 phenazopyridine 200 mg tablet 200 mg PO TID PRN pain #10 tabs 06/24/24 (Pyridium) methocarbamol 750 mg tablet 750 mg PO Q8H PRN pain, moderate 07/14/24 #15 tabs acetaminophen 500 mg capsule 1,000 mg (2 x 500 mg) PO Q8H PRN 12/21/24 fever or pain #14 caps cyclobenzaprine 10 mg tablet 10 mg PO TID PRN muscle spasm #14 12/21/24 tabs ibuprofen 400 mg tablet 400 mg PO Q6H PRN pain #14 tabs 12/21/24 morphine 15 mg immediate release 15 mg PO Q6H PRN pain #14 tabs 12/21/24 tablet ofloxacin 0.3 % ear drops 10 drp otic (ear) left BID #10 mL 12/21/24 oxycodone 5 mg tablet 5 mg PO Q6H PRN pain #12 tabs 12/21/24 Allergies Allergy/AdvReac Type Severity Reaction Status Date / Time No Known Allergies Allergy Verified 12/21/24 05:30 Review of Systems Review of Systems: Yes all other systems are reviewed and are negative [facility] Past Medical History Medical History EBONI (obstructive sleep apnea) DJD (degenerative joint disease) Insomnia Hyperlipidemia Morbid obesity Scalp mass Bipolar 1 disorder Depression Sleep apnea HTN (hypertension) Hepatitis GERD (gastroesophageal reflux disease) Diabetes Asthma Surgical History History of excision of mass (~09/18/23) Hx of tubal ligation Hx of cholecystectomy History of section Social History Social History Household Members: Spouse and Children Housing: House Do you presently have visiting nurse or other home services: No Unable to assess alcohol history related to: Unknown Alcohol intake: never Patient Tobacco Use Status: Former Tobacco user service: No Sexual orientation: Don't Know Physical Exam ED Vital Signs: Vital Signs - 24 hr 12/21/24 05:28 12/21/24 08:30 12/21/24 10:30 Temperature 97.8 F 98.3 F 98.4 F Pulse Rate 93 85 83 Respiratory Rate 20 12 10 L Blood Pressure 146/87 H 116/71 130/73 Pulse Oximetry 97 98 95 Oxygen Delivery Method Room Air Room Air Room Air 12/21/24 10:33 Temperature 98.4 F Pulse Rate 83 Respiratory Rate 10 L Blood Pressure 130/73 Pulse Oximetry 95 Oxygen Delivery Method BMI result Body Mass Index 46.6 Const Other: The patient has a large 59-year-old woman lying supine on a hospital stretcher looking somewhat uncomfortable. She is awake and alert with a normal mental status. She does not seem toxic. HENMT Other: The right ear appears normal. The right ear canal is normal. The right tympanic membrane is normal. The left ear canal appears mildly narrowed and there seems to be discomfort with introduction of the ear speculum. She has a mild discomfort with the manipulation of the pinna. I have a small view of the tympanic membrane but I think the tympanic membrane itself looks normal. Pharynx is unremarkable. Eyes Other: Pupils are round equal, conjunctivae are clear, extraocular movements intact Neck Neck: Yes normal visual inspection, Yes full ROM and Yes no lymphadenopathy Resp Effort & Inspection: normal respiratory effort Auscultation: clear to auscultation bilaterally Cardio Rate: regular rate Rhythm: regular rhythm Heart sounds: S1 normal heart sound present and S2 normal heart sound present GI Other: Abdomen is soft and nontender Back/Spine/Pelvis Other: The patient is tender in the right lower back. Skin Other: The skin is dry and unremarkable Neuro Other: The patient is awake and alert with a normal mental status. Cranial nerves 2-12 are grossly intact. She seems to have intact strength and sensation in all 4 extremities although she has pain moving the right leg. Extrem Other: No peripheral edema. She has a positive right-sided straight leg raise test. Negative contralateral straight leg raise. Medications Administered Discontinued Medications Generic Name Dose Route Start Last Admin Trade Name Freq PRN Reason Stop Dose Admin Acetaminophen 975 mg 12/21/24 06:33 12/21/24 07:03 Acetaminophen 325 Mg Tablet PO 12/21/24 06:34 975 mg ONCE ONE Administration Cyclobenzaprine HCl 10 mg 12/21/24 06:33 12/21/24 07:03 Cyclobenzaprine Hcl 10 Mg Tablet PO 12/21/24 06:34 10 mg ONCE ONE Administration Ketorolac Tromethamine 30 mg 12/21/24 06:58 12/21/24 07:04 Ketorolac Tromethamine 30 Mg/Ml Vial IM 12/21/24 06:59 30 mg ONCE ONE Administration Lidocaine 1 patch 12/21/24 06:33 12/21/24 07:04 Lidocaine 4 % Patch Adh..Patch TRANSDERMA 12/21/24 06:34 1 patch ONCE ONE Administration Protocol Morphine Sulfate 30 mg 12/21/24 08:30 12/21/24 08:35 Morphine Sulfate Immed Release 15 Mg Tablet PO 12/21/24 08:31 30 mg ONCE ONE Administration Medical Decision Making Medical Decision Making [facility] Narrative: The patient presents primarily complaining of right lower back pain radiating down her right leg. This sounds like a sciatica syndrome. She has a negative lumbar spine x-ray. She has had no fever, sweats, chills. She has no neurological complaints. No bowel or bladder complaints. She does not look acutely toxic in any way. She is also complaining of left ear pain. On exam she seems to have some tenderness and narrowing of the left external auditory meatus. I think her left tympanic membrane is normal. I suspect this is a mild otitis externa. The patient was initially given IM ketorolac (she had good renal function), cyclobenzaprine, acetaminophen, and a lidocaine patch. She reported minimal relief for her back pain from this regimen. She was then given 30 mg of oral MSIR and seemed to feel much better and requested discharge. She requested that she be given paper prescriptions for her medications. She was given a prescription for acetaminophen, ibuprofen, cyclobenzaprine, and MSIR tablets. She was then discharged. I have subsequently realized that I had not prescribed anything for what I thought was her left otitis externa. I was able to reach her by phone several hours later. She tells me that the pharmacy that she went to did not have oral morphine and she was unable to fill the morphine prescription and that she had thrown out the prescription. I told her I would send a prescription for ofloxacin otic ear drops to be used in the left ear. I also told her I would send a prescription for oxycodone which I also sent electronically to the pharmacy. She said that she would picking machine operator helper these prescriptions and begin the antibiotic drops in the left ear. Discharge Plan Discharge Clinical Impression: Acute right-sided low back pain with right-sided sciatica Patient Disposition: Home, Self-Care Instructions: Sciatica (ED), Acute Low Back Pain (ED) Additional Instructions: I think you were experiencing a back pain syndrome that we call sciatica. You have prescriptions for several medications that you may use for pain control. Please do not drive on the cyclobenzaprine or the morphine tablets. Avoid bending and lifting or other activities that exacerbate your pain. Please contact your regular doctor's office today for a follow up appointment to discuss your back pain and your sciatica. Please review the accompanying information. Return to the emergency room if significantly worse. Prescriptions: New cyclobenzaprine 10 mg tablet 10 mg PO TID PRN (Reason: muscle spasm) Qty: 14 0RF ibuprofen 400 mg tablet 400 mg PO Q6H PRN (Reason: pain) Qty: 14 0RF morphine 15 mg tablet 15 mg PO Q6H PRN (Reason: pain) Qty: 14 0RF Rx Instructions: Partial Fill upon patient request. acetaminophen 500 mg capsule 1,000 mg PO Q8H PRN (Reason: fever or pain) Qty: 14 0RF oxycodone 5 mg tablet 5 mg PO Q6H PRN (Reason: pain) Qty: 12 0RF Rx Instructions: Partial Fill upon patient request. ofloxacin 0.3 % drops 10 drp otic (ear) left BID Qty: 10 0RF No Action glipizide 10 mg tablet extended release 24hr 1 tab PO QAM (DME) FreeStyle Lite Strips Strip MISCELLANEOUS TID aspirin 81 mg tablet,delayed release (DR/EC) 1 tab PO BEDTIME lisinopril-hydrochlorothiazide 20-25 mg tablet 1 tab PO QAM alcohol swabs [Alcohol Prep Pads] Pads, Medicated 1 pledget topical BID (DME) pen needle, diabetic [Pentips Pen Needle] 32 gauge x /32 needle MISCELLANEOUS BID (DME) lancets [TRUEplus Lancets] 33 gauge misc MISCELLANEOUS TID venlafaxine 75 mg Capsule,Extended Release 24hr 75 mg PO DAILY 30 Days Qty: 30 0RF olanzapine 7.5 mg Tablet 7.5 mg PO BEDTIME 30 Days Qty: 30 0RF gabapentin 100 mg Capsule 200 mg PO TID 30 Days Qty: 180 0RF memantine 5 mg Tablet 5 mg PO BEDTIME 30 Days Qty: 30 0RF acetaminophen [Tylenol Extra Strength] 500 mg tablet 1,000 mg PO QID PRN (Reason: fever or pain) Qty: 14 0RF tramadol 50 mg tablet 50 mg PO Q8H PRN (Reason: pain) Qty: 14 0RF Rx Instructions: May partially fill upon patient request methocarbamol 750 mg tablet 750 mg PO Q8H PRN (Reason: pain, moderate) Qty: 15 0RF albuterol sulfate 2.5 mg/0.5 mL solution for nebulization 5 mg inhalation Q4H PRN (Reason: shortness of breath or wheezing) Qty: 30 0RF acetaminophen [Tylenol] 325 mg tablet 325 mg PO QID PRN (Reason: fever or pain) Qty: 20 0RF cephalexin 500 mg capsule 500 mg PO BID Qty: 14 0RF phenazopyridine [Pyridium] 200 mg tablet 200 mg PO TID PRN (Reason: pain) Qty: 10 0RF trazodone 100 mg tablet 100 mg PO BEDTIME PRN (Reason: insomnia) amlodipine 5 mg tablet 5 mg PO DAILY (DME) [employer]Burger Sandra 2 Sensor Kit See Rx Instructions .ROUTE DIRECTED Qty: 1 Rx Instructions: As directed loratadine 10 mg tablet 10 mg PO DAILY metformin 1,000 mg tablet 1,000 mg PO Frantz Stover U-300 Insulin 300 unit/mL (1.5 mL) insulin pen 100 unit subcut BEDTIME cholecalciferol (vitamin D3) [Vitamin D3] 50 mcg (2,000 unit) capsule 50 mcg PO QAM levothyroxine 25 mcg tablet 25 mcg PO QAM Trulicity 3 mg/0.5 mL pen injector subcut QWEEK budesonide-formoterol [Symbicort] 160-4.5 mcg/actuation HFA aerosol inhaler 2 puff inhalation BID insulin lispro 100 unit/mL insulin pen 40 unit subcut TID pantoprazole 40 mg tablet,delayed release (DR/EC) 40 mg PO QAM rosuvastatin 40 mg tablet 40 mg PO QPM venlafaxine 37.5 mg capsule,extended release 24hr 37.5 mg PO DAILY Interventions: ED Discharge Assessment Last Done: 12/21/24 10:33 Discharge Date/Time: 12/21/24 10:34 Print Language: Upper Sorbian
[2024-12-21] MEDS: Cyclobenzaprine HCl 10 MG TABLET PO (07:03)
[2024-12-21] MEDS: Acetaminophen 325 MG TABLET 975 MG PO (07:03)
[2024-12-21] MEDS: Lidocaine 4 % Patch ADH..PATCH 1 PATCH TRANSDERMA (07:04)
[2024-12-21] MEDS: Ketorolac Tromethamine 30 MG/ML VIAL IM (07:04)
[2024-12-21 08:30] VITALS: BP 116/71; PULSE 85; RESP 12; TEMP 36.8; O2SAT 98
[2024-12-21] MEDS: Morphine Sulfate Immed Release 15 MG TABLET 30 MG PO (08:35)
[2024-12-21 10:30] VITALS: BP 130/73; PULSE 83; RESP 10; TEMP 36.9; O2SAT 95
[2024-12-21 10:33] VITALS: BP 130/73; PULSE 83; RESP 10; TEMP 36.9; O2SAT 95
== END 2024-12-21 10:34 | disposition home or self-care (01) ==
PROVIDERS: Emergency Provider Emergency Medicine; PCP Internal Medicine
DX: M54.41 Lumbago with sciatica, right side (principal); G47.33 Obstructive sleep apnea (adult) (pediatric); E11.9 Type 2 diabetes mellitus without complications; M79.604 Pain in right leg; Z79.4 Long term (current) use of insulin; Z79.899 Other long term (current) drug therapy
CPT/HCPCS: 72100; 96372; 99284; J1885

== ENCOUNTER → 2024-12-21 06:58 | Outpatient (BNV) | payer MEDICAID, SELFPAY | PROVIDERS: Emergency Provider Emergency Medicine; PCP Internal Medicine; Visit Provider Radiology Diagnostic Radiology | DX: M47.816 Spondylosis without myelopathy or radiculopathy, lumbar region (principal) | CPT/HCPCS: 72100 ==

== ENCOUNTER 2025-01-11 08:51 | Outpatient (REF) | payer MEDICAID, SELFPAY ==
--- NOTE | ~2025-01-11 | US_ITS ---
EXAMINATION: US ABDOMEN COMPLETE CLINICAL INFORMATION: Non alcoholic fatty liver disease.. COMPARISON: January 20, 2024. TECHNIQUE: Real-time ultrasound of the abdomen using grayscale technique. FINDINGS: PANCREAS: No peripancreatic fluid collection. ABDOMINAL AORTA: Inadequate evaluation. INFERIOR VENA CAVA: Inadequate evaluation. LIVER: Liver measures 19 cm. Nodular contour. Increased echotexture. No gross solid or cystic lesion detected by the technologist. No intrahepatic biliary ductal dilatation. Main portal vein is patent with hepatopedal flow direction. GALLBLADDER: Absent/cholecystectomy. COMMON BILE DUCT: 5 mm. RIGHT KIDNEY: 12 cm. Normal echotexture. Normal renal cortical thickness. No hydronephrosis. There is a 1.4 cm anechoic lesion at the corticomedullary junction midportion. Focal calcification in a 0.9 cm anechoic lesion. . LEFT KIDNEY: 13 cm. Normal echotexture. Normal renal cortical thickness. No hydronephrosis. 1.2 cm exophytic anechoic lesion. SPLEEN: 15 cm. No focal lesion. FREE FLUID: None. US/US abdomen complete IMPRESSION: Hepatosplenomegaly concerning for cirrhosis. No ascites. Complex/partially calcified cystic lesions, right kidney. Simple cyst left kidney. No hydronephrosis. Electronically signed by: Martín Sherwood MD 01/11/2025 10:07 AM EDT
--- OUTSIDE RECORDS SUMMARY | 2025-01-11 09:02 | XMS_ITS | Encounter Summary ---
Author Organization [employer] Address [address] [place] [address] 7t [place] [address] Care Team Providers Care First Line Production Supervisor Name Role Phone Kelli Bryant Primary Care Provider [phone] Reason for Visit * Reason Comments Med Refill Encounter Details Date Type Department Care Team (Late Contact Info) Description 07/21/2022 Refill [facility] CHC MED & PEDS [address] [place], [place] [phone] Kelli Bryant ANP [address] [place] [address] Social History Tobacco Use Types Packs/Day Years [...] Care Team (Late st Contact Info) Description 07/13/2025 3:00 PM EST Office Visit [facility] OPTOMETRY [address] [place] [address] Israel, Arlen, OD [address] [place] [address] documented as of this encounter Visit Diagnoses Not on filedocumented in this encounter Care Teams First Line Production Supervisor Relationship Specialty Start Date End Date Kelli Bryant ANP [address] [place] [address] PCP - General Family Medicine 03/01/20 09/30/22 documented as of this encounter
== END 2025-01-11 08:52 | disposition home or self-care (01) ==
LOC: HO.US 08:51
PROVIDERS: PCP Internal Medicine; Visit Provider Internal Medicine
DX: K76.0 Fatty (change of) liver, not elsewhere classified (principal)
CPT/HCPCS: 76700

== ENCOUNTER → 2025-01-11 08:53 | Outpatient (BNV) | payer MEDICAID, SELFPAY | PROVIDERS: PCP Internal Medicine; Visit Provider Radiology Diagnostic Radiology | DX: R16.2 Hepatomegaly with splenomegaly, not elsewhere classified (principal) | CPT/HCPCS: 76700 ==

== ENCOUNTER 2025-02-20 09:12 | Outpatient (REF) | payer MEDICAID, SELFPAY ==
--- OUTSIDE RECORDS SUMMARY | 2025-02-20 09:55 | XMS_ITS | Encounter Summary ---
Author Organization [employer] Address [address] [place] [address] [address]t [place] [address] Care Team Providers Care Dry Cleaning Supervisor Name Role Phone Kelli Bryant Primary Care Provider [phone] Prudence Hooks MD Primary Care Provider [phone] Reason for Visit * Reason Comments Med Refill Encounter Details Date Type Department Care Team (Late st Contact Info) Description 07/21/2022 Refill [facility] CHC MED & PEDS [address] [place], [place] [phone] Kelli Bryant ANP [address] [place] [address] Social History Tobacco Use Types Packs/Day Years [...] Encounters Date Type Department Care Team (Late Contact Info) Description 07/13/2025 3:00 PM EST Office Visit [facility] OPTOMETRY [address] [place], [place] [phone] Arlen Wood, OD [address] [place] [address] documented as of this encounter Visit Diagnoses Not on filedocumented in this encounter Care Teams Dry Cleaning Supervisor Relationship Specialty Start Date End Date Kelli Bryant ANP [address] [place] [address] PCP - General Family Medicine 03/01/20 09/30/22 Prudence Hooks MD [address] [place] [address] [place] [phone] PCP - General 01/30/25 documented as of this encounter
[2025-02-20 10:49] LABS: Hemoglobin A1C 380.4592 umol/L; Total Hemoglobin (HGBA1C) 3369.5763 umol/L
[2025-02-20 11:20] LABS: Alanine Aminotransferase 34 U/L (0-31); Albumin Level 4.3 g/dL (3.5-5.0); Alkaline Phosphatase 92 U/L (39-117); Anion Gap 16 (12-20); Aspartate Amino Transferase 28 U/L (5-31); Blood Urea Nitrogen 14 mg/dL (9-16); Calcium 9.7 mg/dL (8.4-10.2); Carbon Dioxide 25 mmol/L (22-29); Chloride 96 mmol/L (96-108); Estimated Glomerular Filt Rate > 60; Potassium 3.9 mmol/L (3.3-5.1); Sodium 133 mmol/L (135-145); Thyroid Stimulating Hormone 3.04 uIU/mL (0.32-4.0); Total Protein 7.2 g/dL (6.5-8.0)
== END 2025-02-20 09:13 | disposition home or self-care (01) ==
LOC: HO.LAB 09:12
PROVIDERS: PCP Internal Medicine; Visit Provider Internal Medicine
DX: Z00.01 Encounter for general adult medical examination with abnormal findings (principal); E03.9 Hypothyroidism, unspecified; E11.65 Type 2 diabetes mellitus with hyperglycemia; E66.01 Morbid (severe) obesity due to excess calories; G47.33 Obstructive sleep apnea (adult) (pediatric); K59.00 Constipation, unspecified; M51.16 Intervertebral disc disorders with radiculopathy, lumbar region; R80.8 Other proteinuria; R42 Dizziness and giddiness
CPT/HCPCS: 36415; 80053; 83036; 84443

== ENCOUNTER 2025-02-28 14:27 | Outpatient (REF) | payer MEDICAID, SELFPAY ==
--- OUTSIDE RECORDS SUMMARY | 2025-02-28 15:39 | XMS_ITS | Encounter Summary ---
Author Organization [employer] Address [address] [place] [address] 7t [place] [address] Care Team Providers Care Knurling Machine Operator Name Role Phone Prudence Hooks MD Primary Care Provider [phone]- [phone] Reason for Visit * Reason Comments Med Refill Encounter Details Date Type Department Care Team (Late st Contact Info) Description 10/20/2022 Refill [facility] MEDICINE [address] [place] [address] Kelli Bryant ANP 230 [place] [address] Social History Tobacco Use Types Packs/Day Years [...] Description 07/13/2025 3:00 PM EST Office Visit [facility] OPTOMETRY [address] [place] [address] IsraelArlen gross, OD 230 [place] [address] documented as of this encounter Visit Diagnoses Not on filedocumented in this encounter Care Teams Knurling Machine Operator Relationship Specialty Start Date End Date Prudence Hooks MD [address] [place] [address] [place] [address] PCP - General 01/30/25 documented as of this encounter
--- OUTSIDE RECORDS SUMMARY | 2025-02-28 15:39 | XMS_ITS | Encounter Summary ---
Author Organization [employer] Address [address] [facility] 7t [place] [address] Care Team Providers Care Infrastructure Solutions Architect Name Role Phone Prudence Hooks MD Primary Care Provider +1- [phone] Reason for Visit * Reason Comments Med Refill Encounter Details Date Type Department Care Team (Late st Contact Info) Description 10/27/2022 Refill [facility] CH[facility] MED & PEDS 505 [place], [place] [phone] Kelli Bryant, ANP 230 [place] [address] Essential hypertension Social History Tobacco Use Types [...] Description 07/13/2025 3:00 PM EST Office Visit [facility] OPTOMETRY [address] [place] [address] Arlen Wood, OD 230 [place] [address] documented as of this encounter Visit Diagnoses Diagnosis Essential hypertension Unspecified essential hypertension documented in this encounter Care Teams Infrastructure Solutions Architect Relationship Specialty Start Date End Date Prudence Hooks MD [address] [place] [address] [place] [address] PCP - General 01/30/25 documented as of this encounter
--- OUTSIDE RECORDS SUMMARY | 2025-02-28 15:39 | XMS_ITS | Encounter Summary ---
Author Organization [employer] Address [address] [place] [address] 7t [place] [address] Care Team Providers Care Client Care Specialist Name Role Phone Prudence Hooks MD Primary Care Provider [phone]- [phone] Reason for Visit * Reason Comments Med Refill Encounter Details Date Type Department Care Team (Late st Contact Info) Description 04/28/2023 Refill [facility] CHC MED & PEDS 505 [place], [place] [phone] Kelli Bryant, ANP 230 [place] [address] Social History Tobacco Use Types Packs/Day Years [...] Description 07/13/2025 3:00 PM EST Office Visit [facility] OPTOMETRY [address] [place] [address] Arlen Wood, OD 230 [place] [address] documented as of this encounter Visit Diagnoses Not on filedocumented in this encounter Care Teams Client Care Specialist Relationship Specialty Start Date End Date Prudence Hooks MD [address] [place] [address] [place] [address] PCP - General 01/30/25 documented as of this encounter
--- OUTSIDE RECORDS SUMMARY | 2025-02-28 15:39 | XMS_ITS | Encounter Summary ---
Author Organization [employer] Address [address] [place] [address] 7t [place] [address] Care Team Providers Care Silverware Cleaner Name Role Phone Prudence Hooks MD Primary Care Provider [phone]- [phone] Reason for Visit * Reason Comments Med Refill Encounter Details Date Type Department Care Team (Late st Contact Info) Description 04/28/2023 Refill [facility] CHC MED & PEDS 505 [place], [place] [phone] Kelli Bryant, ANP 230 [place] [address] Social History Tobacco Use Types Packs/Day Years [...] Description 07/13/2025 3:00 PM EST Office Visit [facility] OPTOMETRY [address] [place] [address] Arlen Wood, OD 230 [place] [address] documented as of this encounter Visit Diagnoses Not on filedocumented in this encounter Care Teams Silverware Cleaner Relationship Specialty Start Date End Date Prudence Hooks MD [address] [place] [address] [place] [address] PCP - General 01/30/25 documented as of this encounter
--- OUTSIDE RECORDS SUMMARY | 2025-02-28 15:39 | XMS_ITS | Encounter Summary ---
Author Organization [email or web address] Address [address] [place] [address] 7t [place] [address] Care Team Providers Care Biometrician Name Role Phone Kelli Bryant Primary Care Provider [phone] Prudence Hooks MD Primary Care Provider [phone] Encounter Details Date Type Department Care Team (Late st Contact Info) Description 07/22/[address] [facility] MEDICINE 230 [place] [address] Lola Mitchell LPN Social History Tobacco Use [...] Description 07/13/2025 3:00 PM EST Office Visit [facility] OPTOMETRY [address] [place] [address] Israel, Arlen, OD 230 [place] [address] documented as of this encounter Visit Diagnoses Not on filedocumented in this encounter Care Teams Biometrician Relationship Specialty Start Date End Date Kelli Bryant ANP 230 [place] [address] PCP - General Family Medicine 03/01/20 09/30/22 Prudence Hooks MD [address] [place] [address] Dr [place], [place] [address] PCP - General 01/30/25 documented as of this encounter
--- OUTSIDE RECORDS SUMMARY | 2025-02-28 15:39 | XMS_ITS | Encounter Summary ---
Author Organization [employer] Address [address] [place] [address] 7t [place] [address] Care Team Providers Care Car Head Liner Installer Name Role Phone Prudence Hooks MD Primary Care Provider [phone]- [phone] Reason for Visit * Reason Comments Med Refill Encounter Details Date Type Department Care Team (Late st Contact Info) Description 12/19/2022 Refill [facility]INE CL[facility]IC 230 [place] [address] Kelli Bryant ANP 230 [place] [address] Social History Tobacco Use Types Packs/Day Years [...] 3:00 PM EST Office Visit [facility] OPTOMETRY [address] [place] [address] Arlen Wood, OD 230 [place] [address] documented as of this encounter Visit Diagnoses Not on filedocumented in this encounter Care Teams Car Head Liner Installer Relationship Specialty Start Date End Date Prudence Hooks MD [address] [place] [address] [place] [address] PCP - General 01/30/25 documented as of this encounter
--- OUTSIDE RECORDS SUMMARY | 2025-02-28 15:39 | XMS_ITS | Encounter Summary ---
Author Organization [employer] Address [address] [place] [address] 7t [place] [address] Care Team Providers Care Office Machine Inspector Name Role Phone Kelli Bryant Primary Care Provider [phone] Prudence Hooks MD Primary Care Provider [phone]- [phone] Reason for Visit * Reason Comments Med Refill Encounter Details Date Type Department Care Team (Late st Contact Info) Description 07/21/2022 Refill [facility] CHC MED & PEDS 505 [place], [place] [address] Kelli Bryant ANP 230 [place] [address] Social History Tobacco Use Types Packs/Day Years [...] Description 07/13/2025 3:00 PM EST Office Visit [facility] OPTOMETRY [address] [place], [place] [phone] Arlen Wood, OD 230 [place] [address] documented as of this encounter Visit Diagnoses Not on filedocumented in this encounter Care Teams Office Machine Inspector Relationship Specialty Start Date End Date Kelli Bryant ANP 230 [place] [address] PCP - General Family Medicine 03/01/20 09/30/22 Prudence Hooks MD [address] [place] [address] [place] [address] PCP - General 01/30/25 documented as of this encounter
--- OUTSIDE RECORDS SUMMARY | 2025-02-28 15:39 | XMS_ITS | Encounter Summary ---
Author Organization [employer] Address [address] [place] [address] 7t [place] [address] Care Team Providers Care Historical Site Guide Name Role Phone Prudence Hooks MD Primary Care Provider [phone]- [phone] Reason for Visit * Reason Comments Med Refill Encounter Details Date Type Department Care Team (Late st Contact Info) Description 11/25/2022 Refill [facility]LE [facility]ACCINE CLINIC 230 [place] [address] Kelli Bryant ANP 230 [place] [address] Fibromyalgia Social History Tobacco Use Types Packs/Day [...] 3:00 PM EST Office Visit [facility] OPTOMETRY [address] [place] [address] Israel, Arlen, OD 230 [place] [address] documented as of this encounter Visit Diagnoses Diagnosis Fibromyalgia Unspecified myalgia and myositis documented in this encounter Care Teams Historical Site Guide Relationship Specialty Start Date End Date Prudence Hooks MD [address] [place] [address] [place] [address] PCP - General 01/30/25 documented as of this encounter
--- OUTSIDE RECORDS SUMMARY | 2025-02-28 15:39 | XMS_ITS | Clinical Summary ---
Author Organization [employer] Address [address] [place] [address] 7t [place] [address] Care Team Providers Care Account Adjuster Name Role Phone Prudence Hooks MD Primary Care Provider [phone]- [phone] Allergies No known active allergies Medications amoxicillin (Amoxil) 500 MG capsule take 1 capsule (500MG) by oral route every 8 hours until done 03/28/20 22 Active budesonide (Pulmicort) 0.5 MG/2ML nebulizer solution Inhale 2 mL every 12 (twelve) hours. 04/15/20 22 Active cholecalciferol (Vitamin D-3) 50 MCG (1999 UT) capsule Take 1 capsule by mouth in the morning. 03/13/20 22 Active fluconazole (Diflucan) 150 MG tablet take 1 tablet by oral route once for yeast infection, repeat in 3 days 03/17/20 22 Active glucose blood (FREESTYLE LITE) test strip Use 1 strip by as directed method 3 times daily 10/11/19 22 Active insulin lispro protamine-insuli n lispro (HumaLOG MIX 75/25 KWIKPEN) (75-25) 100 UNIT/ML injection inject 50 units by Subcutaneous route 2 times every day before breakfast and dinner 02/29/20 22 Active loratadine (Claritin) 10 MG tablet Take 1 tablet by mouth in the morning. 03/06/20 21 Active LORazepam (Ativan) 1 MG tablet take 1 tablet by oral route 3 times every day Active zoster vaccine-recombin ant adjuvanted (Shingrix) 50 MCG/0.5ML vaccine Inject 0.5 mL into the shoulder, thigh, or buttocks. 02/29/20 20 Active gabapentin (Neurontin) 100 MG capsuleIndicatio ns:Fibromyalgia take 2 capsule by oral route Morning and mid-day, and 3 capsules at bedtime 210 capsule 5 06/11/20 22 Active venlafaxine XR (Effexor XR) 75 MG 24 hr capsuleIndicatio ns:Bipolar disease, chronic (CMS/HCC) TAKE 1 CAPSULE BY MOUTH EVERY MORNING WITH FOOD 90 capsule 06/18/20 22 Active venlafaxine XR (Effexor XR) 37.5 MG 24 hr capsuleIndicatio ns:Bipolar disease, chronic (CMS/HCC) TAKE 1 CAPSULE BY MOUTH EVERY MORNING WITH FOOD 90 capsule 06/18/20 22 Active OLANZapine (ZyPREXA) 7.5 MG tabletIndication s:Bipolar disease, chronic (CMS/HCC) TAKE 1 TABLET BY MOUTH AT BEDTIME 90 tablet 06/18/20 22 Active amLODIPine (Norvasc) 5 MG tabletIndication s:Essential hypertension TAKE 1 TABLET BY MOUTH EVERY DAY 90 tablet 1 07/03/19 23 Active albuterol (2.5 MG/3ML) 0.083% nebulizer solutionIndicati ons:Uncomplicate d asthma, unspecified asthma severity, unspecified whether persistent INHALE 1 AMPULE USING A NEBULIZER EVERY 6 HOURS NEEDED (for asthma) 90 mL 3 07/16/19 23 Active Pentips 32G X 4 MM miscIndications: Type 2 diabetes mellitus with hyperglycemia, with long-term current use of insulin ([facility]) USE WITH INSULIN PEN TWICE DAILY 100 each 5 07/24/19 23 Active memantine (Namenda) 5 MG tabletIndication s:Frontal lobe dementia ([facility]) TAKE 1 TABLET BY MOUTH AT BEDTIME 30 tablet 3 08/30/19 23 Active glipiZIDE XL (Glucotrol XL) 10 MG 24 hr tablet TAKE 1 TABLET BY MOUTH EVERY MORNING WITH BREAKFAST 90 tablet 1 10/02/19 23 Active Aspirin Low Dose 81 MG EC tablet TAKE 1 TABLET BY MOUTH AT BEDTIME 90 tablet 1 10/02/19 23 Active lisinopril-hydro CHLOROthiazide 20-25 MG tabletIndication s:Essential hypertension TAKE 1 TABLET BY MOUTH EVERY MORNING 90 tablet 1 10/02/19 23 Active acetaminophen (Tylenol) 500 MG tablet Take 1 tablet (500 mg) by mouth every 6 (six) hours if needed for mild pain for up to 20 doses. 20 tablet 03/21/20 24 Active ibuprofen 600 MG tablet Take 1 tablet (600 mg) by mouth every 6 (six) hours if needed for mild pain for up to 20 doses. 20 tablet 03/21/20 24 Active Tosly Diaz SoloStar 300 UNIT/ML injection INJECT 120 UNITS SUBCUTANEOUSLY AT BEDTIME 12/30/19 25 Active TRUEplus Lancets 33G misc TEST BLOOD SUGAR THREE TIMES DAILY DIRECTED 12/30/19 25 Active levothyroxine (Synthroid, Levoxyl) 25 MCG tablet Take 25 mcg by mouth in the morning. 11/05/19 25 Active metFORMIN (Glucophage) 1000 MG tablet TAKE 1 TABLET BY MOUTH TWICE DAILY IN THE MORNING AND IN THE EVENING 12/30/19 25 Active Januvia 100 MG tablet Take 100 mg by mouth in the morning. 12/30/19 25 Active Symbicort 160-4.5 MCG/ACT inhaler INHALE 2 PUFFS BY MOUTH TWICE DAILY, RINSE MOUTH AFTER USING. 12/30/19 25 Active rosuvastatin (Crestor) 40 MG tablet Take 40 mg by mouth at bedtime. 11/05/19 25 Active Active Problems Problem Noted Date Diagnosed [...] 12/25/2011 Urinary incontinence 12/25/2011 Anxiety state 12/25/2011 Encounters Date Type Department Care Team Description 02/03/2025 Outside Procedure [facility] OPTOMETRY [address] [place] [address] Mumtaz Woodn, OD Presbyopia of both eyes (Primary Dx) 02/02/2025 10:30 AM EDT Office Visit [facility] OPTOMETRY [address] [place] [address] Israel, Arlen, OD Regular astigmatism of both eyes (Primary Dx) 01/10/2025 3:00 PM EDT Office Visit [facility] OPTOMETRY [facility] [place] [address] Arlen Wood, OD Moderate nonproliferative diabetic retinopathy of both eyes with macular edema associated with type 2 diabetes mellitus (CMS/HCC) (Primary Dx); Age-related nuclear cataract of both eyes; Presbyopia of both eyes 01/10/2025 Travel from Last 3 Months Immunizations Immunization Administration Dates Next Due Hep A, Adult 06/25/2018 Hep B, adult 05/03/2001,06/25/2000,05/25/2000 Influenza injectable quadriv alent IIV4 with preservative 04/06/2018,05/15/2016 Influenza injectable quadriv alent preservative free 03/17/2022,05/09/2021,06/28/2020,04/21,04/30/2017 Influenza, IIV3, injectable 04/03/2014, 1,04/08/2007 Influenza, Split (incl. kremit fied surface antigen) 08/16/2013,04/12/2012 Pfizer Covid-19 Vaccine [...] Description 07/13/2025 3:00 PM EST Office Visit [facility] OPTOMETRY [address] [place] [address] Arlen Wood, OD [address] [place] [address] Health Maintenance Due Date Last Done Comments CT Colonography 1967 Colonoscopy 1967 Colorectal Cancer Screening 1967 Depression Screening 1967 FIT DNA/Cologuard 1967 FIT 1967 FOBT 1967 HIV Screening 1967 SDOH Screening 1967 Sigmoidoscopy 1967 Disability Screening 1967 Diabetes: Foot Exam 1977 Alcohol/Substance Use Screening 1979 Pap [...] 02/27, 06/20/2020, Additional history exists COVID-19 Vaccine () 02/28/2024 12/21/2020, 11/29/2020 Dental Oral Exam 09/19/2024 03/21/2024, , 01/07/2017, Additional history exists Influenza Vaccine (#1) 2025 , 03/17/2022, 05/09/2021, Additional history exists Eye Exam 01/10/2026 01/10/2025, 12/27, 01/10/2025, Additional history exists Tobacco Screening 01/25/2026 01/25/2025 DTaP/Tdap/Td Vaccines (3 - Td or Tdap) [...] Procedure Name Priority Date/Time Associated Diagnosis Comments OCT, RETINA - OU - BOTH EYES Routine 01/10/2025 3:00 PM EDT Moderate nonproliferative diabetic retinopathy of both eyes with macular edema associated with type 2 diabetes mellitus ([facility]) PERIODIC ORAL EVALUATION - ESTABLISHED PATIENT Routine [...] Recently Relevant to Health Maintenance Results * OCT, Retina - OU - Both Eyes (01/10/2025 3:00 PM EDT) Arlen Gill, OD - 01/26/2025 9:48 AM EDT Images from the original result were not included. OCT [employer] Optical Coherence Tomography Interpretation Report Measurements: OD OS Macula Thickness 306 microns 396 microns Test findings: OD: Tented foveal contour with underlying cystoid macular edema, no retinal pigment epithelium disruption, no subretinal fluid OS: Tented foveal contour with significant cystoid macular edema throughout the macula, intraretinal exudates noted superotemporal to fovea, no retinal pigment epithelium disruption, no subretinal fluid Impression and Plan: Moderate non-proliferative diabetic retinopathy with macular edema in both eyes. Patient will be referred to a retinal specialist for evaluation and treatment. Will monitor here in 6 months. Arlen Wood OD OPHTH TOMOGRAPHY Final Result * (ABNORMAL) ALBUMIN, RANDOM URINE W/CREATININE (03/28/2022 12:05 PM EDT) Microalbumin Urine 22.8 See Note: mg/dL [facility] Comment: Reference Range: Reference Range Not established Microalb/Creat Ratio 374(H) <30 mcg/mg creat [facility] Comment: The ADA defines abnormalities in albumin excretion as follows: Albuminuria Category Result (mcg/mg creatinine) Normal to Mildly increased <30 Moderately increased 30-299 Severely increased > OR = 300 The ADA recommends that at least two of three specimens collected within a 3-6 month period be abnormal before considering a patient to be within a diagnostic category. Creatinine, Urine 61 20 - 275 mg/dL [facility] 03/28/2022 12:0 5 PM EDT Kelli Bryant ANP LAB URINE ORDERABLES Final Resul t Performing Organization Address [facility] de Phone Number [facility] * (ABNORMAL) LIPID PANEL, STANDARD (03/28/2022 12:05 PM EDT) Chol/HDLC Ratio 3.6 <5.0 (calc) [facility] Cholesterol, Total 163 <200 mg/dL [facility] HDL Cholesterol 45(L) > OR = 50 mg/dL [facility] LDL Cholesterol 99 mg/dL (calc) [facility] Comment: Reference range: <100 Desirable range <100 mg/dL for primary prevention; <70 mg/dL for patients with CHD or diabetic patients with > or = 2 CHD risk factors. LDL-C is now calculated using the Savita calculation, which is a validated novel method providing better accuracy than the Friedewald equation in the estimation of LDL-C. Esau MAHONEY et al. ALAINA. 2013;310(19): 5289-5030 (http://education.CakeStyle.Comfyware/faq/GES946) Non-HDL Cholesterol 118 <130 mg/dL (calc) [facility] Comment: For patients with diabetes plus 1 major ASCVD risk factor, treating to a non-HDL-C goal of <100 mg/dL (LDL-C of <70 mg/dL) is considered a therapeutic option. Triglycerides 97 <150 mg/dL CONVE [facility] 03/28/2022 12:0 5 PM EDT us Kelli Bryant ANP LAB BLOOD ORDERABLES Final Resul t Performing Organization Address [facility] Co de Phone Number CONVERTED [facility]GACY LAB[facility] * (ABNORMAL) HEMOGLOBIN A1c (06/20/2020 10:31 AM EST) Hemoglobin A1c 6.8(H) <5.7 % of total H[facility] Comment: For someone without known diabetes, a hemoglobin A1c value of 6.5% or greater indicates that they may have diabetes and this should be confirmed with a follow-up test. For someone with known diabetes, a value <7% indicates that their diabetes is well controlled and a value greater than or equal to 7% indicates suboptimal control. A1c targets should be individualized based on duration of diabetes, age, comorbid conditions, and other considerations. Currently, no consensus exists regarding use of hemoglobin A1c for diagnosis of diabetes for children. 06/20/2020 10:3 1 AM EST Kelli Bryant [facility] LAB BLOOD ORDERABLES Final Resul t [facility] [address] * DIGITAL BILATERAL SCREEN 1 (04/07/2018 1:48 PM EDT) Anatomical Region Laterality Modality Breast Bilateral Mammography 04/07/2018 1:48 PM EDT Narrative 04/07/2018 1:49 PM EDT Refer to the Notes tab for result details [facility] Procedure: DIGITAL BILATERAL SCREEN 1 Procedure Note Provider, MD Shaila - 09/20/2022 Refer to the Notes tab for result details [facility] Procedure: DIGITAL BILATERAL SCREEN 1 Gavin King PHOTOCOPYING EQUIPMENT REPAIRER IMG BI PROCEDURES Final Result from Last 3 Months or Most Recently Relevant to Health Maintenance Insurance [facility] STAND ADULT Care Teams Account Adjuster Relationship Specialty Start Date End Date Prudence Hooks MD [address] [place] [address] [place] [address] PCP - General 01/30/25
--- OUTSIDE RECORDS SUMMARY | 2025-02-28 15:39 | XMS_ITS | Encounter Summary ---
Author Organization [employer] Address [address] [facility] 7t [place] [address] Care Team Providers Care Grain Cleaner Name Role Phone Prudence Hooks MD Primary Care Provider +1- [phone] Reason for Visit * Reason Comments Med Refill Encounter Details Date Type Department Care Team (Late st Contact Info) Description 10/26/2022 Refill [facility] CHC MED & PEDS [address] [place], [place] [phone] Kelli Bryant, ANP [address] [place] [address] Essential hypertension Social History Tobacco Use Types [...] Description 07/13/2025 3:00 PM EST Office Visit [facility] OPTOMETRY [address] [place] [address] Arlen Wood, OD [address] [place] [address] documented as of this encounter Visit Diagnoses Diagnosis Essential hypertension Unspecified essential hypertension documented in this encounter Care Teams Grain Cleaner Relationship Specialty Start Date End Date Prudence Hooks MD [address] [place] [address] [place] [address] PCP - General 01/30/25 documented as of this encounter
== END 2025-02-28 14:28 | disposition home or self-care (01) ==
LOC: HO.MAMMO 14:27
PROVIDERS: PCP Internal Medicine; Visit Provider Internal Medicine
DX: Z12.31 Encounter for screening mammogram for malignant neoplasm of breast (principal)
CPT/HCPCS: 77063; 77067

== ENCOUNTER → 2025-02-28 15:15 | Outpatient (BNV) | payer MEDICAID, SELFPAY | PROVIDERS: PCP Internal Medicine; Visit Provider Internal Medicine | DX: Z12.31 Encounter for screening mammogram for malignant neoplasm of breast (principal) | CPT/HCPCS: 77063; 77067 ==

== ENCOUNTER 2025-06-26 14:05 | Emergency (ER) | payer MEDICAID, SELFPAY ==
--- NOTE | ~2025-06-26 | XR_ITS ---
EXAMINATION: XR CHEST CLINICAL INFORMATION: chest pain COMPARISON: Previous chest x-ray most recent December 2023 TECHNIQUE: 2 views of the chest were obtained. FINDINGS: Chronic scarring or subsegmental atelectasis at the left lung base similar to prior exams. Lungs are otherwise clear. No consolidation or pulmonary edema. No pleural effusion or pneumothorax. Cardiac and mediastinal contours are stable. Bony structures are unremarkable. XR/XR chest 2V IMPRESSION: No evidence for acute disease in the chest. Linear scarring or chronic subsegmental atelectasis at the left lung base similar to previous exams. Electronically signed by: Hallie Hernandez MD 06/26/2025 03:17 PM [facility]
--- NOTE | 2025-06-26 14:11 | ECG_ITS ---
Test Reason : CP Blood Pressure : */* mmHG Vent. Rate : 101 BPM Atrial Rate : 101 BPM P-R Int : 138 ms QRS Dur : 68 ms QT Int : 332 ms P-R-T Axes : 33 -3 12 degrees QTcB Int : 430 ms Sinus tachycardia Cannot rule out Anterior infarct , age undetermined Abnormal ECG When compared with ECG of 18-Mar-2024 08:32, No significant changes seen Referred By: Odette Julien Electronically Signed By: TUYET ZHANG
[2025-06-26 14:50] VITALS: BP 131/79; PULSE 103; RESP 20; TEMP 36.8; O2SAT 95; BMI 44.9
--- NOTE | 2025-06-26 14:52 | ED_ITS ---
HPI - General Adult General Chief complaint: Upper Respiratory Symptoms Stated complaint: Cough / Headache Time Seen by Provider: 06/26/25 17:29 Source: patient Mode of arrival: ambulatory Limitations: no limitations History of Present Illness ED Provider: Odette Julien PA-C HPI narrative: Patient is a 60 year old female with a history of hypothyroidism, nonalcoholic fatty liver disease, insomnia, HTN, hepatitis C, bipolar disorder, depression, and asthma presenting to the emergency department today with a cough and headache. Patient states that over the last few days she has felt generally unwell with a cough and headache. Patient denies any other complaints at this time. Onset (ago): day(s) Relieving factors: none Exacerbating factors: none Associated symptoms: cough Related Data Home Medications ?Medication ?Instructions ?Recorded ?Confirmed alcohol swabs (Alcohol Prep Pads) 1 pledget topical BI D 10/27/20 03/14/24 aspirin 81 mg tablet,delayed 1 tab PO BEDTIME 10/27/20 03/14/24 release blood sugar diagnostic (FreeStyle 10/27/20 03/14/24 Lite Strips) glipizide 10 mg tablet, extended 1 tab PO QAM 10/27/20 03/14/24 release 24 hr lancets 33 gauge (TRUEplus Lancets) 10/27/20 03/14/24 lisinopril 20 1 tab PO QAM 10/27/20 mg-hydrochlorothiazide 25 mg tablet pen needle, diabetic 32 gauge x 10/27/20 03/14/24 5/32 (Pentips Pen Needle) amlodipine 5 mg tablet 5 mg PO DAILY 03/24/2303/14 cholecalciferol (vitamin D3) 50 50 mcg PO QAM 03/24/23 03/14/24 mcg (2,000 unit) capsule (Vitamin D3) flash glucose sensor (FreeStyle #1 ea 03/24/23 4 Sandra 2 Sensor kit) insulin glargine U-300 conc 300 100 unit subcut BEDTIM E 03/24/23 03/14/24 unit/mL (1.5 mL) subcutaneous pen ([place] SoloStar U-300 Insulin) loratadine 10 mg tablet 10 mg PO DAILY 03/24/2302/27 metformin 1,000 mg tablet 1,000 mg PO 03/24/23 4 trazodone 100 mg tablet 100 mg PO BEDTIME PRN insomn ia 03/24/23 03/14/24 budesonide-formoterol HFA 160 2 puff inhalation BID mcg-4.5 mcg/actuation aerosol inhaler (Symbicort) dulaglutide 3 mg/0.5 mL mg subcut QWEEK 04/06/24 subcutaneous pen injector (Trulicity) insulin lispro 100 unit/mL 40 unit subcut TID 04/06/24 subcutaneous pen levothyroxine 25 mcg tablet 25 mcg PO QAM 04/06/24 pantoprazole 40 mg tablet,delayed 40 mg PO QAM 4 release rosuvastatin 40 mg tablet 40 mg PO QPM 04/06/24 venlafaxine 37.5 mg 37.5 mg PO DAILY 04/06/24 capsule,extended release 24 hr Previous Rx's ?Medication ?Instructions ?Recorded gabapentin 100 mg capsule 200 mg (2 x 100 mg) PO TID 3 0 days 11/14/20 #180 caps memantine 5 mg tablet 5 mg PO BEDTIME 30 days #30 tabs 11/14/20 olanzapine 7.5 mg tablet 7.5 mg PO BEDTIME 30 days #3 0 tabs 11/14/20 venlafaxine 75 mg capsule,extended 75 mg PO DAILY 30 d ays #30 caps 11/14/20 release 24 hr acetaminophen 500 mg tablet 1,000 mg (2 x 500 mg) PO Q ID PRN 05/27/22 (Tylenol Extra Strength) fever or pain #14 tabs tramadol 50 mg tablet 50 mg PO Q8H PRN pain #14 ta bs 05/27/22 albuterol sulfate 2.5 mg/0.5 mL 5 mg inhalation Q4H KS N shortness 11/30/22 solution for nebulization of breath or wheezing #30 ea acetaminophen 325 mg tablet 325 mg PO QID PRN fever or pain 05/21/23 (Tylenol) #20 tabs cephalexin 500 mg capsule 500 mg PO BID #14 caps 06/24 phenazopyridine 200 mg tablet 200 mg PO TID PRN pain # 10 tabs 06/24/24 (Pyridium) methocarbamol 750 mg tablet 750 mg PO Q8H PRN pain, mo derate 07/14/24 #15 tabs acetaminophen 500 mg capsule 1,000 mg (2 x 500 mg) PO Q8H PRN 12/21/24 fever or pain #14 caps cyclobenzaprine 10 mg tablet 10 mg PO TID PRN muscle s pasm #14 12/21/24 tabs ibuprofen 400 mg tablet 400 mg PO Q6H PRN pain #14 t abs 12/21/24 morphine 15 mg immediate release 15 mg PO Q6H PRN pain #14 tabs 12/21/24 tablet ofloxacin 0.3 % ear drops 10 drp otic (ear) left BID # 10 mL 12/21/24 oxycodone 5 mg tablet 5 mg PO Q6H PRN pain #12 tab s 12/21/24 Allergies Allergy/AdvReac Type Severity Reaction Status Date / Time No Known Allergies Allergy Verified 06/26/25 14:52 Review of Systems 2 Constitutional: Constitutional: Reports as per HPI Eyes: Eyes: Reports as per HPI ENT: Reports as per HPI Cardiovascular: Cardiovascular: Reports as per HPI Respiratory: Respiratory: Reports as per HPI Gastrointestinal: Gastrointestinal: Reports as per HPI Genitourinary: Genitourinary: Reports as per HPI Musculoskeletal: Musculoskeletal: Reports as per HPI Integumentary/Breasts: Skin/Breast: Reports as per HPI Neurologic: Reports as per HPI Psychiatric: Psychiatric: Reports as per HPI Endocrine: Endocrine: Reports as per HPI Hematologic/Lymphatic: Hematologic/Lymphatic: Reports as per HPI Allergic/Immunologic: Allergic/Immunologic: Reports as per HPI PMF Past Medical History Attestation statement: The following information was validated with the patient. Source: old records reviewed and nursing notes reviewed Medical History EBONI (obstructive sleep apnea) DJD (degenerative joint disease) Insomnia Hyperlipidemia Morbid obesity Scalp mass Bipolar 1 disorder Depression Sleep apnea HTN (hypertension) Hepatitis GERD (gastroesophageal reflux disease) Diabetes Asthma Surgical History History of excision of mass (~09/18/23) Hx of tubal ligation Hx of cholecystectomy History of section Social History Social History Household Members: Spouse and Children Housing: House Do you presently have visiting nurse or other home services: No Alcohol intake: never Patient Tobacco Use Status: Former Tobacco user Advance Directives: No Advance Directives Information Provided: No Do you have a plan to hurt others: No Plan service: No Sexual orientation: Don't Know Physical Exam ED Vital Signs: Vital Signs - 24 hr 06/26/25 14:50 06/26/25 17:29 Temperature 98.2 F 98.2 F Pulse Rate 103 H 103 H Respiratory Rate 20 20 Blood Pressure 131/79 131/79 Pulse Oximetry 95 95 Oxygen Delivery Method Room Air Room Air BMI result Body Mass Index 44.9 Const General: cooperative, alert and awake Orientation/consciousness: patient oriented x3 HENMT Head: Yes normal to inspection and Yes atraumatic Ears: hearing grossly normal bilaterally and external ears normal General nose exam: Normal external nose present, no nasal discharge noted and no epistaxis Face and sinus: Yes normal facial exam, No abrasion and No laceration Mouth: Normal oral and palatal mucosa present, no drooling and no muffled voice Eyes General: appearance normal, both eyes and all related structures Periorbital: periorbital findings normal Eyelids: Yes eyelids normal Conjunctivae: conjunctivae normal Pupils: Equal, round and reactive pupils present EOM: EOMs intact bilaterally Resp Effort & Inspection: normal respiratory effort and able to speak in complete sentences Neuro General: patient oriented x3, moves all extremities and CN's II-XI intact bilaterally Cranial nerves: Yes Equal, round and reactive pupils present Cognition (Neuro): normal cognition Extrem General: Yes full ROM Psych Appearance: grossly normal Mental Status: mental status grossly normal Attitude: cooperative Course Course Course Narrative: Rapid medical examination performed in triage by Odette Julien PA-C: Patient is a 60 year old female presenting to the emergency department with a cough and feeling generally unwell. Detailed physical exam and review of systems are deferred to the lambskin trimmer. EKG, labs, swabs ordered. Patient placed back in the waiting room pending room availability and results. Medical Decision Making Medical Decision Making MDM Narrative: Patient is a 60 year old female with a history of hypothyroidism, nonalcoholic fatty liver disease, insomnia, HTN, hepatitis C, bipolar disorder, depression, and asthma presenting to the emergency department today with a cough and headache. Patient's physical exam was as noted in the physical exam portion of this note. Patient's blood work was unremarkable. Patient's EKG showed no obvious evidence of arrhythmia, ischemia, or infarct. Patient's chest x-ray showed no acute process. Patient's COVID-19 and RSV testing was negative. Patient's Influenza testing was positive. I explained my physical exam findings as well as all test results to the patient. I answered all questions asked by the patient . I stressed the importance of the patient taking her medication as directed (either prescribed or as the over the counter packaging recommends). I stressed the importance of the patient following up with her primary care provider. I stressed the importance of the patient returning to the emergency department immediately if her symptoms were to worsen or if she were to develop any dizziness, shortness of breath, difficulty breathing, chest pain, blurry vision, loss of vision, nausea, vomiting, abdominal pain, fever, chills, back pain, or any other complaints. Patient verbalized agreement and understanding with this treatment plan and discharge. Differential Diagnosis Differential Diagnoses: The differential diagnosis associated with the presentation includes Influenza RSV COVID-19 Viral illness Admission/Observation Consideration of admission/observation: Escalation of care including admission/observation considered Patient would have been admitted to the hospital had her work up had any findings where hospital admission was appropriate and her clinical presentation warranted hospital admission. Lab Data [facility] Lab Attestation statement: I reviewed the patient's lab results. My interpretation of these results are in the [facility] Rationale portion of this note. 06/26/25 15:46 06/26/25 15:46 Labs: Lab Results 06/26/25 Range/Units 15:46 WBC 6.9 (4.8-10.8) X10*3/uL RBC 5.04 (4.20-5.50) X10*6/uL Hgb 14.0 (12.0-16.0) g/dl Hct 42.6 (37.0-47.0) % MCV 84.5 (80.0-98.0) fL MCH 27.8 (27.0-33.0) pg MCHC 32.9 (31.0-35.0) g/dl RDW 13.2 (11.0-16.0) % Plt Count 215 (160-400) X10*3/uL MPV 10.9 (9.4-12.3) fL Immature Gran % (Auto) 0.4 (0.0-0.4) % Neut % (Auto) 54.7 (45-73) % Lymph % (Auto) 29.3 (20-40) % [place] % (Auto) 12.4 H (2-11) % Eos % (Auto) 2.8 (0-4) % Baso % (Auto) 0.4 (0-2) % Lymph # (Auto) 2.0 (1.2-4.9) X10*3/uL [place] # (Auto) 0.9 (0.1-1.2) X10*3/uL Eos # (Auto) 0.2 (0.0-0.4) X10*3/uL Baso # (Auto) 0.0 (0.0-0.2) X10*3/uL Abs Immat Gran (auto) 0.03 (0.00-0.03) X10*3/uL Absolute Neuts (auto) 3.8 (2.0-8.3) x10*3/uL Absolute Nucleated RBC 0.000 (0.0-0.012) X10*3/uL Nucleated RBC % (auto) 0.0 (0.0-0.2) /100WBC Sodium 135 (135-145) mmol/L Potassium 3.4 (3.3-5.1) mmol/L Chloride 98 (96-108) mmol/L Carbon Dioxide 28 (22-29) mmol/L Anion Gap 12 (12-20) BUN 16 (9-16) mg/dL Creatinine 1.15 (0.5-1.4) mg/dL Estim Creat Clear Calc 74.9 Estimated GFR 48 Random Glucose 69 (60-115) mg/dL Calcium 10.7 H D (8.4-10.2) mg/dL Magnesium 1.8 (1.6-2.6) mg/dL Total Bilirubin 0.3 (0.0-1.0) mg/dL AST 55 H (5-31) U/L ALT 55 H (0-31) U/L Alkaline Phosphatase 97 (39-117) U/L Troponin I High Sens < 2.7 (<3.5-17.0) ng/L Total Protein 8.2 H (6.5-8.0) g/dL Albumin 4.7 (3.5-5.0) g/dL Influenza Type A (PCR) POSITIVE A (Negative) Influenza Type B (PCR) NEGATIVE (Negative) RSV RNA Qual (PCR) NEGATIVE (Negative) SARS-CoV-2 RNA (RT-PCR) NEGATIVE (Negative) Independent Interpretation I performed an independent interpretation of an: EKG and Plain X-Ray Interpretation: My interpretation is in agreement with the radiologist's impression of this imaging study as written below. EXAMINATION: XR CHEST CLINICAL INFORMATION: chest pain COMPARISON: Previous chest x-ray most recent December 2023 TECHNIQUE: 2 views of the chest were obtained. FINDINGS: Chronic scarring or subsegmental atelectasis at the left lung base similar to prior exams. Lungs are otherwise clear. No consolidation or pulmonary edema. No pleural effusion or pneumothorax. Cardiac and mediastinal contours are stable. Bony structures are unremarkable. XR/XR chest 2V IMPRESSION: No evidence for acute disease in the chest. Linear scarring or chronic subsegmental atelectasis at the left lung base similar to previous exams. Electronically signed by: Hallie Hernandez MD 06/26/2025 03:17 PM [facility] [place] Dictated By: Hallie Hernandez MD Signed By: Electronically signed by Hallie Hernandez MD 06/26/25 1517 I independently interpreted this EKG and am in agreement with the below findings: Vent. Rate: 101 BPM Atrial Rate: 101 BPM P-R Int: 138 ms QRS Dur: 68 ms QT Int: 332 ms P-R-T Axes: 33 -3 12 degrees QTcB Int: 430 ms Sinus tachycardia When compared with ECG of 18-Mar-2024 08:32, No significant changes seen 06/26/25 0057 Radiology Impression Discussion of test interpretation with radiology: I have reviewed the radiologist's reading. Discharge Plan Discharge Clinical Impression: Influenza Patient Disposition: Home, Self-Care Instructions: Influenza (DC) Additional Instructions: Your lab work, EKG, and chest x-ray were all normal. You are positive for Influenza. IF you are prescribed home medications and/or you are taking over the counter medications at home - it is very important you continue to do so as prescribed / directed unless told otherwise by a healthcare provider. Follow up with your primary care provider. Do your best to stay well hydrated and rest. Return to the emergency department immediately if your symptoms worsen or if you develop any numbness, tingling, dizziness, shortness of breath, difficulty breathing, chest pain, blurry vision, loss of vision, nausea, vomiting, abdominal pain, fever, chills, back pain, or any other complaints. L If you do not have a primary care provider - call any of the below numbers to establish and follow up with a primary care provider. [facility] [place] [phone] [place] [address], [address] [facility] [place] [place] [phone] [place] [address], [address] [facility], [address] [facility] [place] [place]) [phone] [place] [address], [address] [facility], [address] [facility] [place]) [phone] [place] [address] [address] [facility], [address] [facility] [phone] [address] [facility], [address] Please see the information below about our Patient Portal. If you are not yet enrolled in the [facility] Patient Portal, you will receive an enrollment email invitation following your visit to any [facility] setting. You may also self-enroll in the Patient Portal by visiting our website: [email or web address] The following information is required to access the Patient Portal: - Your [facility] Medical Record Number - Your personal home email address (must match what is in your electronic medical record, Registration staff can assist with this) - Name - Date of Capabilities of the Patient Portal: - Message some providers - View upcoming appointments - Access your health summary, medical history, and visit history - View current conditions and allergies - View procedure and lab results - View your medications, including guidelines, side effects, and precautions - Complete pre-appointment questionnaires requested by your provider - Ready summary reports of your office visits and procedures To access the Patient Portal Mobile Willa, follow these directions: - Search [employer] in the Willa Store or Google Play Store - Download the Willa - Search for [facility] - Enter your login/password Prescriptions: No Action glipizide 10 mg tablet extended release 24hr 1 tab PO QAM (DME) FreeStyle Lite Strips Strip MISCELLANEOUS TID aspirin 81 mg tablet,delayed release (DR/EC) 1 tab PO BEDTIME lisinopril-hydrochlorothiazide 20-25 mg tablet 1 tab PO QAM alcohol swabs [Alcohol Prep Pads] Pads, Medicated 1 pledget topical BID (DME) pen needle, diabetic [Pentips Pen Needle] 32 gauge x 5/32 needle MISCELLANEOUS BID (DME) lancets [TRUEplus Lancets] 33 gauge misc MISCELLANEOUS TID venlafaxine 75 mg Capsule,Extended Release 24hr 75 mg PO DAILY 30 Days Qty: 30 0RF olanzapine 7.5 mg Tablet 7.5 mg PO BEDTIME 30 Days Qty: 30 0RF gabapentin 100 mg Capsule 200 mg PO TID 30 Days Qty: 180 0RF memantine 5 mg Tablet 5 mg PO BEDTIME 30 Days Qty: 30 0RF acetaminophen [Tylenol Extra Strength] 500 mg tablet 1,000 mg PO QID PRN (Reason: fever or pain) Qty: 14 0RF tramadol 50 mg tablet 50 mg PO Q8H PRN (Reason: pain) Qty: 14 0RF Rx Instructions: May partially fill upon patient request methocarbamol 750 mg tablet 750 mg PO Q8H PRN (Reason: pain, moderate) Qty: 15 0RF cyclobenzaprine 10 mg tablet 10 mg PO TID PRN (Reason: muscle spasm) Qty: 14 0RF ibuprofen 400 mg tablet 400 mg PO Q6H PRN (Reason: pain) Qty: 14 0RF morphine 15 mg tablet 15 mg PO Q6H PRN (Reason: pain) Qty: 14 0RF Rx Instructions: Partial Fill upon patient request. acetaminophen 500 mg capsule 1,000 mg PO Q8H PRN (Reason: fever or pain) Qty: 14 0RF oxycodone 5 mg tablet 5 mg PO Q6H PRN (Reason: pain) Qty: 12 0RF Rx Instructions: Partial Fill upon patient request. ofloxacin 0.3 % drops 10 drp otic (ear) left BID Qty: 10 0RF albuterol sulfate 2.5 mg/0.5 mL solution for nebulization 5 mg inhalation Q4H PRN (Reason: shortness of breath or wheezing) Qty: 30 0RF acetaminophen [Tylenol] 325 mg tablet 325 mg PO QID PRN (Reason: fever or pain) Qty: 20 0RF cephalexin 500 mg capsule 500 mg PO BID Qty: 14 0RF phenazopyridine [Pyridium] 200 mg tablet 200 mg PO TID PRN (Reason: pain) Qty: 10 0RF trazodone 100 mg tablet 100 mg PO BEDTIME PRN (Reason: insomnia) amlodipine 5 mg tablet 5 mg PO DAILY (DME) Telestream Sandra 2 Sensor Kit See Rx Instructions .ROUTE DIRECTED Qty: 1 Rx Instructions: As directed loratadine 10 mg tablet 10 mg PO DAILY metformin 1,000 mg tablet 1,000 mg PO [place] SoloStar U-300 Insulin 300 unit/mL (1.5 mL) insulin pen 100 unit subcut BEDTIME cholecalciferol (vitamin D3) [Vitamin D3] 50 mcg (2,000 unit) capsule 50 mcg PO QAM levothyroxine 25 mcg tablet 25 mcg PO QAM Trulicity 3 mg/0.5 mL pen injector subcut QWEEK budesonide-formoterol [Symbicort] 160-4.5 mcg/actuation HFA aerosol inhaler 2 puff inhalation BID insulin lispro 100 unit/mL insulin pen 40 unit subcut TID pantoprazole 40 mg tablet,delayed release (DR/EC) 40 mg PO QAM rosuvastatin 40 mg tablet 40 mg PO QPM venlafaxine 37.5 mg capsule,extended release 24hr 37.5 mg PO DAILY Referrals: Prudence Hooks MD [Primary Care Provider, Internal Medicine] Interventions: ED Discharge Assessment Last Done: 06/26/25 17:29 Discharge Date/Time: 06/26/25 18:38 Print Language: [place] Sudanese
[2025-06-26 15:55] LABS: MANUAL DIFF FLAG NO
[2025-06-26 15:56] LABS: Hematocrit 42.6 % (37.0-47.0); Hemoglobin 14.0 g/dl (12.0-16.0); Imm Gran Abs Auto 0.03 X10*3/uL (0.00-0.03); Imm Gran Pct Auto 0.4 % (0.0-0.4); Lymphocytes Absolute Auto 2.0 X10*3/uL (1.2-4.9); Mean Corpuscular HGB Conc 32.9 g/dl (31.0-35.0); Mean Corpuscular Hemoglobin 27.8 pg (27.0-33.0); Mean Corpuscular Volume 84.5 fL (80.0-98.0); NRBC Abs Auto 0.000 X10*3/uL (0.0-0.012); NRBC Pct Auto 0.0 /100WBC (0.0-0.2); Platelet Count 215 X10*3/uL (160-400); Red Blood Count 5.04 X10*6/uL (4.20-5.50); White Blood Count 6.9 X10*3/uL (4.8-10.8)
[2025-06-26 16:12] LABS: Alanine Aminotransferase 55 U/L (0-31); Albumin Level 4.7 g/dL (3.5-5.0); Alkaline Phosphatase 97 U/L (39-117); Anion Gap 12 (12-20); Aspartate Amino Transferase 55 U/L (5-31); Blood Urea Nitrogen 16 mg/dL (9-16); Calcium 10.7 mg/dL (8.4-10.2); Carbon Dioxide 28 mmol/L (22-29); Chloride 98 mmol/L (96-108); Creatinine Clr Calc Pharmacy 74.9; Estimated Glomerular Filt Rate 48; Magnesium 1.8 mg/dL (1.6-2.6); Potassium 3.4 mmol/L (3.3-5.1); Sodium 135 mmol/L (135-145); Total Protein 8.2 g/dL (6.5-8.0)
[2025-06-26 16:28] LABS: Troponin-I High Sensitivity < 2.7 ng/L (<3.5-17.0)
[2025-06-26 17:01] LABS: Resp Syncy Virus RNA Qual PCR NEGATIVE (Negative); SARS COV2 PCR INHOUSE NEGATIVE (Negative)
[2025-06-26 17:29] VITALS: BP 131/79; PULSE 103; RESP 20; TEMP 36.8; O2SAT 95
--- OUTSIDE RECORDS SUMMARY | 2025-06-26 18:11 | XMS_ITS | Encounter Summary ---
Author Organization [employer] Address [address] [place] [address] [address] [place] [address] Care Team Providers Care Drill Sergeant Name Role Phone Kelli Bryant Primary Care Provider [phone] Prudence Hooks MD Primary Care Provider [phone] Reason for Visit * Reason Comments Med Refill Encounter Details Date Type Department Care Team (Late st Contact Info) Description 07/21/2022 Refill [facility] [address] [place], [place] [id number] Kelli Bryant ANP [address] [place] [address] Social History Tobacco Use Types Packs/Day Years [...] 3:00 PM EST Office Visit [facility] [address] [place], [place] [phone] Arlen Wood, OD [address] [place] [address] documented as of this encounter Visit Diagnoses Not on filedocumented in this encounter Care Teams Drill Sergeant Relationship Specialty Start Date End Date Kelli Bryant ANP [address] [place] [address] PCP - General Family Medicine 03/01/20 09/30/22 Prudence Hooks MD [address] [place] [address] [place] [phone] PCP - General 01/30/25 documented as of this encounter
--- OUTSIDE RECORDS SUMMARY | 2025-06-26 18:11 | XMS_ITS | Encounter Summary ---
Author Organization [employer] Address [address] [place] [address] [address] [place] [address] Care Team Providers Care Tape Maker Name Role Phone Prudence Hooks MD Primary Care Provider [phone] Reason for Visit * Reason Comments Med Refill Encounter Details Date Type Department Care Team (Late st Contact Info) Description 12/19/2022 Refill [facility] [address] [place] [address] Kelli Bryant ANP [address] [place] [address] Social History Tobacco Use Types Packs/Day Years [...] Description 07/13/2025 3:00 PM EST Office Visit [facility] [address] [place] [address] Arlen Wood, OD [address] [place] [address] documented as of this encounter Visit Diagnoses Not on filedocumented in this encounter Care Teams Tape Maker Relationship Specialty Start Date End Date Prudence Hooks MD [address] [place] [address] [place] [address] PCP - General 01/30/25 documented as of this encounter
--- OUTSIDE RECORDS SUMMARY | 2025-06-26 18:11 | XMS_ITS | Clinical Summary ---
Author Organization [employer] Address [address] [place] [address] 7t [place] [address] Care Team Providers Care Single Stayer Operator Name Role Phone Prudence Hooks MD Primary Care Provider [phone]- [phone] Allergies No known active allergies Medications amoxicillin [...] 24 hr capsuleIndicatio ns:Bipolar disease, chronic (CMS/HCC) ([facility]) TAKE 1 CAPSULE BY MOUTH EVERY MORNING WITH FOOD 90 capsule 06/18/20 22 Active venlafaxine XR (Effexor XR) 37.5 MG 24 hr capsuleIndicatio ns:Bipolar disease, chronic (CMS/HCC) ([facility]) TAKE 1 CAPSULE BY MOUTH EVERY MORNING WITH FOOD 90 capsule 06/18/20 22 Active OLANZapine (ZyPREXA) 7.5 MG tabletIndication s:Bipolar disease, chronic (CMS/HCC) ([facility]) TAKE 1 TABLET BY MOUTH AT BEDTIME [...] hyperglycemia, with long-term current use of insulin ([facility]) USE WITH INSULIN PEN TWICE DAILY 100 each 5 07/24/19 23 Active memantine (Namenda) 5 MG tabletIndication s:Frontal lobe dementia (CMS/HCC) ([facility]) TAKE 1 TABLET BY MOUTH AT BEDTIME [...] 20 doses. 20 tablet 03/21/20 24 Active Frantz Diaz SoloStar 300 UNIT/ML injection INJECT 120 [...] type 2 diabetes mellitus Cirrhosis of liver (CMS/HCC) 06/25/2018 Hepatitis B core antibody positive 06/25/2018 Disorder of pancreas 04/06/2018 Fibromyositis 03/22/2015 Hypertensive disorder 03/22/2015 Asthma 12/04/2014 Backache 12/04/2014 Bipolar disorder 04/03/2014 Pain in upper limb 04/03/2014 Amenorrhea 12/06/2012 Breast lump 01/12/2012 Chronic hepatitis C (CMS/HCC) 12/25/2011 Depressive disorder 12/25/2011 Disorder of skeletal [...] Description 07/13/2025 3:00 PM EST Office Visit [facility] [address] [place] [address] Arlen Wood, OD [address] [place] [address] Health Maintenance Due Date Last Done Comments CT Colonography 1967 Colonoscopy 1967 Colorectal Cancer Screening 1967 Depression Screening 1967 FIT DNA/Cologuard 1967 FIT 1967 FOBT 1967 HIV Screening 1967 SDOH Screening 1967 Sigmoidoscopy 1967 Disability Screening 1967 Diabetes: Foot Exam 1977 Alcohol/Substance Use Screening 1979 Pap Smear 01/18/1988 Cervical Cancer Screening 1997 HPV/Cotest 1997 RSV Patients and Patients Aged 60 years or older (1 - Risk 50-74 years 1-dose series) 2017 Dental Prophylaxis 05/22/2018 11/18/2017 Hepatitis A Vaccines (2 of 2 - Risk 2-dose series) 12/24/2018 06/25/2018 Dental X-Ray: Bitewings 01/19/2020 01/18/20 19, 01/07/2017, 05/12/2014, Additional history exists Mammogram 04/07/2020 04/07/2018 Diabetes: Hemoglobin A1C 09/18/2020 06/20/2020, 05/30 Dental X-Ray: Full Mouth 01/18/2022 019, 05/12/2014, 10/28/2010, Additional history exists Diabetes: Urine Protein Screening 03/28/2023 03/28/2022, 03/14/2021 Lipid Panel 03/28/2023 03/28/2022, 02/27, 06/20/2020, Additional history exists Dental Oral Exam 09/19/2024 03/21/2024, , 01/07/2017, Additional history exists COVID-19 Vaccine ( - 2024- season) 2025 12/21/2020, 11/29/2020 Influenza Vaccine (#1) 2025 , 03/17/2022, 05/09/2021, Additional history exists Eye Exam 01/10/2026 01/10/2025, 12/27, 01/10/2025, Additional history exists Tobacco Screening 01/25/2026 01/25/2025 DTaP/Tdap/Td Vaccines (3 - Td or Tdap) 11/08/2033 11/09/2023, 10/05/2014, 07/01/2001 Pneumococcal Vaccine: 50+ Years Completed 11/09/2023, 06/25/2018 [...] PM EDT us Kelli Bryant ANP LAB URINE ORDERABLES Final Resul t Performing Organization Address [facility] de Phone Number CONVERTED LEGACY LABS * [...] factors. LDL-C is now calculated using the Esau-Vargas calculation, which is a validated novel method providing better accuracy than the Friedewald equation in the estimation of LDL-C. Esau SS et al. ALAINA. 2013;310(19): 3010-7410 (http://education.Combat Stroke.ActiveSec/faq/LJY725) Non-HDL Cholesterol 118 <130 mg/dL (calc) CONVERTED LEGACY LABS Comment: For patients with diabetes plus 1 major ASCVD risk factor, treating to a non-HDL-C goal of <100 mg/dL (LDL-C of <70 mg/dL) is considered a therapeutic option. Triglycerides 97 <150 mg/dL CONVE RTED LEGACY LABS 03/28/2022 12:0 5 PM EDT us Kelli Bryant ANP LAB BLOOD ORDERABLES Final Resul t Performing Organization Address [facility] de Phone Number CONVERTED LEGACY LABS * [...] for children. 06/20/2020 10:3 1 AM EST us Kelli Bryant [facility] LAB BLOOD ORDERABLES Final Resul t [facility] [address] * DIGITAL BILATERAL SCREEN 1 (04/07/2018 1:48 PM EDT) Anatomical Region Laterality Modality Breast Bilateral Mammography 04/07/2018 1:48 PM EDT Narrative 04/07/2018 1:49 PM EDT Refer to the Notes tab for result details Legacy Procedure: DIGITAL BILATERAL SCREEN 1 Procedure Note Provider, MD Shaila - 09/20/2022 Refer to the Notes tab for result details Legacy Procedure: DIGITAL BILATERAL SCREEN 1 Gavin King [employer]ARM MACHINE TENDER IMG BI PROCEDURES Final Result from Last 3 Months or Most Recently Relevant to Health Maintenance Insurance [address] [place], [place] [address] [facility] STAND ADULT Care Teams Single Stayer Operator Relationship Specialty Start Date End Date Prudence Hooks MD [address] [place] [address] [place] [address] PCP - General 01/30/25
--- OUTSIDE RECORDS SUMMARY | 2025-06-26 18:11 | XMS_ITS | Encounter Summary ---
Author Organization [employer] Address [address] [facility] [address] [place] [address] Care Team Providers Care Certified Solid Waste Facility Operator Name Role Phone Prudence Hooks MD Primary Care Provider [phone]- [phone] Reason for Visit * Reason Comments Med Refill Encounter Details Date Type Department Care Team (Late st Contact Info) Description 10/26/2022 Refill [facility] MED & PEDS [address] [place], [place] [phone] Kelli Bryant, ANP [address] [place] [address] Essential hypertension Social History Tobacco Use Types [...] [facility] [address] [place] [address] Arlen Wood, OD [address] [place] [address] documented as of this encounter Visit Diagnoses Diagnosis Essential hypertension Unspecified essential hypertension documented in this encounter Care Teams Certified Solid Waste Facility Operator Relationship Specialty Start Date End Date Prudence Hooks MD [address] [place] [address] [place] [address] PCP - General 01/30/25 documented as of this encounter
--- OUTSIDE RECORDS SUMMARY | 2025-06-26 18:11 | XMS_ITS | Encounter Summary ---
Author Organization [employer] Address [address] [place] [address] [address] [place] [address] Care Team Providers Care Laser Specialist Name Role Phone Prudence Hooks MD Primary Care Provider [phone]- [phone] Reason for Visit * Reason Comments Med Refill Encounter Details Date Type Department Care Team (Late st Contact Info) Description 11/25/2022 Refill [facility] [address] [place] [address] Kelli Bryant ANP [address] [place] [address] Fibromyalgia Social History Tobacco Use Types Packs/Day [...] Description 07/13/2025 3:00 PM EST Office Visit [facility] [address] [place] [address] Israel, Arlen, OD [address] [place] [address] documented as of this encounter Visit Diagnoses Diagnosis Fibromyalgia Unspecified myalgia and myositis documented in this encounter Care Teams Laser Specialist Relationship Specialty Start Date End Date Prudence Hooks MD [address] [place] [address] [place] [address] PCP - General 01/30/25 documented as of this encounter
--- OUTSIDE RECORDS SUMMARY | 2025-06-26 18:11 | XMS_ITS | Encounter Summary ---
Author Organization [employer] Address [address] [place] [address] [address]t [place] [address] Care Team Providers Care District Court Administrator Name Role Phone Prudence Hooks MD Primary Care Provider [phone]- [phone] Reason for Visit * Reason Comments Med Refill Encounter Details Date Type Department Care Team (Late st Contact Info) Description 04/28/2023 Refill [facility] MED & PEDS [address] [place], [place] [phone] Kelli Bryant, ANP [address] [place] [address] Social History Tobacco Use Types Packs/Day Years [...] Description 07/13/2025 3:00 PM EST Office Visit [facility] [address] [place] [address] Arlen Wood, OD [address] [place] [address] documented as of this encounter Visit Diagnoses Not on filedocumented in this encounter Care Teams District Court Administrator Relationship Specialty Start Date End Date Prudence Hooks MD [address] [place] [address] [place] [address] PCP - General 01/30/25 documented as of this encounter
--- OUTSIDE RECORDS SUMMARY | 2025-06-26 18:11 | XMS_ITS | Encounter Summary ---
Author Organization [employer] Address [address] [place] [address] [address] [place] [address] Care Team Providers Care Molder Bench Name Role Phone Prudence Hooks MD Primary Care Provider [phone]- [phone] Reason for Visit * Reason Comments Med Refill Encounter Details Date Type Department Care Team (Late st Contact Info) Description 10/20/2022 Refill [facility] [address] [place] [address] Kelli Bryant ANP [address] [place] [address] Social History Tobacco Use Types Packs/Day Years [...] Description 07/13/2025 3:00 PM EST Office Visit [facility] [address] [place] [address] IsraelArlen gross, OD [address] [place] [address] documented as of this encounter Visit Diagnoses Not on filedocumented in this encounter Care Teams Molder Bench Relationship Specialty Start Date End Date Prudence Hooks MD [address] [place] [address] [place] [address] PCP - General 01/30/25 documented as of this encounter
--- OUTSIDE RECORDS SUMMARY | 2025-06-26 18:11 | XMS_ITS | Encounter Summary ---
Author Organization [employer] Address [address] [place] [address] [address] [place] [address] Care Team Providers Care Parent Aide Name Role Phone Prudence Hooks MD Primary Care Provider [phone]- [phone] Reason for Visit * Reason Comments Med Refill Encounter Details Date Type Department Care Team (Late st Contact Info) Description 04/28/2023 Refill [facility] MED & PEDS [address] [place], [place] [phone] Kelli Bryant, ANP [address] [place] [address] Social History Tobacco Use Types Packs/Day Years [...] Description 07/13/2025 3:00 PM EST Office Visit [facility] [address] [place] [address] Arlen Wood, OD [address] [place] [address] documented as of this encounter Visit Diagnoses Not on filedocumented in this encounter Care Teams Parent Aide Relationship Specialty Start Date End Date Prudence Hooks MD [address] [place] [address] [place] [address] PCP - General 01/30/25 documented as of this encounter
--- OUTSIDE RECORDS SUMMARY | 2025-06-26 18:11 | XMS_ITS | Encounter Summary ---
Author Organization [employer] Address [address] [place] [address] [address] [place] [address] Care Team Providers Care Physician Relations Representative Name Role Phone Kelli Bryant Primary Care Provider [phone] Prudence Hooks MD Primary Care Provider [phone] Encounter Details Date Type Department Care Team (Late st Contact Info) Description 07/22/2022 Orders Only [facility] [address] [place] [address] Lola Mitchell LPN Social History Tobacco Use [...] Description 07/13/2025 3:00 PM EST Office Visit [facility] [address] [place] [address] Israel, Arlen, OD [address] [place] [address] documented as of this encounter Visit Diagnoses Not on filedocumented in this encounter Care Teams Physician Relations Representative Relationship Specialty Start Date End Date Kelli Bryant ANP [address] [place] [address] PCP - General Family Medicine 03/01/20 09/30/22 Prudence Hooks MD [address] [place] [address] Dr Rojo, [place] [address] PCP - General 01/30/25 documented as of this encounter
--- OUTSIDE RECORDS SUMMARY | 2025-06-26 18:11 | XMS_ITS | Encounter Summary ---
Author Organization [employer] Address [address] [facility] [address]t [place] [address] Care Team Providers Care Medical Manager Name Role Phone Prudence Hooks MD Primary Care Provider [phone]- [phone] Reason for Visit * Reason Comments Med Refill Encounter Details Date Type Department Care Team (Late st Contact Info) Description 10/27/2022 Refill [facility] MED & PEDS [address] [place], [place] [phone] Kelli Bryant, ANP [address] [place] [address] Essential hypertension Social History Tobacco Use Types [...] Description 07/13/2025 3:00 PM EST Office Visit [facility] [address] [place] [address] Arlen Wood, OD [address] [place] [address] documented as of this encounter Visit Diagnoses Diagnosis Essential hypertension Unspecified essential hypertension documented in this encounter Care Teams Medical Manager Relationship Specialty Start Date End Date Prudence Hooks MD [address] [place] [address] [place] [address] PCP - General 01/30/25 documented as of this encounter
== END 2025-06-26 18:38 | disposition home or self-care (01) ==
LOC: HO.ED 17:36
PROVIDERS: Physician Assistant Medical; Emergency Provider Emergency Medicine; PCP Internal Medicine
DX: J10.1 Influenza due to other identified influenza virus with other respiratory manifestations (principal); R05.9 Cough, unspecified; R51.9 Headache, unspecified; Z79.899 Other long term (current) drug therapy; Z03.818 Encounter for observation for suspected exposure to other biological agents ruled out
CPT/HCPCS: 71046; 80053; 83735; 84484; 85025; 87637; 93005; 99283

== ENCOUNTER → 2025-06-26 14:11 | Outpatient (BNV) | payer MEDICAID, SELFPAY | PROVIDERS: Emergency Provider Emergency Medicine; PCP Internal Medicine; Visit Provider Internal Medicine | DX: R00.0 Tachycardia, unspecified (principal) | CPT/HCPCS: 93010 ==

== ENCOUNTER → 2025-06-26 14:53 | Outpatient (BNV) | payer MEDICAID, SELFPAY | PROVIDERS: PCP Internal Medicine; Visit Provider Radiology Diagnostic Radiology | DX: R05.9 Cough, unspecified (principal) | CPT/HCPCS: 71046 ==